=== PATIENT | female | born 1960 | race Caucasian/White ===

== ENCOUNTER 2016-09-09 07:20 | Inpatient (IN) | payer BC ==
[2016-09-09] VITALS (7 sets, daily range): BP systolic 102–146; BP diastolic 66–128
[~2016-09-09] VITALS: Ht 157.4 cm; Wt 45.8 kg
--- NOTE | ~2016-09-09 | PR ---
[place], [place] PROGRESS NOTE NAME: TERA HU UNIT #: [id number] ROOM: 531 DOCTOR: VERO PILLAI MD BIRTHDATE: [birth year] DOS: 09/11/2016 SUBJECTIVE: The patient, although slightly breathing better, but still has significant cough, chest congestion, shortness of breath, and some suffocating feeling. OBJECTIVE: VITAL SIGNS: Blood pressure 134/74, heart rate 73 beats per minute, breathing 20 times per minute, temperature 98 degrees Fahrenheit. GENERAL APPEARANCE: The patient is alert and oriented x 3, in no visible distress. HEENT AND NECK: Exam within normal limits. CARDIOVASCULAR SYSTEM: Heart rate is regular in rate and rhythm. S1 and S2 normally audible. LUNGS: Expiratory wheezing on lung auscultation and decreased breath sounds. ABDOMEN: Soft, nontender. No obvious organomegaly. Bowel sounds are present. EXTREMITIES: Without significant cyanosis or edema. IMPRESSION AND PLAN: 1. The patient with exacerbation of severe underlying chronic obstructive pulmonary disease with slightly improved breathing, but still short of breath. I will continue corticosteroids, bronchodilators, oxygen, and antibiotics. Dr. Lezama to see the patient tomorrow. 2. Right lower rib severe pains have completely resolved with Neurontin and Mirapex, which will be continued. 3. The patient has some abnormal findings on the CT scan of the abdomen and pelvis showing that urinary bladder was moderately distended and density in the region of left ureterovesical junction, for which she will be referred to urologist as an outpatient. This was discussed with the patient. She also has possible ureterocele. 4. Cardiac enzymes were negative. 5. Benign essential hypertension with controlled blood pressures. 6. Nicotine smoke dependence. The patient is promising not to smoke cigarettes anymore. 7. Generalized anxiety disorder, reasonably controlled. 8. Gastroesophageal reflux disease and esophagitis, asymptomatic. [place], [place] PROGRESS NOTE NAME: TERA HU UNIT #: [id number] ROOM: 531 DOCTOR: VERO PILLAI MD BIRTHDATE: [birth year] VERO PILLAI MD CM:PNTRANS [id number] VERO PILLAI MD 09/12/16 1320 interface
--- NOTE | ~2016-09-09 | PR ---
[place], [place] PROGRESS NOTE NAME: TERA HU [facility] #: [id number] UNIT #: [id number] ROOM: 531 DOCTOR: JONATHAN MARC MD,ZAC BIRTHDATE: [birth year] DOS: 09/12/2016 SUBJECTIVE: She has been noted with some chest congestion and coughing. Denies symptoms of chest pain or any abdominal pain. OBJECTIVE: VITAL SIGNS: For the patient which has been recorded shows the temperature of the patient recorded as normal. The respiratory rate 20, heart rate of 97, blood pressure 137/85. HEENT: Shows no acute change. NECK: Supple. CARDIOVASCULAR: S1, S2 audible. LUNGS: The patient noted ____ wheezing, no crackles. ABDOMEN: Soft, nontender. IMPRESSION: The patient with acute exacerbation of chronic obstructive pulmonary disease, acute tracheobronchitis with pain in the chest of the patient and upper quadrant for the patient currently unknown. PLAN OF TREATMENT: No changes in the plan of management from pulmonary standpoint. Continue the patient on current therapy, plan of care as previously. Supportive care. ZAC CASTILLO MD CM:PNTRANS [phone] ZAC MARC MD 09/13/16 0233 interface
--- NOTE | ~2016-09-09 | PR ---
[place], [place] PROGRESS NOTE NAME: TERA HU UNIT #: [id number] ROOM: 531 DOCTOR: ZAC BYRNES MD BIRTHDATE: [birth year] DOS: 09/10/2016 PULMONARY PROGRESS NOTE SUBJECTIVE: She has been noted awake and alert at this time without any distress. OBJECTIVE: VITAL SIGNS: For the patient, which has been recorded showed the temperature noted as normal, respiratory rate 20, heart rate of 110, blood pressure 128/67. HEENT: Examination shows no new change. NECK: Supple. CARDIOVASCULAR SYSTEM: S1, S2 is audible. LUNGS: The patient was noted without any wheezing or crackles at this time. ABDOMEN: Soft, nontender. LABORATORY DATA: CBC of the patient that was done this morning was noted WBC count 11.4, remaining CBC was essentially noted as normal. Troponin was noted as normal. CT of the chest for the patient shows postoperative changes in the right upper lobe for this patient with some scarring without any other acute abnormalities. CT scan of the abdomen and pelvis for the patient was describing some abnormality for this patient in the ureter and other area for this patient. IMPRESSION: 1. The patient with pain which was described to be spasmodic most likely related to the GI tract for this patient or urogenital tract to be considered not related to the lung problem. 2. History of chronic obstructive pulmonary disease. 3. Status post right upper lobectomy. 4. Stable pulmonary nodules noted in the right mid lung. PLAN OF TREATMENT: The patient subpleural subcentimeter in size is stable as compared to the previous CT scan of the chest for the patient that was done for this patient on 01/01/2016. The scarring in the right upper lobe for the patient does not result in any pain, which was described with the patient in the lower anterior chest wall, right upper quadrant and in the abdomen. [place], [place] PROGRESS NOTE NAME: TERA HU UNIT #: [id number] ROOM: 531 DOCTOR: ZAC BYRNES MD BIRTHDATE: [birth year] ZAC CASTILLO MD CM:PNTRANS [id number] ZAC MARC MD 09/11/16 0225 interface
--- NOTE | ~2016-09-09 | WRIGHTHP ---
[place], [place] PATIENT HISTORY AND PHYSICAL EXAM NAME: TERA HU [facility] #: [id number] UNIT #: [id number] ROOM: 531 DOCTOR: VERO PILLAI MD BIRTHDATE: [birth year] DOS: 09/09/2016 HISTORY OF PRESENT ILLNESS: The patient is a 56-year-old female with a past medical history of, 1. Advanced end-stage chronic obstructive pulmonary disease. 2. History of generalized anxiety disorder. 3. Benign essential hypertension. 4. Vitamin D deficiency. 5. Gastroesophageal reflux disease and esophagitis. 6. History of right lung lobectomy for a benign mass. 7. Continued nicotine smoke dependence. The patient presented to the Emergency Department with a few day complaints of increasing shortness of breath, cough and severe and recurrent pains in the right lower ribs where she had chest tube placement in the past, which are chronic for her. The patient has started smoking a few cigarettes a day again. No dizziness or fainting episodes. No other GI or urinary symptoms, but the patient has significant cough and shortness of breath. No complaints of any other chest pain or angina-like symptoms. No GI or urinary symptoms. SYSTEMS REVIEW: LUNGS: Increasing shortness of breath and cough. GASTROINTESTINAL: No nausea, vomiting, diarrhea, or constipation. CARDIOVASCULAR SYSTEM: Some complains of muscular type right lower chest pains, which are recurrent and chronic, otherwise no palpitations, no angina symptoms. SOCIAL HISTORY: , smokes a few cigarettes a day and now, longtime heavy smoker in the past. Denies any alcohol or drug abuse. FAMILY HISTORY: Noncontributory. HOME MEDICATIONS: The patient takes ropinirole, diltiazem, omeprazole, bronchodilators, Xanax at home. ALLERGIES: Known allergies to IRBESARTAN. PHYSICAL EXAMINATION: GENERAL: Alert and oriented x 3, in no visible distress. VITAL SIGNS: Blood pressure 102/82, heart rate of 106 beats per minute, breathing 20 times per minute, temperature 98.4 degrees Fahrenheit. HEENT AND NECK: Extraocular movements are intact. Sclerae are anicteric. Oral mucosa is moist and clean. No obvious facial weakness. Neck is supple without any lymphadenopathy. No thyromegaly. No JVD. No carotid arterial bruits. LUNGS: Decreased breath sounds all over on lung auscultation. CARDIOVASCULAR SYSTEM: Heart rate is regular in rate and rhythm. S1 and S2 normally audible. No significant murmur or any other abnormal cardiac sounds. ABDOMEN: Soft, nontender. No obvious organomegaly. Bowel sounds are present. No obvious herniation. [place], [place] PATIENT HISTORY AND PHYSICAL EXAM NAME: TERA HU [facility] #: [id number] UNIT #: [id number] ROOM: 531 DOCTOR: VERO PILLAI MD BIRTHDATE: [birth year] EXTREMITIES: Without significant cyanosis or edema. Warm to touch. CENTRAL NERVOUS SYSTEM: Alert and oriented x 3. Cranial nerves II-XII are intact. Speech is normal. The patient is able to move all extremities. Normal muscle strength. Deep tendon reflexes are equal on both sides. Plantars were downgoing. IMPRESSION: 1. Exacerbation of severe underlying chronic obstructive pulmonary disease with increased shortness of breath and hypoxemia along with tachycardia is being treated with IV Solu-Medrol, oxygen and nebulizer treatments with DuoNeb and antibiotic azithromycin and Dr. Grijalva, the park ranger is following her. A CT scan of the chest and CT angiogram were performed without any acute or any significant abnormality. The patient being monitored closely in the [facility]. 2. Nicotine smoke dependence. The patient again encouraged to stop smoking cigarettes. She keeps going back to smoking cigarettes, which she stopped when she had a lung mass surgery. The patient has advanced end-stage lung disease and was again encouraged not to smoke cigarettes anymore. 3. Benign essential hypertension with controlled blood pressures with treatment. 4. Painful muscle spasms in right lower rib area and some tenderness in the right lower rib and epigastric area. The patient says she has had cholecystectomy in the past. I will check her cardiac enzymes and also stop her ropinirole, instead give her a higher dose of Mirapex and also start her on Neurontin for help with her pain. I am also giving her cough suppression with Robitussin-DM. The patient's cough is probably also aggravating the muscle spasms and hurting her even more. 5. Gastroesophageal reflux disease and esophagitis. I will continue omeprazole which she is already taking at home. 6. For Vitamin D deficiency, the patient on vitamin D supplements, which are being continued. 7. Benign essential hypertension. The patient continued on Cardizem. Blood pressures are being monitored and she is also on a car icer. VERO PILLAI MD CM:HISPHYS:PATIENT HISTORY AND PHYSICAL EXAMINATION [phone] VERO PILLAI MD 09/09/16 9456 interface
--- NOTE | ~2016-09-09 | PR ---
[place], [place] PROGRESS NOTE NAME: TERA HU [facility] #: [id number] UNIT #: [id number] ROOM: 531 DOCTOR: MARYSE VASQUEZ MD BIRTHDATE: [birth year] DOS: 09/12/2016 SUBJECTIVE: The patient is resting comfortably, does not have any complaints other than she is slowly getting better. PHYSICAL EXAMINATION: GENERAL: She is awake and alert and oriented. VITAL SIGNS: Pressure is 130/70, pulse of 86, respirations 14, afebrile. LUNGS: Diminished breath sounds, a few scattered wheezes. HEART: Regular. ABDOMEN: Obese, soft. EXTREMITIES: Without any edema. ASSESSMENT AND PLAN: 1. Acute exacerbation of chronic obstructive pulmonary disease, on appropriate treatment regimen. 2. Tobacco dependence, most likely responsible for repeat exacerbations. No changes made in the treatment plan. Continue current care. Follow Dr. Grijalva and Dr. Liz's instructions. MARYSE VASQUEZ MD CM:PNTRANS [phone] MARYSE VASQUEZ MD 09/13/16 0059 interface
--- NOTE | ~2016-09-09 | CON ---
[place], [place] REPORT OF CONSULTATION NAME: TERA HU [facility] #: [id number] UNIT #: [id number] ROOM: 531 DOCTOR: ZAC BYRNES MD BIRTHDATE: [birth year] DOS: 09/09/2016 PULMONARY CONSULTATION REASON FOR CONSULTATION: Assess the patient's chest pain and other symptoms. HISTORY OF PRESENT ILLNESS: This is a 56-year-old white female came into the Emergency Room and hospitalized this morning as the patient was complaining of symptoms of shortness of breath that has been noted gradually worsening. These symptoms were also associated at time with the patient's pain, which were described in the right lower anterior chest wall, right upper quadrant and flank area. The pain was described to be spasmodic in nature and described it as severe and comes without any warning as per patient. The pain does resolve later on. She denies symptoms of hemoptysis or chest trauma. Denies symptoms of sputum expectoration and coughing. Wheezing for the patient was known. REVIEW OF SYSTEMS: CONSTITUTIONAL: Fatigue and tiredness noted no symptoms of fever or chills. EYES: Denies any burning, redness, or tenderness. EARS, NOSE, THROAT SYMPTOMS: No sore throat, hoarseness, otalgia, postnasal drainage. CARDIOVASCULAR: Denies anginal pain, edema of the lower extremities or palpitations. GASTROINTESTINAL: Dysphagia, nausea, vomiting, diarrhea, abdominal pain, hematemesis, melena, or hematochezia. SKIN: Denies lesions or rashes. GENITOURINARY: Denies dysuria, suprapubic pain, hematuria. CENTRAL NERVOUS SYSTEM: No dizziness, headache, diplopia, syncopal episodes or seizures. Remaining systems were reviewed. They were noted all negative. PAST MEDICAL HISTORY: 1. Past hospitalization in 07/2015 for the medical and acute exacerbation of COPD. 2. Centrilobular emphysema. 3. Essential hypertension. 4. Generalized anxiety disorder. 5. Right upper lobectomy for the patient, which was noted non-malignant nodule for the patient in [facility]. PAST SURGICAL HISTORY: 1. Complete hysterectomy in 1999. 2. Laparoscopic cholecystectomy in 1999. 3. Fiberoptic bronchoscopy in July 2015 and in 2012. 4. Resection of right upper lung pulmonary nodule on in [facility]. FAMILY HISTORY: The patient's mother at age of 7272 years old, complication of bronchial asthma. Father at age of 6161 years old from acute myocardial infarction. [place], [place] REPORT OF CONSULTATION NAME: TERA HU UNIT #: [id number] ROOM: 531 DOCTOR: JONATHAN MRAC MD,ZAC BIRTHDATE: [birth year] SOCIAL HISTORY: The patient is , has one child. Denies any alcohol use or illicit drug use. Tobacco use was noted a pack of cigarettes a day since teenager and later on the patient had been smoking cigarettes intermittently, currently stating that she has been smoking only 2 cigarettes a day. MEDICATIONS: Currently administered medications noted use of Mirapex, IV Solu-Medrol, Requip, Daliresp, Cardizem-CD, omeprazole, Dulera, DuoNeb, Zithromax, Xanax, gabapentin and other medications p.r.n. administration. DRUG ALLERGIES: The patient noted as allergies to the Avapro. PHYSICAL EXAMINATION: GENERAL: A 56-year-old female who has been noted currently awake and alert without any distress. VITAL SIGNS: Height of 5 feet 2 inches, weight of 101 pounds, BMI 18.5. Normal temperature, respiratory rate 20, heart rate 83 and noted 154 beats per minute on admission. Blood pressure noted 104/82-132/84. Pulse oxygen saturation of the patient on 3 liters nasal cannula 96% saturation. HEENT: Examination shows head is atraumatic. Eyes nonicterus. NECK: Supple. CARDIOVASCULAR: S1, S2 audible. LUNGS: General reduction in breath sounds noted with expiratory wheezing. There are no crackles. ABDOMEN: Soft, nontender and flat. EXTREMITIES: Show no edema, clubbing, cyanosis. CENTRAL NERVOUS SYSTEM: Cranial nerves 2 through 12 intact. No focal deficits. MUSCULOSKELETAL: No acute deformities. LABORATORY DATA: Lactic acid for the patient this morning was normal. CBC this morning essentially noted as normal. PT/PTT this morning was normal. CMP this morning, normal C-reactive protein minimally elevated at 2.12. Normal CK, MB and troponin. The chest x-ray shows postsurgical changes of the right upper lobe, for the patient, otherwise, hyperinflation of the lungs without any acute abnormalities. One-view x-ray was done. IMPRESSION: 1. Current pain, which has been described by the patient in the right lower anterior chest wall as the right upper quadrant and possibly the right flank, spasmodic in nature, etiology unclear. 2. Rule out etiology related to the biliary colic, related to any kidney problems including stones and others. 3. Ongoing acute exacerbation of chronic obstructive pulmonary disease noted with low-grade continued nicotine abuse. 4. History of essential hypertension. 5. Past surgical history of right upper lobectomy of the patient as well. PLAN OF TREATMENT: The patient has been getting IV Solu-Medrol, which was started by Dr. Liz. The dose will be changed to higher dose. Currently, the patient has been getting Solu-Medrol 20 mg every 8 hours, which will be changed [place], [place] REPORT OF CONSULTATION NAME: TERA HU UNIT #: [id number] ROOM: 531 DOCTOR: JONATHAN MARC MD,ZAC BIRTHDATE: [birth year] to 40 mg every 8 hours. CTA of the chest for the patient will be done to rule out any pulmonary problems including pulmonary embolism. A CT scan of the abdomen and pelvis, which was done with IV contrast to rule out any other abnormal pathology related to GI tract for this current pain assessment. Tobacco cessation has been discussed with the patient. Continue bronchodilators and other treatment plan of management. Usual care. Supportive treatment. All other therapies. Consultation assessment and management requested by Dr. Liz. Thank you for allowing me to participate in the care of this patient. ZAC CASTILLO MD CM:CONSTR:REPORT OF CONSULTATION 1249 09/10/16 1559 interface
--- NOTE | ~2016-09-09 | DS ---
[place], [place] DISCHARGE SUMMARY NAME: TERA HU UNIT #: [id number] ROOM: 531 DOCTOR: VERO PILLAI MD BIRTHDATE: [birth year] DOS: 09/13/2016 DISCHARGE DIAGNOSES: 1. Exacerbation of severe underlying chronic obstructive pulmonary disease with acute or chronic respiratory failure, improved with treatment. 2. Severe musculoskeletal right lower chest pains, recurrent completely resolved with treatment. 3. Nicotine smoke dependence. The patient is encouraged to stay away from smoking cigarettes and she has agreed. 4. Advanced end-stage chronic obstructive pulmonary disease with continued nicotine smoke dependence. 5. Benign essential hypertension. 6. Generalized anxiety disorder. 7. Vitamin D deficiency. 8. Gastroesophageal reflux disease and esophagitis. 9. History of right lung lobectomy for benign mass in the past. The patient had advanced emphysema and continued on nicotine smoke dependence, presented with increased shortness of breath and wheezing, which was treated with corticosteroids, oxygen, bronchodilators and antibiotic and her breathing is improved enough that she could be discharged to home today on tapering down dose of prednisone and Augmentin. The patient does have oxygen at home and also wants to continue on DuoNeb. 10. Severe muscle spasms and pain in the right lower ribs and muscles, especially with coughing, now resolved with use of Neurontin. The patient has been with pain free during her stay at the hospital. 11. Benign essential hypertension with controlled blood pressure with treatment. 13. Gastroesophageal reflux disease and reflux esophagitis, asymptomatic with omeprazole. 14. Vitamin D deficiency. The patient continued on supplements. Follow up at the office in less than a week. DISCHARGE MANAGEMENT: Medrol Dosepak, Daliresp 500 mcg daily, diltiazem 60 mg b.i.d., omeprazole 40 mg a day, Dulera twice a day, DuoNeb every 4 hours as needed, Augmentin for 1 week and Xanax p.r.n. [place], [place] DISCHARGE SUMMARY NAME: TERA HU UNIT #: [id number] ROOM: 531 DOCTOR: VERO PILLAI MD BIRTHDATE: [birth year] VERO PILLAI MD CM:ANIKET [phone] VERO PILLAI MD 09/14/16 0039 interface
--- NOTE | ~2016-09-09 | PR ---
[place], [place] PROGRESS NOTE NAME: TERA HU UNIT #: [id number] ROOM: 531 DOCTOR: VERO PILLAI MD BIRTHDATE: [birth year] DOS: 09/10/2016 SUBJECTIVE: The patient says her pain in the right lower ribs and chest and upper abdominal area completely resolved. She has had no pain since Emergency Room. OBJECTIVE: GENERAL APPEARANCE: The patient is alert and oriented x 3, in no visible distress. VITAL SIGNS: Blood pressure 128/67, heart rate of 110 beats per minute, breathing 20 times per minute, temperature 98 degrees Fahrenheit. HEENT AND NECK: Exam within normal limits. CARDIOVASCULAR SYSTEM: Heart rate is regular in rate and rhythm. S1 and S2 normally audible. LUNGS: Decreased breath sounds all over. ABDOMEN: Soft, nontender. No obvious organomegaly. Bowel sounds are present. EXTREMITIES: Without significant cyanosis or edema. IMPRESSION: 1. The patient with exacerbation of severe underlying chronic obstructive pulmonary disease. The patient says she still has significant cough and shortness of breath and her breathing has not improved, actually possibly deteriorated. I will get blood gases on her and she stays on a monitored bed and does have some sinus tachycardia. 2. Nicotine smoke dependence. The patient promising not to smoke cigarettes anymore. 3. Benign essential hypertension with controlled blood pressures. 4. Sinus tachycardia secondary to respiratory difficulty and respiratory failure. 5. Severe right lower chest muscular spasms and severe pain that has completely resolved with Neurontin and Mirapex. 6. Gastroesophageal reflux disease and esophagitis, asymptomatic with omeprazole. 7. Vitamin D deficiency. The patient on supplements. 8. Benign essential hypertension with controlled blood pressures, the patient on Cardizem. 9. Vitamin D deficiency, replaced with supplements. [place], [place] PROGRESS NOTE NAME: TERA HU UNIT #: [id number] ROOM: 531 DOCTOR: VERO PILLAI MD BIRTHDATE: [birth year] VERO PILLAI MD CM:PNTRANS [phone] VERO PILLAI MD 09/11/16 0028 interface
--- NOTE | ~2016-09-09 | PR ---
[place], [place] PROGRESS NOTE [facility]: [facility] HU [facility] #: [id number] UNIT #: [id number] ROOM: 531 DOCTOR: JONATHAN MARC MD,ZAC BIRTHDATE: [birth year] DOS: 09/11/2016 PULMONARY PROGRESS NOTE SUBJECTIVE: The patient remains free of any pain since hospitalization in the chest and the right upper quadrant of the abdomen. She has not been reported with any symptoms of coughing or sputum expectoration. OBJECTIVE: VITAL SIGNS: For the patient which has been recorded showed normal temperature, respiratory rate 20, heart rate 88, blood pressure 137/72. Pulse oxygen saturation of the patient on room air was 93% saturation. HEENT: Examination shows no acute change. NECK: Supple. CARDIOVASCULAR SYSTEM: S1, S2 audible. LUNGS: Noted without any crackles, rhonchi, or wheezing. ABDOMEN: Soft, nontender. LABORATORY DATA: They were no labs done today. The blood culture from the 09/09/2016 for this patient showed no bacterial growth. IMPRESSION: 1. The patient's pain in the right lower anterior chest wall as well as right upper quadrant of the patient and the right flank for this patient, exact etiology cannot be determined. 2. Past history of nicotine abuse for this patient as well as emphysema and past removal of the nodule in the right upper lung, which are noted normal . PLAN OF TREATMENT: No changes in pulmonary standpoint, the patient might be considered for home discharge on oral medications. Abstinence from tobacco use was advised. ZAC CASTILLO MD CM:PNTRANS [phone] ZAC MARC MD 09/12/16 0100 interface
[~2016-09-09 07:20] MED LIST: ADVAIR 500/501 E1; ADVAIR 500/501 EA INH; ALBUTEROL SULF0.5 M1 NEB; ALBUTEROL0.09 MG/A2; ALPRAZOLAM0.25 M2 PO; AMLODIPINE5 MG; AUGMENTIN 875 M1 TA1 PO; BACTROBAN2% TP; CIPRO500 MG PO; DALI500T PO; DELTASONE20 MG PO; DILTIAZEM HCL30 MG PO; DUONEB 3 MG/3 ML3 M1 NEB; MUCINEX600 MG PO; NEOSPORIN OINT15 GM T; NICODERM14 MG/24 H TD; OXYCODONE5 MG PO; OXYGEN NAS; PERCOCET 325 MG1 TA2 PO; PERCOCET 325 MG1 TA7 PO; PERCOCET 325 MG1 TAB PO; PREDNICOT10 MG PO; PREDNISONE10 MG PO; PREDNISONE5 MG PO; PRILOSEC40 M1 PO; PROAIR HFA0.09 MG/AC INH; PROAIR HFA8.5 GM INH; SPIRIVA18 MCG; SPIRIVA18 MCG PO; TOBRADEX 0.1%-0.5 ML OPH; ULTRAM50 MG PO; VIBRAMYCIN100 MG PO; VITAMIN D1000 IU PO; XANAX0.25 MG PO; ZESTRIL,PRINIVI10 MG; ZITHROMAX Z PA250 MG PO; ZOFRAN ODT4 MG SL
[2016-09-09] MEDS ORDERED: REQUIP0.5 MG PO (07:26)
[2016-09-09] MEDS ORDERED: CARDIZEM60 MG PO (07:27)
[2016-09-09 07:56] LABS: BASO % 0.3 % (0.0-1.0); EOS % 0.5 % (1.0-4.0); HEMATOCRIT 45.1 % (37.0-47.0); HEMOGLOBIN 15.5 g/dl (12.0-16.0); LYMPH % 13.3 % (27.0-41.0); MEAN CELL VOLUME 90.6 fl (81.0-99.0); MEAN CORPUSCULAR HGB 31.1 pg (27.0-31.0); MEAN CORPUSCULAR HGB CONC 34.4 g/dl (33.0-37.0); MEAN PLATELET VOLUME 9.7 fl (9.6-12.3); MONO # 0.6 10*3/uL (0.1-1.0); MONO % 8.5 % (3.0-9.0); NEUT # 5.7 10*3/uL (2.3-7.9); PLATELET COUNT AUTOMATED 207 10*3/uL (130-400); RED BLOOD COUNT 4.98 10*6/uL (4.10-5.10); RED CELL DISTRI WIDTH 12.2 % (0-14.5); WHITE BLOOD COUNT 7.4 10*3/uL (4.8-10.8)
[2016-09-09 08:05] LABS: INTERNATIONAL NORM RATIO 0.9 (2.0-3.5); PROTHROMBIN TIME 9.7 SECONDS (9.0-12.4)
[2016-09-09 08:14] LABS: ALBUMIN 4.2 gm/dl (3.1-4.5); ALKALINE PHOSPHATASE 85 U/L (45-117); BILIRUBIN, TOTAL 0.5 mg/dl (0.2-1.0); BUN 10 mg/dl (7-24); C-REACTIVE PROTEIN 2.12 MG/DL (0-0.3); CARBON DIOXIDE 25 mmol/L (21-32); CHLORIDE 108 mmol/L (98-107); CKMB 2.6 ng/ml (0.5-3.6); CPK 189 U/L (26-192); EST GLOM FILT AFRICAN AMERICAN > 60 ml/min; GLUCOSE 113 mg/dL (65-99); MAGNESIUM 2.3 mg/dL (1.5-2.1); POTASSIUM 4.1 mmol/L (3.5-5.1); SGOT/AST 19 IU/L (3-35); SGPT/ALT 22 U/L (12-78); SODIUM 140 mmol/L (136-145); TOTAL PROTEIN 7.5 gm/dL (6.4-8.2)
[2016-09-09 08:15] LABS: TROPONIN I < 0.015 ng/ml (<0.045)
[2016-09-10] VITALS: BP 124/65
[2016-09-10 06:07] LABS: HEMATOCRIT 39.8 % (37.0-47.0); HEMOGLOBIN 13.8 g/dl (12.0-16.0); MEAN CORPUSCULAR HGB 31.2 pg (27.0-31.0); MEAN CORPUSCULAR HGB CONC 34.7 g/dl (33.0-37.0); MEAN PLATELET VOLUME 10.1 fl (9.6-12.3); PLATELET COUNT AUTOMATED 205 10*3/uL (130-400); RED BLOOD COUNT 4.42 10*6/uL (4.10-5.10); WHITE BLOOD COUNT 11.4 10*3/uL (4.8-10.8)
[2016-09-10 06:40] LABS: LYMPHOCYTE # 0.5 10*3/uL (1.3-4.4); MONOCYTE # 0.1 10*3/uL (0.1-1.0); NEUTROPHIL # 10.8 10*3/uL (2.3-7.9); NEUTROPHILS 95 % (47-73); PLATELET SUFFICIENCY NORMAL (NORMAL); TOTAL CELLS COUNTED 100 #CELLS
[2016-09-10 08:00] VITALS: BP 128/67
[2016-09-10 12:00] VITALS: BP 127/82
[2016-09-10 16:00] VITALS: BP 128/68
[2016-09-10 20:00] VITALS: BP 131/68
[2016-09-11] VITALS: BP 125/64
[2016-09-11 08:00] VITALS: BP 137/72
[2016-09-11 12:00] VITALS: BP 121/66
[2016-09-11 16:00] VITALS: BP 134/74
[2016-09-11 20:00] VITALS: BP 131/75
[2016-09-12] VITALS: BP 135/82
[2016-09-12 08:00] VITALS: BP 137/85
[2016-09-12 12:00] VITALS: BP 125/97; BP 132/86
[2016-09-12 16:00] VITALS: BP 147/80
[2016-09-12 20:00] VITALS: BP 134/80
[2016-09-13] VITALS: BP 123/66
[2016-09-13 08:00] VITALS: BP 145/81
[2016-09-13 12:00] VITALS: BP 140/87
[2016-09-13 16:00] VITALS: BP 153/81
[2016-09-13] MEDS ORDERED: AUGMENTIN 875-875 MG PO (16:43)
[2016-09-13] MEDS ORDERED: MEDROL DOSEPAK4 MG PO (16:43)
[2016-09-13] MEDS ORDERED: GABAPENTIN100 M2 PO (16:43)
[2016-09-13] MEDS ORDERED: DUONEB 3 MG/3 ML3 M1 INH (18:03)
== END 2016-09-13 17:40 | disposition home or self-care (01) | DRG 189 ==
LOC: ED 07:20 → EDHOLD 08:29 → 5E 08:39
PROVIDERS: Emergency Medicine; Internal Medicine
DX: J96.21 Acute and chronic respiratory failure with hypoxia (principal); J44.0 Chronic obstructive pulmonary disease with (acute) lower respiratory infection; J44.1 Chronic obstructive pulmonary disease with (acute) exacerbation; R07.89 Other chest pain; F17.210 Nicotine dependence, cigarettes, uncomplicated; I10 Essential (primary) hypertension; F41.1 Generalized anxiety disorder; J20.9 Acute bronchitis, unspecified; E55.9 Vitamin D deficiency, unspecified; K21.0 Gastro-esophageal reflux disease with esophagitis; Z79.899 Other long term (current) drug therapy; Z88.8 Allergy status to other drugs, medicaments and biological substances; Z90.49 Acquired absence of other specified parts of digestive tract; Z90.710 Acquired absence of both cervix and uterus; Z82.49 Family history of ischemic heart disease and other diseases of the circulatory system; Z82.5 Family history of asthma and other chronic lower respiratory diseases

== ENCOUNTER → 2016-09-19 | Outpatient (CLI) | payer BC ==
[~2016-09-19] MED LIST changes: +AUGMENTIN 875-875 MG PO; +CARDIZEM60 MG PO; +DUONEB 3 MG/3 ML3 M1 INH; +GABAPENTIN100 M2 PO; +MEDROL DOSEPAK4 MG PO; +REQUIP0.5 MG PO
== END | disposition home or self-care (01) ==
LOC: LAB 17:06
DX: J18.9 Pneumonia, unspecified organism (principal)

== ENCOUNTER 2017-04-11 13:51 | Inpatient (IN) | payer BC ==
[2017-04-11] VITALS (10 sets, daily range): BP systolic 112–160; BP diastolic 58–94
[~2017-04-11] VITALS: Ht 152.4 cm; Wt 44.1 kg
--- NOTE | ~2017-04-11 | DS ---
[place], [place] DISCHARGE SUMMARY NAME: TERA HU ACC #: [id number] UNIT #: [id number] ROOM: 521 DOCTOR: VERO PILLAI MD BIRTHDATE: [birth year] DOS: DISCHARGE DIAGNOSES: 1. The patient with acute exacerbation of severe end stage underlying emphysema and COPD, improved with treatment. The patient was followed by Dr. Grijalva. 2. History of chronic nicotine smoke dependence. The patient has not smoked for 1 year, now has been referred for lung transplant. 3. History of benign essential hypertension. 4. Generalized anxiety disorder. 5. Gastroesophageal reflux disease and esophagitis. 6. History of lobectomy for benign mass. 7. Chronic back pains. HOSPITAL COURSE: The patient was admitted by Dr. Lucie Lezama for acute exacerbation of chronic obstructive pulmonary disease with acute over chronic respiratory failure. The patient needed 1 week of treatment and finally her breathing has improved and she has been cleared for discharge by the lung doctor, Dr. Grijalva. Acute leukocytosis apparently from corticosteroids. For chest pains, she was ruled out for myocardial infarction and a cardiac stress test was performed by Cardiology, did not show any reversible myocardial ischemia. LABORATORY DATA: White cell count 13,600, apparently related to corticosteroids. Otherwise, normal CBC, white cell count is actually improved now. Sputum cultures grew normal linette. DISCHARGE MANAGEMENT: Medrol Dosepak, diltiazem 60 mg b.i.d., omeprazole 40 mg a day, Daliresp 500 mcg daily, DuoNeb every 4 hours, Dulera twice a day, ropinirole 0.5 mg b.i.d. Follow up at the office on Thursday, Xajames p.r.n. [place], [place] DISCHARGE SUMMARY NAME: TERA HU UNIT #: [id number] ROOM: 521 DOCTOR: VERO PILLAI MD BIRTHDATE: [birth year] VERO PILLAI MD CM:DISCHARG 1433 VERO PILLAI MD 04/19/1733 interface
--- NOTE | ~2017-04-11 | ST ---
[place], [place] EXERCISE STRESS TEST REPORT NAME: TERA HU [facility] #: [id number] UNIT #: [id number] ROOM: 521 DOCTOR: LENKA HODGE,RAUDEL BIRTHDATE: [birth year] DOS: 04/12/2017 LEXISCAN STRESS TEST REASON FOR TEST: Chest pain. PHYSICAL EXAMINATION NECK: Supple. LUNGS: Clear anteriorly. HEART: Regular rhythm. PROTOCOL: Lexiscan protocol. Maximum heart rate of 110 and peak blood pressure 122/70. Symptoms: The patient is chest pain free. EKG: Resting EKG, sinus rhythm with sinus tachycardia. Stress EKG showed no ischemia, no arrhythmias. CONCLUSION: The patient is chest pain free, developed some headache and some nausea, requiring p.o. filling 50 mg intravenously. POST-STRESS COMPLICATIONS: None. The patient received a total of 0.4 mg of Lexiscan. RAUDEL OG MD CM:STRESS:EXERCISE STRESS TEST REPORT 222 RAUDEL OG MD
--- NOTE | ~2017-04-11 | PR ---
[place], [place] PROGRESS NOTE NAME: TERA HU [facility] #: [id number] UNIT #: [id number] ROOM: 521 DOCTOR: JONATHAN MARC MD,ZAC BIRTHDATE: [birth year] DOS: 04/16/2017 SUBJECTIVE: She has been noted comfortable at this time without any distress, but cough has been noted persistent not resolving. She is n.p.o. past midnight for planned bronchoscopy to be done today. OBJECTIVE: VITAL SIGNS: Temperature of the patient noted at 99.3 degree Fahrenheit, normal temperature, respiratory rate ____, heart rate of 69-112, mild sinus tachycardia. CARDIOVASCULAR: S1, S2 is audible without any added sounds. LUNGS: Noted generally decreased breath sounds with mild expiratory wheezing bilaterally, diffuse. ABDOMEN: Soft, nontender. EXTREMITIES: Without any edema. LABORATORY DATA: Culture of the sputum for this patient showed normal linette. IMPRESSION: The patient with acute exacerbation of chronic obstructive pulmonary disease with acute bronchitis for the patient with persistent cough, although symptoms has been slowly resolving. The cough remains persistent secondary to the infection in mucus plugs of the major airways. Currently, plan for therapeutic bronchoscopy today. PLAN OF MANAGEMENT: Continuation of the bronchodilators, oxygen supplementation. Proceed with a therapeutic bronchoscopy. Addition change in treatment will be made based on progression of the illness as needed. ZAC CASTILLO MD CM:PNTRANS [id number] ZAC MARC MD 04/16/171902 interface
--- NOTE | ~2017-04-11 | CON ---
[place], [place] [facility]ATION [id number] UN[facility] #: [id number] ROOM: 521 DOCTOR: RAUDEL OG MD BIRTHDATE: [birth year] DOS: 04/12/2017 REASON FOR CONSULTATION: Chest pain. HISTORY OF PRESENT ILLNESS: The patient is a 56-year-old patient with history of severe COPD, tobacco use, who came to the Emergency Room for chest pain. She described this pain as resting chest pain in the left of the chest; the left shoulder area like a burning pain, pain lasted almost all day. No associated nausea, diaphoresis or dizziness. She did have some chronic shortness of breath. Her pain gradually eased off while she was in the Emergency Room. Again, this pain was mostly resting pain, unchanged with exertion. She has some chronic shortness of breath with COPD, still smokes about half a pack a day. She denied any nausea, vomiting, diarrhea. No PND. No orthopnea. No edema. No palpitation or dizziness. No hematuria or dysuria. She did have some cough with minimal sputum production. REVIEW OF SYSTEMS: Review of the 8 systems negative except as mentioned above. PAST MEDICAL HISTORY: 1. History of advanced COPD. 2. ____. 3. Hypertension. 4. GERD. 5. Right lung lobectomy. SOCIAL HISTORY: The patient continues tobacco use about half pack a day. Denies any alcohol or illicit drug abuse. FAMILY HISTORY: Noncontributory. PAST SURGICAL HISTORY: Noncontributory. MEDICATIONS AND ALLERGIES: Reviewed. PHYSICAL EXAMINATION: VITAL SIGNS: Blood pressure 132/70, pulse 108, respirations 22. GENERAL: Alert, comfortable, in no acute distress. NECK: Supple. No distended neck veins. No carotid bruit. CHEST: Symmetrical, nontender. LUNGS: A few scattered rhonchi, but good air entry bilaterally. HEART: Regular rhythm. No S3. Grade 1/6 systolic murmur. ABDOMEN: Benign, nontender. Bowel sounds normal. EXTREMITIES: Showed no edema. Distal pulses are palpable. SKIN: Warm and dry. No cyanosis. No clubbing. RECTAL: Deferred. GENITOURINARY: Deferred. NEUROLOGIC: The patient is alert, oriented. No focal neurologic deficit. REVIEW OF THE DIAGNOSTIC TESTS: EKG showed sinus tachycardia, nondiagnostic inferior Q-waves. CBC, chemistry and labs reviewed. Potassium 3.6, creatinine [place], [place] REPORT OF CONSULTATION NAME: TERA HU UNIT #: [id number] ROOM: 521 DOCTOR: LENKA HODGE,RAUDEL BIRTHDATE: [birth year] 0.72. Hemoglobin 11. IMPRESSION: 1. Atypical chest pain, myocardial infarction ruled out with negative troponins x 3. 2. Chronic dyspnea on exertion due to chronic obstructive pulmonary disease. No acute heart failure. 3. Tobacco use. The patient counseled to quit smoking. 4. Advanced chronic obstructive pulmonary disease, on home oxygen as needed. 5. Cough with minimal sputum due to possibly tobacco induced bronchitis. RECOMMENDATIONS: 1. The patient is to continue current medication. 2. Her blood pressure is stable. She is slightly sinus tachy due to her COPD. 3. Lexiscan stress tomorrow. 4. Her 2D echo from 2016 reviewed. 4. If the stress test is unremarkable, she can be discharged home tomorrow. Thank you, Dr. Lezama for asking us to evaluate this patient. We will follow the case along with you. RAUDEL OG MD CM:CONSTR:REPORT OF CONSULTATION 1110 04/13/17 0402 interface
--- NOTE | ~2017-04-11 | PR ---
[place], [place] PROGRESS NOTE NAME: TERA HU [facility] #: [id number] UNIT #: [id number] ROOM: 521 DOCTOR: JONATHAN MARC MD,ZAC BIRTHDATE: [birth year] DOS: 04/13/2017 SUBJECTIVE: She has been noted comfortable at this time without any distress. She has not been noting symptoms of chest pain. Chest pain previously noted on the left side seemed to be resolved. The shortness breath and chest congestion were noted decreased from yesterday. OBJECTIVE: VITAL SIGNS: For the patient, which have been recorded showed normal temperature, respiratory rate 18, heart rate 96, blood pressure 126/68. Pulse oxygen saturation on 3 liters cannula 92% saturation. HEENT: Examination shows no acute change. NECK: Supple. CARDIOVASCULAR: S1, S2 audible. LUNGS: Generalized reduction in the breath sounds were noted. ABDOMEN: Soft, nontender. IMPRESSION: The patient with resolving acute exacerbation of chronic obstructive pulmonary disease, acute tracheobronchitis, and atypical chest pain. Currently, planned for the Cardiolite stress test. PLAN OF MANAGEMENT: Continue steroids, bronchodilators, oxygen supplementation therapy. Plan of management in progress. Usual care. Other supportive plan of management as well. ZAC CASTILLO MD CM:PNTRANS [id number] ZAC MARC MD 04/14/17 0038 interface
--- NOTE | ~2017-04-11 | PR ---
[place], [place] PROGRESS NOTE NAME: TERA HU [facility] #: [id number] UNIT #: [id number] ROOM: 521 DOCTOR: MARYSE VASQUEZ MD BIRTHDATE: [birth year] DOS: 04/13/2017 SUBJECTIVE: The patient is doing fine without any complaints this morning. Appreciate Dr. Grijalva's and Dr. Reeves's input. OBJECTIVE: VITAL SIGNS: Graphic trend shows a pressure of 126/ , pulse of 96, respirations 18, temperature 98.6. LUNGS: Clear. HEART: Regular. ABDOMEN: Soft. EXTREMITIES: Without any edema. ASSESSMENT AND PLAN: 1. Acute exacerbation of chronic obstructive pulmonary disease, on IV steroids now. 2. Chest pain, ruled out for myocardial infarction, awaiting a stress test today. 3. Headaches, from the nitro paste, improved after Toradol was given. 4. Elevated white cell count, possibly from the steroids that the patient was on before she came into the hospital. MARYSE VASQUEZ MD CM:PNTRANS [phone] MARYSE VASQUEZ MD 04/13/17 1105 interface
--- NOTE | ~2017-04-11 | CON ---
[place], [place] REPORT OF CONSULTATION NAME: TERA HU [facility] #: [id number] UNIT #: [id number] ROOM: 521 DOCTOR: ZAC BYRNES MD BIRTHDATE: [birth year] DOS: 04/12/2017 CONSULTATION REQUESTED BY: Dr. Lucie Lezama REASON FOR CONSULTATION: The patient with left-sided chest pain for the patient as well as increased respiratory symptoms, exacerbation of COPD. HISTORY OF PRESENT ILLNESS: A 56-year-old white female who has been known to me in the past with history of severe centrilobular emphysema and COPD. She has not been monitored in the office. The patient does not have any regular followups. She has been managed usually by the primary care physician, Dr. Liz. The patient presented to the Emergency Room this morning as she complains of having severe chest pain, which is described in the left side of the chest. The patient thought that she was having heart attack. The pain was described to be severe for the patient, retrosternal, left side without any radiation. The pain was described to be sharp. Currently, the patient has been noted better. She presented to the hospital Emergency on 04/11/2017, underwent CTA of the chest and a diagnosis of pulmonary embolism was also excluded. She stated that since she has been hospitalized, she developed severe coughing with intermittent sputum expectoration, yellowish to green in color. Shortness of breath was still described for the patient at this time with wheezing and tightness in the chest. REVIEW OF SYSTEMS: CONSTITUTIONAL SYMPTOMS: Fatigue and tiredness noted without any symptoms of fever and chills reported. EYES: Denies burning, redness, or tenderness. EARS, NOSE, THROAT SYMPTOMS: No sore throat, hoarseness, otalgia, postnasal drainage or epistaxis. CARDIOVASCULAR: Denies anginal pain, edema, pain of the lower extremity. GASTROINTESTINAL: No dysphagia, nausea, vomiting, diarrhea, abdominal pain, hematemesis, melena, or hematochezia. SKIN: Denies lesions or rashes. MUSCULOSKELETAL: No acute joint pain, redness, tenderness. CENTRAL NERVOUS SYSTEM: No dizziness, headache, diplopia, syncopal episode, tingling sensation of the extremities. The remaining systems were reviewed. They were noted all negative. PAST MEDICAL HISTORY: 1. Centrilobular emphysema. 2. Essential hypertension. 3. anxiety disorder. 4. Chronic nicotine dependence. 5. History of a benign pulmonary nodule in the right lung, status post right upper lobectomy. 6. History of restless leg syndrome. PAST SURGICAL HISTORY: 1. Complete hysterectomy in 1999. [place], [place] REPORT OF CONSULTATION NAME: TERA HU UNIT #: [id number] ROOM: 521 DOCTOR: JONATHAN MARC MD,ZAC BIRTHDATE: [birth year] 2. Laparoscopic cholecystectomy in 1999. 3. Therapeutic bronchoscopies in the past. 4. Right upper lobectomy for the patient for the pulmonary nodule, in [facility]. SOCIAL HISTORY: The patient is , has one child. Denies history of alcohol use, illicit drug use. Tobacco use, noted a pack of cigarettes per day. Continues to smoke cigarettes, intermittently of different amount. FAMILY HISTORY: The patient's mother at the age of 70 due to complication of bronchial asthma. Father at age of 61 due to complication related to acute myocardial infarction. CURRENT MEDICATIONS: Administered noted as use of Cardizem, omeprazole, Daliresp, DuoNeb, Dulera, Requip, and Xanax. ALLERGIES: NOTED ALLERGY TO THE AVAPRO. PHYSICAL EXAMINATION: GENERAL: This is a 56-year-old female who femur has been noted currently awake and alert, ill looking, without any acute distress. Height of 5 feet, weight of 97 pounds, BMI 18.9. VITAL SIGNS: Normal temperature since admission, respiratory rate of 18-22, heart rate 116-96 and noted as 130 on admission with sinus tachycardia, blood pressure 112/70-132/70. Pulse oxygen saturation with the patient on 3 liters cannula was 98% saturation on room air, at admission was 96% saturation. HEENT: Head was atraumatic. Eyes nonicterus. NECK: Supple. CARDIOVASCULAR: S1, S2 audible. LUNGS: Noted generalized reduced breath sounds, diffuse expiratory wheezing. No crackles. ABDOMEN: Soft, flat, nontender, bowel sounds present. CENTRAL NERVOUS SYSTEM: Nonfocal. EXTREMITIES: Without edema, clubbing or cyanosis. MUSCULOSKELETAL: No deformities visible. SKIN: No lesions or rashes. LABORATORY DATA: CBC of the patient on 04/11/2017, WBC count 17.6, hemoglobin and hematocrit normal, platelet count was normal. PT/PTT of the patient on 04/11/2017 was normal. CMP of the patient on 04/11/2017 was noted as normal BUN, creatinine and LFTs as well as the troponins. Additional 3 sets were done yesterday on the patient, they were noted all negative. Chest x-ray of the patient shows change of COPD without any acute infiltration. CTA of the chest that was done for this patient personally reviewed from the PACS images of this patient and it shows evidence of postoperative changes noted in the right upper lung. Changes of COPD and centrilobular emphysema was noted with some bullous formation in the upper lung of the patient, greater on the right than the left lung. No acute pulmonary infiltration or any abnormal pulmonary nodules were visible. There was no evidence of pulmonary embolism or any mediastinal lymphadenopathy. [place], [place] REPORT OF CONSULTATION NAME: TERA HU UNIT #: [id number] ROOM: 521 DOCTOR: ZAC BYRNES MD BIRTHDATE: [birth year] IMPRESSION: 1. The patient will be currently admitted to the hospital with atypical chest pain. There was no evidence of pneumothorax, pneumonia explaining the current chest pain. Musculoskeletal chest pain versus other etiology chest pain, atypical for the patient such as coronary artery disease or gastroesophageal reflux would be considered. 2. Evidence of acute exacerbation of COPD for the patient was also noted with acute bronchitis, whether bacteria or viral to be determined. 3. The patient with a history of chronic nicotine abuse. 4. Restless leg syndrome. 5. Sinus tachycardia related to current acute exacerbation of chronic obstructive pulmonary disease. PLAN OF MANAGEMENT: Ordered the respiratory viral panel. Continue use of bronchodilators every 4 hours. Collect the sputum for Gram stain and culture. Solu-Medrol will be ordered for the patient for acute exacerbation of chronic obstructive pulmonary disease. All other supportive therapy, plan of management in progress. Usual care. Additional treatment to be done based on progression of illness. ZAC CASTILLO MD CM:CONSTR:REPORT OF CONSULTATION 1429 04/13/17 0355 interface
--- NOTE | ~2017-04-11 | PR ---
[place], [place] PROGRESS NOTE NAME: TERA HU [facility] #: [id number] UNIT #: [id number] ROOM: 521 DOCTOR: MARYSE VASQUEZ MD BIRTHDATE: [birth year] DOS: SUBJECTIVE: The patient is doing about the same. OBJECTIVE: VITAL SIGNS: Graphic trend shows blood pressure of 155/72, pulse of 89, respirations 18, temperature 98.2. LUNGS: Diminished breath sounds, few scattered rales heard bilaterally. HEART: Regular. ABDOMEN: Soft, scaphoid. EXTREMITIES: Without any edema. ASSESSMENT AND PLAN: 1. Acute exacerbation of chronic obstructive pulmonary disease. The patient is on maximal treatment plan. Dr. Grijalva is planning to take her for bronchoscopy today. 2. Chest pain, ruled out for myocardial infarction. The patient had a negative stress test. 3. Acute tracheobronchitis, on IV antibiotics, negative sputum cultures. MARYSE VASQUEZ MD CM:PNTRANS MARYSE VASQUEZ MD 04/16/17 0929 interface
--- NOTE | ~2017-04-11 | PR ---
[place], [place] PROGRESS NOTE NAME: TERA HU [facility] #: [id number] UNIT #: [id number] ROOM: 521 DOCTOR: LENKA HODGE,RAUDEL BIRTHDATE: [birth year] DOS: 04/12/2017 REASON FOR VISIT: Chest pain and shortness of breath. PHYSICAL EXAMINATION: NECK: Supple. LUNGS: Clear anteriorly. HEART: Regular rhythm, grade 1/6 systolic murmur. ABDOMEN: Benign, nontender. Bowel sounds normal. EXTREMITIES: Showed no edema. Distal pulses palpable. SKIN: Warm and dry. No cyanosis, no clubbing. RECTAL: Deferred. GENITOURINARY: Deferred. Medications and labs reviewed. IMPRESSION: 1. Chest pain, atypical, myocardial infarction ruled out. 2. Dyspnea due to chronic obstructive pulmonary disease exacerbation. 3. Tobacco use. 4. Hypertension. RECOMMENDATIONS: 1. Continue current medications. 2. Patient is strongly counseled to quit smoking. 3. Lexiscan stress today to rule out ischemia. 4. If stress test is unremarkable and she is feeling better, she can be discharged home from the cardiac standpoint. RAUDEL OG MD CM:CHRISTOPHE 2233 RAUDEL OG MD 04/14/17 0207 interface
--- NOTE | ~2017-04-11 | PR ---
[place], [place] PROGRESS NOTE NAME: TERA HU [facility] #: [id number] UNIT #: [id number] ROOM: 521 DOCTOR: MARYSE VASQUEZ MD BIRTHDATE: [birth year] DOS: SUBJECTIVE: The patient complains of a cough and headaches. She says she woke up around 2:00 with a cough. The cough had actually resolved and then it has come. OBJECTIVE: VITAL SIGNS: Graphic trend shows blood pressure of 106/65, pulse of 87, respirations 16, temperature 98.6. LUNGS: Diminished breath sounds. No wheeze is heard this morning. HEART: Regular. ABDOMEN: Soft, scaphoid. EXTREMITIES: Without any edema. LABORATORY DATA: Sputum cultures, preliminary shows normal linette. Stress test shows normal Lexiscan and normal myocardial perfusion images. ASSESSMENT AND PLAN: 11. Chest pain, ruled out for myocardial infarction with a negative stress test. 2. Chronic obstructive pulmonary disease exacerbation, on IV steroids and antibiotics. We will add Mucinex for her cough and Toradol for her headaches. We will discuss with Dr. Grijalva for further treatment plan. MARYSE VASQUEZ MD CM:PNTRANS 2 MARYSE VASQUEZ MD 04/14/1743 interface
--- NOTE | ~2017-04-11 | PR ---
[place], [place] PROGRESS NOTE [id number] #: [id number] ROOM: 521 DOCTOR: JONATHAN MARC MD,ZAC BIRTHDATE: [birth year] DOS: 04/18/2017 SUBJECTIVE: She had been resting comfortably in the bed without any acute distress, respiratory symptoms have been improving progressively. Shortness of breath has been improving. The cough has been noted mild. It was nonproductive. The wheezing resolved. OBJECTIVE: VITAL SIGNS: This morning, normal temperature, respiratory rate 20, heart rate 69, blood pressure 128/80. Pulse oxygen saturation on room air 95% saturation. HEENT: Examination shows no acute change. NECK: Supple. CARDIOVASCULAR: S1, S2 audible. LUNGS: No wheeze or crackle at the present time. ABDOMEN: Soft, flat, nontender. EXTREMITIES: Shows without any edema. IMPRESSION: The patient has stable respiratory status, with resolving acute tracheobronchitis and exacerbation of COPD. Culture of the bronchial washing noted negative. PLAN OF MANAGEMENT: Continuation of current therapy, plan and management previously without any care, other changes rather in the management. Usual care. Supportive therapy. ZAC CASTILLO MD CM:PNTRANS 1331 [id number] ZAC MARC MD 04/18/17 1345 interface
--- NOTE | ~2017-04-11 | PR ---
[place], [place] PROGRESS NOTE NAME: TERA HU [facility] #: [id number] UNIT #: [id number] ROOM: 521 DOCTOR: JONATHAN MARC MD,ZAC BIRTHDATE: [birth year] DOS: 04/17/2017 SUBJECTIVE: She has been noted with reduction in the respiratory symptom after bronchoscopy which was completed yesterday. Coughing, wheezing all her symptoms have been slowly resolving. OBJECTIVE: VITAL SIGNS: Normal temperature, respiratory rate 20, heart rate 87, blood pressure 134/73. HEENT: Examination shows no acute change. NECK: Supple. CARDIOVASCULAR: S1, S2 is audible. LUNGS: The patient was noted without any wheeze or crackles at the present time. ABDOMEN: Soft, nontender. EXTREMITIES: Without any acute edema. LABORATORY DATA: The cultures of the bronchial washing so far have not shown any bacterial growth with final results are pending. Respiratory viral culture noted negative. IMPRESSION: 1. Resolving acute exacerbation of chronic obstructive pulmonary disease with acute tracheobronchitis, status post bronchoscopy. 2. Chronic nicotine dependence. PLAN OF TREATMENT: Continuation of the current plan of management. Discharge planning could be started for home discharge today or tomorrow per primary care physician. ZAC CASTILLO MD CM:PNTRANS [id number] ZAC MARC MD 04/17/17 1629 interface
--- NOTE | ~2017-04-11 | WRIGHTHP ---
[place], [place] PATIENT HISTORY AND PHYSICAL EXAM NAME: TERA HU [facility] #: [id number] UNIT #: [id number] ROOM: 521 DOCTOR: MARYSE VASQUEZ MD BIRTHDATE: [birth year] DOS: 04/11/2017 HISTORY OF PRESENT ILLNESS: This patient is 56-year-old, known to me from previous admissions. The patient of Dr. Liz, comes in with complaints of pain when she takes a deep breath and cough. She denies having any fever or chills, any abdominal pain, nausea and emesis, any retrosternal chest pain with radiation. She came into the Emergency Room, was evaluated in the ER and was admitted. She also feels that her heart was racing and this morning she had woken up with a moist sounding cough. Denies having any discolored sputum. PAST MEDICAL HISTORY: Significant for: 1. Last hospitalization in September 2016 with exacerbation of COPD. 2. Continued nicotine abuse. 3. Benign hypertension. 4. Generalized anxiety disorder. 5. History of gastroesophageal reflux disease with esophagitis. 6. History of lobectomy for benign mass. 7. Chronic back pain. MEDICATIONS: That she is on currently are: Advair 500, DuoNeb, oxygen, Xanax 0.25 twice a day, Augmentin, prednisone tapering dose, diltiazem, gabapentin, omeprazole, Daliresp, Requip, Spiriva. SOCIAL HISTORY: Smoker of about half to 1 pack of cigarettes a day. Denies using any alcohol. PHYSICAL EXAMINATION: GENERAL: She is awake and alert and oriented, has a headache from most likely the nitro-patch. VITAL SIGNS: Graphic trend shows that she is afebrile; blood pressure is 132/70, pulse of 100, respirations 16. LUNGS: Diminished breath sounds, scattered wheezes. HEART: Regular. ABDOMEN: Soft, scaphoid. EXTREMITIES: Without any edema. ASSESSMENT AND PLAN: 1. A patient who presents with chest pain, most likely pleuritic from underlying pneumonia. The patient did have a chest x-ray in the Emergency Room, which did not show any pathology, so we will go ahead and arrange for a CT of the chest. 2. 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 We will restart the breathing treatments. 3. Chest pain, does not appear to be cardiac in nature. Troponins were negative. Cardiology consultation was obtained. We will discontinue nitro-patch. [place], [place] PATIENT HISTORY AND PHYSICAL EXAM [id number] UN[facility] #: [id number] ROOM: [facility] DOCTOR: MARYSE VASQUEZ MD BIRTHDATE: [birth year] MARYSE VASQUEZ MD CM:HISPHYS:PATIENT HISTORY AND PHYSICAL EXAMINATION 0 4 MARYSE VASQUEZ MD 04/12/17954 interface
--- NOTE | ~2017-04-11 | PR ---
[place], [place] PROGRESS NOTE NAME: TERA HU [facility] #: [id number] UNIT #: [id number] ROOM: 521 DOCTOR: JONATHAN MARC MD,ZAC BIRTHDATE: [birth year] DOS: 04/14/2017 SUBJECTIVE: She has been comfortably resting on the bed, stating her headache which has been noted yesterday, was improving respiratory symptoms, shortness breath was still described. The chest pain has been improved. There was no wheezing. The patient underwent Lexiscan and the stress test yesterday for the patient for the assessment of the current atypical chest pain. The Lexiscan for the patient was described to be normal study. The patient's normal left ventricular ejection fraction as more than 75%. OBJECTIVE: VITAL SIGNS: For the patient which were recorded show normal temperature, respiratory rate 18, heart rate ____, blood pressure 108/62. Pulse oxygen saturation recorded as 95% on 2 liters cannula. HEENT: No acute change. NECK: Supple. CARDIOVASCULAR: S1, S2 audible. LUNGS: Moderate decreased breath sounds without wheezing, no crackles. ABDOMEN: Soft, nontender. EXTREMITIES: Without any edema. IMPRESSION: 1. The patient with resolving acute exacerbation of chronic obstructive pulmonary disease, acute tracheobronchitis. 2. Atypical chest pain. 3. Normal stress testing. 4. History of chronic nicotine dependence. PLAN OF TREATMENT: Ambulation was encouraged. No change in the use of corticosteroids, bronchodilators. Other supportive therapy, plan of management to be continued as previously. Usual care with addition treatment with plan of management as well. Supportive care and other therapies. ZAC CATSILLO MD CM:PNTRANS [phone] ZAC MARC MD 04/14/17 141 interface
--- NOTE | ~2017-04-11 | PR ---
[place], [place] PROGRESS NOTE NAME: TERA HU [facility] #: [id number] UNIT #: [id number] ROOM: 521 DOCTOR: MARYSE VASQUEZ MD BIRTHDATE: [birth year] DOS: SUBJECTIVE: The patient is complaining of indigestion this morning, but otherwise feels fairly good. OBJECTIVE: VITAL SIGNS: Blood pressure is 134/73, pulse of 87, respirations 20, temperature 98.3. LUNGS: Diminished breath sounds. No wheezes heard. HEART: Regular. ABDOMEN: Soft, scaphoid. EXTREMITIES: Without any edema. ASSESSMENT AND PLAN: 1. Acute exacerbation of chronic obstructive pulmonary disease, improving. We will taper the steroids down. 2. Acute tracheobronchitis on IV antibiotics, awaiting bronchoscopy cultures. If they come back completely negative, the plan is to discharge her to home in the morning. 3. Indigestion, Mylanta is ordered. MARYSE VASQUEZ MD CM:PNTRANS [id number] MARYSE VASQUEZ MD 04/17/17 1003 interface
--- NOTE | ~2017-04-11 | EKG ---
[place], [place] ELECTROCARDIOGRAM REPORT NAME: TERA HU UNIT #: [id number] ROOM: 521 DOCTOR: LENKA HODGE,RAUDEL BIRTHDATE: [birth year] DOS: 04/11/2017 TIME: 1702 hours. IMPRESSION: 1. Sinus tachycardia. 2. Biatrial enlargement. 3. Cannot rule out old inferior infarction. RAUDEL OG MD CM:EKGRPT:ELECTROCARDIOGRAM REPORT 1533 1858 RAUDEL OG MD
--- NOTE | ~2017-04-11 | PROC NOTE ---
[place], [place] PROCEDURE NOTE NAME: TERA HU [facility] #: [id number] UNIT #: [id number] ROOM: 521 DOCTOR: JONATHAN MARC MD,ZAC BIRTHDATE: [birth year] DOS: 04/16/2017 PROCEDURE: Bronchoscopy. PREOPERATIVE DIAGNOSIS: Persistent severe nonresolving cough. POSTOPERATIVE DIAGNOSES: Moderate to large amount of thick plugs of the mucus in the endobronchial tree bilaterally. There were no endobronchial obstructive lesions. PROCEDURE DESCRIPTION: Informed consent obtained for the patient. The patient was brought to the OR and placed in supine physician. Conscious sedation was administered by the Anesthesia Department. After achieving appropriate sedation, airway introduced into the mouth. Bronchoscope advanced into the airway into laryngeal area. Epiglottis and vocal cord were seen, which were noted yellowish in color moving symmetrically with movement. Bronchoscope advanced to the vocal cord. Tracheal lumen shows moderate amount of thick mucus secretion with small purulent secretion mixture, which has been suctioned out to danielle level. Danielle was seen, which was noted as normal. Right upper, right middle, right lower, left upper, lingula and lower bronchi were all examined. Moderate to large plugs of the mucus was causing impaction, multiple subsegments of the endobronchial tree bilaterally. Bronchial washing was taken bilaterally. Procedure well tolerated by the patient. Postoperative findings will be discussed with the patient later once the patient recovers the effects of acute sedation. ZAC CASTILLO MD CM:PROCNOTE:PROCEDURE NOTE 1118 1314 ZAC MARC MD
--- NOTE | ~2017-04-11 | PR ---
[place], [place] PROGRESS NOTE NAME: TERA HU [facility] #: [id number] UNIT #: [id number] ROOM: 521 DOCTOR: MARYSE VASQUEZ MD BIRTHDATE: [birth year] DOS: 04/15/2017 SUBJECTIVE: The patient is doing fine without any complaints this morning other than her continued cough and headaches. Cough is productive of copious amounts of greenish sputum. OBJECTIVE: VITAL SIGNS: Blood pressure is 132/73, pulse of 87, respirations 18, temperature 98.8. LUNGS: Diminished breath sounds, few scattered rales and rhonchi heard. HEART: Regular. ABDOMEN: Soft, scaphoid. EXTREMITIES: Without any edema. LABORATORY DATA: Sputum culture is normal linette. ASSESSMENT AND PLAN: 1. Acute exacerbation of chronic obstructive pulmonary disease, already on high dose of steroids. 2. Acute tracheobronchitis. Negative sputum culture. The patient continues to complain of cough. Discussed with Dr. Grijalva this morning. May consider a bronchoscopy. 3. Chest pain, which is ruled out with a negative stress test. MARYSE VASQUEZ MD CM:PNTRANS [id number] MARYSE VASQUEZ MD 04/15/17 1400 interface
--- NOTE | ~2017-04-11 | EKG ---
[place], [place] ELECTROCARDIOGRAM REPORT NAME: TERA HU UNIT #: [id number] ROOM: 521 DOCTOR: LENKA HODGE,RAUDEL BIRTHDATE: [birth year] DOS: 04/11/2017 TIME: 1357 hours. IMPRESSION: 1. Sinus tachycardia. 2. Left atrial enlargement. 3. Right atrial enlargement. 4. Cannot rule out old inferior infarction. 5. Baseline artifacts. RAUDEL OG MD CM:EKGRPT:ELECTROCARDIOGRAM REPORT 1533 1857 RAUDEL OG MD
--- NOTE | ~2017-04-11 | PR ---
[place], [place] PROGRESS NOTE [id number] UN[facility] #: [id number] ROOM: 521 DOCTOR: JONATHAN MARC MD,ZAC BIRTHDATE: [birth year] DOS: 04/15/2017 SUBJECTIVE: She has been noted comfortable at this time, resting on the bed. She has not been noted any symptoms of chest pain or any abdominal pain. Coughing has been present for the patient and currently, no sputum expectoration. Excessive congestion of the chest were reported. OBJECTIVE: VITAL SIGNS: For the patient which are recorded showed normal temperature, respiratory 20, heart rate 88, blood pressure 138/77, pulse ox saturation on room air 92% saturation. HEENT: No acute change. NECK: Supple. Head was atraumatic. CARDIOVASCULAR: S1, S2 audible. LUNGS: General reduction in breath sounds with scattered expiratory wheezing, no crackles. ABDOMEN: Soft, nontender. IMPRESSION: The patient who has been noted currently suspected mucus impaction of major airway, history of chronic nicotine dependence, acute exacerbation of COPD and atypical left chest pain. PLAN OF MANAGEMENT: Bronchoscopy ____ patient to be done tomorrow morning to have remove of the endobronchial secretion for this patient and mucous impaction of the airways because of persistent maximal medical therapy. Risk and benefits of procedure has been discussed with the patient. She was agreeable for the procedure and was planned to be done tomorrow morning. Additional treatment changes to be made based on progression of the illness. Continuation of the corticosteroids, bronchodilators, and other treatment with the same doses including mucolytic agents. ZAC CASTILLO MD CM:PNTRANS [id number] ZAC MARC MD 04/15/17 1238 interface
--- NOTE | ~2017-04-11 | EKG ---
[place], [place] ELECTROCARDIOGRAM REPORT NAME: TERA HU UNIT #: [id number] ROOM: 521 DOCTOR: LENKA HODGE,RAUDEL BIRTHDATE: [birth year] DOS: 04/11/2017 TIME: 2001 hours. IMPRESSION: 1. Sinus tachycardia. 2. Right atrial enlargement. 3. Low voltage complexes. RAUDEL OG MD CM:EKGRPT:ELECTROCARDIOGRAM REPORT 1535 1859 RAUDEL OG MD
[2017-04-11 14:14] LABS: BASO % 0.2 % (0.0-1.0); EOS % 0.1 % (1.0-4.0); HEMATOCRIT 44.9 % (37.0-47.0); HEMOGLOBIN 15.5 g/dl (12.0-16.0); LYMPH # 1.4 10*3/uL (1.3-4.4); LYMPH % 7.7 % (27.0-41.0); MEAN CELL VOLUME 90.2 fl (81.0-99.0); MEAN CORPUSCULAR HGB 31.1 pg (27.0-31.0); MEAN CORPUSCULAR HGB CONC 34.5 g/dl (33.0-37.0); MEAN PLATELET VOLUME 9.4 fl (9.6-12.3); MONO # 1.2 10*3/uL (0.1-1.0); MONO % 6.6 % (3.0-9.0); NEUT # 14.9 10*3/uL (2.3-7.9); NEUT % 84.5 % (47.0-73.0); PLATELET COUNT AUTOMATED 233 10*3/uL (130-400); RED BLOOD COUNT 4.98 10*6/uL (4.10-5.10); RED CELL DISTRI WIDTH 12.1 % (0-14.5); WHITE BLOOD COUNT 17.6 10*3/uL (4.8-10.8)
--- NOTE | 2017-04-11 14:26 | NUR ---
PATIENT STATES RELIEF WITH NITRO. STATES PAIN IS A 3/.
[2017-04-11 14:30] LABS: ALBUMIN 4.3 gm/dl (3.1-4.5); ALKALINE PHOSPHATASE 81 U/L (45-117); BUN 13 mg/dl (7-24); CHLORIDE 105 mmol/L (98-107); CREATININE 0.72 mg/dL (0.55-1.02); POTASSIUM 3.6 mmol/L (3.5-5.1); SGOT/AST 18 IU/L (3-35); SGPT/ALT 24 U/L (12-78); SODIUM 140 mmol/L (136-145); TOTAL PROTEIN 7.5 gm/dL (6.4-8.2)
[2017-04-11 14:31] LABS: ACT PARTIAL THROMBO TIME 25.8 SECONDS (20.8-31.5); INTERNATIONAL NORM RATIO 0.9 (2.0-3.5); TROPONIN I < 0.015 ng/ml (<0.045)
--- NOTE | 2017-04-11 15:15 | NUR ---
REPORT GIVEN TO RYAN TANNER.
--- NOTE | 2017-04-11 15:33 | NUR ---
PATIENT IS ALERT AND ORIENTED X3, STATES THAT SHE IS STILL CONTINUING TO HAVE THE PAIN STATES THAT IT REMAINS ABOUT THE SAME, WITH PERIODS OF RELIEF, SKIN IS PINK, WARM, AND DRY, RESPIRATIONS ARE EASY AND NONLABORED, PATIENT IS RESTING IN BED FAMILY IS PRESENT IN THE ROOM AT THIS TIME, CALL LIGHT IN REACH OF THE PATIENT, CONTINUING TO MONITOR THE PATIENT. FLORES CARNEY
--- NOTE | 2017-04-11 18:29 | NUR ---
PATIENT IS ALERT AND ORIENTED X3, STATES THAT HER PAIN IS CURRENTLY A 7/10 AT THIS TIME AND HER PAIN IS BETTER, RESPIRATIONS ARE EASY AND NONLABORED, FAMILY PRESENT IN THE ROOM WITH THE PATIENT, CONTINUING TO MONITOR THE PATIENT. FLORES CARNEY
--- NOTE | 2017-04-11 18:35 | NUR ---
ILIANA HERE TO GET THE PATIENT AT THIS TIME. FLORES CARNEY
--- NOTE | 2017-04-11 19:00 | NUR ---
Time: 1849 A 56 year old FEMALE admitted to 5E under services of DR. CHRISTINA HODGE,MARYSE. Pt. arrived via ambulatory from ER. Chief complaint: STERNAL CHEST PAIN. ILIANA STEPHEN
--- NOTE | 2017-04-11 19:55 | NUR ---
DR. VASQUEZ NOTIFIED OF ADMISSION TO THE FLOOR FOR NEW ORDERS. NEW ORDERS RECEIVED AND SHE WILL RESUME MEDS IN AM.
--- NOTE | 2017-04-11 20:00 | NUR ---
ANSWERING SERVICE FOR DR. HURTADO NOTIFIED OF CONSULT FOR CHEST PAIN.
[2017-04-12] VITALS: BP 102/51
[2017-04-12 02:23] LABS: CHOLESTEROL 159 mg/dL (<200); HDL CHOLESTEROL 110 mg/dl (40-60); LDL CHOLESTEROL 31 mg/dL (9-159); TRIGLYCERIDES 90 mg/dl (<150); VLDL CHOLESTEROL 18 mg/dL (6-40)
--- NOTE | 2017-04-12 06:22 | NUR ---
PATIENT RESTING IN BED WITH EYES OPEN. STATED SHE FEELS A LITTLE BETTER THAN SHE DID. WILL CONTINUE TO MONITOR. CALL LIGHT IN REACH.
[2017-04-12 08:00] VITALS: BP 132/70
--- NOTE | 2017-04-12 08:18 | NUR ---
HOB ELEVATED, RESPIRATIONS NON-LABORED WITH SKIN W/D. PT HAS PRODUCTIVE COUGH FOR GREEN SPUTUM. ADMITS TO S.O.B WITH EXERTION. DENIES C/O CHEST PAIN CURRENTLY. C/O TEMPORAL BAINS. SEE SHIFT ASSESSMENT.
--- NOTE | 2017-04-12 08:22 | NUR ---
MEDICATED PO ORDERED PER PT REQUEST WITH XANAX FOR C/O INCREASED ANXIETY. SEE EMAR.
--- NOTE | 2017-04-12 09:56 | NUR ---
DR VASQUEZ IN TO SEE PT.
--- NOTE | 2017-04-12 10:20 | NUR ---
DR HERMOSILLO IN TO SEE PT, NEW ORDERS RECEIVED.
--- NOTE | 2017-04-12 10:20 | NUR ---
DR OG IN TO SEE PT. NEW ORDERS RECEIVED.
--- NOTE | 2017-04-12 10:23 | NUR ---
DR CASTILLO NOTIFIED OF CONSULT, NO NEW ORDERS.
[2017-04-12 12:00] VITALS: BP 114/66
--- NOTE | 2017-04-12 12:39 | NUR ---
DR CASTILLO IN TO SEE PT.
--- NOTE | 2017-04-12 12:59 | NUR ---
MEDICATED IV SLOWLY ORDERED PER PT REQUESTW TIH TORADOL FOR CONTINUED C/O BAINS. SEE EMAR.
--- NOTE | 2017-04-12 14:30 | NUR ---
MEDICATION EFFECTIVE PER PT IN RELIEVING DISCOMFORT.
[2017-04-12 16:00] VITALS: BP 97/59
--- NOTE | 2017-04-12 19:50 | NUR ---
PT. AWAKE, ALERT AND ORIENTED X 3 AT THIS TIME. PT. IN BED AT THIS TIME. PT. CURRENTLY DENIES SOB AND CP. PT. STATED SHE GETS SOB AT TIMES WHEN AMBULATING. CALL LIGHT WITHIN REACH, BED IN LOWEST POSITION, WHEELS LOCKED. SEE SHIFT ASSESSMENT.
[2017-04-12 20:00] VITALS: BP 101/66
[2017-04-13] VITALS: BP 106/62
[2017-04-13 08:00] VITALS: BP 126/68
--- NOTE | 2017-04-13 08:30 | NUR ---
Manager Community Relations in to talk to patient. Patient states lives at HOME with HER . There are 15 steps in the home. Physician: DR PILLAI Pharmacy: [facility] [employer] [place] [address] Home health services: NONE Patient's level of ADLs: INDEPENDENT Patient has working utilities: YES DME: NE[facility]/O2 FROM [facility] Follow-up physician's appointment after d/c: PREFERS TO MAKE HER OWN APPT Does patient want to access PORTAL?: Discharge plan HOME. LEVON LEONARDO
--- NOTE | 2017-04-13 10:30 | NUR ---
INFORMED CONSENT SIGNED FOR LEXISCAN STRESS TEST WITH DR. OG. RESTING EKG NSR, HR 99, BP 122/70. PULSE OX 92% ON ROOM AIR AND BREATH SOUNDS DEMINISHED BILATERALLY. COMPLETED ONE MINUTE OF LEXISCAN PROTOCOL RECEIVING LEXISCAN 0.4MG IV OVER 10 SECONDS. NO ARRHYTHMIAS OR ST CHANGES NOTED. PT C/O SOB,CHEST HEAVINESS, AND HEADACHE. COKE GIVEN TO SIP ON. SYMPTOMS REMAIN. 50 MG AMINOPYLLINE IV GIVEN. BREATHLESSNESS IMPROVED ALONG WITH CHEST HEAVINESS. HEADACHE REMAINS. LAST RECOVERY HR 112, BP 108/62. WAITING NUCLEAR SCANNING IN STABLE CONDITION.
--- NOTE | 2017-04-13 11:58 | NUR ---
TYLENOL GIVEN FOR COMPLAINTS OF A HEADACHE. WILL CONTINUE TO MONITOR FOR EFFETIVENESS
[2017-04-13 12:00] VITALS: BP 118/72
[2017-04-13 16:00] VITALS: BP 119/65
--- NOTE | 2017-04-13 19:50 | NUR ---
PT. AWAKE, ALERT AND ORIENTED X 3 AT THIS TIME. PT. DENIES SOB AND CP AT THIS TIME. ON 2 L NC, DID STATE TAM AT TIMES. CALL LIGHT WITHIN REACH, BED IN LOWEST POSITION, WHEELS LOCKED. SEE SHIFT ASSESSMENT.
[2017-04-13 20:02] VITALS: BP 117/61
[2017-04-14] VITALS: BP 106/65
[2017-04-14 07:02] LABS: HEMATOCRIT 40.5 % (37.0-47.0); HEMOGLOBIN 14.1 g/dl (12.0-16.0); MEAN CELL VOLUME 91.4 fl (81.0-99.0); MEAN CORPUSCULAR HGB 31.8 pg (27.0-31.0); MEAN CORPUSCULAR HGB CONC 34.8 g/dl (33.0-37.0); MEAN PLATELET VOLUME 9.5 fl (9.6-12.3); PLATELET COUNT AUTOMATED 238 10*3/uL (130-400); RED BLOOD COUNT 4.43 10*6/uL (4.10-5.10); RED CELL DISTRI WIDTH 11.9 % (0-14.5); WHITE BLOOD COUNT 13.6 10*3/uL (4.8-10.8)
[2017-04-14 07:10] LABS: CREATININE 0.58 mg/dL (0.55-1.02)
--- NOTE | 2017-04-14 07:30 | NUR ---
PT AWAKE A&O X3. DAVID. VS STABLE. LUNG SOUNDS VERY DIMISHED. VERU PRODUCTIVE COUGH.ABD SOFT NON-DISTENDED NON-TENDER BSX4. PO2 95% o2 2l N/C HEART SOUNDS REGULAR STRONG. CAP REFILL <3SECS SKIN TURGOR GOOD SKIN PINK WARM AND DRY TO TOUCH. SKIN INTACT. PT DENIES CHEST PAIN. "JUST PAIN FROM COUGHING' PT C/O HEAD ACHE "SHE STATES SHE HAS HAD SINCE SHE CAME IN" "STARTS ON THE SIDES AND GOES UP TO THE TOP OF HER HEAD" "STATES IT IS A 6" OUT OF 10 PAIN SCALE. TYLENOL WAS GIVEN AT 0620. PAIN MED NOT AFFECTED. WILL SEE IF ANYTHING ELSE CAN BE GIVEN FOR PAIN. PT IS VERY PLEASANT AND COOPERATIVE. WILL CONTUINE TO ASSESS MELLY FONTANEZN
[2017-04-14 07:48] LABS: PLATELET SUFFICIENCY NORMAL (NORMAL); TOTAL CELLS COUNTED 100 #CELLS
[2017-04-14 08:00] VITALS: BP 110/60
--- NOTE | 2017-04-14 08:00 | NUR ---
PATIENT AWAKE, ALERT, & ORIENTED. PT DENIES ANY PAIN. STILL COMPLAINING OF SHORTNESS OF BREATH & NONPRODUCTIVE COUGH. BS X4 QUADS, NONTENDER, NONDISTENDED. PATIENT STATES SHE DID NOT SLEEP WELL AND FEELS WORSE THAN YESTERDAY. SKIN INTACT. ON O2 @ 3L NC. CALL LIGHT WITHIN REACH.
--- NOTE | 2017-04-14 09:16 | NUR ---
PATIENT MEDICATED WITH TORADOL PER ORDER FOR COMPLAINTS OF HEADACHE. WILL MONITOR FOR EFFECTIVENESS.
--- NOTE | 2017-04-14 10:00 | NUR ---
PT AWAKE A&O X3. VERY PLESANT SHE STATES" HER HEAD ACHE IS NOW A 1-2 ON A PAIN SCALE OF 10" PAIN MED EFFECTIVE. NO COMPLAINTS OF PAIN AT THIS TIME CONTIUNE TO ASSESS. MELLY GARCIA
[2017-04-14 12:00] VITALS: BP 108/62
[2017-04-14 16:00] VITALS: BP 111/59
[2017-04-14 20:00] VITALS: BP 122/75
--- NOTE | 2017-04-14 20:00 | NUR ---
ALERT & ORIENTED SITTING UP IN BED. HEP LOCK INTACT TO RIGHT ANTECUBITAL; SITE ASYMPTOMATIC. LUNGS DIMINISHED BILATERALLY WITH A COUGH PRODUCTIVE FOR GREEN THICK SPUTUM. PT. VOICES NO C/O AT THIS TIME. PULSE OX 94% ON ROOM AIR. CALL LIGHT WITHIN REACH.
[2017-04-15] VITALS: BP 132/73
[2017-04-15 08:00] VITALS: BP 138/77
--- NOTE | 2017-04-15 08:00 | NUR ---
SITTING UP IN BED, NO C/O NO DISTRESS NOTED. HOB ELEVATED WITH O2 ON. SEE SHIFT ASSESSMENT.
--- NOTE | 2017-04-15 08:50 | NUR ---
DR CASTILLO VISITED. PT IS GOING TO HAVE BRONCH TOMORROW.
[2017-04-15 12:00] VITALS: BP 136/73
[2017-04-15 16:00] VITALS: BP 136/74
[2017-04-15 20:00] VITALS: BP 119/68
--- NOTE | 2017-04-15 21:11 | NUR ---
24 HOUR CHART CHECK COMPLETED AT THIS TIME.
--- NOTE | 2017-04-15 23:07 | NUR ---
PT GIVEN TYLENOL PER REQUEST FOR C/O HEADACHE PAIN. PT IS RESTING IN BED, CALL LIGHT IN REACH.
--- NOTE | 2017-04-15 23:50 | NUR ---
TYLENOL EFFECTIVE FOR HEADACHE RELIEF PER PT. RESTING IN BED, NO FURTHER C/O. CALL LIGHT IN REACH.
[2017-04-16] VITALS (9 sets, daily range): BP systolic 111–155; BP diastolic 61–83
[2017-04-16 00:09] LABS: PARAINFLUENZA 3 Negative (Negative)
[2017-04-17] VITALS: BP 131/71
[2017-04-17 01:07] LABS: ADENOVIRUS Negative (Negative); INFLUENZA A Negative (Negative); INFLUENZA B Negative (Negative); METAPNEUMOVIRUS Negative (Negative); PARAINFLUENZA 1 Negative (Negative); PARAINFLUENZA 2 Negative (Negative); RHINOVIRUS Negative (Negative); RSV A Negative (Negative); RSV B Negative (Negative)
--- NOTE | 2017-04-17 01:25 | NUR ---
PT GIVEN XANAX PER FEELINGS OF ANXIOUSNESS. PT WAS UP TO RR. SHE REPORTS FEELING WARM, NAUSEOUS AND ANXIOUS. NURSING COMFORT MEASURES WERE TAKEN. PT NOW SITTING UP IN BED, DENIES PAIN, HR 72, CALL LIGHT IN REACH. WILL CONTINUE TO MONITOR.
--- NOTE | 2017-04-17 01:53 | NUR ---
24 HOUR CHART CHECK COMPLETED AT THIS TIME.
[2017-04-17 06:56] LABS: BASO % 0.1 % (0.0-1.0); HEMATOCRIT 41.3 % (37.0-47.0); HEMOGLOBIN 14.4 g/dl (12.0-16.0); LYMPH # 0.6 10*3/uL (1.3-4.4); LYMPH % 7.1 % (27.0-41.0); MEAN CELL VOLUME 90.2 fl (81.0-99.0); MEAN CORPUSCULAR HGB 31.4 pg (27.0-31.0); MEAN CORPUSCULAR HGB CONC 34.9 g/dl (33.0-37.0); MEAN PLATELET VOLUME 9.4 fl (9.6-12.3); MONO # 0.4 10*3/uL (0.1-1.0); MONO % 4.9 % (3.0-9.0); NEUT # 7.9 10*3/uL (2.3-7.9); NEUT % 86.8 % (47.0-73.0); PLATELET COUNT AUTOMATED 278 10*3/uL (130-400); RED BLOOD COUNT 4.58 10*6/uL (4.10-5.10); RED CELL DISTRI WIDTH 11.9 % (0-14.5); WHITE BLOOD COUNT 9.1 10*3/uL (4.8-10.8)
[2017-04-17 07:28] LABS: CREATININE 0.51 mg/dL (0.55-1.02)
[2017-04-17 08:00] VITALS: BP 134/73
[2017-04-17 12:00] VITALS: BP 125/75
[2017-04-17 13:09] LABS: ACID FAST SMEAR Negative (.); ACID FAST SPEC PROCESSING Concentration (.)
[2017-04-17] MEDS ORDERED: PROVENTIL HFA6.7 GM INH (13:58)
--- NOTE | 2017-04-17 14:23 | NUR ---
UP WALKING HALLS. HARSH COUGH NOTED. DENIES ANY COMPLAINTS. HOME MED'S REVIEWED AND UPDATED ON EMAR.
[2017-04-17 16:00] VITALS: BP 116/68
[2017-04-17 20:00] VITALS: BP 122/71
--- NOTE | 2017-04-17 20:00 | NUR ---
PT'S ONLY C/O IS INDIGESTION. WILL MEDICATED WITH PRN MAALOX.
--- NOTE | 2017-04-17 21:35 | NUR ---
PT MEDICATED WITH PRN MAALOX FOR C/O INDIGESTION. CALL LIGHT IN REACH.
--- NOTE | 2017-04-17 22:00 | NUR ---
PT AWAKE IN BED WATCHING TV. NO FURTHER C/O INDIGESTION VOICED.
[2017-04-18] VITALS: BP 114/65
--- NOTE | 2017-04-18 04:52 | NUR ---
24 HR chart check completed.
--- NOTE | 2017-04-18 04:54 | NUR ---
24 HR chart check completed.
--- NOTE | 2017-04-18 06:53 | NUR ---
PT DENIES ANY FURTHER C/O INDIGESTION.
[2017-04-18 08:00] VITALS: BP 128/80
--- NOTE | 2017-04-18 08:00 | NUR ---
IN BED AWAKE ALERT AND ORIENTED X3, NO C/O. NO S/S OF DISTRESS. WILL CONT TO MONITOR. CALL LIGHT IN REACH. SEE ASSESS.
[2017-04-18 12:00] VITALS: BP 130/71
[2017-04-18] MEDS ORDERED: MEDROL DOSEPAK4 MG PO (14:29)
--- NOTE | 2017-04-18 14:57 | NUR ---
PT DISCHARGED AT THIS. IV REMOVED AND PRESSURE DRESSING APPLIED. MONITOR RETURNED TO FLOOR. VERBALIZED UNDERSTANDING OF DISCHARGE INSTRUCTIONS.
== END 2017-04-18 14:57 | disposition home or self-care (01) | DRG 189 ==
LOC: ED 13:51 → EDHOLD 18:04 → 5E 18:04
PROVIDERS: Emergency Medicine; Internal Medicine Critical Care Medicine; ADMIT Internal Medicine
PROC: 0BC18ZZ Extirpation of Matter from Trachea, Via Natural or Artificial Opening Endoscopic (ICD-10-PCS; principal; 2017-04-16)
PROC: 0B938ZZ Drainage of Right Main Bronchus, Via Natural or Artificial Opening Endoscopic (ICD-10-PCS; principal; 2017-04-16)
PROC: 0B978ZZ Drainage of Left Main Bronchus, Via Natural or Artificial Opening Endoscopic (ICD-10-PCS; principal; 2017-04-16)
DX: J96.20 Acute and chronic respiratory failure, unspecified whether with hypoxia or hypercapnia (principal); T17.490A Other foreign object in trachea causing asphyxiation, initial encounter; T17.590A Other foreign object in bronchus causing asphyxiation, initial encounter; J44.1 Chronic obstructive pulmonary disease with (acute) exacerbation; J44.0 Chronic obstructive pulmonary disease with (acute) lower respiratory infection; F17.210 Nicotine dependence, cigarettes, uncomplicated; F41.1 Generalized anxiety disorder; M54.9 Dorsalgia, unspecified; G89.29 Other chronic pain; I10 Essential (primary) hypertension; R07.89 Other chest pain; J20.9 Acute bronchitis, unspecified; K21.9 Gastro-esophageal reflux disease without esophagitis; X58.XXXA Exposure to other specified factors, initial encounter; Y93.89 Activity, other specified; Y92.89 Other specified places as the place of occurrence of the external cause; Y99.8 Other external cause status; Z88.8 Allergy status to other drugs, medicaments and biological substances; Z79.899 Other long term (current) drug therapy; Z82.49 Family history of ischemic heart disease and other diseases of the circulatory system; Z90.49 Acquired absence of other specified parts of digestive tract; Z90.710 Acquired absence of both cervix and uterus; Z82.5 Family history of asthma and other chronic lower respiratory diseases

== ENCOUNTER 2017-05-11 10:07 | Inpatient (IN) | payer BC ==
[2017-05-11] VITALS (8 sets, daily range): BP systolic 93–125; BP diastolic 61–79
[~2017-05-11] VITALS: Ht 152.4 cm; Wt 44.6 kg
--- NOTE | ~2017-05-11 | DS ---
[place], [place] DISCHARGE SUMMARY NAME: TERA HU [facility] #: [id number] UNIT #: [id number] ROOM: 517 DOCTOR: MARYSE VASQUEZ MD BIRTHDATE: [birth year] DOS: 05/14/2017 DIAGNOSES: 1. Acute exacerbation of chronic obstructive pulmonary disease. 2. History of pneumonectomy. 3. History of moderate cigarette smoker. 4. Acute respiratory distress syndrome. 5. Benign hypertension. 6. Thoracic aortic aneurysm, 3.2 cm. HOSPITAL COURSE: This patient is 56-year-old. This patient is very well known to us, comes in with complaints of difficulty breathing. Please refer to H and P for details of admission. Chest x-ray showed lingular pneumonia. The patient was placed on IV antibiotics, IV steroids. Dr. Grijalva was consulted. A CT of the chest was done. The CT does not show any pneumonia at all. With the IV steroids, the bronchospasm has resolved. She is breathing better. With the Claritin and Flonase, the headaches and nasal congestion have resolved. The patient is stable and can be discharged home today. Follow up with Dr. Godwin as an outpatient. The patient had stopped smoking about a month ago, which is encouraging. DISCHARGE MEDICATIONS: Prednisone tapering dose, Cipro 500 mg twice daily, Spiriva at bedtime, Daliresp 500 mcg daily, Xanax 0.25 twice a day p.r.n., Advair 500 one puff twice a day, vitamin D 2000 units daily, omeprazole 40 daily, oxygen 2 liters, diltiazem 60 b.i.d., breathing treatments q. 4 hours, Albuterol q.i.d. p.r.n. MARYSE VASQUEZ MD CM:DISCHARG 0848 1010 MARYSE VASQUEZ MD 05/14/17 1010 interface
--- NOTE | ~2017-05-11 | WRIGHTHP ---
[place], [place] PATIENT HISTORY AND PHYSICAL EXAM NAME: TERA HU UNIT #: [id number] ROOM: 517 DOCTOR: MARYSE VASQUEZ MD BIRTHDATE: [birth year] DOS: 05/11/2017 HISTORY OF PRESENT ILLNESS: The patient is very well known to us, comes in with complaints of difficulty breathing. She was last admitted to the hospital last month. The patient states that she felt better after discharge, but continues to get worse. She denies having any chest pains, palpitations or shortness of breath. Does not have any abdominal pain, nausea or any emesis. The patient states that she has moist sounding cough, was unable to cough up any sputum. PAST MEDICAL HISTORY: Significant for; 1. Last hospitalization with complaints of acute exacerbation of COPD. She underwent a bronchoscopy and at that time bronch cultures were negative. 2. Chronic respiratory failure. 3. Acute tracheobronchitis. 4. Chest pain with negative stress test. 5. Continued nicotine abuse. The patient stopped smoking about a month ago. 6. Benign hypertension. 7. Generalized anxiety disorder. 8. History of lobectomy for a benign mass and chronic back pain. SOCIAL HISTORY: Nonsmoker. Does not use any alcohol. PHYSICAL EXAMINATION: GENERAL: The patient is awake and alert and oriented. VITAL SIGNS: Blood pressure is 127/74, pulse of 113, respirations 20 and temperature 98.4. LUNGS: Clear. HEART: Regular. ABDOMEN: Soft. EXTREMITIES: Without any edema. ASSESSMENT AND PLAN: 1. The patient who presents with cough and difficulty breathing. Chest x-ray shows acute bronchopneumonia in the lingular. The patient is placed on IV antibiotics. 2. Chronic obstructive lung disease with mild exacerbation. IV steroids have been added. Neutropenia noted possibly from infectious process. We will repeat a CBC in the morning. 3. Hypokalemia. Supplementation was given. [place], [place] PATIENT HISTORY AND PHYSICAL EXAM NAME: TERA HU UNIT #: [id number] ROOM: 517 DOCTOR: MARYSE VASQUEZ MD BIRTHDATE: [birth year] MARYSE VASQUEZ MD CM:HISPHYS:PATIENT HISTORY AND PHYSICAL EXAMINATION 3 8 MARYSE VASQUEZ MD 05/12/17858 interface
--- NOTE | ~2017-05-11 | CON ---
[place], [place] REPORT OF CONSULTATION NAME: TERA HU UNIT #: [id number] ROOM: 517 DOCTOR: JONATHAN MARC MD,ZAC BIRTHDATE: [birth year] DOS: 05/13/2017 REASON FOR CONSULTATION: Assess the patient for recurrence of the respiratory symptom with exacerbation of COPD. HISTORY OF PRESENT ILLNESS: This is a 56-year-old white female known to me, with past history of COPD as well as DICTATION ENDS HERE ZAC CASTILLO MD CM:CONSTR:REPORT OF CONSULTATION 1330 05/14/17 0245 interface
--- NOTE | ~2017-05-11 | PR ---
[place], [place] PROGRESS NOTE NAME: TERA HU [facility] #: [id number] UNIT #: [id number] ROOM: 517 DOCTOR: MARYSE VASQUEZ MD BIRTHDATE: [birth year] DOS: SUBJECTIVE: The patient is about the same, does not have any new complaints. Appreciate Dr. Grijalva's input. OBJECTIVE: VITAL SIGNS: Blood pressure is 107/60, pulse of 85, respirations 20, temperature 98.4. LUNGS: Diminished breath sounds, clear. HEART: Regular. ABDOMEN: Obese, soft, nontender. EXTREMITIES: Without any edema. ASSESSMENT AND PLAN: Acute exacerbation of chronic obstructive pulmonary disease, stable and improved. Plan is to discharge her to home today. CT of the chest did not show any pneumonia. The patient to follow with Dr. Liz as an outpatient. MARYSE VASQUEZ MD CM:PNTRANS [phone] MARYSE VASQUEZ MD 05/14/171950 interface
--- NOTE | ~2017-05-11 | PR ---
[place], [place] PROGRESS NOTE NAME: TERA HU [facility] #: [id number] UNIT #: [id number] ROOM: 517 DOCTOR: MARYSE VASQUEZ MD BIRTHDATE: [birth year] DOS: 05/13/2017 SUBJECTIVE: Patient is doing fine without any complaints. OBJECTIVE: VITAL SIGNS: Graphic trend shows a pressure of 106/68, pulse of 95, respirations 18, temperature 97.9. LUNGS: Clear. HEART: Regular. ABDOMEN: Soft, scaphoid. EXTREMITIES: Without any edema. ASSESSMENT AND PLAN: 1. Patient who comes in with shortness of breath and cough with underlying lingular pneumonia, on IV antibiotics, do a CT of the chest today. 2. Chronic obstructive pulmonary disease, mild exacerbation, improvement overall. 3. neutropenia, white cell count has normalized. Hopefully, home in a day or two depending on the CT findings. MARYSE VASQUEZ MD CM:PNTRANS [phone] MARYSE VASQUEZ MD 05/14/17 0017 interface
--- NOTE | ~2017-05-11 | PR ---
[place], [place] PROGRESS NOTE NAME: TERA HU [facility] #: [id number] UNIT #: [id number] ROOM: 517 DOCTOR: JONATHAN MARC MD,ZAC BIRTHDATE: [birth year] DOS: 05/14/2017 SUBJECTIVE: The patient has been noted comfortable at this time with continued reduction and improvement in the symptoms of cough, shortness of breath and wheezing noted. The patient was planned for possible home discharge as ordered by the primary care physician today. OBJECTIVE: VITAL SIGNS: Recorded this morning, normal temperature, respiratory rate 20, heart rate 79, and blood pressure ____/87. The pulse oxygen saturation on 2 liters nasal cannula 96% saturation. HEENT: Shows no acute change. NECK: Supple. CARDIOVASCULAR: S1, S2 audible. LUNGS: Noted without any crackles. Mild bilateral diffuse expiratory wheezing was present. ABDOMEN: Soft, nontender. IMPRESSION: Stable respiratory status noted at the present time, improving gradually with current medical management. PLAN OF TREATMENT: The patient could be discharged home today on tapering dose of prednisone and antibiotics. Continued abstinence from tobacco use was advised. Continue all other previous medications of COPD as well. ZAC CASTILLO MD CM:CHRISTOPHE [id number] ZAC MARC MD 05/14/17 1611 interface
--- NOTE | ~2017-05-11 | CON ---
[place], [place] REPORT OF CONSULTATION NAME: TERA HU [facility] #: [id number] UNIT #: [id number] ROOM: 517 DOCTOR: JONATHAN MARC MDZAC BIRTHDATE: [birth year] DOS: 05/13/2017 PULMONARY CONSULTATION, EVALUATION AND MANAGEMENT CONSULTATION REQUESTED BY: Dr. Lucie Lezama. REASON FOR CONSULTATION: Assess the patient for possible acute pneumonia, increased respiratory symptoms, COPD exacerbation. HISTORY OF PRESENT ILLNESS: This is a 56-year-old white female patient who has been known with history of COPD and has been hospitalized previously, discharged home in 04/2017 after medical management of acute exacerbation of COPD. The patient was also noted with symptoms of chest pain described with the tightness in the chest. The pain has been described to the left side of the chest without radiation, mild to moderate in severity, described to be sharp to dull at times. She has symptoms of increased shortness of breath that has been noted gradually. The pain has been completely resolved at this time. Denies symptoms of chest pain. Mild to moderate cough noted without sputum expectoration. The patient denies symptoms of hemoptysis. The patient denies any symptoms of postnasal drainage. REVIEW OF SYSTEMS: CONSTITUTIONAL SYMPTOMS: Fatigue and tiredness noted without symptoms of fever or chills. EYES: Denies any burning, redness, tenderness, or earache. CARDIOVASCULAR: Current pain described to be atypical chest pain not consistent with angina. Denies any symptoms of palpitations, edema or pain of the lower extremities. GASTROINTESTINAL: Dysphagia, nausea, vomiting, diarrhea, abdominal pain, hematemesis, melena, or hematochezia. SKIN: Denies lesions or rashes. MUSCULOSKELETAL: Denies acute joint pain, redness, or tenderness. Remaining systems were reviewed. They were noted all negative. PAST MEDICAL HISTORY: Noted recent hospitalization and discharged on 04/18/2017 after medical management of acute exacerbation of COPD, acute tracheobronchitis. The patient did require therapeutic bronchoscopy during that admission as well. The bronchial washing culture noted negative for any abnormal bacterial growth. PAST MEDICAL HISTORY: 1. Centrilobular emphysema. 2. Essential hypertension. 3. Generalized anxiety disorder. 4. Past history of tobacco use. 5. Benign pulmonary nodule, right upper lung, status post right upper lobectomy. 6. History of restless legs syndrome. PAST SURGICAL HISTORY: 1. Complete hysterectomy in 1999. [place], [place] REPORT OF CON[facility]ULTATION [id number] UN[facility] #: [id number] ROOM: [facility] DOCTOR: ZAC BYRNES MD BIRTHDATE: [birth year] 2. Laparoscopic cholecystectomy in 1999. 3. Therapeutic bronchoscopy, last one done in 04/2017. 4. Right upper lobectomy with pulmonary nodule on in [facility]. SOCIAL HISTORY: The patient is , has one child, lives at home. Denies history of alcohol use or illicit drug use. Tobacco use was noted since teenager, a pack of cigarettes per day with intermittent tobacco use, stating that she has not smoked any cigarette for the past 3 weeks after discharge from the hospital. FAMILY HISTORY: The patient's mother at age of 70 due to complication of bronchial asthma. Father at 61 years old from complications related to the myocardial infarction. CURRENT MEDICATIONS: Administered for the patient, which were noted is use of loratadine, Flonase, Mucinex, Daliresp, vitamin D, IV Solu-Medrol 30 mg q.8 hours, DuoNeb q.4 hours, Levaquin, Rocephin, Xanax and other p.r.n. medications. At home, the patient also takes the Advair 250/50 one inhalation b.i.d. as well as Spiriva inhaler. DRUG ALLERGIES: NOTED ALLERGY TO THE AVAPRO. PHYSICAL EXAMINATION: GENERAL: This is a 56-year-old female who has been noted currently awake and alert without any distress. Height of 5 feet, weight of 98 pounds, BMI 19.2. VITAL SIGNS: Normal temperature since admission, respiratory rate of 18-20, heart rate 100-195, blood pressure 114/65-127/74. The pulse oxygen saturation recorded on 2 liters 95% on room air, 93% saturation this morning recorded. HEENT: Examination shows head was atraumatic. Eyes nonicterus. NECK: Supple. CARDIOVASCULAR: S1, S2 audible. LUNGS: Generalized reduction of the breath sounds were noted in the lungs bilaterally. Mild to moderate expiratory wheezing. No crackles. ABDOMEN: Soft, flat, nontender, bowel sounds present. EXTREMITIES: Without any edema, clubbing or cyanosis. CENTRAL NERVOUS SYSTEM: Cranial nerves 2-12 intact. Focal deficit was visible. SKIN: No lesions or rashes. LABORATORY DATA: The patient's lactic acid on 05/11 of this year was normal. On admission CBC - WBC count 3.5, otherwise normal CBC recorded on admission. CMP on 05/11 - normal BUN and creatinine, glucose 100, potassium 3.4, minimally decreased. CBC this morning completely normal. BMP - glucose 150, BUN and creatinine were normal, potassium normal. Blood cultures on 05/11 were noted as normal. The chest x-ray that was done on 05/11/2017 was noted with changes of COPD and possibility of infiltration in the left lingula can be excluded. She had a CT scan of the chest that was ordered and completed. The patient today was personally reviewed. The radiology finding was not available. Severe changes of COPD was noted with centrilobular emphysema with postoperative changes, scarring in the right upper lobe with lobectomy. A granuloma noted in [place], [place] REPORT OF CONSULTATION NAME: TERA HU [facility] UNIT #: [id number] ROOM: [facility] DO[facility] BIR[facility]: [birth year] the left mid lung. There was no evidence of infiltration noted in the lingula as suggested in the previous chest x-ray. IMPRESSION: 1. The patient who had been currently admitted to the hospital noted with recurrence of acute exacerbation of chronic obstructive pulmonary disease with acute bronchitis. There were no findings of acute congestive heart failure as or pneumonia, which has been noted on the CT scan of the chest. 2. History of chronic intermittent tobacco use, recent tobacco cessation about a month ago. PLAN OF MANAGEMENT: The patient has been getting dual antibiotic coverage. The patient needs to be on decreased Bactrim antibiotic with the use of the Levaquin and discontinuation of the Rocephin. Based on the current assessment, continue Solu-Medrol at current dose, continue bronchodilators every 4 hours. Monitor respiratory status closely. Supportive therapy, plan of management and other care plan. Usual treatment. Additional treatment changes to be done for the patient based on the progression of the illness. 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 All other supportive therapy, plan of management to be continued as well. Usual care. The patient was recommended to continue abstinence from tobacco use as well. Thanks for allowing me to participate in the care of this patient. ZAC CASTILLO MD CM:CONSTR:REPORT OF CONSULTATION 1346 05/14/17 0117 interface
[~2017-05-11 10:07] MED LIST changes: +PROVENTIL HFA6.7 GM INH
[2017-05-11 11:18] LABS: EOS # 0.1 10*3/uL (0.0-0.4); EOS % 3.4 % (1.0-4.0); HEMATOCRIT 38.4 % (37.0-47.0); HEMOGLOBIN 13.2 g/dl (12.0-16.0); LYMPH # 0.8 10*3/uL (1.3-4.4); LYMPH % 22.3 % (27.0-41.0); MEAN CELL VOLUME 88.7 fl (81.0-99.0); MEAN CORPUSCULAR HGB 30.5 pg (27.0-31.0); MEAN CORPUSCULAR HGB CONC 34.4 g/dl (33.0-37.0); MEAN PLATELET VOLUME 9.3 fl (9.6-12.3); MONO # 0.3 10*3/uL (0.1-1.0); MONO % 8.3 % (3.0-9.0); NEUT # 2.3 10*3/uL (2.3-7.9); NEUT % 65.7 % (47.0-73.0); PLATELET COUNT AUTOMATED 241 10*3/uL (130-400); RED BLOOD COUNT 4.33 10*6/uL (4.10-5.10); WHITE BLOOD COUNT 3.5 10*3/uL (4.8-10.8)
[2017-05-11 11:35] LABS: ALBUMIN 3.2 gm/dl (3.1-4.5); ALKALINE PHOSPHATASE 79 U/L (45-117); BUN 5 mg/dl (7-24); CHLORIDE 103 mmol/L (98-107); CREATININE 0.51 mg/dL (0.55-1.02); POTASSIUM 3.4 mmol/L (3.5-5.1); SGOT/AST 21 IU/L (3-35); SGPT/ALT 24 U/L (12-78); SODIUM 139 mmol/L (136-145); TOTAL PROTEIN 6.8 gm/dL (6.4-8.2)
[2017-05-12] VITALS: BP 104/73
[2017-05-12 08:00] VITALS: BP 127/74
[2017-05-12 16:00] VITALS: BP 110/63
[2017-05-12 20:00] VITALS: BP 112/94
[2017-05-13] VITALS: BP 106/68
[2017-05-13 07:50] LABS: BASO % 0.1 % (0.0-1.0); HEMATOCRIT 37.5 % (37.0-47.0); HEMOGLOBIN 12.7 g/dl (12.0-16.0); LYMPH # 0.5 10*3/uL (1.3-4.4); LYMPH % 6.2 % (27.0-41.0); MEAN CELL VOLUME 89.3 fl (81.0-99.0); MEAN CORPUSCULAR HGB 30.2 pg (27.0-31.0); MEAN CORPUSCULAR HGB CONC 33.9 g/dl (33.0-37.0); MEAN PLATELET VOLUME 9.6 fl (9.6-12.3); MONO # 0.4 10*3/uL (0.1-1.0); MONO % 4.7 % (3.0-9.0); NEUT # 7.4 10*3/uL (2.3-7.9); NEUT % 88.6 % (47.0-73.0); PLATELET COUNT AUTOMATED 307 10*3/uL (130-400); RED CELL DISTRI WIDTH 12.1 % (0-14.5); WHITE BLOOD COUNT 8.3 10*3/uL (4.8-10.8)
[2017-05-13 08:00] VITALS: BP 110/68
[2017-05-13 08:13] LABS: BUN 12 mg/dl (7-24); CHLORIDE 104 mmol/L (98-107); CREATININE 0.49 mg/dL (0.55-1.02); POTASSIUM 4.2 mmol/L (3.5-5.1); SODIUM 140 mmol/L (136-145)
[2017-05-13 12:00] VITALS: BP 114/65
[2017-05-13 16:00] VITALS: BP 110/74
[2017-05-13 20:00] VITALS: BP 114/61
[2017-05-14] VITALS: BP 107/60
[2017-05-14 08:00] VITALS: BP 104/87
[2017-05-14] MEDS ORDERED: CIPRO500 MG PO (08:45)
[2017-05-14] MEDS ORDERED: PREDNISONE5 MG PO (08:45)
== END 2017-05-14 10:50 | disposition home or self-care (01) | DRG 190 ==
LOC: ED 10:07 → 5E 11:58 → EDHOLD 11:58 → 5E 12:05
PROVIDERS: Internal Medicine; Nurse Practitioner Family
DX: J44.0 Chronic obstructive pulmonary disease with (acute) lower respiratory infection (principal); J18.0 Bronchopneumonia, unspecified organism; D70.9 Neutropenia, unspecified; I71.2 Thoracic aortic aneurysm, without rupture; J44.1 Chronic obstructive pulmonary disease with (acute) exacerbation; F41.1 Generalized anxiety disorder; G25.81 Restless legs syndrome; J20.9 Acute bronchitis, unspecified; E87.6 Hypokalemia; F17.210 Nicotine dependence, cigarettes, uncomplicated; Z90.710 Acquired absence of both cervix and uterus; Z79.899 Other long term (current) drug therapy; Z79.51 Long term (current) use of inhaled steroids; Z90.49 Acquired absence of other specified parts of digestive tract; Z88.8 Allergy status to other drugs, medicaments and biological substances; Z82.49 Family history of ischemic heart disease and other diseases of the circulatory system

== ENCOUNTER 2017-09-21 07:57 | Emergency (ER) | payer BC ==
[~2017-09-21] VITALS: Ht 152.4 cm; Wt 43.5 kg
--- NOTE | ~2017-09-21 | EKG ---
[place], [place] ELECTROCARDIOGRAM REPORT NAME: TERA HU UNIT #: [id number] ROOM: DOCTOR: JONATHAN MARC MD,ZAC BIRTHDATE: [birth year] DOS: 09/21/2017 ELECTROCARDIOGRAM TIME: 08:27 a.m. Sinus tachycardia noted with heart rate of 102 beats per minute. Right atrial enlargement was also noted. There was no evidence of ischemia. ZAC CASTILLO MD CM:EKGRPT:ELECTROCARDIOGRAM REPORT [id number] ZAC MARC MD
[2017-09-21] MEDS ORDERED: TRELEGY ELLIPT1 EACH INH (08:07)
[2017-09-21 08:08] VITALS: BP 158/94
[2017-09-21 08:42] LABS: BASO % 0.2 % (0.0-1.0); EOS % 0.1 % (1.0-4.0); HEMATOCRIT 48.3 % (37.0-47.0); HEMOGLOBIN 16.8 g/dl (12.0-16.0); LYMPH # 1.7 10*3/uL (1.3-4.4); LYMPH % 15.6 % (27.0-41.0); MEAN CELL VOLUME 88.8 fl (81.0-99.0); MEAN CORPUSCULAR HGB 30.9 pg (27.0-31.0); MEAN CORPUSCULAR HGB CONC 34.8 g/dl (33.0-37.0); MEAN PLATELET VOLUME 9.2 fl (9.6-12.3); MONO # 1.2 10*3/uL (0.1-1.0); MONO % 11.2 % (3.0-9.0); NEUT # 7.8 10*3/uL (2.3-7.9); NEUT % 72.6 % (47.0-73.0); PLATELET COUNT AUTOMATED 308 10*3/uL (130-400); RED BLOOD COUNT 5.44 10*6/uL (4.10-5.10); WHITE BLOOD COUNT 10.8 10*3/uL (4.8-10.8)
[2017-09-21 08:52] LABS: ACT PARTIAL THROMBO TIME 21.9 SECONDS (20.8-31.5); INTERNATIONAL NORM RATIO 0.9 (2.0-3.5)
[2017-09-21 09:01] LABS: ALBUMIN 4.6 gm/dl (3.1-4.5); ALKALINE PHOSPHATASE 106 U/L (45-117); BUN 12 mg/dl (7-24); CHLORIDE 101 mmol/L (98-107); CREATININE 0.71 mg/dL (0.55-1.02); POTASSIUM 3.9 mmol/L (3.5-5.1); SGOT/AST 12 IU/L (3-35); SGPT/ALT 22 U/L (12-78); SODIUM 140 mmol/L (136-145); TOTAL PROTEIN 8.7 gm/dL (6.4-8.2)
[2017-09-21 09:04] LABS: TROPONIN I < 0.015 ng/ml (<0.045)
[2017-09-21] MEDS ORDERED: VIBRAMYCIN100 MG PO (09:10)
[2017-09-21] MEDS ORDERED: PROVENTIL HFA6.7 GM INH (09:10)
[2017-09-21] MEDS ORDERED: PREDNISONE50 MG PO (09:10)
[2017-09-22] MEDS ORDERED: VITAMIN D400 I1 PO (09:06)
== END 2017-09-21 09:29 | disposition home or self-care (01) ==
LOC: ED 07:57
PROVIDERS: Emergency Medicine
DX: J44.1 Chronic obstructive pulmonary disease with (acute) exacerbation (principal); Z98.890 Other specified postprocedural states; Z90.710 Acquired absence of both cervix and uterus; Z90.49 Acquired absence of other specified parts of digestive tract; Z87.01 Personal history of pneumonia (recurrent); Z79.899 Other long term (current) drug therapy; Z88.8 Allergy status to other drugs, medicaments and biological substances; Z99.81 Dependence on supplemental oxygen

== ENCOUNTER 2017-09-22 08:54 | Inpatient (IN) | payer BC ==
[~2017-09-22] VITALS: Ht 152.4 cm; Wt 41.1 kg
--- NOTE | ~2017-09-22 | PR ---
[place], [place] PROGRESS NOTE NAME: TERA HU [facility] #: [id number] UNIT #: [id number] ROOM: [facility] DOCTOR: JONATHAN MARC MD,ZAC BIRTHDATE: [birth year] DOS: 09/26/2017 PULMONARY CRITICAL CARE EVALUATION MANAGEMENT HISTORY OF PRESENT ILLNESS: The patient remains on mechanical ventilation, given around the clock Haldol. The patient's sedation was continued as well as it was ____ noted again, sitting on the bed, difficulty to handle. She has been started on CPAP mode of mechanical ventilation this morning as well, which seemed to be tolerated by the patient. The patient remained somewhat agitated and difficulty to be managed otherwise. She has been ordered to be liberated from mechanical ventilator this morning. The patient liberated from mechanical ventilator after given 2 doses of Haldol at 1 hour interval. She was started on the BiPAP post-liberation from mechanical ventilation, which has been used at this time, but appeared to be comfortable. Several family members have been present along with the patient as well. She has been receiving nutrition support from the NG tube until she liberated from mechanical ventilator. She has been noted with generalized weakness and fatigue. She was noted mild tachycardia intermittently previously with tachycardia, seemed to be resolved at this time. The ventilator bundle management otherwise was continued. OBJECTIVE: VITAL SIGNS: Normal temperature, respiratory rate of 13, heart rate 92. Blood pressure 126/65-106/73. Pulse oxygen saturation of the patient recorded as 40% oxygen 100% saturation with the BiPAP and on the mechanical ventilator. HEENT: Atraumatic. Eyes nonicterus. The patient currently orally extubated. Orogastric tube was removed. NECK: Supple. CARDIOVASCULAR: S1, S2 audible. LUNGS: Moderate decreased breath sounds in the lungs with expiratory wheezing bilaterally. There were no crackles. ABDOMEN: Flat, soft, nontender. EXTREMITIES: Without any acute edema. MUSCULOSKELETAL: Without any acute deformities. SKIN: Visible skin, no lesions or rashes. LABORATORY DATA: CMP today of the patient noted normal BUN and creatinine, glucose mildly elevated at 126, sodium today was noted 148. Culture of the bronchial washing were noted normal linette. CBC of the patient that was done on 09/26/2017, hemoglobin 11.9, WBC count and platelet count were normal. Arterial blood gas this morning, pH of 7.30, pCO2 of 37, pO2 of 40.0 and repeat arterial blood gases and CPAP trial for the patient 2 hours pH of 7.37, pCO2 of 54, pO2 of 135 with 40% oxygen. IMPRESSION: 1. The patient noted with acute exacerbation of chronic obstructive pulmonary disease on going. 2. Severe agitation for this patient was under general anxiety disorder, which has been managed with use of the Haldol and other medical management. 3. Status post liberation from acute respiratory failure with chronic respiratory failure management. [place], [place] PROGRESS NOTE NAME: TERA HU UNIT #: [id number] ROOM: [facility] DOCTOR: JONATHAN MARC MD,ZAC BIRTHDATE: [birth year] 4. Previous history of nicotine abuse as well. 5. Anemia of chronic disease. PLAN OF TREATMENT: Continue the BiPAP use for this patient at the setting of 16/8 as tolerated. Closely monitor mental status and the respiratory status as well. Continue Solu-Medrol bronchodilator treatment. Plan of management, other care and therapies. Nutritional support will be started for the patient after checking a swallow evaluation at the bedside in the next 24 hours. The patient will be kept n.p.o. Other supportive plan of management therapy and care plan, assess the management of this patient was discussed with the patient's family members at the bedside. Ventilator bundle management changes will be discontinued at this time since the patient was liberated for mechanical ventilator such as discontinuation of Peridex and IV Protonix. Other supportive plan of management to be continued as well. Usual care with other therapy, plan of management and care. Continue use of the Haldol for this patient as well for around the clock use for the next 24 hours, then it would be made p.r.n. use with the smaller dose. Other plan of therapy, management and care. Total time for pulmonary critical care evaluation and management note is 38 minutes. ZAC CASTILLO MD CM:PNTRANS 1550 0058 ZAC MARC MD 09/27/17 0057 interface
--- NOTE | ~2017-09-22 | PR ---
[place], [place] PROGRESS NOTE NAME: TERA HU UNIT #: [id number] ROOM: [facility] DOCTOR: VERO PILLAI MD BIRTHDATE: [birth year] DOS: 09/27/2017 SUBJECTIVE: The patient is awake, very anxious, feeling somewhat uncomfortable and short of breath. PHYSICAL EXAMINATION: VITAL SIGNS: Blood pressure 155/83, heart rate of 124 beats per minute, breathing 17 times a minute, temperature 98 degrees Fahrenheit. GENERAL APPEARANCE: The patient is alert and oriented x 3, in no visible distress, except for generalized weakness. HEENT AND NECK: Exam within normal limits. CARDIOVASCULAR SYSTEM: Heart rate is regular in rate and rhythm. S1 and S2 normally audible. LUNGS: Decreased breath sounds and expiratory wheezing all over her lungs on lung auscultation. ABDOMEN: Soft, nontender. No obvious organomegaly. Bowel sounds are present. EXTREMITIES: Without significant cyanosis or edema. IMPRESSION: 1. The patient with acute over chronic respiratory failure with acute exacerbation of severe underlying chronic obstructive pulmonary disease, being treated with corticosteroids, bronchodilators, oxygen and improving very slowly. The patient is to remain in the ICU because of her critical breathing status. 2. Severe anxiety. I will increase her Xanax. We have also used Haldol to keep her calm. 3. Acute respiratory failure, status post intubation and mechanical ventilation. 4. Nicotine smoke dependence. 5. Anemia of chronic disease. 6. Generalized weakness and adult failure to thrive. 7. Benign essential hypertension, treated and controlled. 8. Sinus tachycardia related to acute respiratory failure. 9. Hypokalemia, resolved with extra potassium supplements. 10. Restless leg syndrome, asymptomatic. [place], [place] PROGRESS NOTE NAME: TERA HU UNIT #: [id number] ROOM: [facility] DOCTOR: VERO PILLAI MD BIRTHDATE: [birth year] VERO PILLAI MD CM:PNTRANS 12 53 VERO PILLAI MD 09/27/172052 interface
--- NOTE | ~2017-09-22 | EKG ---
[place], [place] ELECTROCARDIOGRAM REPORT NAME: TERA HU UNIT #: [id number] ROOM: [facility] DOCTOR: JONATHAN MARC MD,ZAC BIRTHDATE: [birth year] DOS: 09/24/2017 Electrocardiogram done on 09/24/2017 at 9:55 p.m., shows sinus tachycardia, heart rate of 106 beats per minute. Left atrial enlargement. ZAC CASTILLO MD CM:EKGRPT:ELECTROCARDIOGRAM REPORT 1208 1421 ZAC MARC MD
--- NOTE | ~2017-09-22 | PR ---
[place], [place] PROGRESS NOTE NAME: TERA HU [facility] #: [id number] UNIT #: [id number] ROOM: [facility] DOCTOR: JONATHAN MARC MD,ZAC BIRTHDATE: [birth year] DOS: 09/28/2017 PULMONARY FOLLOWUP SUBJECTIVE: The patient has been noted comfortable at this time, resting on the chair. She was noted hearing loss, which has been noted gradually progressive, but worsening was noted on this admission as per sister. She has not been noted symptoms of chest pain or hemoptysis. She used the BiPAP. The patient has ordered at nighttime and intermittently during the day as well. This morning, the patient is using the oxygen supplementation nasal cannula. The patient has not been noted any symptoms of hemoptysis or any chest pain. Overall generalized weakness was noted with severe generalized anxiety disorder, was noted much better this morning. She was noted quite comfortable. Oxygen supplementation was used by the patient. The patient this morning, on 4 liter nasal cannula. Remaining systems were reviewed. They were noted all normal. OBJECTIVE: VITAL SIGNS: Normal temperature, respiratory rate 22, heart rate of 112-82, blood pressure 115/70-134/80. Pulse oxygen saturation reported as a 96% saturation on 4 liters nasal cannula. HEENT: Shows the head was atraumatic, she was noted with hearing loss was observed from the right ear. NECK: Supple. CARDIOVASCULAR: S1, S2 is audible. LUNGS: Noted general reduction in the breath sounds bilaterally. ABDOMEN: Soft, nontender. Bowel sounds present. EXTREMITIES: The patient noted without any acute edema. SKIN: No lesions or rashes. CENTRAL NERVOUS SYSTEM: The patient was noted without any focal deficit. MUSCULOSKELETAL: Without any acute deformities. LABORATORY DATA: Chest x-ray that was done this morning shows changes of hyperinflation and COPD. There was no pleural fluid noted, which was visible on the chest x-ray yesterday. IMPRESSION: 1. The patient with some fluid overload was suspected pleural fluid previously. 2. [id number] hypoxic respiratory failure and hypercapnia, which is improving. 3. Overall severe debility and muscle deconditioning as well. PLAN OF THERAPY: Continuation of the bronchodilators, oxygen supplementation, antibiotic low dose of diuretic. The patient will be given at least one dose today at 20 mg of Lasix. Discontinue IV fluid to prevent the fluid overload. Other supportive therapy, plan of management. No changes in the antibiotic and the steroids will be necessary. Physical therapy will be needed. Medical management of generalized anxiety disorder as well. [place], [place] PROGRESS NOTE NAME: TERA HU UNIT #: [id number] ROOM: [facility] DOCTOR: JONATHAN MARC MD,ZAC BIRTHDATE: [birth year] ZAC CASTILLO MD CM:PNSLOANE 1507 0613 ZAC MARC MD 09/29/17 0611 interface
--- NOTE | ~2017-09-22 | PR ---
[place], [place] PROGRESS NOTE NAME: TERA HU [facility] #: [id number] UNIT #: [id number] ROOM: [facility] DOCTOR: JONATHAN MARC MD,ZAC BIRTHDATE: [birth year] DOS: 09/24/2017 PULMONARY CRITICAL CARE EVALUATION AND MANAGEMENT NOTE SUBJECTIVE: The patient was planned for bronchoscopy done today. As the patient was brought to the preoperative holding area, she was noted with significant hypoxia with tachycardia and general anxiety. She was switched from the oxygen supplementation nasal cannula to Venturi mask. This morning, the patient has been noted at this time was noted to be quite weak. She has a bronchoscopy completed for this patient and later on noted with decreased arousal for the patient and was intubated and started on mechanical ventilation. She was started on assist control, volume control mechanical ventilation successfully oxygen. The patient was noted stabilized with that and she was transferred to the Intensive Care Unit. The patient has been currently admitted to the intensive care unit for further medical management. The tachycardia seemed to be resolved. Further review of systems cannot be completed. However, she was not reported previously any chest pain, hemoptysis, nausea, vomiting, diarrhea, headache, or diplopia. OBJECTIVE: VITAL SIGNS: For the patient which has been recorded showed the temperature noted normal, respiratory rate 18-25, heart rate of 112-177 with mild sinus tachycardia, blood pressure 152/60-129/75. The pulse ox saturation on 40% Venturi mask 96% saturation later on intubation and mechanical ventilation was 95% saturation. HEENT: The patient currently intubated. Orogastric tube has been inserted. NECK: Supple. CARDIOVASCULAR: S1, S2 audible. LUNGS: Noted decreased air exchange for the patient, which were noted diffuse with expiratory wheezing. ABDOMEN: Flat, soft, nontender. Bowel sounds present. EXTREMITIES: Without any acute edema. MUSCULOSKELETAL: Without any acute deformities. SKIN: Without any lesions or rashes. LABORATORY DATA: Labs on this patient today. The BMP of the patient this morning, glucose 134, BUN normal, creatinine was normal. CO2 35. Sputum for culture, Gram stain and culture for the patient, preliminary culture, normal linette. The Gram stain, many white blood cells, moderate epithelial cells, gram-positive cocci in pairs and few gram-negative bacilli. Blood culture from 09/22/2017 showed no bacterial growth. Chest x-ray post-intubation, endotracheal tube was noted in appropriate position for this patient about 2 cm above the erwin level. NG tube in the stomach, hyperinflation changes and COPD. IMPRESSION: 1. The patient currently admitted to the hospital noted with acute respiratory failure, requiring intubation and mechanical ventilation. 2. Acute tracheobronchitis. 3. Physical appearance of protein-calorie malnutrition status as well. [place], [place] PROGRESS NOTE NAME: TERA HU UNIT #: [id number] ROOM: [facility] DOCTOR: JONATHAN MARC MD,ZAC BIRTHDATE: [birth year] 4. History of nicotine abuse in the past, which has been discontinued by the patient. 5. History of essential hypertension as well. 6. Restless leg syndrome. PLAN OF MANAGEMENT: The patient was started on nutrition support, propofol for the patient and Versed combination for sedation. The corticosteroid dose has been changed to a higher dose for this patient as well at this time to 40 mg q.12h. Bronchodilator will be continued. The patient was started empirically on doxycycline for the patient and the adjustment in antibiotic and the aspiration done based on the culture results of the bronchial washings. DVT prophylaxis added. Ventilator bundle management started as well. Assessment and management of the patient has been discussed with the patient's sister in detail for this patient as well. Total time in pulmonary critical care evaluation and management excluding any billable procedure is 40 minutes. ZAC CASTILLO MD CM:PNTRANS 1628 0150 ZAC MARC MD 09/25/17 0148 interface
--- NOTE | ~2017-09-22 | PR ---
[place], [place] PROGRESS NOTE NAME: TERA HU [facility] #: [id number] UNIT #: [id number] ROOM: [facility] DOCTOR: VERO PILLAI MD BIRTHDATE: [birth year] DOS: 09/24/2017 SUBJECTIVE: The patient went into acute respiratory failure this morning and required intubation and mechanical ventilation and presently, she is sedated and on propafenone infusion. OBJECTIVE: GENERAL APPEARANCE: The patient is alert and oriented x 3, in no visible distress. VITAL SIGNS: Blood pressure 107/76, heart rate of 99 beats per minute, afebrile. HEENT AND NECK: Exam within normal limits. CARDIOVASCULAR SYSTEM: Heart rate is regular in rate and rhythm. S1 and S2 normally audible. LUNGS: Decreased breath sounds. ABDOMEN: Soft, nontender. No obvious organomegaly. Bowel sounds are present. EXTREMITIES: Without significant cyanosis or edema. IMPRESSION: 1. Acute over chronic respiratory failure with acute exacerbation of chronic obstructive pulmonary disease, now intubated and on mechanical ventilation. The patient is being treated with corticosteroids, antibiotics, oxygen and is status post bronchoscopy. Dr. Grijalva, the dial mounter is also following her and she remains in the ICU. 2. Continued nicotine smoke dependence. The patient is not a candidate for lung transplant because of smoking cigarettes. 3. Tension type headaches, treated. 4. Gastroesophageal reflux disease and esophagitis, treated with omeprazole. 5. Benign essential hypertension, treated and controlled. 6. Hypokalemia, was treated with extra potassium supplements and potassium level is normal now. VERO PILLAI MD CM:PNTRANS [phone] VERO PILLAI MD 09/25/17 0115 interface
--- NOTE | ~2017-09-22 | PR ---
[place], [place] PROGRESS NOTE NAME: TERA HU [facility] #: [id number] UNIT #: [id number] ROOM: [facility] DOCTOR: VERO PILLAI MD BIRTHDATE: [birth year] DOS: 09/25/2017 SUBJECTIVE: The patient is deeply sedated, intubated and on mechanical ventilation for acute over chronic respiratory failure. OBJECTIVE: VITAL SIGNS: Blood pressure 106/65, heart rate 107 beats per minute, breathing 14 times per minute, temperature of 99.4 rectal. GENERAL APPEARANCE: The patient is alert and oriented x 3, in no visible distress. HEENT AND NECK: Exam within normal limits. CARDIOVASCULAR SYSTEM: Heart rate is regular in rate and rhythm. S1 and S2 normally audible. LUNGS: Clear to auscultation. ABDOMEN: Soft, nontender. No obvious organomegaly. Bowel sounds are present. EXTREMITIES: Without significant cyanosis or edema. IMPRESSION: 1. The patient with acute over chronic respiratory failure with acute exacerbation of severe underlying chronic obstructive pulmonary disease, remains in acute respiratory failure, intubated and on mechanical ventilation in the ICU. Dr. Grijalva, the fur scraper is following. 2. Mild protein calorie malnutrition. 3. Generalized weakness and adult failure to thrive. 4. Continued nicotine smoke dependence. The patient has been encouraged to stop and help offered. The patient smokes off and on. 5. Benign essential hypertension, treated and controlled. 6. Restless leg syndrome, is followed and treated as necessary. 7. Tension type headaches, being treated as necessary. 8. Hypokalemia. The patient received extra potassium supplements and potassium levels have normalized. VERO PILLAI MD CM:PNTRANS [id number] VERO PILLAI MD 09/25/178 interface
--- NOTE | ~2017-09-22 | EKG ---
[place], [place] ELECTROCARDIOGRAM REPORT NAME: TERA HU UNIT #: [id number] ROOM: [facility] DOCTOR: JONATHAN MARC MD,ZAC BIRTHDATE: [birth year] DOS: 09/22/2017 Time seen 9:50 a.m. Sinus tachycardia noted with heart rate of 104 beats per minute. Left atrial enlargement was noted. Question of old inferior myocardial wall infarction. ZAC CASTILLO MD CM:EKGRPT:ELECTROCARDIOGRAM REPORT [id number] ZAC MARC MD
--- NOTE | ~2017-09-22 | PR ---
[place], [place] PROGRESS NOTE NAME: TERA HU [facility] #: [id number] UNIT #: [id number] ROOM: [facility] DOCTOR: VERO PILLAI MD BIRTHDATE: [birth year] DOS: 09/23/2017 SUBJECTIVE: The patient is still very short of breath and scheduled for bronchoscopy tomorrow. OBJECTIVE: VITAL SIGNS: Blood pressure 127/75, heart rate of 96 beats per minute, breathing 26 times per minute, afebrile. GENERAL APPEARANCE: The patient is alert and oriented x 3, in no visible distress. HEENT AND NECK: Exam within normal limits. CARDIOVASCULAR SYSTEM: Heart rate is regular in rate and rhythm. S1 and S2 normally audible. LUNGS: Decreased breath sounds all over and expiratory wheezing all over. ABDOMEN: Soft, nontender. No obvious organomegaly. Bowel sounds are present. EXTREMITIES: Without significant cyanosis or edema. IMPRESSION: 1. The patient has acute exacerbation of severe underlying chronic obstructive pulmonary disease with acute over chronic respiratory failure, continues to be very short of breath and feeling air hunger. The patient is on corticosteroids, bronchodilators inhaled and also intravenous, also on antibiotics and Dr. Grijalva, the ultrasound coordinator plans to take her for bronchoscopy tomorrow. 2. Probable pneumonia, not seen on the chest x-ray, but resulted in low grade fever and hypoxemia. The patient is requiring 2 liters of oxygen by nasal cannula and gets very hypoxemic when she takes even a few steps to the bathroom, severe dyspnea on exertion. 3. The patient is a candidate for lung transplant, especially because of her younger age and end-stage lung disease. The patient does not smoke cigarettes or take in any treatment related to stopping to smoke since April 2017. I will even consider transferring her to [facility] where she is being accepted for lung transplant. She is in the process if her breathing does not improve quickly. 4. Tension type headaches, improved with treatment with Tylenol and Advil. 5. Gastroesophageal reflux disease and esophagitis, asymptomatic with omeprazole. 6. Benign essential hypertension, treated and controlled. The patient's tachycardia has improved. 7. Hypokalemia, treated with extra potassium supplements. 8. Blood cultures are negative so far. 9. Elevated lactic acid levels, treated with hydration with normal saline. [place], [place] PROGRESS NOTE NAME: TERA HU UNIT #: [id number] ROOM: [facility] DOCTOR: VERO PILLAI MD BIRTHDATE: [birth year] VERO PILLAI MD CM:PNTRANS [phone] VERO PILLAI MD 09/23/17 181 interface
--- NOTE | ~2017-09-22 | PROC NOTE ---
[place], [place] PROCEDURE NOTE [id number] #: [id number] ROOM: [facility] DOCTOR: JONATHAN MARC MD,ZAC BIRTHDATE: [birth year] DOS: 09/24/2017 PROCEDURE: Fiberoptic bronchoscopy. PREOPERATIVE DIAGNOSIS: The patient with persistent severe nonresolving cough with wheezing. POSTOPERATIVE DIAGNOSIS: Removal of multiple large plugs of mucus from the airways bilaterally. PROCEDURE DESCRIPTION: Informed consent obtained from the patient. The patient was placed in the supine position. Airway was introduced into the mouth. Bronchoscope was advanced through the airway into laryngeal area. Epiglottis and vocal cords were seen moving in symmetrical movements. Bronchoscope advanced to vocal cords and tracheal lumen. The tracheal lumen was identified and noted with moderate thick mucoid secretion with some purulent secretions suctioned out to the danielle level. Danielle noted sharp. Right upper, right middle, right lower, left upper, lingular lobe bronchi were all examined and noted with thick mucus plugs at the endobronchial tree bilaterally in the subsegments that was suctioned out with half normal saline wash without any difficulty. The patient later on in about 10 minutes was noted with oxygen desaturation and decreased arousal. The patient was decided to be intubated and was intubated successfully by the Anesthesia staff without difficulty. Mechanical ventilation was resumed. Postop findings were discussed with the patient's sister in detail in the recovery room. ZAC CASTILLO MD CM:PROCNOTE:PROCEDURE NOTE [id number] ZAC MARC MD
--- NOTE | ~2017-09-22 | PR ---
[place], [place] PROGRESS NOTE [id number] #: [id number] ROOM: 525 DOCTOR: VERO PILLAI MD BIRTHDATE: [birth year] DOS: 09/30/2017 SUBJECTIVE: Patient is breathing much better and is alert and oriented now. OBJECTIVE: VITAL SIGNS: Blood pressure 117/82, heart rate 92 beats per minute, breathing 19 times per minute, afebrile. GENERAL APPEARANCE: The patient is alert and oriented x 3, in no visible distress. HEENT AND NECK: Exam within normal limits. CARDIOVASCULAR SYSTEM: Heart rate is regular in rate and rhythm. S1 and S2 normally audible. LUNGS: Some slight expiratory wheezing and decreased breath sounds. ABDOMEN: Soft, nontender. No obvious organomegaly. Bowel sounds are present. EXTREMITIES: Without significant cyanosis or edema. IMPRESSION: 1. Acute over chronic respiratory failure, advanced chronic obstructive pulmonary disease, and continued nicotine smoke dependence, improving. I will just move her to step down unit from the ICU. 2. Generalized anxiety disorder, treated and controlled with Xanax. 3. Continued nicotine smoke dependence. Patient has been encouraged to stop. 4. Generalized weakness, adult failure to thrive. Patient to work with physical therapy. VERO PILLAI MD CM:PNTRANS [phone] VERO PILLAI MD 09/30/17 2349 interface
--- NOTE | ~2017-09-22 | PR ---
[place], [place] PROGRESS NOTE NAME: TERA HU [facility] #: [id number] UNIT #: [id number] ROOM: [facility] DOCTOR: VERO PILLAI MD BIRTHDATE: [birth year] DOS: 09/29/2017 IMPRESSION: 1. Patient with acute over chronic respiratory failure with acute exacerbation of chronic obstructive pulmonary disease, improving with treatment. Patient looks slightly better today and remains in the ICU. 2. Patient with some fluid volume overload, diuresed with an IV dose of Lasix by Dr. Grijalva. 3. Generalized weakness and adult failure to thrive. Patient to work with physical therapy. 4. Nicotine smoke dependence. Patient encouraged to stop smoking cigarettes. 5. Generalized anxiety disorder, treated with higher dose of Xanax as needed. 6. Mental confusion, which was delirium secondary to respiratory failure, improved with treatment. VERO PILLAI MD CM:PNTRANS [phone] VERO PILLAI MD 09/30/17 0004 interface
--- NOTE | ~2017-09-22 | PR ---
[place], [place] PROGRESS NOTE NAME: TERA HU [facility] #: [id number] UNIT #: [id number] ROOM: 525 DOCTOR: JONATHAN MARC MD,ZAC BIRTHDATE: [birth year] DOS: 10/01/2017 SUBJECTIVE: The patient has been noted comfortable at this time, sitting on the chair. She has been ambulated by herself. She has not noted symptoms of coughing, shortness breath or any chest pain. OBJECTIVE: VITAL SIGNS: Shows normal temperature, respiratory rate 20, heart rate 70, blood pressure 133/85. The pulse oxygen saturation on 2 liters nasal cannula, 94% saturation. HEENT: Head was atraumatic. Eyes nonicterus. NECK: Supple. CARDIOVASCULAR: S1, S2 is audible. LUNGS: Examination of the lungs was noted clear of any wheezing or crackles. ABDOMEN: Soft, nontender, bowel sounds present. EXTREMITIES: Without any acute edema. IMPRESSION: Progressive and significant resolution noted with acute hypoxic respiratory failure with exacerbation of chronic obstructive pulmonary disease in the last couple of days. PLAN FOR TREATMENT: The patient could be considered for home discharge on oral medications. In the meantime, continue current therapy, plan of management and care. Usual care, other supportive plan of management and treatments. ZAC CASTILLO MD CM:CHRISTOPHE [phone] ZAC MARC MD 10/01/17 1455 interface
--- NOTE | ~2017-09-22 | EKG ---
[place], [place] ELECTROCARDIOGRAM REPORT NAME: TERA HU UNIT #: [id number] ROOM: [facility] DOCTOR: JONATHAN MARC MD,ZAC BIRTHDATE: [birth year] DOS: 09/24/2017 ELECTROCARDIOGRAM TIME: 02:43 p.m. FINDINGS: The electrocardiogram shows sinus tachycardia, heart rate of 102 beats per minute. Right atrial enlargement was noted. ZAC CASTILLO MD CM:EKGRPT:ELECTROCARDIOGRAM REPORT 1208 1420 ZAC MARC MD
--- NOTE | ~2017-09-22 | PR ---
[place], [place] [facility]GRESS [id number] #: [id number] ROOM: [facility] DOCTOR: VERO PILLAI MD BIRTHDATE: [birth year] DOS: 09/28/2017 VITAL SIGNS: Blood pressure 142/74, pulse ox 94% with BiPAP, breathing 24 times per minute, heart rate of 87 beats per minute, afebrile. GENERAL APPEARANCE: The patient is alert and oriented x 3, in no visible distress. HEENT AND NECK: Exam within normal limits. CARDIOVASCULAR SYSTEM: Heart rate is regular in rate and rhythm. S1 and S2 normally audible. LUNGS: Expiratory wheezing on lung auscultation. ABDOMEN: Soft, nontender. No obvious organomegaly. Bowel sounds are present. EXTREMITIES: Without significant cyanosis or edema. PSYCHIATRIC: Mental confusion IMPRESSION: 1. The patient with acute over chronic respiratory failure with acute exacerbation of severe underlying chronic obstructive pulmonary disease with persisting hypoxemia and wheezing. The patient is off mechanical ventilation and now on BiPAP and is slowly improving. 2. Mental confusion, apparently delirium from being in the ICU and being acutely sick. 3. Generalized anxiety disorder, somewhat better after treatment with increased dose of Xanax. 4. Nicotine smoke dependence. The patient has been encouraged to stop smoking cigarettes. 5. Generalized weakness and adult failure to thrive. 6. Benign essential hypertension, treated and controlled. 7. Hypokalemia, resolved with extra potassium supplements. VERO PILLAI MD CM:PNTRANS [phone] 20 VERO PILLAI MD 09/28/17 1820 interface
--- NOTE | ~2017-09-22 | PR ---
[place], [place] PROGRESS NOTE NAME: TERA HU [facility] #: [id number] UNIT #: [id number] ROOM: 525 DOCTOR: VERO PILLAI MD BIRTHDATE: [birth year] DOS: 09/30/2017 SUBJECTIVE: The patient's breathing continues to improve. She is feeling much better. OBJECTIVE: VITAL SIGNS: Blood pressure 118/54, heart rate 77 beats per minute, breathing 20 times per minute, temperature 98.6 degrees Fahrenheit. GENERAL APPEARANCE: The patient is alert and oriented x 3, in no visible distress. HEENT AND NECK: Exam within normal limits. CARDIOVASCULAR SYSTEM: Heart rate is regular in rate and rhythm. S1 and S2 normally audible. LUNGS: Somewhat decreased breath sounds on lung auscultation all over. ABDOMEN: Soft, nontender. No obvious organomegaly. Bowel sounds are present. EXTREMITIES: Without significant cyanosis or edema. IMPRESSION: 1. The patient with acute exacerbation of chronic obstructive pulmonary disease with acute over chronic respiratory failure, continues to improve with treatment and I will move her out of the ICU. The patient continues to do much better and works with physical therapy. She can be discharged to home soon. 2. Acute hypoxemic respiratory failure, continues to improve. 3. Nicotine smoke dependence. The patient encouraged to stop. 4. Generalized anxiety disorder treated with Xanax as needed. 5. Mental confusion and delirium has resolved. VERO PILLAI MD CM:PNTRANS 1936 VERO PILLAI MD 10/01/17 0237 interface
--- NOTE | ~2017-09-22 | PR ---
[place], [place] PROGRESS NOTE NAME: TERA HU [facility] #: [id number] UNIT #: [id number] ROOM: [facility] DOCTOR: JONATHAN MARC MD,ZAC BIRTHDATE: 60 DOS: 09/27/2017 PULMONARY PROGRESS NOTE SUBJECTIVE: She has been noted comfortable at this time, resting on the bed. Still noted with intermittent anxiety attack, then given Haldol 5 mg p.o. q.4h. and Xanax combination. She has been comfortably resting this morning as the patient was seen using oxygen supplementation via nasal cannula. Denies symptoms of chest pain or any acute hemoptysis. The patient denies symptoms of nausea or vomiting. ____ headache. Generalized weakness, fatigue was reported. Remaining systems were reviewed, they were noted all negative. OBJECTIVE: VITAL SIGNS: For the patient normal temperature, respiratory rate 17, heart rate of 110. The blood pressure 137/73. The pulse oxygen saturation recorded as 4 liters nasal cannula 95% saturation with the BiPAP at the same saturation of oxygen recorded. HEENT: Head was atraumatic. Eyes nonicterus. NECK: Supple. CARDIOVASCULAR: S1, S2 audible. LUNGS: The patient was noted without any crackles. Breath sounds are noted mildly decreased bilaterally. Expiratory wheezing noted. ABDOMEN: Soft, nontender. Bowel sounds present. EXTREMITIES: Without any acute edema. MUSCULOSKELETAL: The patient was noted without any acute deformities. SKIN: Visible skin no lesions or rashes. CENTRAL NERVOUS SYSTEM: Generalized weakness and fatigue. LABORATORY DATA: The patient's CBC that was done today shows WBC count normal, hemoglobin 11.8, hematocrit 37.3, platelet count normal. CMP this morning, BUN 23, creatinine was normal. CO2 of 34. AST, ALT mildly elevated. Significant that was unknown. The chest x-ray shows small bilateral pleural effusions. There were no acute pulmonary infiltration. IMPRESSION: 1. The patient was incurred noted with resolving acute on chronic hypoxic respiratory failure. 2. Acute exacerbation of chronic obstructive pulmonary disease. 3. Acute bronchitis. 4. Small pleural fluid of unknown significance. 5. Abnormal liver function test, rule out [id number] deficiency as well. PLAN OF TREATMENT: Continuation of current plan of therapy for the patient, bronchodilators, oxygen supplementation, BiPAP as ordered, Haldol that is scheduled for the patient will be made on a p.r.n. use. Continue the Xanax same dose. Consider getting a consultation from the Psychiatry. Further adjustment of medical management of severe generalized anxiety disorder. [place], [place] PROGRESS NOTE NAME: TERA HU UNIT #: [id number] ROOM: [facility] DOCTOR: JONATHAN MARC MD,ZAC BIRTHDATE: [birth year] ZAC CASTILLO MD CM:CHRISTOPHE [phone] ZAC MARC MD 09/27/17 2328 interface
--- NOTE | ~2017-09-22 | PR ---
[place], [place] PROGRESS NOTE NAME: TERA HU UNIT #: [id number] ROOM: [facility] DOCTOR: VERO PILLAI MD BIRTHDATE: [birth year] DOS: 09/26/2017 SUBJECTIVE: The patient off mechanical ventilation today, extubated and on BiPAP. The patient was very anxious, so she required sedation and anxiolytics. OBJECTIVE: VITAL SIGNS: Blood pressure 124/72, heart rate of 85 beats per minute, breathing 15 times per minute, temperature of 98 degrees Fahrenheit. GENERAL APPEARANCE: The patient is alert and oriented x 3, in no visible distress, except for generalized weakness and the patient is sedated, but moving all extremities. HEENT AND NECK: Exam within normal limits. CARDIOVASCULAR SYSTEM: Heart rate is regular in rate and rhythm. S1 and S2 normally audible. LUNGS: Clear to auscultation. ABDOMEN: Soft, nontender. No obvious organomegaly. Bowel sounds are present. EXTREMITIES: Without significant cyanosis or edema. IMPRESSION: 1. Acute over chronic respiratory failure with acute exacerbation of chronic obstructive pulmonary disease. Finally, the patient is extubated and off mechanical ventilation, but remains on BiPAP. The patient is on corticosteroids, oxygen and bronchodilators along with antibiotics and improving slowly. Chest x-ray remains clear, but shows advanced chronic obstructive pulmonary disease. 2. Mild protein calorie malnutrition. 3. Generalized weakness and adult failure to thrive. 4. Continued nicotine smoke dependence. The patient has been encouraged to stop. 5. Benign essential hypertension, treated and controlled. 6. Tension type headaches, improved with treatment. 7. Hypokalemia, resolved with extra potassium supplements. 8. Restless leg syndrome, asymptomatic. [place], [place] PROGRESS NOTE NAME: TERA HU UNIT #: [id number] ROOM: [facility] DOCTOR: VERO PILLAI MD BIRTHDATE: [birth year] VERO PILLAI MD CM:PNTRANS [phone] VERO PILLAI MD 09/26/17 1822 interface
--- NOTE | ~2017-09-22 | PR ---
[place], [place] PROGRESS NOTE NAME: TERA HU [facility] #: [id number] UNIT #: [id number] ROOM: [facility] DOCTOR: JONATHAN MARC MD,ZAC BIRTHDATE: [birth year] DOS: 09/25/2017 PULMONARY CRITICAL CARE EVALUATION AND MANAGEMENT SUBJECTIVE: The patient seen and examined on 09/25/2017. She remains on mechanical ventilator and is intubated. She has been getting high dose of sedation because of agitation noted severely for the patient. At this time, the patient was trying to sit up on the bed. She was also given Versed intermittently for the sedation. She had not been noted with any acute hemodynamic instability except tachycardia noted when the patient was agitated. Low-grade fever was noted. The patient has no signs of hypotension. Bronchodilator and other treatment was continued. She developed significant distress with peak airway pressures elevated. She has been tried on various different modalities of mechanical ventilation including APRV, pressure controlled assist control volume mechanical ventilation, and CPAP. None of them were noted effective until the patient was re-sedated effectively with the use of Versed, Diprivan, and the intravenous Haldol. After that, the patient's peak airway pressure decreased also with some adjustment in mechanical ventilation. Daughter at the bedside. We are changing the tidal volume of the patient to the lower tidal volume to 500 mL increasing peak flow to 75 as well. The patient was started on feeding with nutrition support, which has been continued. The ventilator bundle management was continued. OBJECTIVE: VITAL SIGNS: Showed the temperature 99.7 degree Fahrenheit to normal temperature, respiratory rate 17-16, heart rate 115-114 up to 140 noted one time with sinus tachycardia, blood pressure 140/60-105/78. Pulse oxygen saturation on 40% is 98% saturation. Intake is 2082 mL and output 650 mL. HEENT: Head was atraumatic. The patient remains intubated orally. Orogastric tube is in place. NECK: Supple. CARDIOVASCULAR: S1, S2 is audible. LUNGS: The patient was noted with generally decreased breath sounds with expiratory wheezing and decreased air exchange bilaterally. ABDOMEN: Flat, soft, nontender. Bowel sounds present. EXTREMITIES: Noted without any acute edema, clubbing, or cyanosis. CENTRAL NERVOUS SYSTEM: Cranial nerves of the patient could not be examined. The patient was noted to have some agitation. SKIN: Visible skin, no lesions or rashes. MUSCULOSKELETAL: Without any acute deformities seen. LABORATORY DATA: Arterial blood gas today, pH of 7.37, pCO2 of 48, pO2 97 on 35% oxygen. The CBC of the patient that was done on 09/25/2017, WBC count 11.9, hemoglobin and hematocrit normal, platelet count was normal. CMP of the patient this morning, glucose 150, BUN 15, creatinine was normal. Total protein of 5.6, albumin 2.9. AST 55, ALT 177. Gram-stain of the bronchial washing from yesterday, many white blood cells, few epithelial cells, few gram-positive cocci in pairs. Preliminary culture of the patient reported normal lientte, final culture results are pending. The culture of the spontaneous sputum from 09/23/2017 was noted with no bacterial growth. [place], [place] PROGRESS NOTE NAME: TERA HU UNIT #: [id number] ROOM: [facility] DOCTOR: JONATHAN MARC MD,[facility] BIRTHDATE: [birth year] IMAGING STUDIES: Chest x-ray of the patient, which was done shows endotracheal tube noted in appropriate position, changes of COPD, hyperinflation, postoperative changes in the right upper lobe. IMPRESSION: 1. The patient ongoing severe acute exacerbation of chronic obstructive pulmonary disease, acute tracheobronchitis. 2. History of generalized anxiety disorder as well. 3. Agitation noted at times for this patient with the current mechanical ventilation. 4. Abnormal liver function tests were also noted. 5. Physical assessment of possibility of protein calorie malnutrition as well. 6. History of essential hypertension. PLAN OF MANAGEMENT: The patient has been ordered Haldol round the clock 5 mg q. 4 hours to help improve the agitation behavior and then reduction of the Diprivan will be done after that and the use of the Versed. Monitor labs of the patient closely. The mechanical ventilator setting has been changed and noted with reduction in peak air pressure from 50 to 60 to 34. The rate was decreased to 10, the tidal volume was decreased to 500 mL, peak flow was increased to 75 liters per minute. The arterial blood gas will be done in two hours after the current change in mechanical ventilation, which will be reviewed. Additional changes in the treatment of the patient will be done based on the progression of the illness. Usual care, other supportive therapy, plan of management as well. All other supportive plan of management to be continued. Assessment and management has been discussed with the patient's several family members including sister of this patient at the bedside. The patient will be assessed for possible liberation of mechanical ventilation tomorrow. Total time in pulmonary critical care evaluation and management of the patient today was 38 minutes. ZAC CASTILLO MD CM:PNTRANS [phone] ZAC MARC MD 09/26/17 0130 interface
--- NOTE | ~2017-09-22 | DS ---
[place], [place] DISCHARGE SUMMARY NAME: TERA HU [facility] #: [id number] UNIT #: [id number] ROOM: 525 DOCTOR: VERO PILLAI MD BIRTHDATE: [birth year] DOS: 10/01/2017 DISCHARGE DIAGNOSES: 1. Acute over chronic respiratory failure with acute exacerbation of chronic obstructive pulmonary disease requiring mechanical ventilation. 2. Acute hypoxemic respiratory failure. 3. Severe chronic obstructive pulmonary disease and home oxygen dependence. 4. Nicotine smoke dependence. 5. Generalized anxiety disorder. 6. Mental confusion and delirium secondary to respiratory failure, resolved. 7. Benign essential hypertension. 8. Gastroesophageal reflux disease and esophagitis. 9. History of lobectomy for a benign mass in the past. 10. Chronic back pains. HOSPITAL COURSE: The patient presented to the Emergency Department in acute respiratory failure, shortness of breath, cough, wheezing, tiredness and fatigue. The patient admitted to the ICU and her breathing continued to get worse along with tachycardia, low grade fever and ultimately she went into respiratory failure, which required intubation and mechanical ventilation. The patient remained on ventilator for several days with failed attempts to extubate her, but finally she did come off of the ventilator and she has improved now enough to be discharged to home after clearance with Dr. Grijalva. The patient being sent home on tapering down dose of corticosteroids, oxygen, breathing treatments and bronchodilators to follow up at the office. Nicotine smoke dependence. The patient is being encouraged to stop. The patient was referred to lung transplant, but she does not qualify because of recurrent smoking cigarettes. Gastroesophageal reflux disease and esophagitis, treated and asymptomatic with omeprazole. Benign essential hypertension, treated with diltiazem. Hypokalemia, resolved with extra potassium supplements. The patient's chest x-ray showing no acute abnormality, just COPD. The patient underwent bronchoscopy and sputum results are negative so far. AFB was also negative. Blood cultures were negative. DISCHARGE MANAGEMENT: DuoNeb every 4 hours, Medrol Dosepak, Daliresp 500 mcg daily, omeprazole 40 mg a day, diltiazem 60 mg b.i.d., Pulmicort 0.5 mg b.i.d., Xanax 0.25 mg t.i.d. p.r.n. for anxiety. The patient is to take Augmentin 875 mg twice a day for 1 week. [place], [place] DISCHARGE SUMMARY NAME: TERA HU UNIT #: [id number] ROOM: 525 DOCTOR: VERO PILLAI MD BIRTHDATE: [birth year] VERO PILLAI MD CM:DISCHARG [id number] [phone] VERO PILLAI MD 10/01/172140 interface
--- NOTE | ~2017-09-22 | WRIGHTHP ---
[place], [place] PATIENT HISTORY AND PHYSICAL EXAM NAME: TERA HU [facility] #: [id number] UNIT #: [id number] ROOM: [facility] DOCTOR: VERO PILLAI MD BIRTHDATE: [birth year] DOS: 09/22/2017 HISTORY OF PRESENT ILLNESS: A 57-year-old female with a past medical history of: 1. Advanced COPD. 2. Nicotine smoke dependence. The patient stopped in April 2017. 3. Benign essential hypertension. 4. Generalized anxiety disorder. 5. GERD and esophagitis. 6. History of lobectomy for benign mass. 7. Chronic back pains. The patient presented to the Emergency Department at [facility] with increasing shortness of breath since Thursday, that is for 4 days now with shortness of breath, cough, wheezing and tiredness. The patient has a severe underlying disease and she was tachypneic, breathing 26 times per minute with low grade fever of 99.6 degrees Fahrenheit and a heart rate of 115 beats per minute with lactic acid level increased to 4.2. The patient was acutely sick and admitted to the ICU for close monitoring. After admission, she is still complaining of headache, shortness of breath, feeling very tired and weak. The patient has been started on corticosteroids, oxygen, nebulizer treatments, antibiotic and being monitored very closely. The patient's heart rate has improved and blood gases were performed. REVIEW OF SYSTEMS: LUNGS: Increasing shortness of breath, cough and wheezing. GASTROINTESTINAL: No nausea, vomiting, diarrhea or constipation. CARDIOVASCULAR: No chest pains or palpitations. HOME MEDICATIONS: The patient is taking albuterol inhaler, Trelegy inhaler, oxygen with ambulation, Xanax, diltiazem, omeprazole, Daliresp, vitamin D. ALLERGIES: Known allergies to AVAPRO. FAMILY HISTORY: Noncontributory. SOCIAL HISTORY: Stopped smoking cigarettes in April 2017. Denies any alcohol or drug abuse. PHYSICAL EXAMINATION: GENERAL: Alert, oriented x 3, looking somewhat weak and tired, but in no visible distress, generalized weakness. VITAL SIGNS: Blood pressure 124/59, respiratory rate ranging between 24-26 times per minute, heart rate ranging between 99-115 beats per minute and temperature of 99.6 degrees Fahrenheit. HEENT AND NECK: Extraocular movements are intact. Sclerae are anicteric. Oral mucosa is moist and clean. No obvious facial weakness. Neck is supple without any lymphadenopathy. No thyromegaly. No JVD. No carotid arterial bruits. LUNGS: Decreased breath sounds and expiratory wheezing all over. CARDIOVASCULAR SYSTEM: Heart rate is regular in rate and rhythm. S1 and S2 [place], [place] PATIENT HISTORY AND PHYSICAL EXAM NAME: TERA HU [facility] #: [id number] UNIT #: [id number] ROOM: [facility] DOCTOR: VERO PILLAI MD BIRTHDATE: [birth year] normally audible. No significant murmur or any other abnormal cardiac sounds. ABDOMEN: Soft, nontender. No obvious organomegaly. Bowel sounds are present. No obvious herniation. EXTREMITIES: Without significant cyanosis or edema. Warm to touch. CENTRAL NERVOUS SYSTEM: Alert and oriented x 3. Cranial nerves II-XII are intact. Speech is normal. The patient is able to move all extremities. Normal muscle strength. Deep tendon reflexes are equal on both sides. Plantars were downgoing. IMPRESSION: 1. The patient with lactic acid level of 4.2, low grade fever, wheezing, shortness of breath and acute over chronic respiratory failure with tachycardia and tachypnea, is being closely monitored in the ICU. 2. Acute exacerbation of severe underlying chronic obstructive pulmonary disease and possibility of pneumonia. Dr. Grijalva, the nipple threader has been consulted and will also follow the patient. We will keep her on bronchodilators, antibiotic corticosteroids, oxygen. 3. Headache, apparently a tension headache, to be treated with Tylenol and Advil. 4. Gastroesophageal reflux disease and esophagitis, treated with omeprazole, which is being continued. 5. Benign essential hypertension. I will continue diltiazem and monitor her blood pressures and heart rate. 6. Hypokalemia with potassium level of 3.3. I will give her extra potassium supplements. VERO PILLAI MD CM:HISPHYS:PATIENT HISTORY AND PHYSICAL EXAMINATION [id number] [phone] VERO PILLAI MD 09/22/171914 interface
--- NOTE | ~2017-09-22 | PR ---
[place], [place] PROGRESS NOTE NAME: TERA HU [facility] #: [id number] UNIT #: [id number] ROOM: 525 DOCTOR: JONATHAN MARC MD,ZAC BIRTHDATE: [birth year] DOS: 09/30/2017 SUBJECTIVE: She has been doing remarkably better in the last 2 days. The shortness of breath has been improving. Coughing has been improving. Wheezing was also resolving. Her hearing is also improving in the right ear. OBJECTIVE: VITAL SIGNS: For the patient, which has been recorded showed normal temperature, respiratory rate 20, heart rate 77, blood pressure 118/54-125/72. The pulse oxygen saturation on 3 liters nasal cannula is 99% saturation. HEENT: Examination shows head was atraumatic. Eyes nonicterus. NECK: Supple. CARDIOVASCULAR: S1, S2 is audible. LUNGS: The patient was noted without any wheezing or crackles. ABDOMEN: Soft, nontender. Bowel sounds present. EXTREMITIES: Noted without any acute edema. IMPRESSION: 1. Continued progressive resolution of the acute exacerbation of chronic obstructive pulmonary disease with acute bronchitis of the patient as well. 2. Overall debility, which is resolving. PLAN OF TREATMENT: Decrease Solu-Medrol dose of the patient to 40 mg daily starting tomorrow. Discharge planning could be started. ZAC CASTILLO MD CM:PNTRANS [phone] ZAC MARC MD 10/01/17 0258 interface
--- NOTE | ~2017-09-22 | PR ---
[place], [place] PROGRESS NOTE NAME: TERA HU [facility] #: [id number] UNIT #: [id number] ROOM: [facility] DOCTOR: JONATHAN MARC MD,ZAC BIRTHDATE: [birth year] DOS: 09/29/2017 SUBJECTIVE: The patient was seen and examined on 09/29/2017. She was noted comfortable at this time, currently participating in physical therapy with walking. Shortness of breath, wheezing, and other symptoms have been gradually resolving. Hearing loss of the patient noted to be partially reversible this morning. OBJECTIVE: VITAL SIGNS: Normal temperature, respiratory rate 20, heart rate 81, blood pressure 125/56. HEENT: Head was atraumatic. Eyes nonicterus. NECK: Supple. CARDIOVASCULAR: S1, S2 audible. LUNGS: Mild to moderate expiratory wheezing noted, decreased from previous examination. ABDOMEN: Soft, nontender. Bowel sounds present. EXTREMITIES: Without any acute edema. LABORATORY DATA: Chest x-ray of the patient done this morning does not show any acute pulmonary infiltration or changes of COPD. There were no pleural effusions. IMPRESSION: 1. The patient with gradual resolution of acute exacerbation of chronic obstructive pulmonary disease. 2. Resolving acute hypoxic respiratory failure as well. PLAN OF MANAGEMENT: No changes in the plan of therapy of the patient at this time. Continuation of the current therapy, plan of management and other treatment. Usual care, other supportive plan of management, and treatments and therapies. ZAC CASTILLO MD CM:PNTRANS [phone] ZAC MARC MD 09/30/17 1036 interface
--- NOTE | ~2017-09-22 | CON ---
[place], [place] REPORT OF CONSULTATION NAME: TERA HU [facility] #: [id number] UNIT #: [id number] ROOM: [facility] DOCTOR: ZAC BYRNES MD BIRTHDATE: [birth year] DOS: 09/23/2017 PULMONARY CONSULTATION, EVALUATION, AND MANAGEMENT CONSULTATION REQUESTED BY: Dr. Liz. REASON FOR CONSULTATION: Assessment of symptoms of shortness of breath and cough. HISTORY OF PRESENT ILLNESS: This is a 57-year-old white female who has been known to me with past history of COPD, has been hospitalized intermittently. The patient came into the hospital Emergency Room just day before yesterday. The patient was noted with symptoms that were described as acute bronchitis on 09/21/2017. The patient was seen in the Emergency Room and assessed. The patient was sent home on oral doxycycline and prednisone 50 mg daily for 5 tablets. She had taken the medication and reported no improvement in the respiratory symptom. She has been noted progressive increase in shortness of breath, which worsened, associated with coughing, which remains nonproductive and severe most of the time. Minimal sputum expectoration has been noted. She denies any symptoms of hemoptysis. Denies symptoms of chest pain. The patient has been currently admitted to the hospital in the Intensive Care Unit for further medical management. She denies any major improvement of symptoms and has continued symptoms of shortness of breath from yesterday hospitalization. REVIEW OF SYSTEMS: CONSTITUTIONAL: Fatigue and tiredness noted. Denies symptoms of fever or chills. EYES: Denies any burning, redness, or tenderness. EARS, NOSE, AND THROAT SYMPTOMS: Denies sore throat, hoarseness, otalgia, postnasal drainage, or epistaxis. CARDIOVASCULAR SYSTEM: Denies anginal pain, edema, or pain of lower extremity. Tightness of chest was reported. GASTROINTESTINAL SYMPTOMS: No dysphagia, nausea, vomiting, diarrhea, abdominal pain, hematemesis, melena, or hematochezia. SKIN: Denies abnormal lesions or rashes. MUSCULOSKELETAL SYMPTOMS: Noted without any acute joint pain, redness, or tenderness. CENTRAL NERVOUS SYSTEM: Denies dizziness, headache, diplopia, or syncopal episode. Remaining systems were reviewed. They were noted all negative. PAST MEDICAL HISTORY: 1. Centrilobular emphysema. 2. Intermittent tobacco use. 3. Essential hypertension. 4. Anxiety disorder. 5. Pulmonary nodule, right upper lung; nodule resection ____ noted benign. 6. Restless leg syndrome. [place], [place] REPORT OF CONSULTATION NAME: TERA HU UNIT #: [id number] ROOM: [facility] DOCTOR: ZAC BYRNES MD BIRTHDATE: [birth year] PAST SURGICAL HISTORY: 1. Complete hysterectomy in year 1999. 2. Laparoscopic cholecystectomy in 1999. 3. Therapeutic bronchoscopy that was done the last one on 04/16/2017. 4. Right upper lobectomy that was done on at [facility]. SOCIAL HISTORY: The patient is , has 1 child, lives at home. There was no history of alcohol use or illicit drug use. Tobacco use started since early teens, a pack of cigarettes per day, intermittent tobacco use, currently denying any tobacco use. FAMILY HISTORY: The patient's mother at age 70 with complications of bronchial asthma. Father at 61 years with complications related to myocardial infarction. CURRENT MEDICATIONS: Administered noted use of a Daliresp, omeprazole, Solu-Medrol 40 mg b.i.d., Cardizem 60 mg p.o. b.i.d., Pulmicort Respules, DuoNeb q. 4 hours, and IV Rocephin use. The patient has also been prescribed Xanax p.r.n. use. DRUG ALLERGIES: NOTED WITH ALLERGY TO THE AVAPRO, CAUSING HIVES. PHYSICAL EXAMINATION: GENERAL: A 57-year-old female who has been currently sitting on the side of bed. Height of 5 feet, weight of 90 pounds, BMI 17.6. Appeared to have mild tachypnea and quite anxious. VITAL SIGNS: Temperature 99.6 degrees Fahrenheit, respiratory rate 16-21, heart rate 56-113 with sinus tachycardia, blood pressure 143/60-122/75. Pulse oxygen saturation noted on 3 liters nasal cannula at 94% saturation. HEENT: Head was atraumatic. Eyes nonicterus. NECK: Supple. CARDIOVASCULAR: S1, S2 were audible. LUNGS: Noted diffuse reduction in breath sounds with expiratory wheezing bilaterally. ABDOMEN: Soft, nontender. Bowel sounds present. EXTREMITIES: Noted without any edema, clubbing, or cyanosis. MUSCULOSKELETAL: Noted without any acute deformities. VISIBLE SKIN: No lesions or rashes. CENTRAL NERVOUS SYSTEM: Cranial nerves 2-12 intact without any focal deficit. LABORATORY DATA: Blood culture on 14 of this month taken in the Emergency Room previously noted no bacterial growth. Final culture results are pending. Lactic acid noted variably elevated 2.1 to 4.2. Arterial blood gas yesterday pH of 7.40, pCO2 of 41, pO2 80. The CMP that was done yesterday noted a glucose of 150. BUN and creatinine were normal. Potassium 3.3. The chest x-ray, PA and lateral view, that was done on 09/22/2017 noted changes of COPD, hyperinflation without any acute infiltration. IMPRESSION: The patient who has been currently noted with ongoing acute [place], [place] REPORT OF CONSULTATION NAME: TERA HU UNIT #: [id number] ROOM: [facility] DOCTOR: JONATHAN MARC MD,ZAC BIRTHDATE: [birth year] exacerbation of chronic obstructive pulmonary disease with acute bronchitis. Suspected mucus was noted because of current symptoms, which have not been resolving with severe nonproductive cough and chest congestion. Elevation of lactic acid, most likely related to the current excessive work of breathing and muscular in origin. PLAN OF TREATMENT: Sputum for Gram stain and culture was ordered. Continue current bronchodilators, oxygen supplementation, other noninvasive treatment. The patient has sputum expectoration including flutter valve. The bronchoscopy was assessed to be done tomorrow morning to help clear secretion from the endobronchial tree. No change in antibiotic will be necessary until and unless any culture shows any different results. Continue IV Rocephin. Other supportive therapy, plan of management. Usual care. Thanks for allowing me to participate in care of this patient. ZAC CASTILLO MD CM:CONSTR:REPORT OF CONSULTATION 1624 09/23/17 2156 interface
--- NOTE | ~2017-09-22 | EKG ---
[place], [place] ELECTROCARDIOGRAM REPORT NAME: TERA HU UNIT #: [id number] ROOM: [facility] DOCTOR: JONATHAN MARC MD,ZAC BIRTHDATE: [birth year] DOS: 09/25/2017 ELECTROCARDIOGRAM TIME: 06:40 a.m. FINDINGS: Sinus tachycardia was noted with heart rate of 119 beats per minute with left atrial enlargement. ZAC CASTILLO MD CM:EKGRPT:ELECTROCARDIOGRAM REPORT [id number] ZAC MARC MD
[~2017-09-22 08:54] MED LIST changes: +PREDNISONE50 MG PO; +TRELEGY ELLIPT1 EACH INH
[2017-09-22 08:58] VITALS: BP 120/64
[2017-09-22] MEDS ORDERED: VITAMIN D400 I1 PO (09:06)
[2017-09-22 09:47] LABS: HEMATOCRIT 42.8 % (37.0-47.0); HEMOGLOBIN 14.8 g/dl (12.0-16.0); MEAN CELL VOLUME 89.2 fl (81.0-99.0); MEAN CORPUSCULAR HGB 30.8 pg (27.0-31.0); MEAN CORPUSCULAR HGB CONC 34.6 g/dl (33.0-37.0); MEAN PLATELET VOLUME 9.3 fl (9.6-12.3); PLATELET COUNT AUTOMATED 272 10*3/uL (130-400); WHITE BLOOD COUNT 12.6 10*3/uL (4.8-10.8)
[2017-09-22 10:01] LABS: ALBUMIN 3.6 gm/dl (3.1-4.5); ALKALINE PHOSPHATASE 95 U/L (45-117); BUN 11 mg/dl (7-24); CHLORIDE 104 mmol/L (98-107); CREATININE 0.64 mg/dL (0.55-1.02); POTASSIUM 3.3 mmol/L (3.5-5.1); SGOT/AST 13 IU/L (3-35); SGPT/ALT 22 U/L (12-78); SODIUM 142 mmol/L (136-145); TOTAL PROTEIN 7.3 gm/dL (6.4-8.2)
[2017-09-22 10:04] LABS: ATYPICAL LYMPHS 1 % (0-0); PLATELET SUFFICIENCY NORMAL (NORMAL); TOTAL CELLS COUNTED 100 #CELLS
[2017-09-22 10:28] VITALS: BP 128/64
[2017-09-22 10:35] LABS: ABG BASE EXCESS 0.9 mmol/L (-2.0-2.0); ABG HCO3 25.2 mmol/l (22-26); ABG O2 SATURATION 96.1 % (95-97); ARTERIAL BLOOD GAS PCO2 41.2 mmHg (35-45); ARTERIAL BLOOD GAS PH 7.404 (7.35-7.45)
[2017-09-22 10:41] LABS: BILIRUBIN NEGATIVE (NEGATIVE); BLOOD NEGATIVE (NEGATIVE); CLARITY CLEAR (CLEAR); COLOR YELLOW (YELLOW); GLUCOSE NEGATIVE (NEGATIVE); KETONE NEGATIVE (NEGATIVE); NITRITE NEGATIVE (NEGATIVE); SPECIFIC GRAVITY <= 1.005 (1.005-1.030); UROBILINOGEN 0.2 E.U./dl (0.2-1.0)
[2017-09-22 11:03] LABS: LEUKO ESTERASE NEGATIVE (NEGATIVE)
[2017-09-22 11:04] LABS: BACTERIA TRACE; WBC 0-2 wbc/hpf (0-5)
[2017-09-22 11:06] VITALS: BP 121/56
[2017-09-22 11:15] VITALS: BP 135/79
[2017-09-22 16:00] VITALS: BP 124/59
[2017-09-22 20:00] VITALS: BP 119/55
[2017-09-23] VITALS: BP 122/75
[2017-09-23 04:00] VITALS: BP 128/76
[2017-09-23 08:00] VITALS: BP 127/75
[2017-09-23 12:00] VITALS: BP 143/66
[2017-09-23 16:00] VITALS: BP 120/67
[2017-09-23 20:00] VITALS: BP 153/63
[2017-09-24] VITALS (10 sets, daily range): BP systolic 94–138; BP diastolic 63–91
[2017-09-24 06:08] LABS: BUN 10 mg/dl (7-24); CHLORIDE 105 mmol/L (98-107); CREATININE 0.52 mg/dL (0.55-1.02); SODIUM 142 mmol/L (136-145)
[2017-09-24 06:16] LABS: POTASSIUM 4.6 mmol/L (3.5-5.1)
[2017-09-24 17:29] LABS: ABG BASE EXCESS 2.9 mmol/L (-2.0-2.0); ABG HCO3 27.6 mmol/l (22-26); ABG O2 SATURATION 98.4 % (95-97); ARTERIAL BLOOD GAS PCO2 45.5 mmHg (35-45); ARTERIAL BLOOD GAS PH 7.402 (7.35-7.45)
[2017-09-25] VITALS (12 sets, daily range): BP systolic 88–108; BP diastolic 47–83
[2017-09-25 06:42] LABS: BASO % 0.2 % (0.0-1.0); HEMATOCRIT 42.8 % (37.0-47.0); HEMOGLOBIN 13.9 g/dl (12.0-16.0); LYMPH # 0.8 10*3/uL (1.3-4.4); LYMPH % 6.4 % (27.0-41.0); MEAN CELL VOLUME 94.1 fl (81.0-99.0); MEAN CORPUSCULAR HGB 30.5 pg (27.0-31.0); MEAN CORPUSCULAR HGB CONC 32.5 g/dl (33.0-37.0); MEAN PLATELET VOLUME 9.6 fl (9.6-12.3); MONO # 0.8 10*3/uL (0.1-1.0); MONO % 6.6 % (3.0-9.0); NEUT # 10.2 10*3/uL (2.3-7.9); NEUT % 86.1 % (47.0-73.0); PLATELET COUNT AUTOMATED 235 10*3/uL (130-400); RED BLOOD COUNT 4.55 10*6/uL (4.10-5.10); RED CELL DISTRI WIDTH 12.5 % (0-14.5); WHITE BLOOD COUNT 11.9 10*3/uL (4.8-10.8)
[2017-09-25 06:59] LABS: ALBUMIN 2.9 gm/dl (3.1-4.5); ALKALINE PHOSPHATASE 78 U/L (45-117); BUN 15 mg/dl (7-24); CHLORIDE 109 mmol/L (98-107); CREATININE 0.53 mg/dL (0.55-1.02); POTASSIUM 3.8 mmol/L (3.5-5.1); SGOT/AST 55 IU/L (3-35); SGPT/ALT 177 U/L (12-78); SODIUM 144 mmol/L (136-145); TOTAL PROTEIN 5.6 gm/dL (6.4-8.2)
[2017-09-25 07:27] LABS: ABG BASE EXCESS 2.4 mmol/L (-2.0-2.0); ABG O2 SATURATION 97.4 % (95-97); ARTERIAL BLOOD GAS PCO2 48.2 mmHg (35-45); ARTERIAL BLOOD GAS PH 7.379 (7.35-7.45); ARTERIAL BLOOD GAS PO2 97.9 mmHg (80-90)
[2017-09-25 12:37] LABS: ABG BASE EXCESS 2.3 mmol/L (-2.0-2.0); ABG HCO3 28.1 mmol/l (22-26); ABG O2 SATURATION 97.8 % (95-97); ARTERIAL BLOOD GAS PCO2 50.7 mmHg (35-45); ARTERIAL BLOOD GAS PH 7.362 (7.35-7.45)
[2017-09-25 16:08] LABS: ACID FAST SPEC PROCESSING Concentration (.)
[2017-09-26] VITALS (9 sets, daily range): BP systolic 86–128; BP diastolic 51–74
[2017-09-26 05:46] LABS: ALBUMIN 2.7 gm/dl (3.1-4.5); ALKALINE PHOSPHATASE 64 U/L (45-117); BUN 14 mg/dl (7-24); CHLORIDE 112 mmol/L (98-107); CREATININE 0.34 mg/dL (0.55-1.02); POTASSIUM 3.9 mmol/L (3.5-5.1); SGOT/AST 17 IU/L (3-35); SGPT/ALT 106 U/L (12-78); SODIUM 148 mmol/L (136-145); TOTAL PROTEIN 5.2 gm/dL (6.4-8.2)
[2017-09-26 05:47] LABS: HEMOGLOBIN 11.9 g/dl (12.0-16.0); MEAN CELL VOLUME 95.6 fl (81.0-99.0); MEAN CORPUSCULAR HGB 30.7 pg (27.0-31.0); MEAN CORPUSCULAR HGB CONC 32.2 g/dl (33.0-37.0); MEAN PLATELET VOLUME 9.8 fl (9.6-12.3); PLATELET COUNT AUTOMATED 167 10*3/uL (130-400); RED BLOOD COUNT 3.87 10*6/uL (4.10-5.10); RED CELL DISTRI WIDTH 12.4 % (0-14.5); WHITE BLOOD COUNT 9.4 10*3/uL (4.8-10.8)
[2017-09-26 05:48] LABS: PREALBUMIN 21 mg/dl (20-40)
[2017-09-26 06:58] LABS: PLATELET SUFFICIENCY NORMAL (NORMAL); TOTAL CELLS COUNTED 100 #CELLS; TOXIC GRANULATION SLIGHT
[2017-09-26 07:45] LABS: ABG HCO3 18.1 mmol/l (22-26); ABG O2 SATURATION 74.8 % (95-97); ARTERIAL BLOOD GAS PCO2 37.6 mmHg (35-45); ARTERIAL BLOOD GAS PH 7.303 (7.35-7.45)
[2017-09-26 07:46] LABS: ABG BASE EXCESS -7.2 mmol/L (-2.0-2.0)
[2017-09-26 08:40] LABS: ABG BASE EXCESS 4.9 mmol/L (-2.0-2.0); ABG HCO3 31.1 mmol/l (22-26); ABG O2 SATURATION 98.9 % (95-97); ARTERIAL BLOOD GAS PCO2 54.5 mmHg (35-45); ARTERIAL BLOOD GAS PH 7.372 (7.35-7.45)
[2017-09-27] VITALS: BP 114/35
[2017-09-27 04:00] VITALS: BP 131/69
[2017-09-27 05:46] LABS: ALBUMIN 2.8 gm/dl (3.1-4.5); ALKALINE PHOSPHATASE 73 U/L (45-117); BUN 23 mg/dl (7-24); CHLORIDE 106 mmol/L (98-107); CREATININE 0.27 mg/dL (0.55-1.02); POTASSIUM 4.1 mmol/L (3.5-5.1); SGOT/AST 40 IU/L (3-35); SGPT/ALT 147 U/L (12-78); SODIUM 145 mmol/L (136-145); TOTAL PROTEIN 5.2 gm/dL (6.4-8.2)
[2017-09-27 05:49] LABS: HEMATOCRIT 36.3 % (37.0-47.0); HEMOGLOBIN 11.8 g/dl (12.0-16.0); MEAN CELL VOLUME 95.3 fl (81.0-99.0); MEAN CORPUSCULAR HGB CONC 32.5 g/dl (33.0-37.0); MEAN PLATELET VOLUME 9.8 fl (9.6-12.3); PLATELET COUNT AUTOMATED 174 10*3/uL (130-400); RED BLOOD COUNT 3.81 10*6/uL (4.10-5.10); RED CELL DISTRI WIDTH 12.2 % (0-14.5); WHITE BLOOD COUNT 9.8 10*3/uL (4.8-10.8)
[2017-09-27 06:30] LABS: PLATELET SUFFICIENCY NORMAL (NORMAL); TOTAL CELLS COUNTED 100 #CELLS
[2017-09-27 08:00] VITALS: BP 137/73
[2017-09-27 11:54] VITALS: BP 155/83
[2017-09-27 16:00] VITALS: BP 150/87
[2017-09-27 20:00] VITALS: BP 134/80
[2017-09-28] VITALS (7 sets, daily range): BP systolic 115–143; BP diastolic 56–80
[2017-09-29] VITALS: BP 121/59
[2017-09-29 04:00] VITALS: BP 138/66
[2017-09-29 08:00] VITALS: BP 125/56
[2017-09-29 12:00] VITALS: BP 120/54
[2017-09-29 16:00] VITALS: BP 101/60
[2017-09-29 20:02] VITALS: BP 115/59
[2017-09-30] VITALS: BP 110/62
[2017-09-30 04:00] VITALS: BP 111/67
[2017-09-30 08:00] VITALS: BP 117/82
[2017-09-30 12:00] VITALS: BP 125/72
[2017-09-30 16:00] VITALS: BP 118/54
[2017-09-30 20:00] VITALS: BP 134/62
[2017-10-01] VITALS: BP 129/71
[2017-10-01 08:00] VITALS: BP 133/85
[2017-10-01 12:00] VITALS: BP 128/63
[2017-10-01 16:00] VITALS: BP 116/67
[2017-10-01 16:40] VITALS: BP 129/67
[2017-10-01] MEDS ORDERED: AUGMENTIN 875-875 MG PO (19:22)
[2017-10-01] MEDS ORDERED: MEDROL DOSEPAK4 MG PO (19:22)
== END 2017-10-01 19:42 | disposition home or self-care (01) | DRG 208 ==
LOC: ED 08:54 → EDHOLD 10:02 → ICCU 10:02 → 5E 09-30 14:21
PROVIDERS: Internal Medicine; Internal Medicine Critical Care Medicine; Nurse Practitioner
PROC: 0BC98ZZ Extirpation of Matter from Lingula Bronchus, Via Natural or Artificial Opening Endoscopic (ICD-10-PCS; principal; 2017-09-22)
PROC: 0BC78ZZ Extirpation of Matter from Left Main Bronchus, Via Natural or Artificial Opening Endoscopic (ICD-10-PCS; 2017-09-24)
PROC: 0BC58ZZ Extirpation of Matter from Right Middle Lobe Bronchus, Via Natural or Artificial Opening Endoscopic (ICD-10-PCS; 2017-09-24)
PROC: 5A1945Z Respiratory Ventilation, 24-96 Consecutive Hours (ICD-10-PCS; 2017-09-24)
PROC: 0BH17EZ Insertion of Endotracheal Airway into Trachea, Via Natural or Artificial Opening (ICD-10-PCS; 2017-09-24)
PROC: 0BC48ZZ Extirpation of Matter from Right Upper Lobe Bronchus, Via Natural or Artificial Opening Endoscopic (ICD-10-PCS; 2017-09-24)
PROC: 0BC38ZZ Extirpation of Matter from Right Main Bronchus, Via Natural or Artificial Opening Endoscopic (ICD-10-PCS; 2017-09-24)
PROC: 0BC68ZZ Extirpation of Matter from Right Lower Lobe Bronchus, Via Natural or Artificial Opening Endoscopic (ICD-10-PCS; 2017-09-24)
PROC: 0BCB8ZZ Extirpation of Matter from Left Lower Lobe Bronchus, Via Natural or Artificial Opening Endoscopic (ICD-10-PCS; 2017-09-24)
PROC: 0BC88ZZ Extirpation of Matter from Left Upper Lobe Bronchus, Via Natural or Artificial Opening Endoscopic (ICD-10-PCS; 2017-09-24)
PROC: 5A09357 Assistance with Respiratory Ventilation, Less than 24 Consecutive Hours, Continuous Positive Airway Pressure (ICD-10-PCS; 2017-09-26)
PROC: 5A09357 Assistance with Respiratory Ventilation, Less than 24 Consecutive Hours, Continuous Positive Airway Pressure (ICD-10-PCS; 2017-09-27)
PROC: 5A09357 Assistance with Respiratory Ventilation, Less than 24 Consecutive Hours, Continuous Positive Airway Pressure (ICD-10-PCS; 2017-09-28)
DX: J18.9 Pneumonia, unspecified organism (principal); J96.21 Acute and chronic respiratory failure with hypoxia; T17.490A Other foreign object in trachea causing asphyxiation, initial encounter; T17.590A Other foreign object in bronchus causing asphyxiation, initial encounter; J96.22 Acute and chronic respiratory failure with hypercapnia; E87.2 Acidosis; J44.1 Chronic obstructive pulmonary disease with (acute) exacerbation; J44.0 Chronic obstructive pulmonary disease with (acute) lower respiratory infection; E44.1 Mild protein-calorie malnutrition; Z68.1 Body mass index [BMI] 19.9 or less, adult; E87.6 Hypokalemia; I10 Essential (primary) hypertension; D64.9 Anemia, unspecified; F17.210 Nicotine dependence, cigarettes, uncomplicated; F41.1 Generalized anxiety disorder; K21.0 Gastro-esophageal reflux disease with esophagitis; G89.29 Other chronic pain; M54.9 Dorsalgia, unspecified; R62.7 Adult failure to thrive; J20.9 Acute bronchitis, unspecified; R94.5 Abnormal results of liver function studies; D63.8 Anemia in other chronic diseases classified elsewhere; G25.81 Restless legs syndrome; G44.209 Tension-type headache, unspecified, not intractable; X58.XXXA Exposure to other specified factors, initial encounter; Z76.82 Awaiting organ transplant status; Z99.81 Dependence on supplemental oxygen; Z90.2 Acquired absence of lung [part of]; Z88.8 Allergy status to other drugs, medicaments and biological substances; Z79.899 Other long term (current) drug therapy; Z90.710 Acquired absence of both cervix and uterus; Z90.49 Acquired absence of other specified parts of digestive tract; Z82.49 Family history of ischemic heart disease and other diseases of the circulatory system; Z71.6 Tobacco abuse counseling; Z82.5 Family history of asthma and other chronic lower respiratory diseases; Y93.89 Activity, other specified; Y92.89 Other specified places as the place of occurrence of the external cause; Y99.8 Other external cause status

== ENCOUNTER → 2017-11-25 | Outpatient (CLI) | payer BC ==
[~2017-11-25] MED LIST changes: +VITAMIN D400 I1 PO
== END | disposition home or self-care (01) ==
LOC: RAD 14:56
DX: S39.92XA Unspecified injury of lower back, initial encounter (principal); M41.86 Other forms of scoliosis, lumbar region; M12.88 Other specific arthropathies, not elsewhere classified, other specified site; W19.XXXA Unspecified fall, initial encounter; X58.XXXA Exposure to other specified factors, initial encounter; Y93.89 Activity, other specified; Y92.89 Other specified places as the place of occurrence of the external cause; Y99.8 Other external cause status

== ENCOUNTER 2018-02-12 14:03 | Emergency (ER) | payer BC ==
[~2018-02-12] VITALS: Ht 152.4 cm; Wt 43.1 kg
[2018-02-12 14:04] VITALS: BP 159/92
[2018-02-12] MEDS ORDERED: PREDNISONE10 MG PO (15:10)
== END 2018-02-12 15:11 | disposition home or self-care (01) ==
LOC: ED 14:03
DX: R51 Headache (principal); R03.0 Elevated blood-pressure reading, without diagnosis of hypertension; Z98.890 Other specified postprocedural states; Z90.49 Acquired absence of other specified parts of digestive tract; Z90.710 Acquired absence of both cervix and uterus; Z79.899 Other long term (current) drug therapy; Z88.8 Allergy status to other drugs, medicaments and biological substances

== ENCOUNTER 2018-05-18 08:15 | Emergency (ER) | payer BC ==
[~2018-05-18] VITALS: Ht 152.4 cm; Wt 44.0 kg
[2018-05-18 08:18] VITALS: BP 147/93
[2018-05-18 08:31] LABS: BILIRUBIN NEGATIVE (NEGATIVE); BLOOD NEGATIVE (NEGATIVE); CLARITY CLOUDY (CLEAR); COLOR YELLOW (YELLOW); GLUCOSE NEGATIVE (NEGATIVE); KETONE TRACE (NEGATIVE); LEUKO ESTERASE 2+ (NEGATIVE); NITRITE POSITIVE (NEGATIVE); PH 5.5 (5.0-9.0); UROBILINOGEN 0.2 E.U./dl (0.2-1.0)
[2018-05-18 08:39] LABS: BACTERIA 4+; WBC 41-50 wbc/hpf (0-5)
[2018-05-18 09:22] LABS: BASO % 0.3 % (0.0-1.0); EOS % 0.1 % (1.0-4.0); HEMATOCRIT 49.3 % (37.0-47.0); HEMOGLOBIN 17.1 g/dl (12.0-16.0); LYMPH # 1.2 10*3/uL (1.3-4.4); LYMPH % 15.5 % (27.0-41.0); MEAN CELL VOLUME 89.5 fl (81.0-99.0); MEAN CORPUSCULAR HGB CONC 34.7 g/dl (33.0-37.0); MEAN PLATELET VOLUME 9.3 fl (9.6-12.3); MONO # 0.6 10*3/uL (0.1-1.0); NEUT # 6.1 10*3/uL (2.3-7.9); NEUT % 76.7 % (47.0-73.0); PLATELET COUNT AUTOMATED 263 10*3/uL (130-400); RED BLOOD COUNT 5.51 10*6/uL (4.10-5.10); RED CELL DISTRI WIDTH 11.8 % (0-14.5)
[2018-05-18 09:38] LABS: ALKALINE PHOSPHATASE 98 U/L (45-117); BUN 14 mg/dl (7-24); CHLORIDE 108 mmol/L (98-107); CREATININE 0.71 mg/dL (0.55-1.02); LIPASE 163 U/L (73-393); POTASSIUM 4.1 mmol/L (3.5-5.1); SGOT/AST 14 IU/L (3-35); SGPT/ALT 21 U/L (12-78); SODIUM 140 mmol/L (136-145); TOTAL PROTEIN 8.1 gm/dL (6.4-8.2)
[2018-05-18] MEDS ORDERED: ZOFRAN4 MG PO (10:43)
[2018-05-18] MEDS ORDERED: SEPTDS PO (10:43)
== END 2018-05-18 11:16 | disposition home or self-care (01) ==
LOC: ED 08:15
PROVIDERS: Emergency Medicine
DX: N39.0 Urinary tract infection, site not specified (principal); R06.02 Shortness of breath; J44.9 Chronic obstructive pulmonary disease, unspecified; Z88.8 Allergy status to other drugs, medicaments and biological substances; Z79.899 Other long term (current) drug therapy; Z79.2 Long term (current) use of antibiotics; Z90.710 Acquired absence of both cervix and uterus; Z90.49 Acquired absence of other specified parts of digestive tract

== ENCOUNTER 2018-06-11 11:23 | Inpatient (IN) | payer BC ==
[~2018-06-11] VITALS: Ht 152.4 cm; Wt 43.3 kg
--- NOTE | ~2018-06-11 | EKG ---
[place], [place] ELECTROCARDIOGRAM REPORT NAME: TERA HU UNIT #: [id number] ROOM: 415 DOCTOR: BRADLEY DRAFT REPORT BIRTHDATE: [birth year] [facility] Test Date: 2018-06-11 Test Time: 14:49:51 Pat Name: TERA HU Department: Room: 415 Gender: F Director [employer] Compliance: Debbie Bishop : 1960 Requested By: JAMI SCHAEFER PA-C Order Number: [id number] Reading MD: Isrrael Vazquez MD Measurements Intervals [place] Rate: 84 P: 61 MI: 148 QRS: -4 QRSD: 80 T: 60 QT: 356 QTc: 421 Interpretive Statements Sinus rhythm Probable left atrial enlargement Low voltage, extremity leads Compared to earlier ECG this date Right atrial enlargement is no longer seen Electronically Signed On 06-11-2018 19:44:54 PST by Isrrael Vazquez MD CM:EKGRPT:ELECTROCARDIOGRAM REPORT [id number] 43 JAMI SCHAEFER PA-C EPIPHANY DRAFT REPORT JAMI SCHAEFER PA-C
--- NOTE | ~2018-06-11 | EKG ---
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
--- NOTE | ~2018-06-11 | CON ---
[place], [place] REPORT OF CONSULTATION NAME: TERA HU [facility] #: [id number] UNIT #: [id number] ROOM: 421 DOCTOR: JONATHAN MARC MDZAC BIRTHDATE: [birth year] DOS: 06/13/2018 PULMONARY CONSULTATION AND EVALUATION CONSULTATION REQUESTED BY: Dr. Lucie Lezama. REASON FOR CONSULTATION: To assess the patient for current respiratory distress with respiratory failure with exacerbation of chronic obstructive pulmonary disease. HISTORY OF PRESENT ILLNESS: This is a 57-year-old white female patient known with history of COPD with intermittent hospitalization previously. The patient has been admitted to the hospital under the care of Dr. Lucie Lezama on the date of 06/11/2018. The patient stated she has been noted with acute abnormal respiratory symptom, coughing, chest congestion, shortness of breath starting last Thursday. The symptoms noted with gradual progression. She was seen in the Emergency Room. She has been assessed and hospitalized. She has been noted with significant respiratory distress and shortness of breath. The patient was treated on the medical floor. She has been transferred currently to intensive care unit where she has been started on BiPAP settings of 04/15. With the use of the BiPAP, the patient's respiratory status has been noted better with the decreased symptoms of distress and shortness of breath. She was reporting symptoms of coughing, which have moderately severe intermittently without any sputum expectoration. The wheezing has been reported intermittent by the patient as well. There were no symptoms of chest pain reported by the patient. REVIEW OF SYSTEMS: CONSTITUTIONAL: Symptoms of fatigue and tiredness reported. No symptoms of fever or chills. EYES: Denies burning, redness, or tenderness. EARS, NOSE, THROAT SYMPTOMS: Denies sore throat, hoarseness, otalgia, postnasal drainage or epistaxis. CARDIOVASCULAR: No angina pain, edema, pain of the lower extremities. GASTROINTESTINAL: No dysphagia, nausea, vomiting, diarrhea, abdominal pain, hematemesis, melena, or hematochezia. SKIN: Denies abnormal lesions or rashes. CENTRAL NERVOUS SYSTEM: No dizziness, headache, diplopia, syncopal episodes. Remaining systems were reviewed, they were noted all negative. PAST MEDICAL HISTORY: 1. Reported as history of severe chronic obstructive pulmonary disease. 2. The patient with essential hypertension. 3. General anxiety disorder. 4. Pulmonary nodule history, which was noted benign. 5. Restless leg syndrome. PAST SURGICAL HISTORY: 1. Complete hysterectomy in 1999. 2. Laparoscopic cholecystectomy. [place], [place] REPORT OF CONSULTATION NAME: TERA HU UNIT #: [id number] ROOM: 421 DOCTOR: ZAC BYRNES MD BIRTHDATE: [birth year] 3. Therapeutic bronchoscopies. 4. Right upper lobectomy, which turned out to be a benign lesion in the [facility], in [place], [place]. SOCIAL HISTORY: The patient is , has one child, lives at home. Denies alcohol or illicit drug use. Tobacco use noted as a teenager, pack of cigarettes per day, but the patient stated that she has not been smoking cigarettes since last hospitalization in 09/2017. FAMILY HISTORY: The patient's father at 61 years of complication related to myocardial infarction. Mother at the age of 7070 years old from complications of bronchial asthma. CURRENT MEDICATIONS: Administered on this hospitalization: 1. Use of DuoNeb for this patient with albuterol sulfate was ordered. 2. Pulmicort Respules 0.5 mg b.i.d. 3. Vitamin D 1000 mg p.o. daily. 4. Daliresp 500 mcg daily. 5. Omeprazole 40 mg daily. 6. Cardizem 120 mg daily. 7. Tylenol p.r.n. use. 8. Zithromax 500 mg IV daily. 9. Use of Xanax p.r.n. DURG ALLERGIES: REPORTED ALLERGY TO THE [facility]. PHYSICAL EXAMINATION: GENERAL: This is a 57-year-old male who has been currently noted awake and alert without any acute distress. The patient's height was recorded as 5 feet, weight of 95 pounds, BMI 18.6. VITAL SIGNS: The patient has a normal temperature, respiratory rate 18-24, heart rate of 112-122, sinus tachycardia, blood pressure 137/69-148/86. Intake 2600 mL, output were not documented. Pulse oxygen saturation with BiPAP settings 12/6, 35% oxygen, 95% saturation. HEENT: Head was atraumatic. Eyes nonicterus. CARDIOVASCULAR: S1, S2 audible. LUNGS: The patient generally decreased breath sounds along with diffuse expiratory wheezing without any crackles. ABDOMEN: Soft, nontender. Bowel sounds present. EXTREMITIES: Without edema. MUSCULOSKELETAL: Without acute deformities. CENTRAL NERVOUS SYSTEM: The patient's cranial nerves 2-12 intact. LABORATORY DATA: The arterial blood gas this morning, pH of 7.35, pCO2 40, pO2 71 on 3 liters nasal canula done with respiratory distress. The blood culture of the patient from admission 06/11/2018 no bacterial growth. Arterial blood gas earlier 3 liters, pH 7.36, pCO2 of 47, pO2 77.5, that was done at midnight. CBC on admission was noted on 06/11/2018 with normal CBC for the patient on admission. CMP that was done on 06/11/2018 on admission, normal BUN and creatinine as well as troponins and others. Influenza A and B, nasal washing [place], [place] REPORT OF CONSULTATION NAME: TERA HU UNIT #: [id number] ROOM: 421 [facility] [birth year] antigens were negative. Lactic acid 1.1. Blood cultures, no bacterial growth on 06/11/2018. Chest x-ray 1 view that was done on this admission was reported with hyperinflation changes, exacerbation of chronic obstructive pulmonary disease without any visible pulmonary infiltration. IMPRESSION: 1. The patient was noted with acute exacerbation of chronic obstructive pulmonary disease with acute bronchitis, respiratory distress secondary to acute exacerbation of chronic obstructive pulmonary disease, sinus tachycardia as a result of respiratory distress and exacerbation of chronic obstructive pulmonary disease. 2. The patient has history of severe general anxiety disorder as well. PLAN OF TREATMENT: Use of BiPAP to stabilize the respiratory distress will be continued with intermittent use. Oxygen supplementation to be continued other time to maintain pulse oxygen 92% or greater. Continue current dose of corticosteroids, bronchodilators, and antibiotics. No change in treatment otherwise will be necessary. Other previous treatment of the patient will be continued without any changes. Other additional treatment changes will be made based on progression of the illness. Keep the patient in the intensive care unit for the next 24 hours. Current medications continued to be used to maximize the management of the current general anxiety disorder. Thank you for allowing me to participate in the care of this patient. ZAC CASTILLO MD CM:CONSTR:REPORT OF CONSULTATION 1433 06/28/18 1018 interface
--- NOTE | ~2018-06-11 | PR ---
[place], [place] [facility]GRESS NOTE [id number] UN[facility] #: [id number] ROOM: [facility] DOCTOR: JONATHAN MARC MD,ZAC BIRTHDATE: [birth year] DOS: 06/15/2018 PULMONARY PROGRESS NOTE SUBJECTIVE: She has been noted with partial reduction in respiratory symptom yesterday with respiratory distress, was decreased to some extent. Still noted significant shortness of breath with mild exertion. Wheezing was reported with symptoms of chest tightness and cough. The patient has used the BiPAP intermittently as well. This morning, the patient was seen sitting on side of the bed. The patient had symptoms of headache, diplopia, nausea, vomiting, diarrhea, abdominal pain, hematemesis, or melena. Denies symptoms of edema or pain of the lower extremity. Denies symptoms of headache. The remaining system was reviewed that was noted all negative. OBJECTIVE: VITAL SIGNS: Recorded as a normal temperature, respiratory rate of 20-24, heart rate of 110-94 with mild sinus tachycardia, blood pressure 122/67 to 115/71. The pulse oxygen saturation was 3 liters nasal cannula 96% saturation. HEENT: Examination shows head was atraumatic. Eyes nonicterus. NECK: Supple. CARDIOVASCULAR: S1, S2. LUNGS: Moderate general reduction in breath sounds with diffuse expiratory wheezing, partially decreased from previous examination. ABDOMEN: Flat, soft, nontender. EXTREMITIES: Without acute edema. MUSCULOSKELETAL: Without acute deformities. CENTRAL NERVOUS SYSTEM: Cranial nerves 2-12 intact. LABORATORY DATA: BMP today, BUN 16, creatinine was normal, glucose 139, CO2 37. CBC of patient essentially was noted as normal. IMPRESSION: 1. The patient who has been currently noted with acute exacerbation of chronic obstructive pulmonary disease with acute respiratory distress, secondary to that. 2. The patient with past history of nicotine abuse. 3. Benign pulmonary nodule with status post partial resection of the right upper lobe in the past. 4. Anxiety disorder. PLAN OF TREATMENT: No changes in the plan of care at this time. Continue current dose of bronchodilators, oxygen supplementation, corticosteroids. Oxygen supplementation to be continued as previously. No change in antibiotics will be necessary. All other previous treatment previously ordered will be continued without any changes. [place], [place] PROGRESS NOTE NAME: TERA HU UNIT #: [id number] ROOM: [facility] DOCTOR: ZAC BYRNES MD BIRTHDATE: [birth year] ZAC CASTILLO MD CM:PNTRANS [phone] ZAC MARC MD 06/15/18 2328 interface
--- NOTE | ~2018-06-11 | PR ---
[place], [place] PROGRESS NOTE NAME: TERA HU [facility] #: [id number] UNIT #: [id number] ROOM: 421 DOCTOR: JONATHAN MARC MD,ZAC BIRTHDATE: [birth year] DOS: 06/18/2018 PULMONARY PROGRESS NOTE SUBJECTIVE: The patient continued to do well per the patient's current medical management. Shortness of breath, respiratory symptom and other symptoms of the patient has been resolved gradually and progressively. OBJECTIVE: VITAL SIGNS: Vital signs for the patient which has been recorded shows a normal temperature, respiratory rate 22, heart rate of 81, blood pressure 120/67. The pulse oxygen saturation on 3 liters 95% saturation at rest. HEENT: Head was atraumatic. Eyes nonicterus. NECK: Supple. CARDIOVASCULAR: S1, S2 is audible. LUNGS: Without any wheeze or crackles. ABDOMEN: Soft, nontender, bowel sounds present. EXTREMITIES: No acute change. IMPRESSION: Progressive and gradual resolution of severe acute exacerbation of chronic obstructive pulmonary disease, acute tracheobronchitis, improving symptoms, physical improvement as well. PLAN OF TREATMENT: No changes in the plan of care. Continue current plan of management, bronchodilators, oxygen, corticosteroids. Discharge planning per primary care physician as well in the next 24-48 hours. ZAC CASTILLO MD CM:PNTRANS [phone] ZAC MARC MD 06/19/18 0410 interface
--- NOTE | ~2018-06-11 | EKG ---
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
--- NOTE | ~2018-06-11 | EKG ---
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
--- NOTE | ~2018-06-11 | PR ---
[place], [place] PROGRESS NOTE NAME: TERA HU UNIT #: [id number] ROOM: 421 DOCTOR: ZAC BYRNES MD BIRTHDATE: [birth year] DOS: 06/16/2018 SUBJECTIVE: The patient was noted comfortable at this time, resting on the bed. There were no symptoms of chest pain. The patient's shortness of breath has been slowly resolving. Tachycardia was also gradually improving. There were no symptoms of palpitation, headache or diplopia reported by the patient. There was no nausea or vomiting. The anxiety level was also noted significantly decreased. Remaining systems reviewed. They were noted all negative. OBJECTIVE: VITAL SIGNS: The patient has normal temperature, respiratory rate 18, heart rate 89, blood pressure is 100/65-100/65. Pulse oxygen saturation recorded on 3 liters nasal cannula 95% saturation. HEENT: Examination shows head was atraumatic. Eyes nonicterus. NECK: Supple. CARDIOVASCULAR: S1, S2 audible. LUNGS: Noted without any crackles. Expiratory wheezing was gradually decreasing, but not resolved. ABDOMEN: Flat, soft, nontender. EXTREMITIES: Without edema. MUSCULOSKELETAL: The patient was noted without any acute deformities. LABORATORY DATA: There were no labs done today. IMPRESSION: 1. The patient was slow, but gradual resolution of the acute exacerbation of chronic obstructive pulmonary disease. 2. Acute bronchitis. 3. Resolving tachycardia with resolving chronic obstructive pulmonary disease exacerbation. 4. Debility. 5. Generalized anxiety disorder. PLAN OF MANAGEMENT: Continuation of the current dose of corticosteroids, bronchodilators, use of the BiPAP and oxygen. The patient could be transferred to telemetry floor as well. Other additional treatment changes will be done based on the progression of the illness. [place], [place] PROGRESS NOTE NAME: TERA HU UNIT #: [id number] ROOM: 421 DOCTOR: ZAC BYRNES MD BIRTHDATE: [birth year] ZAC CASTILLO MD CM:PNTRANS [phone] ZAC MARC MD 06/28/18 1020 interface
--- NOTE | ~2018-06-11 | PR ---
[place], [place] PROGRESS NOTE [facility]: [id number] #: [id number] ROOM: [facility] DOCTOR: MARYSE VASQUEZ MD BIRTHDATE: [birth year] DOS: 06/14/2018 SUBJECTIVE: The patient still appears to be good short of breath even though slightly better than yesterday. She did tolerate the BiPAP, is off the BiPAP this morning for her breakfast. OBJECTIVE: VITAL SIGNS: Blood pressure is 132/83, pulse of 106, respirations 18, temperature 98.6. LUNGS: Diminished breath sounds, very poor air entry. HEART: Regular. ABDOMEN: Soft, scaphoid. EXTREMITIES: Without any edema. Blood cultures show no bacterial growth. ASSESSMENT AND PLAN: 1. Acute respiratory failure, on BiPAP. 2. Chronic obstructive pulmonary disease with acute exacerbation. We will increase the dose of the steroids. 3. Chest pain, ruled out, appears to be noncardiac. 4. Acute tracheobronchitis, on antibiotics. Appreciate Dr. Grijalva's consult. Prognosis is going to be fair, but slow in recovery. MARYSE VASQUEZ MD CM:PNTRANS [id number] MARYSE VASQUEZ MD 06/14/18 1052 interface
--- NOTE | ~2018-06-11 | PR ---
[place], [place] PROGRESS NOTE NAME: TERA HU UNIT #: [id number] ROOM: [facility] DOCTOR: MARYSE VASQUEZ MD BIRTHDATE: [birth year] DOS: 06/13/2018 SUBJECTIVE: The patient states that she has had increased respiratory distress during the night. This morning, she is sitting up with accessory muscle working. OBJECTIVE: VITAL SIGNS: Graphic trend shows a blood pressure of 138/74, pulse of 104, respirations 24, temperature 98.7. LUNGS: Diminished breath sounds, very poor air entry. HEART: Regular, tachycardic. ABDOMEN: Soft, scaphoid. EXTREMITIES: Without any edema. ASSESSMENT AND PLAN: 1. Chronic obstructive pulmonary disease with acute exacerbation. The patient is already on maximal treatment plan. 2. Acute respiratory distress syndrome. The patient will be transferred to the ICU and placed on BiPAP. ABGs ordered today. 3. Benign hypertension, controlled. We will consult Dr. Grijalva. Three sets of CPKs done for chest discomfort have come back negative. No cardiac workup planned right now. MARYSE VASQUEZ MD CM:PNTRANS [id number] MARYSE VASQUEZ MD 06/13/18 1312 interface
--- NOTE | ~2018-06-11 | PR ---
[place], [place] PROGRESS NOTE NAME: TERA HU UNIT #: [id number] ROOM: [facility] DOCTOR: ZAC BYRNES MD BIRTHDATE: [birth year] DOS: 06/14/2018 PULMONARY PROGRESS NOTE SUBJECTIVE: The patient was noted in respiratory distress this morning, has taken the BiPAP about an hour ago. Symptoms of shortness of breath noted with respiratory distress. The patient has been noted with nonproductive cough. There were no symptoms of chest pain. There were symptoms of wheezing. General weakness and fatigue reported. Denies symptoms of hemoptysis. Denies symptoms of epistaxis. Denies symptoms of nausea, vomiting, diarrhea, or abdominal pain. Remaining systems were reviewed. They were noted all negative. OBJECTIVE: VITAL SIGNS: For the patient, which are recorded shows normal temperature, respiratory rate of 31, heart rate of 113, sinus tachycardia, blood pressure 132/83-142/78. Pulse oxygen saturation on 3 liters nasal cannula 96% saturation recorded. HEENT: Examination shows head was atraumatic. Eyes nonicterus. NECK: Supple. CARDIOVASCULAR SYSTEM: S1, S2 is audible. LUNGS: Diffuse expiratory wheezing was noted. There were no crackles. ABDOMEN: Flat, soft, nontender. Bowel sounds present. EXTREMITIES: Noted without any acute edema. MUSCULOSKELETAL: Without acute deformities. CENTRAL NERVOUS SYSTEM: Intact. LABORATORY DATA: No labs done for the patient today. IMPRESSION: The patient with: 1. Ongoing severe acute exacerbation of chronic obstructive pulmonary disease with acute bronchitis. 2. Past history of nicotine use. 3. Benign nodule in the lung was also known previously. 4. General anxiety disorder. PLAN OF THERAPY: Change the Solu-Medrol dose frequency for the patient to the high level q.8 hours. Continuation of the bronchodilator at this time and use of the BiPAP, anxiolytics and other medical treatment including antibiotics. No change in antibiotic will be necessary. Monitor respiratory status closely. Other additional treatment changes will be ordered based on progression of the illness. [place], [place] PROGRESS NOTE NAME: TERA HU UNIT #: [id number] [facility]OM: [facility] DOCTOR: ZAC BYRNES MD BIRTHDATE: [birth year] ZAC CASTILLO MD CM:PNTRANS 1241 ZAC MARC MD 06/15/18 0239 interface
--- NOTE | ~2018-06-11 | PR ---
[place], [place] PROGRESS NOTE NAME: TERA HU UNIT #: [id number] ROOM: [facility] DOCTOR: JONATHAN MARC MD,ZAC BIRTHDATE: [birth year] DOS: 06/17/2018 PULMONARY PROGRESS NOTE SUBJECTIVE: The patient is noted comfortable at this time, without any acute distress. She has not been reported with any symptoms of fever or chills. Denies symptoms of nausea, vomiting, diarrhea, or any abdominal pain. Shortness of breath has been resolving progressively. Coughing resolving. Wheezing is also noted gradually decreased. She has been using BiPAP as ordered. OBJECTIVE: VITAL SIGNS: Normal temperature, respiratory rate 22, heart rate 82, blood pressure 121/75. The pulse oxygen saturation on 3 liters nasal cannula is 96% saturation. HEENT: Head is atraumatic. Eyes nonicterus. NECK: Supple. CARDIOVASCULAR: S1 and S2 audible. LUNGS: Without any wheezes or crackles at the present time. The breaths are noted mildly diminished bilaterally. ABDOMEN: Soft, nontender. Bowel sounds present. EXTREMITIES: Without acute edema. IMPRESSION: Progressive but gradual resolution of acute exacerbation of chronic obstructive pulmonary disease is noted at the present time with improvement in respiratory distress. PLAN OF MANAGEMENT: Decrease Solu-Medrol to 40 mg b.i.d. dosing at this time. Ambulation is encouraged. Continue BiPAP. Potential discharge home in the next 24-48 hours will be considered based on further improvement in respiratory status. ZAC CASTILLO MD CM:PNTRANS [id number] ZAC MARC MD 06/17/18 1449 interface
--- NOTE | ~2018-06-11 | DS ---
[place], [place] DISCHARGE SUMMARY NAME: TERA HU UNIT #: [id number] ROOM: 421 DOCTOR: VERO PILLAI MD BIRTHDATE: [birth year] DOS: 06/19/2018 DISCHARGE DIAGNOSES: 1. Acute over chronic respiratory failure. 2. Acute exacerbation of severe underlying chronic obstructive pulmonary disease. 3. Nicotine smoke dependence. The patient has not smoked cigarettes since 09/2017. No nicotine usage either. 4. Benign essential hypertension. 5. Asthma persistent severe. 6. End-stage chronic obstructive pulmonary disease. 7. History of hysterectomy and cholecystectomy and C-sections. HOSPITAL COURSE: The patient was admitted by Dr. Lucie Lezama when she presented with acute respiratory failure, increased shortness of breath and she was admitted to ICU and treated with BiPAP for a long time. The patient was diagnosed as having acute exacerbation of end-stage COPD and treated with bronchodilators, corticosteroids, oxygen, antibiotic and Dr. Grijalva, the urology surgeon followed her and he has cleared her for discharge to home today. 1. Chronic history of nicotine smoke dependence. The patient says she has not smoked cigarette since 09/2017. 2. History of lobectomy for benign mass in the past. 3. Generalized anxiety disorder. Disorder treated with Xanax as needed. 4. Gastroesophageal reflux disease and esophagitis, treated with omeprazole, asymptomatic. 5. Benign essential hypertension, treated and controlled. The patient remains on diltiazem. LABORATORY DATA: Blood gases showed pH of 7.36 on admission, pCO2 of 48, pO2 of 77 on 3 liters of oxygen by nasal cannula. Normal CBC, normal serum electrolytes. DISCHARGE MANAGEMENT: Medrol Dosepak, Augmentin for a week, diltiazem CD 120 mg b.i.d., DuoNeb every 4 hours, Pulmicort 0.5 mg b.i.d., vitamin D 1000 units daily, Daliresp 500 mcg daily, omeprazole 40 mg a day, Xanax 0.25 mg every 6 hours p.r.n. for anxiety. Follow up with me at the office on Thursday. [place], [place] DISCHARGE SUMMARY NAME: TERA HU UNIT #: [id number] ROOM: 421 DOCTOR: VERO PILLAI MD BIRTHDATE: [birth year] VERO PILLAI MD CM:ANIKET [phone] VERO PILLAI MD 06/20/188 interface
--- NOTE | ~2018-06-11 | PR ---
[place], [place] PROGRESS NOTE NAME: TERA HU [facility] #: [id number] UNIT #: [id number] ROOM: [facility] DOCTOR: MARYSE VASQUEZ MD BIRTHDATE: [birth year] DOS: 06/17/2018 SUBJECTIVE: The patient is doing much better this morning, still has coughing spasms, but overall it has definitely improved. The heart rate has slowed down. She is at rest, not breathing so hard, respiratory rate is down to 20. PHYSICAL EXAMINATION: VITAL SIGNS: Blood pressure of pressure is 129/63, pulse of 70, respirations 20, and temperature 98.6. LUNGS: Diminished breath sounds, a few scattered rhonchi, but overall much better air entry. HEART: Regular. ABDOMEN: Soft, scaphoid. EXTREMITIES: Without any edema. ASSESSMENT AND PLAN: 1. Acute exacerbation of chronic obstructive pulmonary disease. 2. Acute respiratory failure with respiratory distress syndrome. The patient is stable and improving. We [place] transfer the [place] [facility]. 3. Adult failure to thrive. Suggested short-term placement for rehabilitation. MARYSE VASQUEZ MD CM:PNTRANS 0803 MARYSE VASQUEZ MD 06/18/18 0209 interface
--- NOTE | ~2018-06-11 | PR ---
[place], [place] PROGRESS NOTE NAME: TERA HU [facility] #: [id number] UNIT #: [id number] ROOM: [facility] DOCTOR: MARYSE VASQUEZ MD BIRTHDATE: [birth year] DOS: 06/16/2018 SUBJECTIVE: The patient is doing much better this morning; finally she seems to have turned the corner. OBJECTIVE: VITAL SIGNS: Blood pressure is 100/65, pulse of 89, respirations 18, temperature 98.4. LUNGS: Diminished breath sounds, clear. HEART: Regular. ABDOMEN: Soft, scaphoid. EXTREMITIES: Without any edema. ASSESSMENT AND PLAN: 1. Acute exacerbation of chronic obstructive pulmonary disease, acute hypoxic respiratory failure with acute respiratory distress syndrome. The patient is definitely improving when compared to yesterday. 2. Tachycardia, which also has subsided after the Cardizem was increased. Continue the current treatment plan. MARYSE VASQUEZ MD CM:PNTRANS [id number] MARYSE VASQUEZ MD 06/16/18 1316 interface
--- NOTE | ~2018-06-11 | PR ---
[place], [place] PROGRESS NOTE NAME: TERA HU [facility] #: [id number] UNIT #: [id number] ROOM: [facility] DOCTOR: MARYSE VASQUEZ MD BIRTHDATE: [birth year] DOS: 06/15/2018 SUBJECTIVE: The patient is still pretty short of breath and this morning is also quite tachycardic, does not have any new complaints. She does have a moist sounding cough now. PHYSICAL EXAMINATION: VITAL SIGNS: Blood pressure is 115/71, pulse of 100-160, respirations 24, temperature 98.4. LUNGS: Diminished breath sounds, scattered wheezes heard this morning. HEART: Regular, tachycardic. ABDOMEN: Soft, scaphoid. EXTREMITIES: Without any edema. LABORATORY DATA: Shows glucose of 139, BUN 16, creatinine 0.41. Sodium 131, potassium 4.2, chloride 101, and bicarbonate 37. WBC count is 6.0, hemoglobin 14.3. MRSA of the nares was negative. ASSESSMENT AND PLAN: 1. Acute respiratory failure. Continue BiPAP. 2. Chronic obstructive pulmonary disease exacerbation. Prognosis remains poor and guarded. The patient is on maximal treatment plan right now, may benefit from a bronchoscopy for a better culture. 3. Generalized anxiety disorder, already on medications. 4. Chest pain, ruled out for myocardial infarction. No cardiac workup right now. MARYSE VASQUEZ MD LAVERNE CASTRO MD CM:PNTRANS MARYSE VASQUEZ MD 06/15/1824 interface
--- NOTE | ~2018-06-11 | PR ---
[place], [place] PROGRESS NOTE NAME: TERA HU UNIT #: [id number] ROOM: [facility] DOCTOR: MARYSE VASQUEZ MD BIRTHDATE: [birth year] DOS: 06/18/2018 SUBJECTIVE: The patient is looking much better, does not have any new complaints. OBJECTIVE: VITAL SIGNS: Graphic trend shows a pressure 112/60, pulse of 87, respirations 22, temperature 96.9. LUNGS: Diminished breath sounds, clear. HEART: Regular. ABDOMEN: Soft, scaphoid. EXTREMITIES: Without any edema. ASSESSMENT AND PLAN: 1. Acute exacerbation of chronic obstructive pulmonary disease, definitely huge improvement, now over the last several days. The prednisone dosage has been cut back. 2. Moderate cigarette smoker, counseled. 3. Adult failure to thrive. I did consider a social service for SNF placement, but I think the patient may be able to go home with PT, OT and visiting nurses. MARYSE VASQUEZ MD CM:PNTRANS 1 MARYSE VASQUEZ MD 06/18/18 0936 interface
--- NOTE | ~2018-06-11 | WRIGHTHP ---
[place], [place] PATIENT HISTORY AND PHYSICAL EXAM [facility] [id number] UNIT #: [id number] ROOM: 415 DOCTOR: MARYSE VASQUEZ MD BIRTHDATE: [birth year] DOS: 06/11/2018 HISTORY OF PRESENT ILLNESS: This patient is very well known to us with multiple admissions to the hospital, comes in with complaints of cough and shortness of breath. Cough is mostly productive of scant amounts of sputum, most of the time it is dry. She also has headaches with a low-grade fever. Denies having any chest pains, palpitations, dizziness. Before this started, she had some flu-like symptoms with aches and pains all over body. PAST MEDICAL HISTORY: Significant for: 1. End-stage COPD, oxygen dependent, last hospitalization in 09/2017. 2. Moderate cigarette smoker. 3. History of lobectomy for a benign mass. 4. Generalized anxiety disorder. 5. Benign hypertension. 6. Chronic low back pain. MEDICATIONS: She is currently on are breathing treatments, Proventil p.r.n., Xanax 0.25 twice a day, diltiazem 120 daily, omeprazole 40 daily, Zofran 4 mg q. 6, Daliresp 500 mcg daily, vitamin D 400 units daily. SOCIAL HISTORY: Smoker of about half a pack to 1 pack of cigarettes a day. Denies using any alcohol. Lives at home. PHYSICAL EXAMINATION: GENERAL: She is awake and alert and oriented, in mild respiratory distress. VITAL SIGNS: Blood pressure is 125/60, pulse of 100 per minute, respirations 20, temperature 97.8. LUNGS: Diminished breath sounds. Very poor air entry. I was unable to hear any wheezes this morning. HEART: Regular, tachycardic. ABDOMEN: Soft, scaphoid. EXTREMITIES: No edema. ASSESSMENT AND PLAN: 1. Acute exacerbation of chronic obstructive pulmonary disease. The patient is placed on IV steroids. Add Pulmicort and breathing treatments. Chest x-ray did not show any other acute infection. 2. Acute tracheobronchitis, on antibiotics. Flu titer was negative. Troponins done also came back negative. 3. Benign hypertension, controlled. Continue Cardizem. [place], [place] PATIENT HISTORY AND PHYSICAL EXAM NAME: TERA HU UNIT #: [id number] ROOM: [facility] DOCTOR: MAYRSE VASQUEZ MD BIRTHDATE: [birth year] MARYSE VASQUEZ MD CM:HISPHYS:PATIENT HISTORY AND PHYSICAL EXAMINATION 7 6 MARYSE VASQUEZ MD 06/12/18 0838 interface
--- NOTE | ~2018-06-11 | PR ---
[place], [place] PROGRESS NOTE NAME: TERA HU [facility] #: [id number] UNIT #: [id number] ROOM: 421 DOCTOR: JONATHAN MARC MD,ZAC BIRTHDATE: [birth year] DOS: 06/19/2018 SUBJECTIVE: The patient was noted comfortable. Continued to do well at this time. There were no symptoms of chest pain, coughing, or sputum expectoration. Remains in the hospital on the medical floor. OBJECTIVE: VITAL SIGNS: For the patient which were recorded showed normal temperature, respiratory rate of 18, heart rate 73, blood and pressure 116/62. Pulse oxygen saturation 3 liters nasal cannula 97% saturation. HEENT: No acute change. NECK: Supple. CARDIOVASCULAR: S1, S2 is audible. LUNGS: The patient was noted without any wheezing or crackles. ABDOMEN: Soft and nontender. Bowel sounds present. EXTREMITIES: No acute change. IMPRESSION: 1. Progressive and gradual resolution of acute exacerbation of chronic obstructive pulmonary disease and acute bronchitis were noted. 2. Past history of nicotine use. PLAN OF MANAGEMENT: No changes in the plan of care, except discharge planning to be done by the primary care physician. From this Pulmonary standpoint, the patient could be discharged home today and to be followed up as an outpatient. The assessment and management was discussed with the patient's sister as well. ZAC CASTILLO MD CM:PNTRANS [phone] ZAC MARC MD 06/19/182127 interface
[~2018-06-11 11:23] MED LIST changes: +SEPTDS PO; +ZOFRAN4 MG PO
[2018-06-11 11:28] VITALS: BP 141/77
[2018-06-11 11:44] LABS: BASO % 0.3 % (0.0-1.0); EOS % 0.3 % (1.0-4.0); HEMATOCRIT 43.8 % (37.0-47.0); HEMOGLOBIN 15.2 g/dl (12.0-16.0); LYMPH # 0.8 10*3/uL (1.3-4.4); LYMPH % 12.5 % (27.0-41.0); MEAN CELL VOLUME 89.4 fl (81.0-99.0); MEAN CORPUSCULAR HGB CONC 34.7 g/dl (33.0-37.0); MEAN PLATELET VOLUME 9.8 fl (9.6-12.3); MONO # 0.6 10*3/uL (0.1-1.0); MONO % 10.1 % (3.0-9.0); NEUT # 4.8 10*3/uL (2.3-7.9); NEUT % 76.5 % (47.0-73.0); PLATELET COUNT AUTOMATED 181 10*3/uL (130-400); RED CELL DISTRI WIDTH 12.2 % (0-14.5); WHITE BLOOD COUNT 6.2 10*3/uL (4.8-10.8)
[2018-06-11 11:56] LABS: ACT PARTIAL THROMBO TIME 24.5 SECONDS (20.8-31.5); INTERNATIONAL NORM RATIO 0.9 (2.0-3.5)
[2018-06-11 11:58] LABS: ALBUMIN 3.7 gm/dl (3.1-4.5); ALKALINE PHOSPHATASE 82 U/L (45-117); BUN 8 mg/dl (7-24); CHLORIDE 106 mmol/L (98-107); CREATININE 0.53 mg/dL (0.55-1.02); POTASSIUM 3.8 mmol/L (3.5-5.1); SGOT/AST 13 IU/L (3-35); SGPT/ALT 20 U/L (12-78); SODIUM 138 mmol/L (136-145); TOTAL PROTEIN 7.1 gm/dL (6.4-8.2); TROPONIN I < 0.015 ng/ml (<0.045)
[2018-06-11 12:30] VITALS: BP 128/60
[2018-06-11 13:33] VITALS: BP 100/54
[2018-06-11] MEDS ORDERED: CARTIA XT120 MG PO (14:07)
[2018-06-11 14:16] VITALS: BP 110/72
[2018-06-11 16:00] VITALS: BP 116/71
[2018-06-11 20:00] VITALS: BP 111/64
[2018-06-12] VITALS: BP 125/69
[2018-06-12 12:00] VITALS: BP 116/85
[2018-06-12 16:00] VITALS: BP 137/69
[2018-06-12 20:00] VITALS: BP 143/68
[2018-06-13] VITALS: BP 143/79
[2018-06-13 08:06] VITALS: BP 138/74
[2018-06-13 08:42] LABS: ABG BASE EXCESS 0.7 mmol/L (-2.0-2.0); ABG HCO3 26.3 mmol/l (22-26); ABG O2 SATURATION 95.3 % (95-97); ARTERIAL BLOOD GAS PCO2 47.7 mmHg (35-45); ARTERIAL BLOOD GAS PH 7.361 (7.35-7.45); ARTERIAL BLOOD GAS PO2 77.5 mmHg (80-90)
[2018-06-13 08:54] VITALS: BP 137/88
[2018-06-13 11:28] LABS: ABG BASE EXCESS 1.1 mmol/L (-2.0-2.0); ABG O2 SATURATION 94.7 % (95-97); ARTERIAL BLOOD GAS PCO2 49.4 mmHg (35-45); ARTERIAL BLOOD GAS PH 7.356 (7.35-7.45); ARTERIAL BLOOD GAS PO2 71.8 mmHg (80-90)
[2018-06-13 12:00] VITALS: BP 148/86
[2018-06-13 16:00] VITALS: BP 139/85
[2018-06-13 20:00] VITALS: BP 142/78
[2018-06-14] VITALS: BP 132/83
[2018-06-14 08:00] VITALS: BP 129/79
[2018-06-14 12:00] VITALS: BP 133/86
[2018-06-14 16:00] VITALS: BP 157/85
[2018-06-14 20:00] VITALS: BP 119/73
[2018-06-15] VITALS: BP 111/83
[2018-06-15 04:00] VITALS: BP 115/71
[2018-06-15 05:29] LABS: BUN 16 mg/dl (7-24); CHLORIDE 101 mmol/L (98-107); CREATININE 0.41 mg/dL (0.55-1.02); POTASSIUM 4.2 mmol/L (3.5-5.1); SODIUM 141 mmol/L (136-145)
[2018-06-15 06:22] LABS: HEMATOCRIT 43.5 % (37.0-47.0); HEMOGLOBIN 14.3 g/dl (12.0-16.0); LYMPH # 0.5 10*3/uL (1.3-4.4); LYMPH % 7.8 % (27.0-41.0); MEAN CELL VOLUME 91.8 fl (81.0-99.0); MEAN CORPUSCULAR HGB 30.2 pg (27.0-31.0); MEAN CORPUSCULAR HGB CONC 32.9 g/dl (33.0-37.0); MEAN PLATELET VOLUME 10.1 fl (9.6-12.3); MONO # 0.5 10*3/uL (0.1-1.0); MONO % 8.7 % (3.0-9.0); NEUT % 83.2 % (47.0-73.0); PLATELET COUNT AUTOMATED 175 10*3/uL (130-400); RED BLOOD COUNT 4.74 10*6/uL (4.10-5.10); RED CELL DISTRI WIDTH 12.4 % (0-14.5)
[2018-06-15 08:00] VITALS: BP 114/76
[2018-06-15 12:00] VITALS: BP 123/67
[2018-06-15 16:00] VITALS: BP 113/70
[2018-06-15 20:00] VITALS: BP 107/68
[2018-06-16] VITALS: BP 96/62
[2018-06-16 04:00] VITALS: BP 102/65
[2018-06-16 08:00] VITALS: BP 100/65
[2018-06-16 12:00] VITALS: BP 110/60
[2018-06-16 16:00] VITALS: BP 110/66
[2018-06-16 20:00] VITALS: BP 116/64
[2018-06-17] VITALS: BP 110/60
[2018-06-17 04:00] VITALS: BP 129/63
[2018-06-17 08:00] VITALS: BP 131/74
[2018-06-17 12:00] VITALS: BP 121/75
[2018-06-17 16:00] VITALS: BP 125/63
[2018-06-17 20:00] VITALS: BP 96/63
[2018-06-18] VITALS: BP 112/60
[2018-06-18 08:00] VITALS: BP 120/67
[2018-06-18 12:00] VITALS: BP 108/53
[2018-06-18 16:00] VITALS: BP 117/63
[2018-06-18 20:00] VITALS: BP 122/46
[2018-06-19] VITALS: BP 110/71
[2018-06-19 08:00] VITALS: BP 116/62
[2018-06-19 12:00] VITALS: BP 118/66
[2018-06-19 16:00] VITALS: BP 119/62
[2018-06-19] MEDS ORDERED: AUGMENTIN 875-875 MG PO (17:12)
[2018-06-19] MEDS ORDERED: MEDROL DOSEPAK4 MG PO (17:12)
== END 2018-06-19 19:18 | disposition home or self-care (01) | DRG 193 ==
LOC: ED 11:23 → ICCU 12:58 → EDHOLD 12:58 → 4E 13:37 → ICCU 06-13 08:33 → 4E 06-18 13:42
PROVIDERS: Physician Assistant; ADMIT Internal Medicine
PROC: 5A09357 Assistance with Respiratory Ventilation, Less than 24 Consecutive Hours, Continuous Positive Airway Pressure (ICD-10-PCS; principal; 2018-06-13)
PROC: 5A09357 Assistance with Respiratory Ventilation, Less than 24 Consecutive Hours, Continuous Positive Airway Pressure (ICD-10-PCS; 2018-06-14)
PROC: 5A09357 Assistance with Respiratory Ventilation, Less than 24 Consecutive Hours, Continuous Positive Airway Pressure (ICD-10-PCS; 2018-06-17)
DX: J18.9 Pneumonia, unspecified organism (principal); J96.21 Acute and chronic respiratory failure with hypoxia; J44.1 Chronic obstructive pulmonary disease with (acute) exacerbation; J44.0 Chronic obstructive pulmonary disease with (acute) lower respiratory infection; Z68.1 Body mass index [BMI] 19.9 or less, adult; J20.9 Acute bronchitis, unspecified; R62.7 Adult failure to thrive; F41.1 Generalized anxiety disorder; R00.0 Tachycardia, unspecified; J45.50 Severe persistent asthma, uncomplicated; G25.81 Restless legs syndrome; K21.0 Gastro-esophageal reflux disease with esophagitis; F17.210 Nicotine dependence, cigarettes, uncomplicated; I10 Essential (primary) hypertension; Z90.710 Acquired absence of both cervix and uterus; Z90.49 Acquired absence of other specified parts of digestive tract; Z98.891 History of uterine scar from previous surgery; Z88.8 Allergy status to other drugs, medicaments and biological substances; Z79.899 Other long term (current) drug therapy; Z79.2 Long term (current) use of antibiotics; Z71.6 Tobacco abuse counseling

== ENCOUNTER 2018-09-13 16:42 | Inpatient (IN) | payer BC ==
[~2018-09-13] VITALS: Ht 157.4 cm; Wt 44.5 kg
--- NOTE | ~2018-09-13 | PR ---
[place], [place] PROGRESS NOTE NAME: TREA HU [facility] #: [id number] UNIT #: [id number] ROOM: 316 DOCTOR: VERO PILLAI MD BIRTHDATE: [birth year] DOS: 09/16/2018 SUBJECTIVE: The patient is feeling much better and being discharged to home by Dr. Edwards after nonsuicidal drug overdose. OBJECTIVE: VITAL SIGNS: Blood pressure 109/86, heart rate of 80 beats per minute, breathing 16 times per minute, temperature 98 degrees Fahrenheit. GENERAL APPEARANCE: The patient is alert and oriented x 3, in no visible distress. HEENT AND NECK: Exam within normal limits. CARDIOVASCULAR SYSTEM: Heart rate is regular in rate and rhythm. S1 and S2 normally audible. LUNGS: Decreased breath sounds and patient wearing oxygen by nasal cannula. ABDOMEN: Soft, nontender. No obvious organomegaly. Bowel sounds are present. EXTREMITIES: Without significant cyanosis or edema. IMPRESSION: 1. Intentional drug overdose for trying to relax, but not intended for suicide according to the patient. The patient had taken buspirone, Risperdal and Rozerem. Her treatment has been adjusted by Dr. Edwards. 2. The patient is being treated for major depression, recurrent, severe and kept on mirtazapine, buspirone, Rozerem for sleep. 3. Generalized anxiety disorder, treated and controlled with buspirone, sometimes lorazepam as needed. 4. Gastroesophageal reflux disease and esophagitis, asymptomatic with omeprazole. 5. End-stage chronic lung disease, treated with oxygen and bronchodilators. The patient is being evaluated for lung transplant at the [facility]. VERO PILLAI MD CM:PNTRANS 1113 [id number] VERO PILLAI MD 09/16/18 1147 interface
--- NOTE | ~2018-09-13 | WRIGHTHP ---
[place], [place] PATIENT HISTORY AND PHYSICAL EXAM NAME: TERA HU [facility] #: [id number] UNIT #: [id number] ROOM: 316 DOCTOR: EDILSON LARA MD BIRTHDATE: [birth year] DOS: 09/13/2018 INITIAL PSYCHIATRIC EVALUATION CHIEF COMPLAINT: "I took extra pills and drank, I was just stressed out." HISTORY OF PRESENT ILLNESS: This is a 58-year-old white female who was transferred from the intensive care at [facility] following an intentional overdose. The patient drank approximately 2 beers, took a few extra Cardizem, a few extra Xanax and some Percocet and wine in an effort as she said to go to sleep. She later did state that this was not a suicide attempt. The patient has had significant stressors. She lives with her who had a stroke and is now wheelchair bound, much more is asked of her and she has been his primary caregiver. She reports chronic health problems herself due to significant COPD. 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 She was admitted ultimately to rule out further organic factors and to stabilize on medication. PAST MEDICAL HISTORY: Remarkable for COPD with respiratory failure, nicotine abuse, benign hypertension, cholecystectomy, hysterectomy, GERD and a lobectomy for a benign mass in her lung. SOCIAL HISTORY: She currently still is a cigarette smoker and drinks approximately two drinks every day. She does not use illicit drugs. STRENGTHS: Ambulatory, good verbal skills. WEAKNESSES: Poor coping skills. MENTAL STATUS: She is alert and oriented to person, place, and time. Mood is depressed. Affect is flat, blunted, and constricted. She has multiple neurovegetative symptoms. There is no hypomania or leandro. There is no gross psychosis. Memory is intact. DIAGNOSES: Major depression, recurrent, severe and dysthymic disorder. PLAN: I have already started her on Remeron at bedtime to aid sleep and appetite. I started her on low dose BuSpar to decrease the anxiety and increase respiratory drive. I will increase this further from 5 mg b.i.d. to 10 mg b.i.d. I will add Rozerem as a non-sedative hypnotics, so I do not exacerbate her COPD issues and use Rozerem 8 mg at bedtime for sleep. Her TSH is very low at 0.287. I will check a free T4 and also a sed rate. Beyond this, I will defer to her primary care doctor for any other workup. We will engage her in individual and paula milieu activity, returning to the least restrictive environment when psychiatrically stable. [place], [place] PATIENT HISTORY AND PHYSICAL EXAM NAME: TERA HU UNIT #: [id number] ROOM: [facility] DOCTOR: EDILSON LARA MD BIRTHDATE: [birth year] EDILSON LARA MD CM:HISPHYS:PATIENT HISTORY AND PHYSICAL EXAMINATION 1002 EDILSON LARA MD 09/14/18 1219 interface
--- NOTE | ~2018-09-13 | PR ---
[place], [place] PROGRESS NOTE NAME: TERA HU [facility] #: [id number] UNIT #: [id number] ROOM: 316 DOCTOR: VERO PILLAI MD BIRTHDATE: [birth year] DOS: 09/15/2018 SUBJECTIVE: The patient is starting to feel better and may be discharged home tomorrow. OBJECTIVE: VITAL SIGNS: Blood pressure 113/71, heart rate 82 beats per minute, breathing 17 times per minute, temperature 98.3 degrees Fahrenheit. GENERAL APPEARANCE: The patient is alert and oriented x 3, in no visible distress. HEENT AND NECK: Exam within normal limits. CARDIOVASCULAR SYSTEM: Heart rate is regular in rate and rhythm. S1 and S2 normally audible. LUNGS: Clear to auscultation. ABDOMEN: Soft, nontender. No obvious organomegaly. Bowel sounds are present. EXTREMITIES: Without significant cyanosis or edema. IMPRESSION AND PLAN: 1. The patient's drug overdose, intentional, but not suicidal. She is doing well now on buspirone, Risperdal and Rozerem for sleep. Possible discharge tomorrow. 2. End-stage chronic obstructive pulmonary disease with chronic respiratory failure. The patient is following up with [facility] for lung transplant. The patient remains on DuoNebs, oxygen and Pulmicort treatments, asymptomatic. 3. Gastroesophageal reflux disease and esophagitis, asymptomatic with omeprazole. 4. Generalized anxiety disorder, not treated and controlled with buspirone, sometimes lorazepam as needed. VERO PILLAI MD CM:PNTRANS [phone] VERO PILLAI MD 09/15/182147 interface
--- NOTE | ~2018-09-13 | CON ---
[place], [place] REPORT OF CONSULTATION [id number] UNIT #: [id number] ROOM: 316 DOCTOR: VERO PILLAI MD BIRTHDATE: [birth year] DOS: 09/14/2018 HISTORY OF PRESENT ILLNESS: The patient is a 58-year-old female with history: 1. End-stage COPD. 2. Benign essential hypertension. 3. Chronic respiratory failure from chronic obstructive pulmonary disease and home oxygen dependence. 4. Asthma, persistent severe. 5. History of hysterectomy, cholecystectomy and C-sections. The patient presented to [facility] after an intentional drug overdose because she said she was stressed out. The patient had drank about 2 beers, few extra Cardizem pills, few extra Xanax and Percocet in an attempt to go to sleep along with some alcohol. The patient says this was not a suicide attempt. The patient was monitored in the ICU and later on transferred to U for further management by Dr. Edwards with major depression, recurrent, severe and dysthymic disorder. The patient is asymptomatic. No GI or urinary symptoms. No chest pains. The patient is taking oxygen by nasal cannula. REVIEW OF SYSTEMS: RESPIRATORY: No increasing shortness of breath. GASTROINTESTINAL: The patient uses oxygen by nasal cannula. CARDIOVASCULAR: No chest pains or palpitations. RESPIRATORY: No increasing shortness of breath and wheezing. FAMILY HISTORY: Noncontributory. PRESENT MEDICATIONS: Vitamin D, omeprazole, mirtazapine, DuoNeb, Pulmicort, Rozerem, buspirone, lorazepam. ALLERGIES: Known allergies to AVAPRO. PHYSICAL EXAMINATION: GENERAL: Alert and oriented x 3, in no visible distress. The patient is wearing oxygen by nasal cannula. HEENT AND NECK: Extraocular movements are intact. Sclerae are anicteric. Oral mucosa is moist and clean. No obvious facial weakness. Neck is supple without any lymphadenopathy. No thyromegaly. No JVD. No carotid arterial bruits. LUNGS: Clear to auscultation. No wheezing. No rhonchi. CARDIOVASCULAR SYSTEM: Heart rate is regular in rate and rhythm. S1 and S2 normally audible. No significant murmur or any other abnormal cardiac sounds. ABDOMEN: Soft, nontender. No obvious organomegaly. Bowel sounds are present. No obvious herniation. EXTREMITIES: Without significant cyanosis or edema. Warm to touch. CENTRAL NERVOUS SYSTEM: Alert and oriented x 3. Cranial nerves II-XII are intact. Speech is normal. The patient is able to move all extremities. Normal muscle strength. Deep tendon reflexes are equal on both sides. Plantars were downgoing. [place], [place] REPORT OF CONSULTATION NAME: TERA HU UNIT #: [id number] ROOM: 316 DOCTOR: VERO PILLAI MD BIRTHDATE: [birth year] IMPRESSION AND PLAN: 1. The patient with drug overdose because she was very anxious and wanted to relax as mentioned above, now undergoing treatment at [facility]. 2. Major depression, recurrent, severe, being treated with buspirone, lorazepam, Zyprexa, mirtazapine by Dr. Edwards and being followed closely. The patient feels much better and not suicidal. 3. Gastroesophageal reflux disease and esophagitis, treated with omeprazole. 4. Advanced end-stage chronic obstructive pulmonary disease with chronic respiratory failure and oxygen dependence. The patient continued on oxygen and DuoNeb with Pulmicort. 5. Generalized anxiety disorder, now treated and controlled with lorazepam as needed. She is also on buspirone, Zyprexa and mirtazapine. Thank you, Dr. Edwards for asking me to see the patient. I will continue to follow. VERO PILLAI MD CM:CONSTR:REPORT OF CONSULTATION 22 09/15/18224 interface
--- NOTE | ~2018-09-13 | PR ---
[place], [place] PROGRESS NOTE [id number] #: [id number] ROOM: 316 DOCTOR: EDILSON LARA MD BIRTHDATE: [birth year] DOS: 09/15/2018 CHIEF COMPLAINT: "I hope to get out of here soon." SUMMARY OF THE VISIT: The patient was interviewed as she was sitting in her room with the oxygen on. She continues to downplay her actions, but continues to appear very depressed and forlorn. She reports multiple stressors that are wearing her down, both her own physical health issues and her 's declining health. She continues to be help rejecting however and states that she really does not want to follow up with a psychiatrist or a counselor, but will take the medication post-discharge. She also refused home health aides or Meals on Wheels stating that she can do this all herself. She does appear depressed and despondent. She at this point in time, however, is denying suicidal ideation. I am concerned, however, given the severity of her suicide attempt that this has totally dissipated and we will continue to tease out whether or not there is any lethality here or not. She convincingly denies medication side effects and did sleep much better last night, which is an improvement upon admission or her previous state of sleep at home. MENTAL STATUS: She remains alert and oriented. Mood does seem to be depressed. Affect is flat and blunted. She denies right now suicidal thoughts, homicidal thoughts, or self-injurious thoughts. There is no leandro or hypomania. There are no auditory or visual hallucinations. No delusions, no paranoia. PLAN: I will maintain her Remeron. I will augment this with BuSpar hoping also that this will increase respiratory drive and help her COPD. I will increase the BuSpar from 10 mg b.i.d. to t.i.d. Monitor and support, engage in individual and paula milieu activity, need to totally rule out the lethality before discharging the patient. EDILSON LARA MD CM:PNTRANS [phone] EDILSON LARA MD 09/15/182134 interface
--- NOTE | ~2018-09-13 | DS ---
[place], [place] DISCHARGE SUMMARY NAME: TERA HU [facility] #: [id number] UNIT #: [id number] ROOM: 316 DOCTOR: EDILSON LARA MD BIRTHDATE: [birth year] DOS: 09/16/2018 CHIEF COMPLAINT: "I took extra pills and drank, I was just stressed out." HISTORY OF PRESENT ILLNESS: This is a 58-year-old white female who was transferred from intensive care at [facility] following an intentional overdose. The patient apparently drank approximately 2 beers, took a couple of extra Cardizem, a few extra Xanax and some Percocet in an effort to go to sleep per her report. She later did state that this was not a suicide attempt. The patient does admit to significant stressors. She lives with her who had a stroke and is now wheelchair bound. She herself has significant end-stage COPD and is in need of a lung transplant. 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 She was admitted to rule out organic factors and to stabilize on medication. SUMMARY OF HOSPITAL COURSE: The patient was admitted to the unit where she was maintained on her Remeron that I had started while she was in the intensive care, this was already beginning to help her sleep and improve her appetite. I did start her on BuSpar in order to increase respiratory drive and decrease her anxiety. The BuSpar was increased to its maximum dose during her stay of 10 mg t.i.d. with excellent results. The patient improved dramatically with the use of these medications. She was given a non-sedative sleeping pill Rozerem to also help her sleep and this was going to be utilized also to not exacerbate her COPD. With this combination, the patient slept well, ate better and voiced a willingness and a readiness to return home with positive plans for the future. She convincingly denied suicidal thoughts, homicidal thoughts, or any self-injurious thoughts. MENTAL STATUS AT DISCHARGE: The patient is alert and oriented to person, place, and time. Mood was euthymic. Affect is appropriate. There was no anxiety, depression, hypomania, leandro, or psychosis. Memory was intact. DIAGNOSIS AT DISCHARGE: Major depression, recurrent, severe and dysthymic disorder. DISPOSITION: Her prescriptions have been e-scribed to [facility]. She will follow up with a practitioner in the community. At the time of discharge, she was psychiatrically and medically stable. [place], [place] DISCHARGE SUMMARY NAME: TERA HU UNIT #: [id number] ROOM: [facility] DOCTOR: EDILSON LARA MD BIRTHDATE: [birth year] EDILSON LARA MD CM:DISCHARG [id number] EDILSON LARA MD 09/16/18 1042 interface
[~2018-09-13 16:42] MED LIST changes: +CARTIA XT120 MG PO
--- NOTE | 2018-09-13 18:35 | NUR ---
TERA HU a 58 year old F admitted via wheel chair from the ADMITTING as a emergency 72 hr. hold admission. Arrived on unit at 1835. ALLERGIES: IRBESARTAN. Vital signs are: 98.2-74-16 112/63, 99% ON 3 LITERS The client signed the following forms with stated understanding: Authorization For The Release of Medical Information, Clothing List, Consent to Voluntary Admission and Hospitalization, Consent and Release Forms/Receipt of Rights, Acknowledgement of Advance Directive Information, Behavioral Health Consent Form, and Informed Consent of Medications. Admitted under the services of Dr. JANE HODGE[facility]. A search was conducted and hazardous articles were removed. Client was oriented to the unit. NAT LUNA
[2018-09-13 18:45] VITALS: BP 112/63
--- NOTE | 2018-09-13 19:11 | NUR ---
DR. NULL NOTIFIED OF NEW ADMISSION, MEDICATIONS AND DIAGNOSIS UPDATED FOR REVIEW. CONTINUE TO HOLD DILTIAZEM FOR TOMARROW. PATIENT WILL CONTINUE UNDER DR. NULL CARE.
[2018-09-13 20:00] VITALS: BP 113/69
--- NOTE | 2018-09-13 20:11 | NUR ---
DR. LARA NOTIFIED OF SI SCORE OF 27, CONTINUE Q 15 MNINUTE SAFETY CHECKS. IF ANYTHING CHANGES TO NOTIFY.
[2018-09-13] MEDS ORDERED: OXYGEN NAS (20:14)
--- NOTE | 2018-09-13 21:12 | NUR ---
EVENING/CRAFTS/MUSIC PT JUST ADMITTED STAFF YET TO MEET PT DUE TO PT BECOMING ORIENTED TO UNIT. PT WILL BE ENOCURAGED TO ATTEND AND PARTICIPATE IN FUTURE GROUP SESSIONS.
--- NOTE | 2018-09-13 23:37 | NUR ---
P-DEPRESSED MOOD WITH FLAT AFFECT. ISOLATIVE TO ROOM. WITHDRAWN WITH LIMITED INTERACTIONS WITH PEERS OR STAFF UNLESS INITIATED BY OTHERS. REFUSED TO COMPLETE MMSE OR PERSONAL CRISIS PREVENTION PLAN, STATES SHE JUST WANTS TO GO TO SLEEP. I-ENCOURAGED PEER INTERACTIONS. EMOTIONAL SUPPORT PROVIDED. MEDICATION EDUCATION. R-PT REMAINS ALERT AND ORIENTED. ABLE TO MAKE NEEDS AND WANTS KNOWN TO STAFF. TOOK HS MEDICATIONS WITHOUT DIFFICULTY AND WENT BACK TO SLEEP. P-ENCOURAGE PT TO INCREASE PEER INTERACTIONS AND EXPLORE DAY ROOM TOMORROW, SPENDING LESS TIME IN HER ROOM ALONE. REVIEW COPING SKILLS AND ASSIST PT IN IDENTIFYING EFFECTING INTERVENTIONS.
--- NOTE | 2018-09-14 | NUR ---
PT REFUSED HS SNACK THIS SHIFT.
--- NOTE | 2018-09-14 04:06 | NUR ---
PT RESTING QUIETLY IN BED.
--- NOTE | 2018-09-14 04:08 | NUR ---
24 HR chart check completed.
--- NOTE | 2018-09-14 05:44 | NUR ---
PT SLEPT >6HRS WITH 1 INTERRUPTION.
--- NOTE | 2018-09-14 07:38 | NUR ---
PHYSICAL THERAPY Nursing screen received. PT orders also received. Thank you. Bette Jordan,PT
[2018-09-14 07:40] LABS: THYROID STIM HORMONE (HS) 0.287 uIU/ml (0.358-4.75)
[2018-09-14 07:52] VITALS: BP 131/53
--- NOTE | 2018-09-14 08:00 | NUR ---
Treatment Plan meeting with Dr. Edwards RN, AT, SW and Combination Man. Plan for discharge Thursday with possible Thursday discharge depending on Stability.
--- NOTE | 2018-09-14 08:00 | NUR ---
PT AWAKE, ALERT AND VERBAL. ATE BREAKFAST IN QUIET ROOM PER PT'S REQUEST. RETURNED TO ROOM. ON UNIT TO SEE PT AT THIS TIME, UPDATE GIVEN. AWARE OF SUICIDE RISK SCORE, STATES TO MAINTAIN PT ON Q15 MIN MONITORING. PT CURRENTLY DENYING CURRENT SUICIDAL IDEATION.
--- NOTE | 2018-09-14 08:08 | NUR ---
OCCUPATIONAL THERAPY CO-SIGN I approve of the Occupational Therapy notes written above. TINO ACHARYA OTR/Inés
--- NOTE | 2018-09-14 10:20 | NUR ---
AND ON UNIT TO SEE PT AT THIS TIME.
--- NOTE | 2018-09-14 11:50 | NUR ---
AM GROUP/EXERCISE PT CHOSE NOT TO ATTEND MORNING GROUP THERAPY. PT WAS IN ROOM RESTING.
--- NOTE | 2018-09-14 12:56 | NUR ---
Spoke to Ole at [phone] regarding pre-authorization for inpatient mental health. Detailed clinical left for Wendi, managed care analyst, at [phone] x [phone]. Awaiting return call. Ref # [id number]
--- NOTE | 2018-09-14 14:30 | NUR ---
When meeting with pt this AM for assessment, this sba underwriter found pt to be frustrated and annoyed due to being admitted to [facility]. Pt was annoyed with the assessment process. Instead of focusing on the assessment, this sba underwriter assisted pt in problem solving. Pt stated that she needed her cell phone so that she could check on the status of her short-term disability. Pt shared that she is hoping that she can return to work and that she has been on the disability but it on 09/08/18. This sba underwriter attempted to locate pt's phone and learned that it had been taken home by pt's sister. Informed pt of this. Pt then used phone provided by this sba underwriter to call her sister. Pt calmed after her phone conversation. Pt voiced concern about her as he is alone at home and is in a wheelchair. Offered that pt could use the phone to call him. Pt stated that it was too early to call him. Pt appeared more at ease and provided additional information about herself. Pt did minimize her suicide attempt. This sba underwriter confronted pt about the minimization but also acknowledged that the pt had to be feeling great pain and hopelessness to attempt taking her life. Pt began to cry and shared that life has been so hard lately. Pt is upset about the deterioration of her physical health and is very concerned that her doctor will not allow her to return to work. Pt stated that she enjoys her job and doesn't want to lose it. Empathized with pt. Discussed counseling and psychiatric follow-up. Pt stated that she has no interest or intention of having mental health follow-up. Educated pt about the benefits of both. Pt continues to deny the need. Offered to schedule a family meeting. Pt also denied the need for this.
--- NOTE | 2018-09-14 14:33 | NUR ---
P- DEPRESSED MOOD, TEARFUL AT TIMES, FLAT AFFECT, GUARDED, ISOLATIVE. I- ORIENTATION, MOOD AND BEHAVIOR ASSESSED. ASSESSED PT FOR SI/HI, INTENT OR PLAN. ASSESSED PT FOR S/S HALLUCINATIONS, PARANOIA AND/OR DELUSIONS. MEDICATIONS ADMINISTERED PER PHYSICIAN'S ORDERS. ENCOURAGED PT TO ATTEND AND PARTICIPATE IN [facility] GROUPS AND ACTIVITIES. R- PT IS ALERT AND ORIENTED X4. MEMORY APPEARS TO BE INTACT. RESPS EASY AND EVEN ON 3L VIA NASAL CANNULA. PT STATES SHE WEARS 3L VIA NC AT HOME WELL. MOOD APPEARS OVERWHELMINGLY DEPRESSED, TEARFUL AT TIMES, WITH FLAT AFFECT. PT STATES "I'M ALWAYS SAD AND DEPRESSED. IT'S JUST MY LIFE NOW". PT DENIES SI/HI, INTENT OR PLAN. PT GUARDED WITH RESPONSES. PT ISOLATIVE TO ROOM, HESISTANT TO PARTICIPATE IN GROUPS AND ACTIVITIES OR INTERACT WITH STAFF OR PEERS DESPITE ENCOURAGEMENT. PT DENIES SI/HI, INTENT OR PLAN. PT DENIES HALLUCINATIONS, NO RESPONSE TO INTERNAL STIMULI NOTED. P- PLAN TO CONTINUE CURRENT TREATMENT, CONTINUE TO MONITOR MOOD AND BEHAVIORS, PROVIDE APPROPRIATE REORIENTATION, REDIRECTION AND 1:1 NEEDED. CONTINUE TO ENCOURAGE MEDICATION COMPLIANCE WELL GROUP ATTENDANCE AND PARTICIPATION.
--- NOTE | 2018-09-14 14:49 | NUR ---
PHYSICAL THERAPY PT orders received. PAtient and staff report patient is 100 % (I) all functional mobility and patient visualized pacing the halls. D/C PT at this time. Thank you for this referral. Bette Pritchett,PT
--- NOTE | 2018-09-14 14:57 | NUR ---
Spoke to Wendi from [place]. IP 3 days angela, 09/13-09/15 with a NRD 09/16. Ref # [id number]. Review will be with Marlon [phone]
--- NOTE | 2018-09-14 15:20 | NUR ---
Received a call during visiting hours from nursing stating that pt and her sister wanted to see this clinical writer. Family meeting held with pt and pt's sister Rosetta. Discussed events which brought pt to [facility]. Discussed pt's length of stay. Pt shared about her continued concern about her short-term disability. Left meeting briefly to confirm with nursing that Rosetta can bring pt's cell phone in later and that pt can use the phone briefly to check her emails for correspondence about her disability. Pt voiced appreciation for this. Discussed and educated pt and Rosetta about the importance of mental health follow-up. During meeting, pt used this clinical writer's phone to call pt's . Pt was also appreciative of this.
--- NOTE | 2018-09-14 15:44 | NUR ---
PM GROUP/ART AND MUSIC PT WAS INVITED TO ATTEND AFTERNOON GROUP BUT DECLINED AND STAYED IN HER ROOM
--- NOTE | 2018-09-14 15:57 | NUR ---
Occupational Therapy referral received and screen completed. [facility] with suicidal ideations and major depressive disorder and anxiety disorder. Patient and nursing report that patient is independent in ADLs and functional mobility. At this time no further OT indicated. Discharge OT at this time. Thank you for this referral. Karishma Noel OTR/l
--- NOTE | 2018-09-14 16:14 | NUR ---
PT SITTING IN QUIET ROOM AT THIS TIME WITH NEWSPAPER AND MAGAZINES. RESPS EASY AND EVEN ON 3L VIA NC. PT CALM, PLEASANT, CONTINUES TO APPEAR GUARDED IN CONVERSATION. NO DISTRESS NOTED. Q15 MIN MONITORING CONTINUES PER POLICY.
--- NOTE | 2018-09-14 17:30 | NUR ---
SHIFT CHART CHECK COMPLETED.
--- NOTE | 2018-09-14 18:00 | NUR ---
PT'S SISTER BROUGHT IN CELL PHONE TO ALLOW PT TO COMPLETE TASKS AND CORRESPONDENCE RELATED TO EMPLOYMENT AND SHORT-TERM DISABILITY. PT COMPLETED THIS ITEMS IN PRESENCE OF STAFF. PT THEN RETURNED CELLPHONE TO STAFF AND IS CURRENTLY VISITING WITH FAMILY.
--- NOTE | 2018-09-14 19:00 | NUR ---
ON UNIT AT THIS TIME, MADE AWARE OF LOW TSH AND FREE T4 ORDERED BY [facility]. NNO RECIEVED AT THIS TIME.
[2018-09-14 20:19] VITALS: BP 142/70
--- NOTE | 2018-09-14 23:39 | NUR ---
P-PT DENIES ANY DEPRESSION OR DEPRESSIVE SYMPTOMS, HOWEVER, PT REMAINS ISOLATIVE AND WITHDRAWN TO SELF AND ROOM WITH LIMITED PEER/STAFF INTERACTIONS NOTED. SHE DOES ADMIT THAT SHE FEELS MORE STRESS DUE TO NOT WORKING BECAUSE WORKING WAS THE TIME SHE HAD AWAY FROM CARING FOR HER . PT ALSO STATES SHE FEELS LIKE SHE IS MISSING SOMETHING BECAUSE OF NOT WORKING. UPON 1:1 THIS EVENING, PT ENAGAGED WITH THIS RN AFTER MUCH ENCOURAGEMENT TO VENT FEELINGS, PT ADMITTED THAT SHE BECOMES ANXIOUS WHEN THINKING ABOUT ALL THE PENDING BIG AND LIFE CHANGING EVENTS IN THE NEAR FUTURE; SPECIFICALLY, PT WENT INTO DETAIL ABOUT HAVING A POSSIBLE LUNG TRANSPLANT. THIS RN ATTEMPTED TO PROVIDE DISCHARGE COUNSELING AND ENCOURAGE PT TO UTILIZE COUNSELORS AND MENTAL HEALTH FOLLOW UP APPOINTMENTS TO EXPRESS HERSELF AND HER FEELINGS THROUGH THIS DIFFICULT AND STRESSFUL TIME. PT LAUGHED AND STATED "YEAH I'M PROBABLY NOT DOING THAT" WHEN SPEAKING ABOUT FOLLOWING UP WITH A COUNSELOR UPON DISCHARGE. I-PT DECLINED TO EXPLORE COPING SKILLS WITH THIS RN. VERBALLY CONTRACTED FOR SAFETY SHE DENIES ANY SI/HI. MEDICATION EDUCATION OFFERED AND ACCEPTED. ENCOURAGED PT TO INCREASE PEER INTERACTIONS AND BE LESS ISOLATIVE. EMOTIONAL SUPPORT PROVIDED. R-PT MEDICATION COMPLIANT WITHOUT DIFFICULTY. ABLE TO TEACH BACK ALL 3 HS MEDICATIONS. STATES "I'M NOT A PEOPLE PERSON, I DON'T LIKE SOCIALIZING." DOES REPORT THAT SHE WILL CONTINUE TO TAKE MEDICATIONS ONCE DISCHARGED BECAUSE THEY HELP HER SLEEP WHICH IS SOMETHING SHE TYPICALLY HAS TROUBLE WITH AT HOME DUE TO MIDCYCLE AWAKENING. P-ENCOURAGE PT TO ATTEND AND PARTICIPATE IN GROUP THERAPIES, ENCOURAGE PT TO FOLLOW UP WITH OUTPATIENT TREATMENT, MEDICATION EDUCATION
--- NOTE | 2018-09-15 04:52 | NUR ---
ON UNIT TO ASSESS PT, STATES TO LEAVE O2 AT 3L CONT., NO OTHER ORDERS RECEIVED.
--- NOTE | 2018-09-15 05:45 | NUR ---
ATE 100% OF HS SNACK. SLEPT PAST 2144 WITHOUT ANY AWAKENINGS.
[2018-09-15 08:00] VITALS: BP 113/71
--- NOTE | 2018-09-15 08:00 | NUR ---
Treatment Plan meeting with Dr. Edwards, RN, AT, SW and Cane Splicer. Plan for discharge . Pt. will return home at discharge.
--- NOTE | 2018-09-15 10:02 | NUR ---
PRN MOM 30ML PO GIVEN AT THIS TIME PER PT REQUEST FOR C/O CONSTIPATION. WILL MONITOR FOR EFFECT.
--- NOTE | 2018-09-15 10:04 | NUR ---
ON UNIT TO SEE PT AT THIS TIME, AWARE PT MAY BE DISCHARGED TOMORROW FROM [facility]. REVIEWED MEDS.
--- NOTE | 2018-09-15 11:50 | NUR ---
AM GROUP/EXERCISE AND COPING SKILLS PT WAS PRESENT FOR THE EXERCISE PORTION OF GROUP AND PARTICIPATED MINIMALLY. WHEN THE GROUP DISCUSSION BEGAN, PT GOT UP AND LEFT THE ROOM, PT DID NOT RETURN.
--- NOTE | 2018-09-15 15:40 | NUR ---
PM GROUP/MANICURES AND MUSIC PT WAS INVITED AND ENCOURAGED TO ATTEND AFTERNOON GROUP THERAPY BUT CHOSE NOT TO ATTEND.
--- NOTE | 2018-09-15 16:49 | NUR ---
P- DEPRESSED MOOD, AFFECT APPEARS BRIGHTER. PT PREFERS TO SIT IN QUIET ROOM READING A BOOK RATHER THAN ENGAGE IN GROUPS AND ACTIVITIES. I- ORIENTATION, MOOD AND BEHAVIOR ASSESSED. ASSESSED PT FOR SI/HI, INTENT OR PLAN. ASSESSED PT FOR S/S HALLUCINATIONS, PARANOIA AND/OR DELUSIONS. MEDICATIONS ADMINISTERED PER PHYSICIAN'S ORDERS. ENCOURAGED PT TO ATTEND AND PARTICIPATE IN [facility] GROUPS AND ACTIVITIES. R- PT IS A+OX4. MEMORY INTACT. RESPS EASY AND EVEN ON 3L VIA NC. MOOD REMAINS DEPRESSED ALTHOUGH AFFECT APPEARS BRIGHTER THAN PREVIOUS ASSESSMENT BY THIS RN ON 09/14/18. PT SMILING AND LAUGHING APPROPRIATELY, MORE WILLING TO ENGAGE IN CONVERSATION. PT DENIES SI/HI, INTENT OR PLAN. VERBALLY CONTRACTED FOR SAFETY. PT DENIES HALLUCINATIONS, NO RESPONSE TO INTERNAL STIMULI NOTED. NO PARANOIA OR DELUSIONS NOTED. PT IS CALM, PLEASANT AND COOPERATIVE. PT LOOKING FORWARD TO BEING DISCHARGED TOMORROW SHE DISCUSSED WITH THIS AM. PT IS AMBULATORY WITH STEADY GAIT, INDEPENDENT WITH ADLS. CONTINENT OF BOWEL AND BLADDER. NO DISTRESS NOTED. P- PLAN TO CONTINUE CURRENT TREATMENT, CONTINUE TO MONITOR MOOD AND BEHAVIORS, PROVIDE APPROPRIATE REORIENTATION, REDIRECTION AND 1:1 NEEDED. CONTINUE TO ENCOURAGE MEDICATION COMPLIANCE WELL GROUP ATTENDANCE AND PARTICIPATION.
--- NOTE | 2018-09-15 17:39 | NUR ---
SHIFT CHART CHECK COMPLETED.
--- NOTE | 2018-09-15 17:41 | NUR ---
PT REPORTS MOM MINIMALLY EFFECTIVE, WOULD LIKE A SECOND DOSE TONIGHT.
[2018-09-15 20:00] VITALS: BP 144/73
--- NOTE | 2018-09-15 22:08 | NUR ---
Patient alert and oriented x4. Patient continues to be isoative/withdrawn to self with limited interactions with staff and other patients. Patient denies any SI at this time. No hallucinations/delusions noted at this time. Provided 1:1 with patient for emotional support. Patient compliant with medications without any difficulty. Plan to continue to provide 1:1 for emotional support. Continue to notify staff when having any suicidal thoughts. Also continue to encourage medication compliance. Q 15 minute safety checks continued and maintained. See [facility] flowsheet for further documentation.
--- NOTE | 2018-09-16 00:30 | NUR ---
24 HR chart check completed.
--- NOTE | 2018-09-16 05:53 | NUR ---
Patient slept approx. 7 hours throughout shift. Q 15 minute safety checks continued and maintained.
[2018-09-16 07:29] VITALS: BP 109/86
--- NOTE | 2018-09-16 08:00 | NUR ---
Treatment Plan meeting with Dr. Edwards, RN, AT, SW and Money Examiner. Plan for discharge today. Pt. will return home. Follow up appointments have been scheduled and reviewed with patient. Pt. Sister will transport via personal car.
--- NOTE | 2018-09-16 08:40 | NUR ---
DR. NULL NOTIFIED OF PATIENT BEING DISCHARGED AROUND NOON TODAY.
--- NOTE | 2018-09-16 09:00 | NUR ---
PATIENTS BLOOD PRESSURE RECHECKED. MANUAL BLOOD PRESSURE 124/70.
--- NOTE | 2018-09-16 09:37 | NUR ---
No adverse moods noted this shift. Patient is alert and oriented x4. Denies any suicidal ideation or a plan. Denies a wish. Patient stating that she just had so much going on and she felt that she had no other choice, she became way to overwhelmed. Patient stating that she denies feeling like this anymore. Denies feeling depressed or hopeless. Denies hallucinations, delusions, SI/HI, or pain at this time. Patient remains isolative from peers. Prefers to sit in the quiet room away from others. Does interact and engage in conversation with staff. Patient stated "I just feel more comfortable here by myself". Eating, drinking, and sleeping adequately. Gait steady when ambulating. Uses 3L O2 via NC constantly, but takes off every once in awhile. Q15 minute checks maintained for safety.
[2018-09-16] MEDS ORDERED: MIRTAZAPINE15 M2 PO (09:44)
[2018-09-16] MEDS ORDERED: BUSPIRONE HCL10 MG PO (09:44)
[2018-09-16] MEDS ORDERED: ROZEREM8 MG PO (09:44)
--- NOTE | 2018-09-16 11:41 | NUR ---
Shift chart check completed.
--- NOTE | 2018-09-16 11:45 | NUR ---
AM GROUP/EXERICSE AND ART PT CHOSE NOT TO ATTEND MORNING GROUP THERAPY. PT STAYED IN A QUIET ROOM AND READ. PT WILL BE DISCHARGED FROM THE UNIT THIS AFTERNOON.
--- NOTE | 2018-09-16 12:03 | NUR ---
Met with pt individually this AM. Pt's affect is more animated and pt is voicing positive statements about her future. 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 Pt stated that she recognizes that she is a social person and that she needs to be around people. Discussed this further in regards to her home life. Pt confirmed that her will not leave the house to do anything as he is very self-conscious about being in a wheelchair. Pt stated that she now realizes that she needs to do things without her , such a as spend time with her sisters or go out to eat with friends. Discussed self-care and the importance of that. Discussed counseling and pt voiced that she continues to be willing to try this. Educated pt further about counseling and the benefits. Pt denies suicidal ideations. She is future-oriented. Pt did voice appreciation for the assistance that she received in [facility].
--- NOTE | 2018-09-16 12:09 | NUR ---
Pt is discharging today to home with . Follow-up was scheduled with [facility] for counseling and with Dr Liz. Pt denies suicidal ideations. While at [facility], pt's mood improved and her anxiety lessened. She is making tentative plans for her future. She also was able to verbalize coping skills for her current life stressors.
--- NOTE | 2018-09-16 12:25 | NUR ---
PATIENT WAS DISCHARGED OFF THE FLOOR AT THIS TIME. PATIENT WAS TRANSPORTED VIA WHEELCHAIR WITH FAMILY MEMBER AND NURSE. PAPER WORK AND BELONGINGS THAT WAS GONE THROUGH WITH PATIENT GIVEN TO PATIENT. PATIENT WAS ALERT AND ORIENTED, EXCITED TO GO HOME.
--- NOTE | 2018-09-16 14:08 | NUR ---
Voicemail left for Marlon at [phone] with detailed discharge clinical information. LCD 09/15. Auth # [id number]
[2018-10-06] MEDS ORDERED: XANAX0.25 MG PO (18:17)
[2018-10-06] MEDS ORDERED: CARDIZEM CD120 M2 PO (18:17)
[2018-10-06] MEDS ORDERED: DALI500T PO (18:18)
[2018-10-10] MEDS ORDERED: PREDNISONE5 MG PO (02:59)
[2018-10-10] MEDS ORDERED: BUSPIRONE HCL10 MG PO (02:59)
[2018-10-10] MEDS ORDERED: CEFUROXIME AXE250 MG PO (02:59)
[2018-10-10] MEDS ORDERED: MIRTAZAPINE15 M2 PO (02:59)
== END 2018-09-16 12:25 | disposition home or self-care (01) | DRG 885 ==
LOC: 3N 16:42
PROVIDERS: ADMIT Psychiatry & Neurology Psychiatry
DX: F33.2 Major depressive disorder, recurrent severe without psychotic features (principal); J96.10 Chronic respiratory failure, unspecified whether with hypoxia or hypercapnia; F34.1 Dysthymic disorder; J44.9 Chronic obstructive pulmonary disease, unspecified; I10 Essential (primary) hypertension; J45.50 Severe persistent asthma, uncomplicated; K21.9 Gastro-esophageal reflux disease without esophagitis; F41.1 Generalized anxiety disorder; T43.591A Poisoning by other antipsychotics and neuroleptics, accidental (unintentional), initial encounter; Z90.49 Acquired absence of other specified parts of digestive tract; Z90.710 Acquired absence of both cervix and uterus; Z79.899 Other long term (current) drug therapy; Y92.89 Other specified places as the place of occurrence of the external cause

== ENCOUNTER 2018-10-13 05:15 | Inpatient (IN) | payer BC ==
[~2018-10-13] VITALS: Ht 152.4 cm; Wt 43.6 kg
[2018-10-13] VITALS (11 sets, daily range): BP systolic 105–159; BP diastolic 58–89
--- NOTE | ~2018-10-13 | PR ---
[place], [place] PROGRESS NOTE NAME: TERA HU [facility] #: [id number] UNIT #: [id number] ROOM: 405 DOCTOR: JONATHAN MARC MD,ZAC BIRTHDATE: [birth year] DOS: 10/21/2018 SUBJECTIVE: The patient noted comfortable at this time, resting comfortably in the bed, still noted coughing, but the sputum expectoration has been noted with reduction in symptoms of shortness of breath was reported. Wheezing was also resolving. OBJECTIVE: GENERAL: The patient is currently comfortably resting on the bed this morning of assessment. Has not been noted in acute distress this morning of assessment. VITAL SIGNS: Normal temperature, respiratory rate 20, heart rate of 101, blood pressure 139/75. HEENT: Examination shows head was atraumatic. Eyes nonicterus. NECK: Supple. CARDIOVASCULAR: S1, S2 is audible. LUNGS: Noted without any crackles. Occasional wheezing was present. ABDOMEN: Soft, nontender. Bowel sounds present. EXTREMITIES: Without any acute edema. MUSCULOSKELETAL: Without any acute deformities. IMPRESSION: Progressive and gradual resolution of acute exacerbation of chronic obstructive pulmonary disease. PLAN OF MANAGEMENT: The patient could be discharged on oral tapering prednisone, antibiotics, and bronchodilators. As per primary care physician, the patient did qualify for noninvasive ventilator that ____ ordered by her. Outpatient followup to be done as previously scheduled. ZAC CASTILLO MD CM:PNTRANS [phone] ZAC MARC MD 10/21/18 1626 interface
--- NOTE | ~2018-10-13 | PR ---
[place], [place] PROGRESS NOTE NAME: TERA HU UNIT #: [id number] ROOM: 405 DOCTOR: LILIAN BAIRESJANETMONI BIRTHDATE: [birth year] DOS: 10/15/2018 PULMONARY PROGRESS NOTE INTERVAL HISTORY: The patient states that she is still short of breath. The patient states that she still has a cough. The patient states that she is still not producing very much mucus. OBJECTIVE: VITAL SIGNS: The patient's temperature is 99.2, pulse is 83, respiratory rate 18, blood pressure is 147/98. The patient's pulse ox 97% on 3 liters by nasal cannula. HEENT: Normocephalic, atraumatic. NECK: Supple, nontender, trachea midline. CARDIOVASCULAR: S1, S2 audible. CHEST: Clear to auscultation bilaterally, the patient moves very little air. Very diminished breath sounds. ABDOMEN: Soft, flat, nontender. Bowel sounds present. EXTREMITIES: Without any acute edema. MUSCULOSKELETAL: No acute deformity. CENTRAL NERVOUS SYSTEM: Cranial nerves 2-12 grossly intact. No focal neurologic deficits. ASSESSMENT: 1. Recurrent acute exacerbation of chronic obstructive pulmonary disease. 2. Tachycardia. 3. General anxiety disorder. 4. History of pneumonectomy. PLAN: At this time, we will continue the patient on optimal medical therapy. The patient is to use BiPAP at night and p.r.n. We will closely observe the patient over the weekend and see if the patient improves. The patient has improved since yesterday. Due to the patient's pulmonary status, we would like to medically treat the patient for now and avoid any procedures that could result in the patient being intubated as she may be difficult to extubate. So as long as the patient is improving, we will continue what we are doing. Continue Solu-Medrol at current dose, bronchodilators and antibiotics. Thank you for allowing us to participate in the patient's care. Sacha Cedeno DO [place], [place] PROGRESS NOTE NAME: TERA HU UNIT #: [id number] ROOM: 405 DOCTOR: FLAQUITO CEDENO DO BIRTHDATE: [birth year] ZAC CASTILLO MD CM:PNSLOANE [id number] FLAQUITO CEDENO DO 11/09/18 0824 interface
--- NOTE | ~2018-10-13 | CON ---
[place], [place] [facility]ATION [id number] UN[facility] #: [id number] ROOM: 405 DOCTOR: ZAC BYRNES MD BIRTHDATE: [birth year] DOS: 10/14/2018 PULMONARY CONSULTATION, EVALUATION, AND MANAGEMENT CONSULTATION REQUESTED BY: Dr. Lucie Lezama REASON FOR CONSULTATION: To assess the patient for acute exacerbation of chronic obstructive pulmonary disease, which is noted recurrent. HISTORY OF PRESENT ILLNESS: The patient was independently seen and examined with [id number] encounter. History was confirmed. Physical examination was performed. Labs were reviewed. The note done by the medical/surgery registered nurse was approved as well. Assessment and management of today's visit was personally completed. This is a 58-year-old white female patient with history of chronic obstructive pulmonary disease. She has been recently treated in the hospital about 3 days. She had been noted acute exacerbation of chronic obstructive pulmonary disease at that time and discharged home on 10/11/2018. The patient presented back to the hospital, as she has been noted with symptoms of not feeling well with progressive increased chest congestion, cough, which has been reported nonproductive, and fever. She is also complaining of symptoms of shortness of breath, which is noted significantly worsening with wheezing and tightness in the chest. There were no symptoms of chest pain or hemoptysis reported by the patient. The patient has been assessed in the hospital and admitted to the hospital for further care. REVIEW OF SYSTEMS: CONSTITUTIONAL SYMPTOMS: Fatigue and tiredness reported. Denies symptoms of fever or chills. EYES: Denies any burning, redness, or tenderness. EARS, NOSE, THROAT SYMPTOMS: Denies sore throat, hoarseness, otalgia, postnasal drainage or epistaxis. CARDIOVASCULAR: Denies anginal pain, edema, or pain of the lower extremities. GASTROINTESTINAL: Denies dysphagia, nausea, vomiting, diarrhea, abdominal pain, hematemesis, melena, or hematochezia. SKIN: No lesions or rashes. CENTRAL NERVOUS SYSTEM: Denies headache, diplopia or syncopal episodes. Remaining systems were reviewed, they were noted all negative. PAST MEDICAL HISTORY, SURGICAL HISTORY, AND SOCIAL AND FAMILY HISTORY: All reviewed from my consultation date of 10/07/2018 and noted unchanged with the review. Refer to the document for any additional information as necessary, the document is available in Done.. MEDICATIONS: Current medications administered were noted as use of Remeron, Daliresp, omeprazole, Cardizem-CD, Solu-Medrol 30 mg q. 8 hours, levalbuterol, Rocephin, IV Levaquin, and Xanax. DRUG ALLERGIES: NOTED ALLERGIC TO [facility]RO. [place], [place] REPORT OF CON[facility]ATION [facility]: [facility] [id number] UNIT #: [id number] ROOM: 405 DOCTOR: JONATHAN MARC MD,ZAC BIRTHDATE: [birth year] PHYSICAL EXAMINATION: GENERAL: A 58-year-old white female patient, who has been currently sitting on the bed this morning of assessment. VITAL SIGNS: Height was recorded on this admission with height of 5 feet, weight of 96 pounds. Vital signs which were recorded showed temperature noted as normal. Respiratory rate was recorded as 20. Heart rate 105, blood pressure 118/70. The pulse oxygen saturation was recorded on 4 liters nasal cannula since admission to 5 liters as 96-100% saturation of oxygen. HEENT: Shows head was atraumatic, eyes nonicterus. NECK: Supple. CARDIOVASCULAR: S1 and S2 were audible. LUNGS: The patient was noted with diffuse expiratory wheezing. There were no crackles. ABDOMEN: Flat, soft, nontender. Bowel sounds present. EXTREMITIES: Without any acute edema. MUSCULOSKELETAL: The patient was noted without any acute deformities. CENTRAL NERVOUS SYSTEM: The patient's cranial nerves 2-12 intact. LABORATORY AND DIAGNOSTIC DATA: CBC that was done on 10/13/2018, WBC count 15.5, hemoglobin and hematocrit normal, platelet count was noted as normal. Lactic acid was noted as 0.8 yesterday. CMP that was done yesterday, normal BUN and creatinine and other electrolytes. Chest x-ray is noted with change of COPD and hyperinflation, reviewed from PACS images. CT scan of the chest without contrast is reviewed, shows changes of emphysema without any acute pulmonary infiltration or other abnormalities. Arterial blood gas on 4 liters was obtained this morning, pH of 7.39, pCO2 38, pO2 142 after my initial consultation as I ordered. IMPRESSION: 1. The patient has been currently admitted to the hospital, noted with recurrent acute exacerbation of chronic obstructive pulmonary disease and acute tracheobronchitis after recent discharge from the hospital requiring readmission to the hospital because of marked increase in the respiratory symptoms of wheezing, coughing, and chest congestion. 2. The patient with history of general anxiety disorder as well. 3. Past history of lung surgery with resection of a benign nodule from the right upper lobe as well. PLAN OF THERAPY: Due to respiratory distress and for COPD management, she will be started and ordered BiPAP in the setting of 04/17. I will be increasing the Solu-Medrol dose to 40 mg every 8 hours as well. Other additional treatment changes will be made for the patient based on the progression of the illness. Other supportive plan of management as previously was in progress would be continued. The patient will be getting to a different antibiotic at this time from Rocephin and Levaquin. Because of lack of any pneumonia, Rocephin will be discontinued, only the Levaquin will be continued. Bronchodilator, other therapy, and plan of management. Additional treatment changes will be made for the patient based on the progression of the illness. The patient has been requested for a bronchoscopy to be assessed by Dr. Lucie Lezama. At this time, the bronchoscopy will be deferred for the next day until overall improvement in [place], [place] REPORT OF CONSULTATION NAME: TERA HU UNIT #: [id number] ROOM: 405 DOCTOR: ZAC BYRNES MD BIRTHDATE: [birth year] respiratory symptoms occur since the last bronchoscopy resulted in intubation and mechanical ventilation. Other therapy, plan of management, care plan, and treatments. Thank you for allowing me to participate in the care of this patient. ZAC CASTILLO MD CM:CONSTR:REPORT OF CONSULTATION 1234 10/14/18 [id number] interface
--- NOTE | ~2018-10-13 | PR ---
[place], [place] PROGRESS NOTE NAME: TERA HU UNIT #: [id number] ROOM: 405 DOCTOR: JONATHAN MARC MD,ZAC BIRTHDATE: [birth year] DOS: 10/16/2018 PULMONARY PROGRESS NOTE SUBJECTIVE: The patient was noted with further gradual reduction in respiratory symptoms yesterday with reduction of the wheezing and coughing. Denies symptoms of fever or chills. Continued on the Solu-Medrol 40 mg every 8 hours. Denies symptoms of fever or chills. Denies symptoms of hemoptysis. PHYSICAL EXAMINATION: VITAL SIGNS: For the patient, which are recorded shows a normal temperature, respiratory rate 18, heart rate 87, blood pressure 122/70. Pulse ox saturation on 2 liters nasal cannula was recorded as ____ 98% saturation 40% oxygen supplementation. HEENT: Examination shows head was atraumatic. EYES: No icterus. NECK: Supple. CARDIOVASCULAR: S1, S2 is audible. LUNGS: The patient noted with expiratory wheezing was noted, [id number] decreased from previous examination. ABDOMEN: Soft, nontender. Bowel sounds present. EXTREMITIES: No acute change. IMPRESSION: Stable respiratory status with favorable improvement ____ acute exacerbation of chronic obstructive pulmonary disease, acute bronchitis at the present time. PLAN OF MANAGEMENT: No changes in the plan of care at this time. Continuation of current plan of management. No changes need to be made in the steroids. CBC will be obtained in the morning to assess the leukocytosis, which are noted ____ yesterday. ZAC CASTILLO MD CM:PNTRANS 1428 [id number] ZAC MARC MD 10/16/18 1824 interface
--- NOTE | ~2018-10-13 | PR ---
[place], [place] PROGRESS NOTE NAME: TERA HU [facility] #: [id number] UNIT #: [id number] ROOM: 405 DOCTOR: JONATHAN MARC MD,ZAC BIRTHDATE: [birth year] DOS: 10/20/2018 SUBJECTIVE: The patient was seen and examined. She was noted comfortable with continued gradual reduction and improvement in respiratory symptoms of coughing, shortness breath and wheezing. The patient's steroid dose was decreased yesterday to 40 mg b.i.d. dosing. Denies symptoms of chest pain. Used the BiPAP last night. OBJECTIVE: VITAL SIGNS: For the patient, which are recorded shows a normal temperature, respiratory rate 20, heart rate 84, blood pressure 142/72. HEENT: Examination shows head was atraumatic. Eyes nonicterus. NECK: Supple. CARDIOVASCULAR: S1, S2 audible. LUNGS: Without any crackle, rhonchi, or wheezing. ABDOMEN: Soft, nontender. Bowel sounds present. EXTREMITIES: No change. LABORATORY DATA: Culture of the sputum noted normal linette. IMPRESSION: Gradual progressive resolution of acute exacerbation of chronic obstructive pulmonary disease, acute tracheobronchitis at the present time. PLAN AND MANAGEMENT: No changes in plan of care. Possible discharge on patient consideration for the morning. Other therapy, plan of management, additional treatment changes will be ordered based on the progression of the illness. ZAC CASTILLO MD CM:PNTRANS 1140 1323 ZAC MARC MD 10/20/18 1324 interface
--- NOTE | ~2018-10-13 | PR ---
[place], [place] PROGRESS NOTE NAME: TERA HU [facility] #: [id number] UNIT #: [id number] ROOM: 405 DOCTOR: MARYSE VASQUEZ MD BIRTHDATE: [birth year] DOS: 10/14/2018 SUBJECTIVE: The patient continues to have a very barky cough, unable to cough up any mucus at all. OBJECTIVE: VITAL SIGNS: Blood pressure is 141/71, pulse of 80, respirations 20, temperature 98.2. LUNGS: Diminished breath sounds, very poor air entry. HEART: Regular, still tachycardic. ABDOMEN: Soft, scaphoid. EXTREMITIES: Without any edema. ASSESSMENT AND PLAN: 1. Acute exacerbation of chronic obstructive pulmonary disease with continued severe bronchospasm. Continue medications. 2. Acute tracheobronchitis, inability to cough. A CT of the chest did not show pneumonia. We will ask Dr. Grijalva whether a bronchoscopy could be done. 3. Tachycardia, which seems to have slowed down. The Cardizem drip has been discontinued. MARYSE VASQUEZ MD CM:PNTRANS [id number] MARYSE VASQUEZ MD 10/14/18 1752 interface
--- NOTE | ~2018-10-13 | PR ---
[place], [place] [id number] #: [id number] ROOM: 405 DOCTOR: JONATHAN MARC MD,ZAC BIRTHDATE: [birth year] DOS: 10/17/2018 PULMONARY PROGRESS NOTE SUBJECTIVE: The patient noted comfortable at this time, resting in the bed this morning of assessment. Shortness of breath and wheezing were improving. Coughing has been noted partially decreased, but not completely resolved. There were no symptoms of fever or chills. She has expectoration noted a scant amount. OBJECTIVE: VITAL SIGNS: Normal temperature, respiratory rate recorded as 20, heart rate 72, blood pressure 147/77. Pulse oxygen saturation recorded on 3 liters nasal cannula 98% saturation. HEENT: Head was atraumatic. Eyes nonicterus. NECK: Supple. CARDIOVASCULAR: S1, S2 audible. LUNGS: Without any crackle or rhonchi. Mild expiratory wheezing. ABDOMEN: Soft, nontender. Bowel sounds present. EXTREMITIES: No acute change. IMPRESSION: Resolving acute exacerbation of chronic obstructive pulmonary disease, acute tracheobronchitis gradually progressing. CBC today: WBC count was 12.8. CMP this morning noted normal BUN and creatinine. PLAN OF MANAGEMENT: No change in plan of management at this time. The patient has been slowly improving with current respiratory symptom, will be monitored. Continue current treatment until tomorrow. ZAC CASTILLO MD CM:PNTRANS 1323 0029 ZAC MARC MD 10/18/18 0030 interface
--- NOTE | ~2018-10-13 | PR ---
[place], [place] PROGRESS NOTE NAME: TERA HU [facility] #: [id number] UNIT #: [id number] ROOM: 405 DOCTOR: MARYSE VASQUEZ MD BIRTHDATE: [birth year] DOS: 10/15/2018 SUBJECTIVE: The patient states that she has terrible headaches. She used the BiPAP during the night and woke up with a severe headache. She does not have any other complaints. Appreciated Dr. Grijalva's input. PHYSICAL EXAMINATION: VITAL SIGNS: Blood pressure is 137/66, pulse of 100, respirations 22, temperature 98.0. LUNGS: Diminished breath sounds. Poor air entry, but did not have a whole lot of bronchospasms today. HEART: Regular. ABDOMEN: Soft. EXTREMITIES: Without any edema. ASSESSMENT AND PLAN: 1. Acute exacerbation of chronic obstructive pulmonary disease. The patient is on maximal treatment plan. 2. Acute tracheobronchitis with a negative CT of the chest showing no evidence of pneumonia, on antibiotics. 3. Tachycardia, which seems to have slowed down after the IV fluids. 4. Major depression. Advised the patient to take her medications, which she has been declining. 5. Headaches. One dose of Dilaudid will be given today. MARYSE VASQUEZ MD CM:PNTRANS [id number] MARYSE VASQUEZ MD 11/01/18 0745 interface
--- NOTE | ~2018-10-13 | PR ---
[place], [place] PROGRESS NOTE NAME: TERA HU UNIT #: [id number] ROOM: 405 DOCTOR: ZAC BYRNES MD BIRTHDATE: [birth year] DOS: 10/15/2018 SUBJECTIVE: The patient has been seen and examined, [id number] encounter. The patient was noted comfortable at this time. History was taken. Physical examination performed. Labs reviewed. Assessment and management today was personally completed, note done by the medical billing and coding instructor, was approved. The patient reported partial reduction in respiratory symptom lasted . Denies symptoms of chest pain. Denies symptoms of hemoptysis. Coughing has been noted chest congestion. PHYSICAL EXAMINATION: VITAL SIGNS: Temperature 99.6 with a normal temperature, respiratory rate 18, heart rate 92, and blood pressure 137/66 this morning recorded. Pulse oxygen saturation recorded on 3 liters nasal cannula 97% saturation. The patient used the BiPAP 40% oxygen saturation noted 98% saturation. HEAD, EYES, EARS, NOSE, AND THROAT: Examination shows head was atraumatic. Eye nonicterus. NECK: Supple. CARDIOVASCULAR SYSTEM: S1, S2 is audible. LUNGS: Noted with expiratory wheezing, decreased from previous examination yesterday. ABDOMEN: Soft, nontender, bowel sounds present. EXTREMITIES: No acute change. IMPRESSION: Acute exacerbation of chronic obstructive pulmonary disease, acute tracheobronchitis. The patient currently responding to treatment with reduction of the respiratory symptoms. Arterial blood gas yesterday, 4 liters shows pH of 7.39, pCO2 of 38, pO2 of 142. Anxiety disorder. PLAN OF MANAGEMENT: Continuation of the steroids, which were increased to 40 mg every 8 hours. Other therapy plan of management continued without any changes. No change in antibiotic will be necessary. Monitor respiratory status closely. Use the BiPAP as ordered, will be continued p.r.n. during the day, continue at nighttime. [place], [place] PROGRESS NOTE NAME: TERA HU UNIT #: [id number] ROOM: 405 DOCTOR: ZAC BYRNES MD BIRTHDATE: [birth year] ZAC CASTILLO MD CM:PNTRANS [id number] ZAC MARC MD 10/15/18 1446 interface
--- NOTE | ~2018-10-13 | PR ---
[place], [place] PROGRESS NOTE NAME: TERA HU [facility] #: [id number] UNIT #: [id number] ROOM: 405 DOCTOR: MARYSE VASQUEZ MD BIRTHDATE: [birth year] DOS: 10/17/2018 SUBJECTIVE: The patient is about the same, does not have any new complaints, but she does state that tongue feels funny and she has been trying to brush and does not think it is getting any better. OBJECTIVE: VITAL SIGNS: Graphic trend shows a pressure of 129/73, pulse of 99, respirations 18, temperature 98.4. LUNGS: Clear. HEART: Regular. ABDOMEN: Soft, scaphoid. EXTREMITIES: Without any edema. Examination of the tongue, there are some white patches. ASSESSMENT AND PLAN: 1. Acute exacerbation of chronic obstructive pulmonary disease, on maximal treatment plan. 2. Acute tracheobronchitis. Sputum culture was ordered and was not sent yet. Mucinex has been started along with antibiotics. 3. The patient is a poor candidate for bronchoscopy because of high risk for respiratory failure. 4. Oropharyngeal candidiasis. Nystatin swish and swallow ordered, reviewed the blood work, white cell count slightly elevated at 12.8, which is actually better from the 7th. Comprehensive glucose 166, BUN 17, creatinine 0.50. Electrolytes normal. 5. Hyperglycemia. Blood sugars to be checked twice daily. MARYSE VASQUEZ MD CM:PNTRANS 0717 [id number] MARYSE VASQUEZ MD 10/17/18 1103 interface
--- NOTE | ~2018-10-13 | PR ---
[place], [place] PROGRESS NOTE NAME: TERA HU [facility] #: [id number] UNIT #: [id number] ROOM: 405 DOCTOR: MARYSE VASQUEZ MD BIRTHDATE: [birth year] DOS: 10/21/2018 SUBJECTIVE: The patient is doing well without any complaints. OBJECTIVE EXAMINATION: GENERAL: She is awake and alert and oriented. VITAL SIGNS: Graphic trend shows a pressure 139/75, pulse 100, respirations 20, temperature 98.3. LUNGS: Diminished breath sounds. Very few fine wheezes heard. HEART: Regular. Not tachycardic any longer. ABDOMEN: Soft, scaphoid. EXTREMITIES: Without any edema. LABORATORY DATA: Sputum culture final shows normal linette. Blood culture shows no bacterial growth. ASSESSMENT AND PLAN: 1. Acute exacerbation of chronic obstructive pulmonary disease, stable and improving. 2. Acute tracheobronchitis with negative sputum cultures. 3. Chronic respiratory failure. The patient was approved for Trilogy ventilator. It will be delivered this morning. 4. Steroid-induced hyperglycemia. The patient is on a low dose of Amaryl, which will also be continued upon discharge. MARYSE VASQUEZ MD CM:PNTRANS 12 MARYSE VASQUEZ MD 10/21/182112 interface
--- NOTE | ~2018-10-13 | WRIGHTHP ---
[place], [place] PATIENT HISTORY AND PHYSICAL EXAM NAME: TERA HU [facility] #: [id number] UNIT #: [id number] ROOM: 405 DOCTOR: MARYSE VASQUEZ MD BIRTHDATE: [birth year] DOS: 10/13/2018 HISTORY OF PRESENT ILLNESS: The patient was just discharged from the hospital on Thursday. The patient states that she continued to get worse after she got home with the high-grade fever, continued shortness of breath, so came back to the Emergency Room. Denies having any chest pains, palpitations, does not have any fever or chills, does not have any abdominal pain, nausea, emesis, cough is productive of scant amounts of yellow sputum. The patient states that she has been drinking enough water, but her appetite has been poor. PAST MEDICAL HISTORY: Significant for: 1. End-stage COPD. 2. Chronic respiratory failure. 3. Recent hospitalization for acute exacerbation. 4. Chest pain with negative workup. 5. Major depression, severe, recurrent. 6. Benign hypertension. MEDICATIONS: She is on mirtazapine 15 at bedtime, BuSpar 10 t.i.d., omeprazole 40 daily, Trelegy Ellipta 1 inhalation daily, vitamin D 1000 units daily, oxygen 2 liters, Xanax 0.25 b.i.d. p.r.n., Daliresp 500 mcg daily. SOCIAL HISTORY: History of smoking until about a month ago. Denies using any alcohol. PHYSICAL EXAMINATION: VITAL SIGNS: Graphic trend shows a pressure of 130/80, pulse of 130, respirations 24, temperature 99.7, T-max of 100. LUNGS: Diminished breath sounds. Scattered rhonchi. HEART: Regular. ABDOMEN: Soft, scaphoid. EXTREMITIES: Without any edema. LABORATORY DATA: ABG: pH 7.3, pCO2 of 38, pO2 93.6, bicarbonate 22.4. Oxygen saturation normal. ASSESSMENT AND PLAN: 1. Acute exacerbation of chronic obstructive pulmonary disease. The patient has been admitted. IV steroids and antibiotics have been ordered. 2. Tachycardia noted. This could be from her breathing treatments, which will be changed to Xopenex. Cardizem will be given until her heart rate slows down along with IV fluids. 3. High grade fever, possibly sepsis pattern, cultures have been ordered. CT of the chest will be ordered. IV antibiotics started. Consultation with Dr. Grijalva obtained. [place], [place] PATIENT HISTORY AND PHYSICAL EXAM [facility] [id number] UNIT #: [id number] ROOM: [facility] DOCTOR: MARYSE VASQUEZ MD BIRTHDATE: [birth year] MARYSE VASQUEZ MD CM:HISPHYS:PATIENT HISTORY AND PHYSICAL EXAMINATION 1 0919 MARYSE VASQUEZ MD 11/01/18 0744 interface
--- NOTE | ~2018-10-13 | PR ---
[place], [place] PROGRESS NOTE NAME: TERA HU [facility] #: [id number] UNIT #: [id number] ROOM: 405 DOCTOR: MARYSE VASQUEZ MD BIRTHDATE: [birth year] DOS: 10/19/2018 SUBJECTIVE: The patient is about the same, but continues to have some raw feeling in her back of her throat. She does not have any difficulty swallowing. She is eating well. OBJECTIVE: VITAL SIGNS: Blood pressure is 142/70, pulse of 70, respirations 20, temperature 97.3. LUNGS: Diminished breath sounds, scattered rhonchi. HEART: Regular. ABDOMEN: Soft, scaphoid. EXTREMITIES: Without any edema. LABORATORY DATA: Sputum culture preliminary is normal linette. Blood culture shows no bacterial growth. ASSESSMENT AND PLAN: 1. Acute exacerbation of chronic obstructive pulmonary disease, improving slowly. 2. Steroid-induced hyperglycemia. Blood sugars improved after adding glimepiride. 3. Oropharyngeal candidiasis, already on nystatin swish and swallow. Add Diflucan. MARYSE VASQUEZ MD CM:PNTRANS 0831 0936 MARYSE VASQUEZ MD 11/01/18 0745 interface
--- NOTE | ~2018-10-13 | PR ---
[place], [place] PROGRESS NOTE NAME: TERA HU UNIT #: [id number] ROOM: 405 DOCTOR: ZAC BYRNES MD BIRTHDATE: [birth year] DOS: 10/19/2018 PULMONARY PROGRESS NOTE SUBJECTIVE: She has been noted with improvement in the respiratory symptom with cough, which has been noted currently productive. Denies symptoms of chest pain. Shortness breath and wheezing were improving with use of BiPAP last night. This morning, the patient is seen sitting comfortably in the bed without any distress. OBJECTIVE: VITAL SIGNS: Normal temperature, respiratory rate 20, heart rate 77, blood pressure 122/88. Pulse ox saturation on 3 liters nasal canula 99-100% saturation. HEENT: Examination shows head was atraumatic. Eyes nonicterus. NECK: Supple. CARDIOVASCULAR SYSTEM: S1, S2 audible. LUNGS: Noted mild expiratory wheezing, no crackles. Air entry was noted much better than previous exams. ABDOMEN: Soft, nontender. Bowel sounds present. EXTREMITIES: No new change. LABORATORY DATA: The sputum Gram stain yesterday with moderate white blood cells with moderate gram-positive cocci in pairs, chains and clusters, few gram-negative bacilli. Preliminary culture was noted normal linette. Final cultures were pending. IMPRESSION: Progressive and gradual resolution of acute exacerbation of chronic obstructive pulmonary disease, acute tracheobronchitis noted. Respiratory cultures were pending. PLAN OF MANAGEMENT: Continuation of the bronchodilators, oxygen supplementation. Decrease Solu-Medrol 40 mg b.i.d. today. Expected discharge possibly in the morning depending on further improvement in symptoms and final culture results will be determined. [place], [place] PROGRESS NOTE NAME: TERA HU UNIT #: [id number] ROOM: 405 DOCTOR: ZAC BYRNES MD BIRTHDATE: [birth year] ZAC CASTILLO MD CM:PNTRANS 1207 07 ZAC MARC MD 10/19/182308 interface
--- NOTE | ~2018-10-13 | DS ---
[place], [place] DISCHARGE SUMMARY NAME: TERA HU UNIT #: [id number] ROOM: 405 DOCTOR: MARYSE VASQUEZ MD BIRTHDATE: [birth year] DOS: 10/21/2018 DIAGNOSES: 1. Acute exacerbation of chronic obstructive pulmonary disease. 2. Acute tracheobronchitis. 3. Chronic respiratory failure. 4. Hyperglycemia, steroid-induced. 5. Major depression, severe, recurrent. DISCHARGE MEDICATIONS: Proventil p.r.n., Trilogy ventilator, Trelegy Ellipta for use daily at home at night, Trelegy Ellipta 1 inhalation daily, oxygen 2 liters, Xanax 0.25 twice a day p.r.n., BuSpar 10 t.i.d., doxycycline 100 b.i.d., diltiazem 120 daily, Remeron 15 at bedtime, omeprazole 40 daily, Daliresp 500 mcg daily. The patient is tapering dose of prednisone down to 5 mg daily. HOSPITAL COURSE: The patient is very well known to us, comes in with complaints of difficulty breathing. Please refer to H and P for details. She was admitted, started on steroids, antibiotics, breathing treatments, oxygen supplementation. The patient continued to remain with severe shortness of breath for several days requiring continued oxygen supplementation. She was a poor candidate for bronchoscopy because of increased likelihood of developing acute respiratory failure. Because of multiple admissions to the hospital with exacerbation, deemed that the patient would benefit from a Trilogy ventilator as an outpatient. Social service was consulted. The patient qualified for this at home. The patient also was found to have elevated blood sugars. This is most likely related to high steroid. Glimepiride was added for better control of the sugars, Cardizem was started for multifocal tachycardia from underlying COPD. The patient had improved and achieved a maximum benefit from a stay here and so she was discharged home to be followed up as an outpatient with Dr. Liz. [place], [place] DISCHARGE SUMMARY NAME: TERA HU UNIT #: [id number] ROOM: 405 DOCTOR: MARYSE VASQUEZ MD BIRTHDATE: [birth year] MARYSE VASQUEZ MD CM:ANIKET [id number] MARYSE VASQUEZ MD 11/14/18 0636 interface
--- NOTE | ~2018-10-13 | PR ---
[place], [place] PROGRESS NOTE NAME: TERA HU [facility] #: [id number] UNIT #: [id number] ROOM: 405 DOCTOR: MARYSE VASQUEZ MD BIRTHDATE: [birth year] DOS: 10/16/2018 SUBJECTIVE: The patient is about the same, does not have any new complaints. OBJECTIVE: VITAL SIGNS: Blood pressure is 120/70, pulse of 82, respirations 20, temperature 97.4. LUNGS: Diminished breath sounds. HEART: Regular. ABDOMEN: Soft. EXTREMITIES: Without any edema. ASSESSMENT AND PLAN: 1. Acute exacerbation of chronic obstructive pulmonary disease, on maximal treatment plan, improving slowly. 2. Chronic respiratory failure, oxygen dependent, using the BiPAP. 3. Elevated white cell count with possible tracheobronchitis. Sputum cultures were ordered, but not sent, bronch probably not a good idea because of high risk of respiratory failure. MARYSE VASQUEZ MD CM:PNTRANS [phone] MARYSE VASQUEZ MD 10/16/18 2330 interface
--- NOTE | ~2018-10-13 | CON ---
[place], [place] REPORT OF CONSULTATION [id number] UNIT #: [id number] ROOM: 405 DOCTOR: FLAQUITO CEDENO DO BIRTHDATE: [birth year] DOS: 10/14/2018 PULMONARY CONSULTATION NOTE REQUESTING PHYSICIAN: Dr. Lezama. REASON FOR CONSULTATION: Recurrent COPD. INTERVAL HISTORY: The patient was discharged on 10/10/2018 for similar symptoms. The patient came back to the ED again yesterday. The patient states that she got worse when she got home. She felt febrile and short of breath. The patient denied any chest pain, palpitations. The patient states that she has a productive cough with yellow sputum. REVIEW OF SYSTEMS: CONSTITUTIONAL: The patient reports fatigue and tiredness. The patient denies chills. The patient reports fevers at home. EYES: The patient denies any burning, redness or discharge. ENT: The patient denies sore throat, hoarseness, ear pain, postnasal drip, nosebleeds. CARDIOVASCULAR: The patient denies chest pain, edema in her lower extremities. GASTROINTESTINAL: The patient denies dysphagia, nausea, vomiting, abdominal pain, hematemesis, melena or hematochezia. CENTRAL NERVOUS SYSTEM: The patient denies any double vision, dizziness or seizures. Remaining review of systems noted to be negative. PAST MEDICAL HISTORY: 1. The patient has a history of severe COPD. 2. Essential hypertension. 3. Generalized anxiety disorder. 4. Restless leg syndrome. 5. Pulmonary nodule that was benign with history of pneumonectomy. PAST SURGICAL HISTORY: 1. The patient has a history of cholecystectomy. 2. Hysterectomy in 1999. 3. Therapeutic bronchoscopy in the past. 4. Right upper lobe lobectomy at [facility] several years ago, pathology was benign. SOCIAL HISTORY: The patient is , with one child, lives at home. Denies history of alcohol or illicit drug abuse. The patient smoked a pack per day for most of her adult life. The patient states she stopped smoking in September of last year, 2017. FAMILY HISTORY: The patient's father at age 61 from myocardial infarction. The patient's mother at age 70 due to bronchial asthma. CURRENT MEDICATIONS: The patient is on Solu-Medrol 30 mg q. 8 hours, Ceftriaxone, Levaquin, and Xopenex. The patient is also on Remeron, omeprazole, [place], [place] REPORT OF CONSULTATION NAME: TERA HU UNIT #: [id number] ROOM: 405 DOCTOR: FLAQUITO CEDENO DO BIRTHDATE: [birth year] Tylenol, Cardizem-CD at home. DRUG ALLERGIES. The patient denies any allergies to antibiotics; however, the patient has an allergy to AVAPRO which causes hives. PHYSICAL EXAMINATION: GENERAL: A 58-year-old female, awake, alert, responsive, in no acute distress. The patient's BMI is 18.8 VITAL SIGNS: Temperature is 98.4. The patient's heart rate is 105, respiratory rate 18, blood pressure is 118/70. The patient is 96% on 4 liters by nasal cannula. HEENT: Normocephalic, atraumatic. Eyes nonicteric. NECK: Supple, nontender. HEART: S1, S2 audible. LUNGS: Diffuse expiratory wheezes and crackles. ABDOMEN: Flat, nontender, soft, nontender. Bowel sounds are present. EXTREMITIES: No acute changes. MUSCULOSKELETAL: Without acute deformities. CENTRAL NERVOUS SYSTEM: Cranial nerves 2-12 are grossly intact. No focal deficits. LABORATORY DATA: From admission shows white count of 15.5, most likely secondary to steroids. All other CBC, CMP within normal limits. The patient's ABG from today shows pH of 7.39, pCO2 of 38, pO2 of 142, bicarbonate of 23.8. ASSESSMENT AND PLAN: 1. Acute exacerbation of chronic obstructive pulmonary disease. 2. History of nicotine abuse. 3. Paroxysmal tachycardia. 4. Generalized anxiety. PLAN OF MANAGEMENT: The patient is getting steroids as well as Xopenex breathing treatments. Continue current management. Any other changes will be based on progression of illness. The patient is agreeable to BiPAP. We will try this first. We will avoid anything that can result in the patient being intubated at all costs as she may be very difficult to wean from the mechanical ventilator. Sacha Cedeno DO [place], [place] REPORT OF CONSULTATION NAME: TERA HU UNIT #: [id number] ROOM: 405 DOCTOR: FLAQUITO CEDENO DO BIRTHDATE: [birth year] ZAC CASTILLO MD CM:CONSTR:REPORT OF CONSULTATION 1049 10/14/189 interface
--- NOTE | ~2018-10-13 | PR ---
[place], [place] PROGRESS NOTE NAME: TERA HU [facility] #: [id number] UNIT #: [id number] ROOM: 405 DOCTOR: JONATHAN MARC MD,ZAC BIRTHDATE: [birth year] DOS: 10/18/2018 PULMONARY PROGRESS NOTE SUBJECTIVE: The patient has been reported cough, noted productive at this time. She has been expectorating small amount of sputum though. Denies symptoms of chest pain. Denies symptoms of fever or chills or any acute hemoptysis. OBJECTIVE: VITAL SIGNS: For the patient which were recorded shows a normal temperature, respiratory rate 18, heart rate of 96, blood pressure 146/72. Pulse oxygen saturation recorded on 3 liters nasal cannula 99% saturation. HEENT: Examination shows head was atraumatic. Eyes nonicterus. NECK: Supple. CARDIOVASCULAR: S1, S2 audible. LUNGS: The patient was noted without any crackles, mild expiratory wheezing, moderate decreased breath sounds bilaterally. ABDOMEN: Soft and nontender. Bowel sounds present. EXTREMITIES: No acute change. IMPRESSION: The patient with gradual and progressive improvement noted in acute exacerbation of chronic obstructive pulmonary disease and acute tracheobronchitis. PLAN OF TREATMENT: No changes in plan of care at this time. Continue the patient's current therapy as in progress. Usual care, other supportive plan of treatment and management plan of care. ZAC CASTILLO MD CM:CHRISTOPHE [id number] ZAC MARC MD 10/18/18 1355 interface
--- NOTE | ~2018-10-13 | PR ---
[place], [place] PROGRESS NOTE NAME: TERA HU [facility] #: [id number] UNIT #: [id number] ROOM: 405 DOCTOR: MARYSE VASQUEZ MD BIRTHDATE: [birth year] DOS: 10/20/2018 SUBJECTIVE: The patient is doing better, still has hacking cough but overall seems to be slowly improving. OBJECTIVE: VITAL SIGNS: Blood pressure is 137/82, pulse of 97, respirations 17, temperature 97.5. LUNGS: Diminished breath sounds. No wheezes, rales or rhonchi heard. HEART: Regular. ABDOMEN: Soft, scaphoid. EXTREMITIES: Without any edema. LABORATORY DATA: Sputum cultures, blood cultures have all come back negative. ASSESSMENT AND PLAN: 1. Acute exacerbation of chronic obstructive pulmonary disease, improving slowly. 2. Chronic respiratory failure on oxygen dependent. The patient has multiple hospitalizations for exacerbations. She is no longer a smoker, may qualify for home ventilator. We will try to arrange that before discharge. Discussed with Vivian from respiratory therapy. 3. Hypoglycemia most likely steroid-induced. Blood sugars controlled on a low dose, Amaryl. 4. Major depression, recurrent, controlled on medications. MARYSE VASQUEZ MD CM:CHRISTOPHE [phone] MARYSE VASQUEZ MD 10/21/18 0421 interface
--- NOTE | ~2018-10-13 | EKG ---
[place], [place] ELECTROCARDIOGRAM REPORT NAME: TERA HU UNIT #: [id number] ROOM: 405 DOCTOR: BRADLEY DRAFT REPORT BIRTHDATE: [birth year] [facility] Test Date: 2018-10-13 Test Time: 05:55:45 Pat Name: TERA HU Department: Room: 405 Gender: F Accounts Receivable Associate: : 1960 Requested By: DEIDRE PELLETIER Order Number: [id number] Reading MD: Joe Coelho MD Measurements Intervals [place] Rate: 124 P: 79 WV: 134 QRS: -69 QRSD: 88 T: 55 QT: 309 QTc: 444 Interpretive Statements Sinus tachycardia Multiple ventricular premature complexes aberrant complex LAE, consider biatrial enlargement Abnormal R-wave progression, late transition Inferior infarct, old Lateral leads are also involved Baseline wander in lead(s) II,III,aVR,aVL,aVF Compared to ECG 10/06/2018 16:59:44 Ventricular premature complex(es) now present Aberrant conduction of supraventricular beat(s) now present Myocardial infarct finding now present Sinus rhythm no longer present Electronically Signed On 10-15-2018 9:08:26 PDT by Joe Coelho MD CM:EKGRPT:ELECTROCARDIOGRAM REPORT [phone] DEIDRE HUERTA DRAFT REPORT DEIDRE PELLETEIR MD
--- NOTE | ~2018-10-13 | PR ---
[place], [place] PROGRESS NOTE [id number] UN[facility] #: [id number] ROOM: 405 DOCTOR: MARYSE VASQUEZ MD BIRTHDATE: [birth year] DOS: 10/18/2018 SUBJECTIVE: The patient looks better this morning, finally seems to have turned the corner. She is no longer as tachypneic as she used to be. OBJECTIVE: VITAL SIGNS: Graph trend shows blood pressure 138/76, pulse of 78, respirations 18, temperature 97.5. LUNGS: Diminished breath sounds. Few scattered rhonchi. HEART: Regular. ABDOMEN: Obese, soft. EXTREMITIES: Without any edema. ASSESSMENT AND PLAN: 1. Acute exacerbation of chronic obstructive pulmonary disease, improving. 2. Acute tracheobronchitis, on IV antibiotics. White cell count has come down. 3. Chronic respiratory failure, stable oxygenation. 4. Tachycardia, which seems to have improved. The patient may be able to go home in a day or two. MARYSE VASQUEZ MD CM:PNTRANS [phone] MARYSE VASQUEZ MD 10/18/18 1302 interface
[~2018-10-13 05:15] MED LIST changes: +BUSPIRONE HCL10 MG PO; +CARDIZEM CD120 M2 PO; +CEFUROXIME AXE250 MG PO; +MIRTAZAPINE15 M2 PO; +ROZEREM8 MG PO
[2018-10-13 06:34] LABS: BASO % 0.1 % (0.0-1.0); EOS # 0.1 10*3/uL (0.0-0.4); EOS % 0.6 % (1.0-4.0); HEMATOCRIT 46.3 % (37.0-47.0); HEMOGLOBIN 15.9 g/dl (12.0-16.0); LYMPH # 1.4 10*3/uL (1.3-4.4); MEAN CELL VOLUME 89.9 fl (81.0-99.0); MEAN CORPUSCULAR HGB 30.9 pg (27.0-31.0); MEAN CORPUSCULAR HGB CONC 34.3 g/dl (33.0-37.0); MEAN PLATELET VOLUME 9.4 fl (9.6-12.3); MONO # 1.2 10*3/uL (0.1-1.0); MONO % 7.4 % (3.0-9.0); NEUT # 12.7 10*3/uL (2.3-7.9); NEUT % 81.9 % (47.0-73.0); PLATELET COUNT AUTOMATED 256 10*3/uL (130-400); RED BLOOD COUNT 5.15 10*6/uL (4.10-5.10); RED CELL DISTRI WIDTH 11.9 % (0-14.5); WHITE BLOOD COUNT 15.5 10*3/uL (4.8-10.8)
[2018-10-13 06:46] LABS: ALBUMIN 3.8 gm/dl (3.1-4.5); ALKALINE PHOSPHATASE 90 U/L (45-117); BUN 12 mg/dl (7-24); CHLORIDE 105 mmol/L (98-107); CREATININE 0.59 mg/dL (0.55-1.02); POTASSIUM 3.6 mmol/L (3.5-5.1); SGOT/AST 12 IU/L (3-35); SGPT/ALT 30 U/L (12-78); SODIUM 140 mmol/L (136-145); TOTAL PROTEIN 7.1 gm/dL (6.4-8.2)
[2018-10-13 06:59] LABS: TROPONIN I < 0.015 ng/ml (<0.045)
--- NOTE | 2018-10-13 07:06 | NUR ---
REPORT RECEIVED AT 0705 FROM MATILDA TANNER. THIS PT IS AWAKE AND ALERT. HER RESPIRATIONS ARE LABORED. PULSE OX ON 4L NASAL O2 IS 95% HEART IS TACHYCARDIC. PT HAS HAD 5 BREATHING TX'S THIS AM. SHE WILL BE ADMITTED. WAITING FOR BED ASSIGNMENT. AMA TANNER
[2018-10-13 07:22] LABS: ABG BASE EXCESS -1.5 mmol/L (-2.0-2.0); ABG HCO3 22.3 mmol/l (22-26); ABG O2 SATURATION 98.2 % (95-97); ARTERIAL BLOOD GAS PH 7.39 (7.35-7.45); ARTERIAL BLOOD GAS PO2 93.6 mmHg (80-90)
--- NOTE | 2018-10-13 08:38 | NUR ---
[facility] 58, admitted to , under the services of MARYSE Moran MD with a diagnosis of COPD. Chief complaint is SOB. Patient arrived via bed from ER. Monitor applied. Initial assessment completed. Vital signs taken and recorded. MARYSE MORAN MD notified of admission to the unit. Orders received. See assessment for past medical history, medications and allergies. Patient and/or family oriented to unit. [facility] EDU visitation policy reviewed. Clothing/patient valuable form completed. YONATHAN NOEL
--- NOTE | 2018-10-13 08:49 | NUR ---
DR. QUINTANA NOTIFIED OF CONSULT.
--- NOTE | 2018-10-13 10:03 | NUR ---
DR. PICHARDO NOTIFIED OF CONSULT.
--- NOTE | 2018-10-13 22:00 | NUR ---
PATIENT REFUSED REMERON. STATED SHE DOESN'T TAKE IT.
--- NOTE | 2018-10-13 22:47 | NUR ---
PATIENT MEDICATED WITH TYLENOL FOR COMPLAINTS OF A HEADACHE. WILL CONTINUE TO MONITOR. CALL LIGHT IN REACH.
[2018-10-14] VITALS: BP 141/71
--- NOTE | 2018-10-14 07:09 | NUR ---
TYLENOL GIVEN FOR C/O GENERALIZED DISCOMFORT, XANAX GIVWEN FOR C/O ANXIETY. WILL MONITOR.
[2018-10-14 08:00] VITALS: BP 118/70
--- NOTE | 2018-10-14 08:10 | NUR ---
TYLENOL AND XANAX EFFECTIVE PER PT.
--- NOTE | 2018-10-14 09:00 | NUR ---
Box Nailer in to talk to patient. Patient states lives at home with her who is in a wheelchair. There are "lots" steps in the home. Physician: Dr. Kamran Liz Pharmacy: [facility] Home health services: none Patient's level of ADLs: INDEPENDENT Patient has working utilities: yes DME: O2 @ 2-3L nc at HS, portable O2 tanks, nebulizer, O2 supplier [facility] Follow-up physician's appointment after d/c: she prefers to make her own follow up appt after discharge Does patient want to access PORTAL?: no Discharge plan discussed with patient. She lives at home with her who is in a wheelchair. She is independent in her ADLs and ambulation. Discussed home health care services and she denies any home needs at this time. When medically stable she will be discharged to home. CHRIS COLLINS
[2018-10-14 10:22] LABS: ABG BASE EXCESS -1.3 mmol/L (-2.0-2.0); ABG HCO3 22.8 mmol/l (22-26); ABG O2 SATURATION 99.1 % (95-97); ARTERIAL BLOOD GAS PH 7.394 (7.35-7.45)
--- NOTE | 2018-10-14 11:18 | NUR ---
PATIENT DECREASED FROM 4 L/M TO 3 L/M (PATIENT'S HOME SETTING). PAO2 ON 4 L/M WAS 142.
[2018-10-14 12:00] VITALS: BP 128/75
--- NOTE | 2018-10-14 14:17 | NUR ---
TYLENOL GIVEN FOR C/O HEADACHE. WILL MONITOR.
--- NOTE | 2018-10-14 15:20 | NUR ---
TYLENOL EFFECTIVE PER PT.
[2018-10-14 16:00] VITALS: BP 152/78
[2018-10-14 20:00] VITALS: BP 165/82
--- NOTE | 2018-10-14 20:00 | NUR ---
AAOX3 SITTING UP IN BED. 02 INTACT AT 3LPM VIA NASAL CANNNULA; PULSE OX 97%. PT. VOICES NO C/O AT THIS TIME. CALL LIGHT WITHIN REACH.
[2018-10-15] VITALS: BP 137/66
--- NOTE | 2018-10-15 03:46 | NUR ---
PT OFF BIPAP AND ONTO 2LNC. PT TA WELL. NO RES DISTRESS OR SOB NOTED AT THIS TIME.
--- NOTE | 2018-10-15 04:00 | NUR ---
RESTING IN BED WITH EYES CLOSED. 02 INTACT. NO DISTRESS NOTED; WILL CONTINUE TO MONITOR. CALL LIGHT WITHIN REACH.
[2018-10-15 07:00] LABS: BASO % 0.1 % (0.0-1.0); HEMATOCRIT 43.7 % (37.0-47.0); HEMOGLOBIN 14.2 g/dl (12.0-16.0); LYMPH # 0.5 10*3/uL (1.3-4.4); LYMPH % 2.7 % (27.0-41.0); MEAN CELL VOLUME 92.8 fl (81.0-99.0); MEAN CORPUSCULAR HGB 30.1 pg (27.0-31.0); MEAN CORPUSCULAR HGB CONC 32.5 g/dl (33.0-37.0); MEAN PLATELET VOLUME 9.4 fl (9.6-12.3); MONO # 1.1 10*3/uL (0.1-1.0); MONO % 6.2 % (3.0-9.0); NEUT # 15.6 10*3/uL (2.3-7.9); NEUT % 89.8 % (47.0-73.0); PLATELET COUNT AUTOMATED 238 10*3/uL (130-400); RED BLOOD COUNT 4.71 10*6/uL (4.10-5.10); RED CELL DISTRI WIDTH 12.1 % (0-14.5); WHITE BLOOD COUNT 17.3 10*3/uL (4.8-10.8)
--- NOTE | 2018-10-15 08:00 | NUR ---
TOOK OVER CARE OF PT AT THIS TIME. PT SITTING UP IN BED, FAMILY AT BEDSIDE. AM MEDICATION TAKEN AT THIS TIME. ASSESSMENT COMPLETE. POX WNL ON 3L SUPPLEMENTAL OXYGEN. ALL NEEDS CURRENTLY MET. CALL LIGHT IN REACH.
--- NOTE | 2018-10-15 09:00 | NUR ---
Salon Supervisor in to see patient. She is sitting up in her bed visiting with a family member at the bedside. No new needs or request at this time. She denies any home needs. When medically stable she will be discharged to home.
[2018-10-15 09:29] VITALS: BP 142/70
[2018-10-15 11:30] VITALS: BP 147/98
[2018-10-15 14:09] VITALS: BP 130/58
[2018-10-15 15:46] VITALS: BP 127/70
--- NOTE | 2018-10-15 16:19 | NUR ---
PT RESTING IN BED AT THIS TIME, NO S/S OF DISTRESS NOTED. RESPIRATIONS UNLABORED ON 3L. PT GIVEN POPSICLE FOR SORE THROAT/COUGH. PT DENIES NEEDING ANYTHING ELSE AT THIS TIME. WILL CONTINUE TO MONITOR. CALL LIGHT IN REACH.
--- NOTE | 2018-10-15 19:00 | NUR ---
PT IS AWAKE AND SITTING UP IN BED RECIEVING A BREATHING TREATMENT. WHEN ASKED IF SHE IS HAVING ANY PAIN OR DISTRESS SHE DENIES BUT STATES THAT SHE JUST WANTS TO GO TO BED. RESPS ARE EASY AND NONLABORED WITH AN EXPIRATORY WHEEZE NOTED. CALL LIGHT WITHIN REACH, WILL CONTINUE TO MONITOR.
--- NOTE | 2018-10-15 19:57 | NUR ---
24 HR CHART CHECK COMPLETE.
[2018-10-15 20:00] VITALS: BP 130/68
--- NOTE | 2018-10-15 22:30 | NUR ---
PT MEDICATED WITH PRN XANAX FOR C/O ANXIETY. WILL MONITOR FOR EFFECTIVENESS.
[2018-10-16] VITALS: BP 120/70
[2018-10-16 08:00] VITALS: BP 122/70
[2018-10-16 08:50] VITALS: BP 122/70
[2018-10-16 11:34] VITALS: BP 128/72
[2018-10-16 16:16] VITALS: BP 126/68
--- NOTE | 2018-10-16 19:00 | NUR ---
REPORT RECIEVED FROM FLORES MCMANUS. PATIENT IS SITTING UP IN BED TALKING ON THE PHONE AT THIS TIME. PATIENT STATES THAT SHE IS FEELING BETTER AND HAS NO COMPLAINTS AT THIS TIME. NO S/S OF DISTRESS NOTED. RESPS ARE EASY AND NONLABORED. EXPIRATORY WHEEZING NOTED. CALL LIGHT WITHIN REACH, WILL CONTINUE TO MONITOR.
--- NOTE | 2018-10-16 19:25 | NUR ---
24 HR CHART CHECK COMPLETE.
[2018-10-16 20:00] VITALS: BP 132/82; BP 135/78
[2018-10-17] VITALS: BP 129/73
[2018-10-17 06:08] LABS: ALBUMIN 2.9 gm/dl (3.1-4.5); ALKALINE PHOSPHATASE 103 U/L (45-117); BUN 17 mg/dl (7-24); CHLORIDE 107 mmol/L (98-107); POTASSIUM 3.8 mmol/L (3.5-5.1); SGOT/AST 9 IU/L (3-35); SGPT/ALT 35 U/L (12-78); SODIUM 142 mmol/L (136-145); TOTAL PROTEIN 6.2 gm/dL (6.4-8.2)
[2018-10-17 06:14] LABS: BASO % 0.2 % (0.0-1.0); HEMATOCRIT 41.7 % (37.0-47.0); HEMOGLOBIN 13.9 g/dl (12.0-16.0); LYMPH # 0.7 10*3/uL (1.3-4.4); LYMPH % 5.7 % (27.0-41.0); MEAN CELL VOLUME 92.5 fl (81.0-99.0); MEAN CORPUSCULAR HGB 30.8 pg (27.0-31.0); MEAN CORPUSCULAR HGB CONC 33.3 g/dl (33.0-37.0); MEAN PLATELET VOLUME 9.3 fl (9.6-12.3); MONO # 0.5 10*3/uL (0.1-1.0); MONO % 3.8 % (3.0-9.0); NEUT # 11.4 10*3/uL (2.3-7.9); PLATELET COUNT AUTOMATED 219 10*3/uL (130-400); RED BLOOD COUNT 4.51 10*6/uL (4.10-5.10); WHITE BLOOD COUNT 12.8 10*3/uL (4.8-10.8)
[2018-10-17 08:00] VITALS: BP 122/70
--- NOTE | 2018-10-17 10:22 | NUR ---
MEDICATED WITH PO TYLENOL FOR HEADACHE.
--- NOTE | 2018-10-17 11:11 | NUR ---
PRN PO TYLENOL EFFECTIVE, PER PATIENT.
[2018-10-17 12:00] VITALS: BP 147/77
[2018-10-17 16:00] VITALS: BP 149/78
--- NOTE | 2018-10-17 19:13 | NUR ---
24 HR CHART CHECK COMPLETE.
[2018-10-17 20:00] VITALS: BP 152/77
[2018-10-18] VITALS: BP 138/76
--- NOTE | 2018-10-18 07:31 | NUR ---
PT NOT ON BIPAP AT THIS TIME
[2018-10-18 08:00] VITALS: BP 146/72
--- NOTE | 2018-10-18 08:44 | NUR ---
MEDICATED WITH PRN PO TYLENOL FOR CHEST AND MOUTH/TONGUE DISCOMFORT.
--- NOTE | 2018-10-18 09:00 | NUR ---
Tick Inspector in to see patient. No new needs or request at this time. She denies any home needs. When medically stable she will be discharged to home.
[2018-10-18 12:00] VITALS: BP 133/100
[2018-10-18 16:00] VITALS: BP 145/68
--- NOTE | 2018-10-18 19:00 | NUR ---
PT AMBULATING HALLWAY DURING SHIFT REPORT. TAM NOTED. WILL MONITOR.
[2018-10-18 20:00] VITALS: BP 151/74
[2018-10-19] VITALS: BP 124/67
--- NOTE | 2018-10-19 03:10 | NUR ---
24 HR chart check completed.
[2018-10-19 08:00] VITALS: BP 122/88
[2018-10-19 08:16] VITALS: BP 142/70
--- NOTE | 2018-10-19 09:00 | NUR ---
Tie Buyer in to see patient. She is sitting up in her bed without distress noted. Discussed discharge needs and she denies any home needs. She said Dr. Lezama said not today or tomorrow would she get discharged and Dr. Grijalva hasn't been around yet. When medically stable she will be discharged to home.
--- NOTE | 2018-10-19 11:24 | NUR ---
ASSUMED CARE OF PATIENT. PATIENT SITTING UP IN BED, NO OBVIOUS SIGNS OF DISTRESS. EXP WHEEZE HEARD THROUGHOUT ALL LUNG CHRISTIANSON. DENIES ANY NEEDS OR DISCOMFORTS. CALL LIGHT WITHIN REACH.
[2018-10-19 12:00] VITALS: BP 140/76
[2018-10-19 16:00] VITALS: BP 141/74
--- NOTE | 2018-10-19 19:23 | NUR ---
PATIENT AWAKE IN BED AT THIS TIME. O2 IN USE VIA 2L NC. POX 98%. DENIES ANY NEEDS AT THIS TIME. WILL MONITOR. CALL LIGHT IN REACH.
[2018-10-19 20:00] VITALS: BP 152/82
--- NOTE | 2018-10-19 22:52 | NUR ---
PT REQUESTED AND RECEIVED PO XANAX PER PRN ORDER FOR C/O INSOMNIA/ANXIETY. WILL MONITOR EFFECTIVENESS. CALL LIGHT LEFT IN REACH.
[2018-10-20] VITALS: BP 137/82
--- NOTE | 2018-10-20 02:46 | NUR ---
PT ASLEEP IN BED. BIPAP IN USE. NO S/S OF DISTRESS NOTED. WILL MONITOR. CALL LIGHT LEFT IN REACH.
--- NOTE | 2018-10-20 05:46 | NUR ---
BSG 188. PT REQUESTING TO TAKE AMARYL EARLY. REFUSING HUMULIN COVERAGE AT THIS TIME. DENIES ANY OTHER NEEDS. WILL CONTINUE TO MONITOR. CALL LIGHT IN REACH.
[2018-10-20 08:00] VITALS: BP 130/78; BP 142/72
--- NOTE | 2018-10-20 08:43 | NUR ---
Bimal from [facility] called to set up home bipap for Jerri Aleman, per Dr. Lezama request. Bimal will contact Dr. Lezama for information.
--- NOTE | 2018-10-20 09:00 | NUR ---
Special Education Secretary in to see patient. She is sitting up in her bed without distress noted. Discussed discharge needs and she denies any home needs. She was hoping to be discharged today but Dr. Lezama said not today or tomorrow would she get discharged and Dr. Grijalva hasn't been around yet. When medically stable she will be discharged to home.
[2018-10-20 12:00] VITALS: BP 134/78
[2018-10-20 16:00] VITALS: BP 137/72
--- NOTE | 2018-10-20 19:48 | NUR ---
24 HR CHART CHECK COMPLETE.
[2018-10-20 20:00] VITALS: BP 145/75
--- NOTE | 2018-10-20 23:53 | NUR ---
PT PLACED ON BIPAP AT THIS TIME. FULL FACE SHIELD
[2018-10-21] VITALS: BP 139/75
--- NOTE | 2018-10-21 08:02 | NUR ---
24 HR CHART CHECK COMPLETE
[2018-10-21] MEDS ORDERED: DOXYCYCLINE100 M3 PO (08:30)
[2018-10-21] MEDS ORDERED: MIRTAZAPINE15 M2 PO (08:30)
[2018-10-21] MEDS ORDERED: FLUCONAZOLE100 MG PO (08:30)
[2018-10-21] MEDS ORDERED: Nystatin 100,000 UNI PO (08:30)
[2018-10-21] MEDS ORDERED: PREDNISONE5 MG PO (08:33)
[2018-10-21] MEDS ORDERED: AMARYL2 MG PO (08:33)
--- NOTE | 2018-10-21 09:00 | NUR ---
Lab Intern in to see patient. She is sitting up in her bed without distress noted. Discussed discharge needs and she denies any home needs. She thinks she is going to be discharged today. She is waiting to hear if her trilogy is being delivered today. When medically stable she will be discharged to home.
--- NOTE | 2018-10-21 11:45 | NUR ---
Discharge instructions reviewed with patient/family. Patient receptive and verbalizes understanding. Follow-up care arranged. Written instructions given to patient/family. PRETTY LEW
== END 2018-10-21 11:45 | disposition home or self-care (01) | DRG 202 ==
LOC: ED 05:15 → EDHOLD 06:58 → 4E 06:58
PROVIDERS: Emergency Medicine Emergency Medical Services; Internal Medicine; Internal Medicine Critical Care Medicine; ADMIT Internal Medicine
DX: J20.9 Acute bronchitis, unspecified (principal); J44.1 Chronic obstructive pulmonary disease with (acute) exacerbation; J96.10 Chronic respiratory failure, unspecified whether with hypoxia or hypercapnia; F33.2 Major depressive disorder, recurrent severe without psychotic features; B37.0 Candidal stomatitis; Z68.1 Body mass index [BMI] 19.9 or less, adult; J44.0 Chronic obstructive pulmonary disease with (acute) lower respiratory infection; I47.9 Paroxysmal tachycardia, unspecified; R91.1 Solitary pulmonary nodule; R73.9 Hyperglycemia, unspecified; I10 Essential (primary) hypertension; F41.1 Generalized anxiety disorder; G25.81 Restless legs syndrome; R51 Headache; E66.9 Obesity, unspecified; T38.0X5A Adverse effect of glucocorticoids and synthetic analogues, initial encounter; Y92.89 Other specified places as the place of occurrence of the external cause; Z99.81 Dependence on supplemental oxygen; Z87.891 Personal history of nicotine dependence; Z98.891 History of uterine scar from previous surgery; Z90.49 Acquired absence of other specified parts of digestive tract; Z90.2 Acquired absence of lung [part of]; Z90.710 Acquired absence of both cervix and uterus; Z87.81 Personal history of (healed) traumatic fracture; Z79.51 Long term (current) use of inhaled steroids; Z79.899 Other long term (current) drug therapy; Z88.8 Allergy status to other drugs, medicaments and biological substances; Z82.49 Family history of ischemic heart disease and other diseases of the circulatory system; Z82.5 Family history of asthma and other chronic lower respiratory diseases

== ENCOUNTER 2018-12-21 12:26 | Inpatient (IN) | payer BC ==
[~2018-12-21] VITALS: Ht 152.4 cm; Wt 48.1 kg
--- NOTE | ~2018-12-21 | WRIGHTHP ---
[place], [place] PATIENT HISTORY AND PHYSICAL EXAM NAME: TERA HU [facility] #: [id number] UNIT #: [id number] ROOM: 512 DOCTOR: VERO PILLAI MD BIRTHDATE: [birth year] DOS: 12/21/2018 HISTORY OF PRESENT ILLNESS: The patient is a 58-year-old female with a past medical history of: 1. End-stage COPD. The patient waiting for lung transplant at [facility]. 2. Major depression, recurrent, moderate. 3. Corticosteroid-induced hyperglycemia. 4. Generalized anxiety disorder. 5. Benign essential hypertension. 6. Severe persistent asthma. 7. Chronic respiratory failure and oxygen dependence. 8. History of hysterectomy, cholecystectomy, and C-sections. 9. Nicotine smoke dependence, stopped in 09/2017. The patient presented with hypoxemia and shortness of breath with pulse ox ranging in 70s and 80s at home with oxygen at 4-1/2 liters, was seen in the office yesterday and sent to [facility] for admission to the monitored bed. The patient is feeling somewhat better with treatment with bronchodilators, oxygen and Dr. Grijalva, her supervisor travel trailer, has been consulted. No chest pain, no GI or urinary symptoms. REVIEW OF SYSTEMS: RESPIRATORY: Increasing shortness of breath and hypoxemia. GASTROINTESTINAL: No nausea, vomiting, diarrhea, constipation. CARDIOVASCULAR: No chest pain or palpitations. FAMILY HISTORY: Noncontributory. HOME MEDICATIONS: Diltiazem, omeprazole, Daliresp, ibuprofen, mirtazapine, Xanax. ALLERGIES: Known allergies to AVAPRO, causes hives. FAMILY HISTORY: Noncontributory. PHYSICAL EXAMINATION: GENERAL: Alert, oriented x 3, in no visible distress. Wearing oxygen. HEENT AND NECK: Extraocular movements are intact. Sclerae are anicteric. Oral mucosa is moist and clean. No obvious facial weakness. Neck is supple without any lymphadenopathy. No thyromegaly. No JVD. No carotid arterial bruits. LUNGS: Decreased breath sounds all over. Clear to auscultation. No wheezing. No rhonchi. CARDIOVASCULAR SYSTEM: Heart rate is regular in rate and rhythm. S1 and S2 normally audible. No significant murmur or any other abnormal cardiac sounds. ABDOMEN: Soft, nontender. No obvious organomegaly. Bowel sounds are present. No obvious herniation. EXTREMITIES: Without significant cyanosis or edema. Warm to touch. CENTRAL NERVOUS SYSTEM: Alert and oriented x 3. Cranial nerves II-XII are intact. Speech is normal. The patient is able to move all extremities. Normal [place], [place] PATIENT HISTORY AND PHYSICAL EXAM NAME: TERA HU [facility] #: [id number] UNIT #: [id number] ROOM: 512 DOCTOR: VERO PILLAI MD BIRTHDATE: [birth year] muscle strength. Deep tendon reflexes are equal on both sides. Plantars were downgoing. LABORATORY DATA: Chest x-ray with no acute abnormality, just shows COPD. Normal serum electrolytes. Blood sugar 127. Normal CBC. IMPRESSION: 1. Acute exacerbation of chronic obstructive pulmonary disease with acute over chronic respiratory failure and severe hypoxemia despite of taking oxygen at home. The patient admitted and started on treatment with bronchodilators and antibiotic and Dr. Grijalva, her supervisor travel trailer, has been consulted. The patient also on IV Solu-Medrol. 2. Benign essential hypertension, being controlled with Cardizem-CD, which also controlled her sinus tachycardia. 3. Chronic arthritic pain and lower back pains controlled with ibuprofen. 4. Major depression, recurrent, moderate, treated and controlled. The patient remains on mirtazapine. VERO PILLAI MD CM:HISPHYS:PATIENT HISTORY AND PHYSICAL EXAMINATION [id number] VERO PILLAI MD 12/22/18 1244 interface
--- NOTE | ~2018-12-21 | PR ---
[place], [place] PROGRESS NOTE [id number] UNIT #: [id number] ROOM: 512 DOCTOR: VERO PILLAI MD BIRTHDATE: [birth year] DOS: 12/23/2018 SUBJECTIVE: The patient is still short of breath. PHYSICAL EXAMINATION: VITAL SIGNS: Blood pressure 114/62, heart rate 92 beats per minute, breathing 20 times per minute, temperature 98 degrees Fahrenheit. GENERAL APPEARANCE: The patient is alert and oriented x 3, in no visible distress. HEENT AND NECK: Exam within normal limits. CARDIOVASCULAR SYSTEM: Heart rate is regular in rate and rhythm. S1 and S2 normally audible. LUNGS: Somewhat decreased breath sounds and expiratory wheezing on lung auscultation. ABDOMEN: Soft, nontender. No obvious organomegaly. Bowel sounds are present. EXTREMITIES: Without significant cyanosis or edema. IMPRESSION: 1. Acute exacerbation of severe underlying chronic obstructive pulmonary disease with acute over chronic respiratory failure, being treated with DuoNebs and corticosteroids, IV Solu-Medrol and IV ceftriaxone. Dr. Grijalva, the track repair person, is following. The patient is on lung transplant consult with [facility] and I will try to send it there tomorrow. Suspected viral syndrome. 2. Benign essential hypertension and sinus tachycardia, treated and controlled with Cardizem. 3. Generalized anxiety disorder, treated with Xanax as needed. 4. Chronic arthritis pains and lumbar spondylosis lower back pains treated with ibuprofen as needed. 5. Major depression, recurrent, moderate, treated and controlled. The patient remains on mirtazapine. VERO PILLAI MD CM:PNTRANS [phone] VERO PILLAI MD 12/24/18 0325 interface
--- NOTE | ~2018-12-21 | PR ---
[place], [place] PROGRESS NOTE [id number] UNIT #: [id number] ROOM: 512 DOCTOR: JONATHAN MARC MD,ZAC BIRTHDATE: [birth year] DOS: 12/23/2018 SUBJECTIVE: She has been noted with partial reduction in respiratory symptoms of shortness of breath, coughing, wheezing, using her noninvasive ventilator from the home for the patient this morning. Denies symptoms of fever or chills. Denies symptoms of hemoptysis. Cough has been noted intermittent moderate with minimal sputum expectoration. OBJECTIVE: VITAL SIGNS: Normal temperature, respiratory rate 20, heart rate 92, blood pressure 127/74, pulse oxygen saturation recorded at rest on 3 liters nasal cannula 97% saturation. HEENT: Examination shows head was atraumatic. Eyes nonicterus. NECK: Supple. CARDIOVASCULAR: S1 and S2 audible. LUNGS: Decreased breath sounds with ocam-ki-[id number] expiratory wheezing, partially decreased from previous examination yesterday. ABDOMEN: Flat, soft, nontender. Bowel sounds present. EXTREMITIES: Without any acute edema. IMPRESSION: Acute tracheobronchitis with acute exacerbation of chronic obstructive pulmonary disease was noted at this time. Partial improvement from yesterday ____ examination. PLAN OF MANAGEMENT: Continuation of the current medical management at this time as ongoing. Usual care, other supportive plan of management, other therapy, plan of care and treatments. Supportive care. ZAC CASTILLO MD CM:PNTRANS [phone] ZAC MARC MD 12/24/18 0506 interface
--- NOTE | ~2018-12-21 | CON ---
[place], [place] REPORT OF CONSULTATION NAME: TERA HU [facility] #: [id number] UNIT #: [id number] ROOM: 512 DOCTOR: ZAC BYRNES MD BIRTHDATE: [birth year] DOS: 12/22/2018 PULMONARY CONSULTATION, EVALUATION AND MANAGEMENT CONSULTATION REQUESTED: Dr. Liz. REASON FOR CONSULTATION: For assessment of COPD exacerbation. The patient independently seen and examined in [id number] encounter, history was confirmed, physical examination performed. The labs were reviewed. The radiology data were reviewed. Assessment and management of today's visit was personally completed. Note done by the medical art therapist was approved as well. HISTORY OF PRESENT ILLNESS: This is a 58-year-old white female patient stated that she is getting sick from the last Thursday. The patient's symptoms have been noted gradually worsened. The symptoms have been noted with increased chest congestion with coughing, minimal sputum expectoration, shortness of breath and excessive wheezing. She was also noted with temperature elevation at home, seen in the office of primary care physician yesterday. She was assessed and sent to the hospital for further assessment for the patient and ongoing respiratory problem. She has been admitted to the hospital for further care at this time. She was still complaining of significant tightness in the chest with symptoms of shortness of breath, coughing, chest congestion as well as wheezing. Denies symptoms of hemoptysis. There were no symptoms of chest pain. REVIEW OF SYSTEMS: CONSTITUTIONAL: Fatigue and tiredness noted without any symptoms of fever or chills. EYES: Denies any burning, redness, or tenderness. EARS, NOSE, THROAT SYMPTOMS: Denies sore throat, hoarseness, otalgia, postnasal drainage or epistaxis. CARDIOVASCULAR: Denies anginal pain, edema, pain of the lower extremities. GASTROINTESTINAL SYMPTOM: Denies dysphagia, nausea, vomiting, diarrhea, abdominal pain, hematemesis, melena, or hematochezia. SKIN: Denies abnormal lesions or rashes. CENTRAL NERVOUS SYSTEM: Denies dizziness, headache, diplopia or syncopal episodes. Remaining systems were reviewed with the patient, they were noted all negative. PAST MEDICAL HISTORY: 1. Severe chronic obstructive pulmonary disease. 2. Essential hypertension. 3. General anxiety disorder. 4. Restless leg syndrome. 5. Pulmonary nodule, which was noted benign, removed surgically in the right upper lobe. PAST SURGICAL HISTORY: 1. Therapeutic bronchoscopy. [place], [place] REPORT OF CONSULTATION [id number] UNIT #: [id number] ROOM: 512 DOCTOR: ZAC BYRNES MD BIRTHDATE: [birth year] 2. Intubation and mechanical ventilation. 3. Cholecystectomy. 4. Complete hysterectomy in 1999. 5. Right upper lobectomy, wedge resection in [facility] as a benign nodule. SOCIAL HISTORY: The patient is . She has one child. Denies any alcohol use or illicit drug use. The patient was noted tobacco use since teenager, a pack of cigarettes per day and discontinued on 09/2017. FAMILY HISTORY: The patient's father at the age of 61-year-old with complication of myocardial infarction. Mother at 70 years with complication of bronchial asthma. CURRENT MEDICATIONS: Administered was noted as use of: 1. Trelegy Ellipta 1 inhalation daily. 2. Cardizem 120 mg daily. 3. Omeprazole 40 mg daily. 4. Daliresp 500 mcg daily. 5. Ibuprofen p.r.n. use every 8 hours for pain. 6. Solu-Medrol 40 mg q.8. 7. DuoNeb q. 4 hours. 8. IV Rocephin and Xanax. DRUG ALLERGIES: NOTED ALLERGY TO THE AVAPRO CAUSING HIVES. PHYSICAL EXAMINATION: GENERAL: This is a 58-year-old female currently noted to be awake and alert without any distress. Height of 5 feet, weight 106 pounds, BMI 20.7. VITAL SIGNS: For the patient normal temperature, respiratory rate 19-20, heart rate of 111-107, mild sinus tachycardia, blood pressure 120/65 to 126/80. Pulse oxygen saturation on 3 liters nasal cannula 99% saturation. HEENT: Shows head was atraumatic. Eyes nonicterus. NECK: Supple. CARDIOVASCULAR: S1, S2 is audible. LUNGS: Diffuse reduced breath sounds in the lungs bilaterally with expiratory wheezing, no crackles. ABDOMEN: Flat, soft, nontender. EXTREMITIES: No edema, clubbing, cyanosis. MUSCULOSKELETAL: Without acute deformity. VISIBLE SKIN: No lesions or rashes. LABORATORY DATA: CBC of 12/21/2018 admission was noted as WBC count 7.5, hemoglobin and hematocrit normal, platelet count normal, 1.6% eosinophils. CMP this morning for the patient has a normal BUN and creatinine, glucose 127. Chest x-ray that was done for the patient was not noted with any acute pulmonary infiltration. IMPRESSION: 1. Most likely acute viral syndrome with temperature elevation, resulting in acute exacerbation of chronic obstructive pulmonary disease, very likely. [place], [place] REPORT OF CONSULTATION NAME: TERA HU UNIT #: [id number] ROOM: [facility] DOCTOR: JONATHAN MARC MD,ZAC BIRTHDATE: [birth year] 2. Past history of nicotine dependence. 3. Sinus tachycardia resulting from acute exacerbation of chronic obstructive pulmonary disease. PLAN OF MANAGEMENT: Discontinue DuoNeb, ____ sulfate. Continue Trelegy Ellipta. Continuation of the bronchodilator for the patient as well. Continue IV Solu-Medrol same dose, no changes need to be made. Sputum for Gram stain culture was ordered for the patient as well. Usual care, other therapy, plan of management. Additional treatment changes will be ordered based on the progression of her illness. Thanks for allowing me to participate in the care of this patient. ZAC CASTILLO MD CM:CONSTR:REPORT OF CONSULTATION 1052 12/22/18 2389 interface
--- NOTE | ~2018-12-21 | PR ---
[place], [place] PROGRESS NOTE [id number] UNIT #: [id number] ROOM: 512 DOCTOR: MARYSE VASQUEZ MD BIRTHDATE: [birth year] DOS: SUBJECTIVE: The patient states that she has been coughing and when she takes a deep breath, she has had some pain. She denies having any retrosternal chest pains, palpitations. PHYSICAL EXAMINATION: GENERAL: She is awake and alert and oriented. VITAL SIGNS: Graphic trend shows a pressure 122/70, pulse of 76, respirations 14, afebrile. LUNGS: Clear. HEART: Regular. ABDOMEN: Soft. EXTREMITIES: Without any edema. ASSESSMENT AND PLAN: 1. Pleuritic chest pain. Check a chest x-ray. Initial one done on the 12/21/2018 was negative. 2. End-stage chronic obstructive pulmonary disease with chronic respiratory failure. The patient is awaiting transfer to [facility]. Apparently, Dr. Liz has made arrangements for her to go and waiting for [facility] to accept transfer. MARYSE VASQUEZ MD CM:PNTRANS [phone] MARYSE VASQUEZ MD 12/25/18 0821 interface
--- NOTE | ~2018-12-21 | DS ---
[place], [place] DISCHARGE SUMMARY NAME: TERA HU [facility] #: [id number] UNIT #: [id number] ROOM: 512 DOCTOR: VERO PILLAI MD BIRTHDATE: [birth year] DOS: 12/24/2018 DISCHARGE DIAGNOSES: 1. The patient with acute over chronic respiratory failure and hypoxemia for end-stage lung disease, the patient on lung transplant list at [facility]. 2. Acute exacerbation of chronic obstructive pulmonary disease. 3. Benign essential hypertension and tachycardic. 4. Generalized anxiety disorder. 5. Chronic arthritic pains and lumbar spondylosis with osteoarthritis involving lower back. 6. Major depression, recurrent, moderate. 7. Corticosteroid-induced hyperglycemia. 8. Severe persistent asthma. 9. Chronic respiratory failure and oxygen dependence. 10. History of hysterectomy, cholecystectomy and sections. 11. Nicotine smoke dependence, stopped in 09/2017. HOSPITAL COURSE: The patient was admitted with 1. Pulse ox remaining in 70s and 80s at home on slightest exertion. The patient takes oxygen up to 4.5 liters at home and she presented to my office quite short of breath. The patient also becomes tachycardic with slightest exertion. Latest pulse ox done at the hospital now showed pulse ox of 86% with a heart rate of 150 after walking a few steps on 3 liters of oxygen by nasal cannula. The patient is on lung transplant list at [facility] and I am transferring the patient to [facility] for further management. The patient was followed by mild disabilities teacher, Dr. Grijalva at [facility], but Dr. Grijalva has left town today. 2. Benign essential hypertension, being treated and controlled with Cardizem and heart rate is controlled for sinus tachycardia with Cardizem. 3. Sinus tachycardia, controlled with Cardizem, but she still develops sinus tachycardia with walking a few steps. 4. Chronic arthritic pain in lower back and lumbar spondylosis, treated with ibuprofen. 5. Major depression, recurrent, moderate, treated and controlled. This patient on mirtazapine. 6. Generalized anxiety disorder, which is severe, treated with Xanax as needed. 7. Nicotine smoke dependence. The patient stopped in 09/2017. 8. End-stage lung disease, the patient on lung transplant list at [facility]. 9. Corticosteroid-induced hyperglycemia, the patient not on corticosteroids and blood sugar of 127. 10. Chronic lower back pains, osteoarthritis and lumbar spondylosis, treated and controlled with ibuprofen. 11. Advance adult failure to thrive with AHI of only 58%. LABORATORY DATA: Latest EKG shows sinus rhythm at the heart rate of 88 beats per minute, normal cardiac axis, nonspecific ST-T abnormality. Low voltage criteria. Serum electrolytes were normal. Blood sugar of 127. Normal CBC. [place], [place] DISCHARGE SUMMARY NAME: TERA HU UNIT #: [id number] ROOM: [facility] DOCTOR: VERO PILLAI MD BIRTHDATE: [birth year] VERO PILLAI MD CM:ANIKET [phone] VERO PILLAI MD 12/24/18 1344 interface
--- NOTE | ~2018-12-21 | CON ---
[place], [place] REPORT OF CONSULTATION NAME: TERA HU UNIT #: [id number] ROOM: 512 DOCTOR: AYLEEN GILMORE BIRTHDATE: [birth year] DOS: 12/22/2018 REQUESTED BY: Hospitalist service. REASON FOR CONSULTATION: COPD exacerbation. HISTORY OF PRESENT ILLNESS: The patient is a 58-year-old female with a history of depression, hypertension, COPD, who presented with 2 days of "I just don't feel well." She denies any sick contacts or travel or changes in medication, but she states she started to feel unwell on Thursday with some mild shortness of breath and a temperature of 99. She states this worsened the following day to a temperature of 102 at home. She also states that her shortness of breath worsened and she could not travel around the house without feeling short of breath. She denies any chest pain, lightheadedness or dizziness at that time. Reports a dry cough without hemoptysis or mucus production. No abdominal pain, nausea or vomiting. She states she also feels weak because of it. She has had COPD exacerbations before. She states she has quit smoking over a year ago and has been compliant with quitting smoking. She normally uses 3 liters of oxygen at home. She has had to bump it up to 4.5 lately secondary to her shortness of breath. At the bedside this morning, she states she feels okay as long as she does not have to move. If she becomes exertional, then she reports her shortness of breath will worsen. PAST MEDICAL HISTORY: The patient has a history of COPD, depression, hypertension, pulmonary nodules and restless legs. PAST SURGICAL HISTORY: Cholecystectomy, hysterectomy and a wedge pneumonectomy, status post benign lung nodule. SOCIAL HISTORY: Does not drink alcohol, does not use illicit drugs. Former smoker, quit in September 2017. FAMILY HISTORY: Unknown at this time. CURRENT MEDICATIONS: Proventil, Trelegy, supplemental oxygen continuous, Xanax, diltiazem, mirtazapine, Prilosec, Daliresp, and vitamin D. PHYSICAL EXAMINATION: GENERAL: The patient is in no acute distress, appears comfortable. HEENT: Normocephalic, atraumatic. No scleral icterus. Nasal cannula present at 3 liters of O2. NECK: No JVD, no edema. CARDIAC: Tachycardic, but regular rhythm. No murmurs, rubs or gallops. PULMONARY: Expiratory wheeze bilaterally. No rales or rhonchi. ABDOMEN: Nondistended, nontender. No rebound, rigidity or guarding. EXTREMITIES: No cyanosis, clubbing or edema. NEUROLOGIC: Cranial nerves 2-12 grossly intact. ASSESSMENT: 1. Acute exacerbation of chronic obstructive pulmonary disease. [place], [place] REPORT OF CONSULTATION NAME: TERA HU UNIT #: [id number] ROOM: [facility] DOCTOR: AYLEEN GILMORE BIRTHDATE: [birth year] 2. Qsabs-xx-kauwrij respiratory failure. 3. History of hypertension. 4. History of gastroesophageal reflux disease. 5. History of restless legs. PLAN: Continue the Solu-Medrol at 40 q. 8, along with the Rocephin 1 gram. Monitor for fevers. Obtain a sputum culture if possible. The patient also medicated with DuoNeb q. 4, monitor use and possibly decrease if heart rate continues to be elevated. Chest x-ray just shows COPD with no acute infiltrate, so no need for antibiotics for pneumonia treatment at this time. Maintain current plan and we will monitor for subsequent improvement. AYLEEN GILMORE, DO ZAC CASTILLO MD CM:CONSTR:REPORT OF CONSULTATION 1006 12/23/18 0254 interface
--- NOTE | ~2018-12-21 | PR ---
[place], [place] PROGRESS NOTE NAME: TERA HU [facility] #: [id number] UNIT #: [id number] ROOM: 512 DOCTOR: MARYSE VASQUEZ MD BIRTHDATE: [birth year] DOS: 12/26/2018 SUBJECTIVE: The patient is about the same, does not have any new changes. She is at her baseline as far as her breathing is concerned. Saturating well on 2 liters. OBJECTIVE: VITAL SIGNS: Blood pressure is 131/71, pulse of 70, respirations 18, temperature 97.3. LUNGS: Clear. HEART: Regular. ABDOMEN: Obese, soft, nontender. EXTREMITIES: Without any edema. ASSESSMENT AND PLAN: 1. Chronic obstructive pulmonary disease with mild exacerbation, on IV steroids, improved and stable. 2. Acute tracheobronchitis with negative sputum culture, normal linette was grown. 3. End stage chronic obstructive pulmonary disease with chronic respiratory failure. The patient was supposedly going to be transferred to [facility] for transplant, but they refused to accept her because she has not kept with her appointments there. I will discharge the patient and she can follow with the PCP and decide on further arrangements for transplant, which is indeed a long process and not usually arranged by transfer. MARYSE VASQUEZ MD CM:PNTRANS [phone] MARYSE VASQUEZ MD 12/26/18 0931 interface
[~2018-12-21 12:26] MED LIST changes: +AMARYL2 MG PO; +DOXYCYCLINE100 M3 PO; +FLUCONAZOLE100 MG PO; +Nystatin 100,000 UNI PO
--- NOTE | 2018-12-21 12:45 | NUR ---
A 58, admitted to , under the services of Dr. FREYA HODGE,VERO Zuniga with a diagnosis of COPD, RESP FAILURE. Chief complaint is SOB. Patient arrived via WC Monitor applied. Initial assessment completed. Vital signs taken and recorded. DR. FREYA HODGE,VERO Zuniga notified of admission to the unit. Orders received. See assessment for past medical history, medications and allergies. Patient and/or family oriented to unit. [facility] visitation policy reviewed. Clothing/patient valuable form completed. OTILIA HAMMOND
[2018-12-21 12:50] VITALS: BP 152/81
--- NOTE | 2018-12-21 13:27 | NUR ---
DR CASTILLO NOTIFIED OF CONSULT
[2018-12-21 14:24] LABS: BASO % 0.5 % (0.0-1.0); EOS # 0.1 10*3/uL (0.0-0.4); EOS % 1.6 % (1.0-4.0); HEMATOCRIT 42.7 % (37.0-47.0); HEMOGLOBIN 13.8 g/dl (12.0-16.0); LYMPH # 1.2 10*3/uL (1.3-4.4); LYMPH % 15.8 % (27.0-41.0); MEAN CELL VOLUME 86.6 fl (81.0-99.0); MEAN CORPUSCULAR HGB CONC 32.3 g/dl (33.0-37.0); MEAN PLATELET VOLUME 8.9 fl (9.6-12.3); MONO # 0.7 10*3/uL (0.1-1.0); MONO % 9.9 % (3.0-9.0); NEUT # 5.4 10*3/uL (2.3-7.9); NEUT % 71.5 % (47.0-73.0); PLATELET COUNT AUTOMATED 310 10*3/uL (130-400); RED BLOOD COUNT 4.93 10*6/uL (4.10-5.10); RED CELL DISTRI WIDTH 12.2 % (0-14.5); WHITE BLOOD COUNT 7.5 10*3/uL (4.8-10.8)
[2018-12-21 14:43] LABS: ALBUMIN 3.7 gm/dl (3.1-4.5); ALKALINE PHOSPHATASE 104 U/L (45-117); BUN 10 mg/dl (7-24); CHLORIDE 104 mmol/L (98-107); CREATININE 0.66 mg/dL (0.55-1.02); SGOT/AST 10 IU/L (3-35); SGPT/ALT 16 U/L (12-78); SODIUM 139 mmol/L (136-145); TOTAL PROTEIN 7.9 gm/dL (6.4-8.2)
[2018-12-21 16:00] VITALS: BP 114/68
[2018-12-21 20:00] VITALS: BP 119/66
[2018-12-22] VITALS: BP 120/65
--- NOTE | 2018-12-22 02:42 | NUR ---
SLEEPING NO ACUTE DISTRESS NOTED.
--- NOTE | 2018-12-22 07:45 | NUR ---
PT C/O HEADACHE. DR PILLAI NOTIFIED NEW ORDERS RECIEVED
[2018-12-22 08:00] VITALS: BP 126/60
--- NOTE | 2018-12-22 11:45 | NUR ---
Life Skills Specialist in to talk to patient. Patient states lives at HOME with . There are FEW steps in the home. Physician: FREYA Pharmacy: [facility] [place] [facility]: NONE Patient's level of ADLs: INDEPENDENT Patient has working utilities: YES DME: OXYGEN, BIPAP, PORTABLE NEBULIZER Follow-up physician's appointment after d/c: PREFERS TO MAKE OWN AFTER DISCHARGE Does patient want to access PORTAL?: NO Discharge plan PT LIVES AT HOME WITH HER AND IS INDEPENDENT IN CARE. STATES SHE HAS EVERYTHING SHE NEEDS AT HOME AND WILL RETURN HOME WITH NO NEEDS.. SHE WILL HAVE A RIDE HOME ON DISCHARGE. WILL CONTINUE TO FOLLOW. JAMES LOAIZA
[2018-12-22 12:00] VITALS: BP 121/63
[2018-12-22 16:00] VITALS: BP 144/67
--- NOTE | 2018-12-22 18:15 | NUR ---
pt requested and given motrin for c/o headache will monitor
[2018-12-22 20:00] VITALS: BP 139/64
[2018-12-23] VITALS: BP 127/60
--- NOTE | 2018-12-23 03:38 | NUR ---
24 HR chart check completed.
--- NOTE | 2018-12-23 04:00 | NUR ---
SLEEPING NO ACUTE DISTRESS NOTED.
--- NOTE | 2018-12-23 06:47 | NUR ---
EXCEDRINE GIVEN PER ORDER FOR HEADACHE PAIN "8". SEE MAR.
[2018-12-23 08:00] VITALS: BP 120/66
[2018-12-23 12:00] VITALS: BP 127/72
[2018-12-23 16:00] VITALS: BP 114/62
--- NOTE | 2018-12-23 17:08 | NUR ---
PT C/O CONSTIPATION. GIVEN DULCOLAX AT THIS TIME PER ORDER. WILL MONITOR FOR EFFECTIVENESS.
[2018-12-23 20:00] VITALS: BP 111/72
[2018-12-24] VITALS: BP 104/69
--- NOTE | 2018-12-24 03:00 | NUR ---
PATIENT SLEEPING, NO DISTRESS NOTED. CALL LIGHT WITHIN REACH.
[2018-12-24 08:00] VITALS: BP 108/68
[2018-12-24 12:00] VITALS: BP 119/67
[2018-12-24 16:00] VITALS: BP 123/57
[2018-12-24 20:00] VITALS: BP 127/53
--- NOTE | 2018-12-24 20:30 | NUR ---
PATIENT VOICED NO COMPLAINTS AT THIS TIME. RELAXING BED, STATES IF SHE WALKS TO MUCH SHE BECOMES VERY "WINDED". NBO DISTRESS NOTED AT THIS TIME, RESP ARE ERND ON 3L NC. CALL LIGTH WITHIN REACH
[2018-12-25] VITALS: BP 130/61
--- NOTE | 2018-12-25 05:28 | NUR ---
24 HR chart check completed.
--- NOTE | 2018-12-25 11:14 | NUR ---
Cassandra Yee called the [facility] and spoke to Isaías in the transfer center. Per Isaías, the patient has cancelled every appointment w/the clinic and is not on the transplant list. She can make an appointment as an o/p but will not be accepted as a transfer patient. Patient can call to scheduled appointment.
--- NOTE | 2018-12-25 11:22 | NUR ---
Relayed updated information regarding patients status at [facility]. No new orders.
[2018-12-25 12:00] VITALS: BP 131/56
--- NOTE | 2018-12-25 13:30 | NUR ---
Explained to patient and family member that patient will not be transferred to the [facility] today because she is not a patient at the clinic and she cancelled her appointments (per Isaías in transfer dept.). They both became very upset. Explained that although her condition is not good, she is considered to be stable at this point from a transfer standpoint. I gave examples of conditions that constitute a patient to be transferred. I informed them that Dr. Lezama is aware of the situation and will discharge patient home in morning and can follow up with the clinic as o/p. They were still upset and said their sister will txt Dr. Liz and let him know what is going on.
[2018-12-25 16:00] VITALS: BP 133/76
--- NOTE | 2018-12-25 19:42 | NUR ---
PATIENT VERY UPSET AT THIS TIME D/T TODAYS EVENTS CONCERNING NOT BEING TRANSFER TO [facility]. STATES SHE IS VERY UPSET WITH HER DOCTOR AND WILL BE DISCHARGED HOME TOMORROW. THIS NURSE LISTENED TO PATIENTS CONCERNS. PATIENT MEDICATED WITH XANAX PER REQUEST. WILL MONITOR
[2018-12-25 20:00] VITALS: BP 124/64
[2018-12-26] VITALS: BP 131/71
[2018-12-26] MEDS ORDERED: PREDNISONE5 MG PO (07:51)
[2018-12-26] MEDS ORDERED: CEFUROXIME AXE250 MG PO (07:58)
--- NOTE | 2018-12-26 08:43 | NUR ---
Discharge instructions reviewed with patient/family. Patient receptive and verbalizes understanding. Follow-up care arranged. Written instructions given to patient/family. Attempted to educate patient on new prescription and follow up visits, but she was angry, and resistent to any information. Even when their questions were being answered. Patient ambulated from unit and would not wait for a wheelchair. All personal belongings were accounted for and she was in the care of her sister. HAILEY ANTOINE J
== END 2018-12-26 08:43 | disposition home or self-care (01) | DRG 189 ==
LOC: 5E 12:26
PROVIDERS: ADMIT Internal Medicine
PROC: 5A09357 Assistance with Respiratory Ventilation, Less than 24 Consecutive Hours, Continuous Positive Airway Pressure (ICD-10-PCS; principal; 2018-12-26)
DX: J96.21 Acute and chronic respiratory failure with hypoxia (principal); J44.1 Chronic obstructive pulmonary disease with (acute) exacerbation; F33.9 Major depressive disorder, recurrent, unspecified; J44.0 Chronic obstructive pulmonary disease with (acute) lower respiratory infection; I10 Essential (primary) hypertension; F41.1 Generalized anxiety disorder; R00.0 Tachycardia, unspecified; M47.896 Other spondylosis, lumbar region; K21.9 Gastro-esophageal reflux disease without esophagitis; J20.9 Acute bronchitis, unspecified; R62.7 Adult failure to thrive; G25.81 Restless legs syndrome; R73.9 Hyperglycemia, unspecified; T38.0X5A Adverse effect of glucocorticoids and synthetic analogues, initial encounter; J45.50 Severe persistent asthma, uncomplicated; F17.200 Nicotine dependence, unspecified, uncomplicated; Y92.89 Other specified places as the place of occurrence of the external cause; Z79.899 Other long term (current) drug therapy; Z88.8 Allergy status to other drugs, medicaments and biological substances; Z90.49 Acquired absence of other specified parts of digestive tract; Z90.710 Acquired absence of both cervix and uterus; Z82.49 Family history of ischemic heart disease and other diseases of the circulatory system; Z82.5 Family history of asthma and other chronic lower respiratory diseases; Z68.20 Body mass index [BMI] 20.0-20.9, adult

== ENCOUNTER 2019-01-25 18:16 | Emergency (ER) | payer BC ==
[~2019-01-25] VITALS: Ht 152.4 cm; Wt 48.5 kg
[2019-01-25 18:17] VITALS: BP 160/61
== END 2019-01-25 20:45 | disposition home or self-care (01) ==
LOC: ED 18:16
DX: I80.8 Phlebitis and thrombophlebitis of other sites (principal); Z88.8 Allergy status to other drugs, medicaments and biological substances; Z79.899 Other long term (current) drug therapy; Z79.2 Long term (current) use of antibiotics; Z90.710 Acquired absence of both cervix and uterus; Z90.49 Acquired absence of other specified parts of digestive tract; Z87.891 Personal history of nicotine dependence

== ENCOUNTER → 2019-03-14 | Outpatient (CLI) | payer BC | END | disposition home or self-care (01) | LOC: CARD 09:17 | DX: Z76.82 Awaiting organ transplant status (principal) ==

== ENCOUNTER → 2019-03-24 | Outpatient (CLI) | payer BC | END | disposition home or self-care (01) | LOC: RAD 03-22 09:00 | DX: Z13.820 Encounter for screening for osteoporosis (principal); N95.9 Unspecified menopausal and perimenopausal disorder; R29.890 Loss of height; Z90.710 Acquired absence of both cervix and uterus ==

== ENCOUNTER → 2019-04-01 | Outpatient (CLI) | payer BC ==
[2019-04-01 10:19] LABS: URINE AMPHETAMINES < 1000 (1000ng/ml); URINE BARBITURATES < 200 (200ng/ml); URINE BENZODIAZEPINES > 200 (200ng/ml); URINE CANNABINOIDS (THC) < 50 (50ng/ml); URINE COCAINE < 300 (300ng/ml); URINE METHADONE < 300 (300ng/ml); URINE OPIATES < 300 (300ng/ml); URINE PHENCYCLIDINE < 25 (25ng/ml)
[2019-04-01 10:44] LABS: BILIRUBIN NEGATIVE (NEGATIVE); BLOOD NEGATIVE (NEGATIVE); CLARITY CLEAR (CLEAR); COLOR YELLOW (YELLOW); GLUCOSE NEGATIVE (NEGATIVE); KETONE NEGATIVE (NEGATIVE); LEUKO ESTERASE NEGATIVE (NEGATIVE); NITRITE NEGATIVE (NEGATIVE); PH 5.5 (5.0-9.0); SPECIFIC GRAVITY 1.015 (1.005-1.030); UROBILINOGEN 0.2 E.U./dl (0.2-1.0)
[2019-04-01 14:10] LABS: EPITHELIAL CELLS 0-2
[2019-04-02 22:06] LABS: COTININE Negative ng/mL (Cutoff=300)
== END | disposition home or self-care (01) ==
LOC: LAB 09:50
PROVIDERS: Internal Medicine Critical Care Medicine
DX: Z76.82 Awaiting organ transplant status (principal)

== ENCOUNTER 2019-04-11 13:57 | Emergency (ER) | payer BC ==
[~2019-04-11] VITALS: Ht 154.9 cm; Wt 48.5 kg
[2019-04-11 14:27] LABS: BASO % 0.4 % (0.0-1.0); EOS % 0.5 % (1.0-4.0); HEMATOCRIT 43.5 % (37.0-47.0); HEMOGLOBIN 14.3 g/dl (12.0-16.0); LYMPH # 2.2 10*3/uL (1.3-4.4); LYMPH % 25.8 % (27.0-41.0); MEAN CELL VOLUME 84.3 fl (81.0-99.0); MEAN CORPUSCULAR HGB 27.7 pg (27.0-31.0); MEAN CORPUSCULAR HGB CONC 32.9 g/dl (33.0-37.0); MEAN PLATELET VOLUME 9.7 fl (9.6-12.3); MONO # 0.7 10*3/uL (0.1-1.0); MONO % 8.4 % (3.0-9.0); NEUT # 5.4 10*3/uL (2.3-7.9); NEUT % 64.5 % (47.0-73.0); PLATELET COUNT AUTOMATED 296 10*3/uL (130-400); RED BLOOD COUNT 5.16 10*6/uL (4.10-5.10); RED CELL DISTRI WIDTH 13.7 % (0-14.5); WHITE BLOOD COUNT 8.4 10*3/uL (4.8-10.8)
[2019-04-11 14:37] LABS: ACT PARTIAL THROMBO TIME 27.4 SECONDS (20.0-32.1); INTERNATIONAL NORM RATIO 0.9 (2.0-3.5)
[2019-04-11 14:43] LABS: ALBUMIN 3.8 gm/dl (3.1-4.5); ALKALINE PHOSPHATASE 97 U/L (45-117); BUN 11 mg/dl (7-24); CHLORIDE 105 mmol/L (98-107); CREATININE 0.69 mg/dL (0.55-1.02); POTASSIUM 3.5 mmol/L (3.5-5.1); SGOT/AST 19 IU/L (3-35); SGPT/ALT 22 U/L (12-78); SODIUM 138 mmol/L (136-145); TOTAL PROTEIN 7.7 gm/dL (6.4-8.2)
[2019-04-11 14:47] LABS: TROPONIN I < 0.015 ng/ml (<0.045)
[2019-04-11 16:16] VITALS: BP 137/66
[2019-04-11] MEDS ORDERED: DOXYCYCLINE100 M3 PO (16:56)
[2019-04-11] MEDS ORDERED: PREDNISONE10 MG PO (16:56)
== END 2019-04-11 16:58 ==
LOC: ED 13:57
PROVIDERS: Emergency Medicine
DX: J44.1 Chronic obstructive pulmonary disease with (acute) exacerbation (principal); I10 Essential (primary) hypertension; Z88.8 Allergy status to other drugs, medicaments and biological substances; Z79.899 Other long term (current) drug therapy; Z79.2 Long term (current) use of antibiotics; Z87.891 Personal history of nicotine dependence

== ENCOUNTER → 2020-01-12 | Outpatient (CLI) | payer BC ==
[2020-01-12 14:29] LABS: BASO % 0.4 % (0.0-1.0); EOS # 0.1 10*3/uL (0.0-0.4); EOS % 0.9 % (1.0-4.0); HEMATOCRIT 43.3 % (37.0-47.0); LYMPH # 2.5 10*3/uL (1.3-4.4); LYMPH % 31.3 % (27.0-41.0); MEAN CORPUSCULAR HGB 28.7 pg (27.0-31.0); MEAN CORPUSCULAR HGB CONC 32.6 g/dl (33.0-37.0); MEAN PLATELET VOLUME 9.2 fl (9.6-12.3); MONO # 0.6 10*3/uL (0.1-1.0); NEUT # 4.8 10*3/uL (2.3-7.9); PLATELET COUNT AUTOMATED 317 10*3/uL (130-400); RED BLOOD COUNT 4.92 10*6/uL (4.10-5.10); RED CELL DISTRI WIDTH 12.7 % (0-14.5)
[2020-01-12 14:55] LABS: ALKALINE PHOSPHATASE 74 U/L (45-117); BUN 10 mg/dl (7-24); CHLORIDE 107 mmol/L (98-107); CHOLESTEROL 207 mg/dL (<200); CREATININE 0.67 mg/dL (0.55-1.02); FREE T4 1.41 ng/dl (0.76-1.46); HDL CHOLESTEROL 88 mg/dl (40-60); LDL CHOLESTEROL 98 mg/dL (9-159); POTASSIUM 3.7 mmol/L (3.5-5.1); SGOT/AST 12 IU/L (3-35); SGPT/ALT 20 U/L (12-78); SODIUM 142 mmol/L (136-145); TOTAL PROTEIN 7.8 gm/dL (6.4-8.2); TRIGLYCERIDES 106 mg/dl (<150); VLDL CHOLESTEROL 21 mg/dL (6-40)
[2020-01-12 14:59] LABS: THYROID STIM HORMONE (HS) 0.201 uIU/ml (0.358-4.75)
[2020-01-12 15:46] LABS: VITAMIN D, 25-HYDROXY 32.1 ng/mL (30-100)
== END | disposition home or self-care (01) ==
LOC: LAB 14:03
PROVIDERS: ATTEND Internal Medicine
DX: K21.0 Gastro-esophageal reflux disease with esophagitis (principal); R70.0 Elevated erythrocyte sedimentation rate; R79.82 Elevated C-reactive protein (CRP); D52.9 Folate deficiency anemia, unspecified; D51.9 Vitamin B12 deficiency anemia, unspecified; E55.9 Vitamin D deficiency, unspecified; M81.0 Age-related osteoporosis without current pathological fracture; J43.2 Centrilobular emphysema; I10 Essential (primary) hypertension; N39.0 Urinary tract infection, site not specified

== ENCOUNTER → 2020-03-19 | Outpatient (CLI) | payer BC ==
[~2020-03-19] MED LIST changes: +CEPHALEXIN500 M1 PO; +IMITREX50 MG PO
== END | disposition home or self-care (01) ==
LOC: CP 11:51
PROVIDERS: ATTEND Internal Medicine Critical Care Medicine
DX: J44.9 Chronic obstructive pulmonary disease, unspecified (principal)

== ENCOUNTER 2020-04-04 21:06 | Emergency (ER) | payer BC ==
[~2020-04-04] VITALS: Wt 49.4 kg
[~2020-04-04 21:06] MED LIST changes: -CEPHALEXIN500 M1 PO; -IMITREX50 MG PO
[2020-04-04 21:15] VITALS: BP 146/86
[2020-04-04 22:19] LABS: BASO % 0.5 % (0.0-1.0); EOS # 0.1 10*3/uL (0.0-0.4); EOS % 1.2 % (1.0-4.0); HEMATOCRIT 41.1 % (37.0-47.0); LYMPH # 2.4 10*3/uL (1.3-4.4); LYMPH % 29.2 % (27.0-41.0); MEAN CELL VOLUME 87.3 fl (81.0-99.0); MEAN CORPUSCULAR HGB 28.7 pg (27.0-31.0); MEAN CORPUSCULAR HGB CONC 32.8 g/dl (33.0-37.0); MEAN PLATELET VOLUME 9.3 fl (9.6-12.3); MONO # 0.7 10*3/uL (0.1-1.0); NEUT % 60.9 % (47.0-73.0); PLATELET COUNT AUTOMATED 275 10*3/uL (130-400); RED BLOOD COUNT 4.71 10*6/uL (4.10-5.10); RED CELL DISTRI WIDTH 12.5 % (0-14.5); WHITE BLOOD COUNT 8.2 10*3/uL (4.8-10.8)
[2020-04-04 22:42] LABS: ALBUMIN 3.6 gm/dl (3.1-4.5); ALKALINE PHOSPHATASE 72 U/L (45-117); BUN 12 mg/dl (7-24); CHLORIDE 107 mmol/L (98-107); CREATININE 0.66 mg/dL (0.55-1.02); LIPASE 145 U/L (73-393); POTASSIUM 3.9 mmol/L (3.5-5.1); SGOT/AST 15 IU/L (3-35); SGPT/ALT 21 U/L (12-78); SODIUM 140 mmol/L (136-145)
[2020-04-04 22:44] LABS: TROPONIN I < 0.015 ng/ml (<0.045)
[2020-04-05 00:20] LABS: BILIRUBIN Negative (Negative); BLOOD Negative (Negative); CLARITY Clear (Clear); COLOR Yellow (Yellow); GLUCOSE Negative (Negative); KETONE Negative (Negative); LEUKO ESTERASE 1+ (Negative); NITRITE Negative (Negative); UROBILINOGEN 0.2 E.U./dl (0.0-1.0)
[2020-04-05 00:35] LABS: RBC 0-2 rbc/hpf (0-2)
[2020-04-05 00:36] LABS: BACTERIA TRACE; EPITHELIAL CELLS 0-2
[2020-04-05] MEDS ORDERED: CEPHALEXIN500 M1 PO (01:26)
== END 2020-04-05 02:01 | disposition home or self-care (01) ==
LOC: ED 21:06
PROVIDERS: Internal Medicine
DX: N39.0 Urinary tract infection, site not specified (principal); Z88.8 Allergy status to other drugs, medicaments and biological substances; Z79.899 Other long term (current) drug therapy

== ENCOUNTER 2020-05-20 10:46 | Emergency (ER) | payer BC ==
[~2020-05-20] VITALS: Ht 154.9 cm; Wt 49.9 kg
[~2020-05-20 10:46] MED LIST changes: +CEPHALEXIN500 M1 PO
[2020-05-20] MEDS ORDERED: IMITREX50 MG PO (13:19)
== END 2020-05-20 13:32 | disposition home or self-care (01) ==
LOC: ED 10:46
DX: G43.909 Migraine, unspecified, not intractable, without status migrainosus (principal); R11.10 Vomiting, unspecified; I10 Essential (primary) hypertension; J44.9 Chronic obstructive pulmonary disease, unspecified; Z88.8 Allergy status to other drugs, medicaments and biological substances; Z79.2 Long term (current) use of antibiotics; Z79.899 Other long term (current) drug therapy; Z90.49 Acquired absence of other specified parts of digestive tract; Z90.711 Acquired absence of uterus with remaining cervical stump; Z98.890 Other specified postprocedural states; Z87.891 Personal history of nicotine dependence

== ENCOUNTER 2020-08-31 13:13 | Emergency (ER) | payer BC ==
[~2020-08-31 13:13] MED LIST changes: +IMITREX50 MG PO
[2020-08-31 13:36] LABS: BASO % 0.2 % (0.0-1.0); HEMATOCRIT 44.5 % (37.0-47.0); LYMPH # 1.6 10*3/uL (1.3-4.4); LYMPH % 12.5 % (27.0-41.0); MEAN CELL VOLUME 85.1 fl (81.0-99.0); MEAN CORPUSCULAR HGB 28.5 pg (27.0-31.0); MEAN CORPUSCULAR HGB CONC 33.5 g/dl (33.0-37.0); MONO # 0.6 10*3/uL (0.1-1.0); MONO % 4.7 % (3.0-9.0); NEUT # 10.2 10*3/uL (2.3-7.9); NEUT % 82.1 % (47.0-73.0); PLATELET COUNT AUTOMATED 334 10*3/uL (130-400); RED BLOOD COUNT 5.23 10*6/uL (4.10-5.10); RED CELL DISTRI WIDTH 12.4 % (0-14.5); WHITE BLOOD COUNT 12.4 10*3/uL (4.8-10.8)
[2020-08-31 13:47] LABS: ACT PARTIAL THROMBO TIME 25.3 SECONDS (20.0-32.1); INTERNATIONAL NORM RATIO 0.9 (2.0-3.5)
[2020-08-31 13:55] LABS: ALBUMIN 3.7 gm/dl (3.1-4.5); ALKALINE PHOSPHATASE 75 U/L (45-117); BUN 9 mg/dl (7-24); CHLORIDE 107 mmol/L (98-107); CREATININE 0.76 mg/dL (0.55-1.02); SGOT/AST 15 IU/L (3-35); SGPT/ALT 19 U/L (12-78); SODIUM 141 mmol/L (136-145); TOTAL PROTEIN 7.7 gm/dL (6.4-8.2)
[2020-08-31 13:59] LABS: TROPONIN I < 0.015 ng/ml (<0.045)
[2020-08-31] MEDS ORDERED: BREO ELLIPTA 21 EACH INH (14:46)
[2020-08-31] MEDS ORDERED: INCRUSE ELLI62.5 MCG INH (14:47)
[2020-08-31] MEDS ORDERED: ALENDRONATE SOD35 M1 PO (14:49)
[2020-08-31 15:48] VITALS: BP 136/74
[2020-08-31] MEDS ORDERED: CARAFATE1 G1 PO (17:11)
== END 2020-08-31 17:42 | disposition home or self-care (01) ==
LOC: ED 13:13
PROVIDERS: Emergency Medicine
DX: K30 Functional dyspepsia (principal); J44.9 Chronic obstructive pulmonary disease, unspecified; G43.909 Migraine, unspecified, not intractable, without status migrainosus; Z98.890 Other specified postprocedural states; Z90.49 Acquired absence of other specified parts of digestive tract; Z90.710 Acquired absence of both cervix and uterus; Z79.899 Other long term (current) drug therapy; Z88.8 Allergy status to other drugs, medicaments and biological substances

== ENCOUNTER 2021-05-31 15:44 | Emergency (ER) | payer BC ==
[~2021-05-31 15:44] MED LIST changes: +ALENDRONATE SOD35 M1 PO; +BREO ELLIPTA 21 EACH INH; +CARAFATE1 G1 PO; +INCRUSE ELLI62.5 MCG INH
[2021-05-31 16:10] VITALS: BP 147/75
[2021-05-31] MEDS ORDERED: HYDROCODONE-AC1 EAC1 PO (17:49)
== END 2021-05-31 17:58 | disposition home or self-care (01) ==
LOC: ED 15:44
DX: S93.401A Sprain of unspecified ligament of right ankle, initial encounter (principal); Z88.8 Allergy status to other drugs, medicaments and biological substances; Z79.899 Other long term (current) drug therapy; Z90.49 Acquired absence of other specified parts of digestive tract; Z90.710 Acquired absence of both cervix and uterus; Z87.891 Personal history of nicotine dependence; X58.XXXA Exposure to other specified factors, initial encounter; Y93.89 Activity, other specified; Y92.89 Other specified places as the place of occurrence of the external cause; Y99.8 Other external cause status

== ENCOUNTER → 2021-08-13 | Outpatient (CLI) | payer SELFPAY ==
[~2021-08-13] MED LIST changes: +HYDROCODONE-AC1 EAC1 PO
== END | disposition home or self-care (01) ==
LOC: CARD 11:04 → LAB 11:04
PROVIDERS: ATTEND Internal Medicine Critical Care Medicine
DX: I51.7 Cardiomegaly (principal); R94.31 Abnormal electrocardiogram [ECG] [EKG]; J98.8 Other specified respiratory disorders; Z94.2 Lung transplant status

== ENCOUNTER 2021-11-20 14:12 | Emergency (ER) | payer MEDICARE ==
[~2021-11-20] VITALS: Wt 43.1 kg
[2021-11-20 15:37] LABS: HEMATOCRIT 31.8 % (37.0-47.0); MEAN CELL VOLUME 98.8 fl (81.0-99.0); MEAN CORPUSCULAR HGB CONC 32.4 g/dl (33.0-37.0); MEAN PLATELET VOLUME 9.7 fl (9.6-12.3); PLATELET COUNT AUTOMATED 226 10*3/uL (130-400); RED BLOOD COUNT 3.22 10*6/uL (4.10-5.10); RED CELL DISTRI WIDTH 15.1 % (0-14.5); WHITE BLOOD COUNT 9.6 10*3/uL (4.8-10.8)
[2021-11-20 15:50] LABS: ACT PARTIAL THROMBO TIME 25.5 SECONDS (20.0-32.1); INTERNATIONAL NORM RATIO 0.9 (2.0-3.5)
[2021-11-20 15:53] LABS: CREATININE 1.44 mg/dL (0.55-1.02); TOTAL PROTEIN 6.7 gm/dL (6.4-8.2)
[2021-11-20 16:04] LABS: MANUAL DIFF REFLEX YES
[2021-11-20 16:31] LABS: PLATELET SUFFICIENCY NORMAL (NORMAL); TOTAL CELLS COUNTED 100 #CELLS
[2021-11-20 16:32] LABS: OVALOCYTES FEW; TARGET CELLS FEW
[2021-11-20 20:03] VITALS: BP 131/67
== END 2021-11-20 20:40 | disposition home or self-care (01) ==
LOC: ED 14:12
PROVIDERS: Emergency Medicine
DX: J06.9 Acute upper respiratory infection, unspecified (principal); Z20.822 Contact with and (suspected) exposure to COVID-19; N17.9 Acute kidney failure, unspecified; D64.9 Anemia, unspecified; E87.1 Hypo-osmolality and hyponatremia; Z79.899 Other long term (current) drug therapy; Z88.8 Allergy status to other drugs, medicaments and biological substances; Z98.890 Other specified postprocedural states; Z90.710 Acquired absence of both cervix and uterus; Z90.49 Acquired absence of other specified parts of digestive tract; Z87.891 Personal history of nicotine dependence

== ENCOUNTER → 2021-11-21 | Outpatient (CLI) | payer MEDICARE | END | disposition home or self-care (01) | LOC: LAB 15:06 | PROVIDERS: ATTEND Registered Nurse | DX: T86.819 Unspecified complication of lung transplant (principal); B25.9 Cytomegaloviral disease, unspecified; Z79.899 Other long term (current) drug therapy; Z79.52 Long term (current) use of systemic steroids; Z79.4 Long term (current) use of insulin; Z94.2 Lung transplant status ==

== ENCOUNTER 2022-05-02 15:40 | Emergency (ER) | payer MEDICARE ==
[~2022-05-02] VITALS: Wt 49.4 kg
[2022-05-02 15:48] VITALS: BP 137/78
[2022-05-02 16:34] LABS: HEMATOCRIT 30.4 % (37.0-47.0); MEAN CORPUSCULAR HGB 34.9 pg (27.0-31.0); MEAN CORPUSCULAR HGB CONC 34.5 g/dl (33.0-37.0); MEAN PLATELET VOLUME 8.6 fl (9.6-12.3); PLATELET COUNT AUTOMATED 181 10*3/uL (130-400); RED BLOOD COUNT 3.01 10*6/uL (4.10-5.10); RED CELL DISTRI WIDTH 13.6 % (0-14.5)
[2022-05-02 16:41] LABS: MANUAL DIFF REFLEX YES
[2022-05-02] MEDS ORDERED: TACROLIMUS1 M1 PO (16:47)
[2022-05-02] MEDS ORDERED: TACROLIMUS0.5 M1 PO (16:47)
[2022-05-02] MEDS ORDERED: ROSUVASTATIN CA10 MG PO (16:47)
[2022-05-02] MEDS ORDERED: VALACYCLOVIR500 M1 PO (16:48)
[2022-05-02] MEDS ORDERED: PANTOPRAZOLE SO40 MG PO (16:48)
[2022-05-02] MEDS ORDERED: MYCOPHENOLATE500 MG PO (16:49)
[2022-05-02] MEDS ORDERED: PREDNISONE5 MG PO (16:50)
[2022-05-02] MEDS ORDERED: PREDNISONE20 M1 PO (16:50)
[2022-05-02] MEDS ORDERED: NEURONTIN300 MG PO (16:51)
[2022-05-02] MEDS ORDERED: NOXAFIL PO (16:52)
[2022-05-02] MEDS ORDERED: MAGNESIUM400 M1 PO (16:53)
[2022-05-02] MEDS ORDERED: REGLAN5 MG PO (16:53)
[2022-05-02 16:54] LABS: CREATININE 1.18 mg/dL (0.55-1.02); TOTAL PROTEIN 6.1 gm/dL (6.0-8.0)
[2022-05-02] MEDS ORDERED: IRON325 M1 PO (16:54)
[2022-05-02] MEDS ORDERED: CALCIUM CIT PO (16:55)
[2022-05-02] MEDS ORDERED: ASPIRIN ADULT L81 M1 PO (16:55)
[2022-05-02] MEDS ORDERED: NATURE'S BLEND F1 MG PO (16:56)
[2022-05-02] MEDS ORDERED: NOVOLOG FL100 UNIT/2 SQ (16:56)
[2022-05-02 17:27] LABS: TOTAL CELLS COUNTED 100 #CELLS
[2022-05-02 17:28] LABS: PLATELET SUFFICIENCY NORMAL (NORMAL)
[2022-05-02 17:37] LABS: BILIRUBIN Negative (Negative); BLOOD Negative (Negative); CLARITY Clear (Clear); COLOR Yellow (Yellow); GLUCOSE Negative (Negative); KETONE 1+ (Negative); LEUKO ESTERASE Negative (Negative); NITRITE Negative (Negative); UROBILINOGEN 0.2 E.U./dl (0.0-1.0)
[2022-05-02 17:59] LABS: WBC 0-2 wbc/hpf (0-5)
[2022-05-02 18:00] LABS: RBC 0-2 rbc/hpf (0-2)
[2022-05-02] MEDS ORDERED: ONDANSETRON HYDR4 M1 PO (18:10)
[2022-05-03] MEDS ORDERED: BACTRIM 400-801 EACH PO (11:50)
[2022-05-03] MEDS ORDERED: MULTI-VITAMIN1 EACH PO (11:58)
== END 2022-05-02 18:19 | disposition home or self-care (01) ==
LOC: ED 15:40
PROVIDERS: Student in an Organized Health Care Education/Training Program
DX: U07.1 COVID-19 (principal); Z88.8 Allergy status to other drugs, medicaments and biological substances; Z79.899 Other long term (current) drug therapy; Z79.82 Long term (current) use of aspirin; Z90.49 Acquired absence of other specified parts of digestive tract; Z90.710 Acquired absence of both cervix and uterus; Z87.891 Personal history of nicotine dependence

== ENCOUNTER 2022-06-24 09:14 | Emergency (ER) | payer MEDICARE ==
[~2022-06-24] VITALS: Ht 152.4 cm; Wt 51.8 kg
[~2022-06-24 09:14] MED LIST changes: +ASPIRIN ADULT L81 M1 PO; +BACTRIM 400-801 EACH PO; +CALCIUM CIT PO; +IRON325 M1 PO; +MAGNESIUM400 M1 PO; +MULTI-VITAMIN1 EACH PO; +MYCOPHENOLATE500 MG PO; +NATURE'S BLEND F1 MG PO; +NEURONTIN300 MG PO; +NOVOLOG FL100 UNIT/2 SQ; +NOXAFIL PO; +ONDANSETRON HYDR4 M1 PO; +PANTOPRAZOLE SO40 MG PO; +PREDNISONE20 M1 PO; +REGLAN5 MG PO; +ROSUVASTATIN CA10 MG PO; +TACROLIMUS0.5 M1 PO; +TACROLIMUS1 M1 PO; +VALACYCLOVIR500 M1 PO
[2022-06-24 09:17] VITALS: BP 111/62
[2022-06-24 09:47] LABS: HEMATOCRIT 36.5 % (37.0-47.0); MEAN CELL VOLUME 102.8 fl (81.0-99.0); MEAN CORPUSCULAR HGB 35.2 pg (27.0-31.0); MEAN CORPUSCULAR HGB CONC 34.2 g/dl (33.0-37.0); MEAN PLATELET VOLUME 9.1 fl (9.6-12.3); PLATELET COUNT AUTOMATED 189 10*3/uL (130-400); RED BLOOD COUNT 3.55 10*6/uL (4.10-5.10); RED CELL DISTRI WIDTH 14.2 % (0-14.5); WHITE BLOOD COUNT 3.5 10*3/uL (4.8-10.8)
[2022-06-24 09:49] LABS: MANUAL DIFF REFLEX YES
[2022-06-24 10:04] LABS: POTASSIUM 3.6 mmol/L (3.4-5.1); TOTAL PROTEIN 6.3 gm/dL (6.0-8.0)
[2022-06-24 10:08] LABS: OVALOCYTES FEW; POLYCHROMASIA SLIGHT; TOTAL CELLS COUNTED 100 #CELLS
[2022-06-24 10:09] LABS: DOHLE BODIES FEW; PLATELET SUFFICIENCY NORMAL (NORMAL); TOXIC GRANULATION SLIGHT
== END 2022-06-24 15:18 | disposition short-term general hospital (02) ==
LOC: ED 09:14
PROVIDERS: Emergency Medicine
DX: K52.9 Noninfective gastroenteritis and colitis, unspecified (principal); Z79.899 Other long term (current) drug therapy; Z79.82 Long term (current) use of aspirin; Z98.890 Other specified postprocedural states; Z90.710 Acquired absence of both cervix and uterus; Z90.49 Acquired absence of other specified parts of digestive tract; Z87.891 Personal history of nicotine dependence

== ENCOUNTER 2022-11-22 18:34 | Emergency (ER) | payer MEDICARE ==
[~2022-11-22] VITALS: Ht 152.4 cm; Wt 49.9 kg
[2022-11-22 18:40] VITALS: BP 172/71
[2022-11-22 19:30] LABS: HEMATOCRIT 34.3 % (37.0-47.0); MEAN CELL VOLUME 106.9 fl (81.0-99.0); MEAN CORPUSCULAR HGB 36.4 pg (27.0-31.0); MEAN CORPUSCULAR HGB CONC 34.1 g/dl (33.0-37.0); MEAN PLATELET VOLUME 9.2 fl (9.6-12.3); PLATELET COUNT AUTOMATED 190 10*3/uL (130-400); RED BLOOD COUNT 3.21 10*6/uL (4.10-5.10); RED CELL DISTRI WIDTH 12.3 % (0-14.5); WHITE BLOOD COUNT 4.8 10*3/uL (4.8-10.8)
[2022-11-22 19:32] LABS: MANUAL DIFF REFLEX YES
[2022-11-22 19:43] LABS: ACT PARTIAL THROMBO TIME 26.7 SECONDS (20.0-32.1)
[2022-11-22 19:50] LABS: ALKALINE PHOSPHATASE 37 U/L (46-116); BUN 17 mg/dl (9-23); CHLORIDE 104 mmol/L (98-107); LIPASE 44 U/L (12-53); POTASSIUM 3.7 mmol/L (3.4-5.1); SGPT/ALT 13 U/L (10-49); TOTAL PROTEIN 6.4 gm/dL (6.0-8.0)
[2022-11-22 19:52] LABS: BASOPHILS 1 % (0-1); PLATELET SUFFICIENCY NORMAL (NORMAL); TOTAL CELLS COUNTED 100 #CELLS
[2022-11-22 21:20] LABS: BILIRUBIN Negative (Negative); BLOOD Negative (Negative); CLARITY Clear (Clear); COLOR Yellow (Yellow); GLUCOSE Negative (Negative); KETONE Trace (Negative); LEUKO ESTERASE Negative (Negative); NITRITE Negative (Negative); PH 6.5 (4.5-8.0); UROBILINOGEN 0.2 E.U./dl (0.0-1.0)
[2022-11-22 21:29] LABS: MUCOUS TRACE; WBC 0-2 wbc/hpf (0-5)
[2022-11-26 18:07] LABS: BK QUANTITATION PCR Negative (Negative)
== END 2022-11-22 22:56 | disposition home or self-care (01) ==
LOC: ED 18:34
PROVIDERS: Internal Medicine
DX: K52.9 Noninfective gastroenteritis and colitis, unspecified (principal); D64.9 Anemia, unspecified; I12.9 Hypertensive chronic kidney disease with stage 1 through stage 4 chronic kidney disease, or unspecified chronic kidney disease; N18.32 Chronic kidney disease, stage 3b; R51.9 Headache, unspecified; J44.9 Chronic obstructive pulmonary disease, unspecified; Z88.8 Allergy status to other drugs, medicaments and biological substances; Z90.49 Acquired absence of other specified parts of digestive tract; Z90.710 Acquired absence of both cervix and uterus; Z98.890 Other specified postprocedural states; Z87.891 Personal history of nicotine dependence

== ENCOUNTER → 2022-12-01 | Outpatient (CLI) | payer MEDICARE ==
[2022-12-01 09:14] LABS: POTASSIUM 4.1 mmol/L (3.4-5.1)
== END | disposition home or self-care (01) ==
LOC: RAD 08:03
PROVIDERS: ATTEND Internal Medicine
DX: M81.0 Age-related osteoporosis without current pathological fracture (principal); F41.1 Generalized anxiety disorder; J44.1 Chronic obstructive pulmonary disease with (acute) exacerbation; E11.9 Type 2 diabetes mellitus without complications; I10 Essential (primary) hypertension

== ENCOUNTER 2023-02-24 10:07 | Emergency (ER) | payer MEDICARE ==
[~2023-02-24] VITALS: Ht 152.4 cm; Wt 48.1 kg
[2023-02-24 10:13] VITALS: BP 194/72
[2023-02-24 10:56] LABS: HEMATOCRIT 37.1 % (37.0-47.0); MEAN CELL VOLUME 104.5 fl (81.0-99.0); MEAN CORPUSCULAR HGB 36.3 pg (27.0-31.0); MEAN CORPUSCULAR HGB CONC 34.8 g/dl (33.0-37.0); MEAN PLATELET VOLUME 9.4 fl (9.6-12.3); PLATELET COUNT AUTOMATED 236 10*3/uL (130-400); RED BLOOD COUNT 3.55 10*6/uL (4.10-5.10); WHITE BLOOD COUNT 7.2 10*3/uL (4.8-10.8)
[2023-02-24 10:57] LABS: MANUAL DIFF REFLEX YES
[2023-02-24 11:06] LABS: ACT PARTIAL THROMBO TIME 25.8 SECONDS (20.0-32.1)
[2023-02-24 11:19] LABS: ALKALINE PHOSPHATASE 45 U/L (46-116); BUN 23 mg/dl (9-23); CHLORIDE 103 mmol/L (98-107); LIPASE 46 U/L (12-53); POTASSIUM 3.9 mmol/L (3.4-5.1); SGPT/ALT 13 U/L (10-49); TOTAL PROTEIN 6.7 gm/dL (6.0-8.0)
[2023-02-24 11:34] LABS: TOTAL CELLS COUNTED 100 #CELLS
[2023-02-24 11:35] LABS: PLATELET SUFFICIENCY NORMAL (NORMAL); POLYCHROMASIA SLIGHT; TOXIC GRANULATION SLIGHT
[2023-02-24] MEDS ORDERED: HYDROCODONE-AC1 EAC1 PO (17:34)
[2023-02-24] MEDS ORDERED: PHENERGAN25 M3 PO (17:34)
== END 2023-02-24 17:40 | disposition home or self-care (01) ==
LOC: ED 10:07
PROVIDERS: Emergency Medicine
DX: R11.2 Nausea with vomiting, unspecified (principal); R51.9 Headache, unspecified; I10 Essential (primary) hypertension; J44.9 Chronic obstructive pulmonary disease, unspecified; Z88.8 Allergy status to other drugs, medicaments and biological substances; Z90.49 Acquired absence of other specified parts of digestive tract; Z90.710 Acquired absence of both cervix and uterus; Z98.890 Other specified postprocedural states; Z87.891 Personal history of nicotine dependence

== ENCOUNTER → 2023-03-25 | Outpatient (CLI) | payer MEDICARE ==
[~2023-03-25] MED LIST changes: +PHENERGAN25 M3 PO
== END | disposition home or self-care (01) ==
LOC: MAMMO 07:09
PROVIDERS: ATTEND Internal Medicine
DX: Z12.31 Encounter for screening mammogram for malignant neoplasm of breast (principal)

== ENCOUNTER → 2023-06-30 | Outpatient (CLI) | payer MEDICARE | END | disposition home or self-care (01) | LOC: US 12:27 | PROVIDERS: ATTEND Internal Medicine Nephrology | DX: N28.1 Cyst of kidney, acquired (principal); N18.4 Chronic kidney disease, stage 4 (severe); N13.30 Unspecified hydronephrosis ==

== ENCOUNTER 2024-01-03 18:50 | Emergency (ER) | payer MEDICARE ==
[~2024-01-03] VITALS: Ht 152.4 cm; Wt 56.2 kg
[2024-01-03 19:39] LABS: BILIRUBIN Negative (Negative); BLOOD 1+ (Negative); CLARITY Clear (Clear); COLOR Yellow (Yellow); GLUCOSE Negative (Negative); KETONE Trace (Negative); LEUKO ESTERASE 2+ (Negative); NITRITE Negative (Negative); SPECIFIC GRAVITY 1.015 (1.001-1.030); UROBILINOGEN 0.2 E.U./dl (0.0-1.0)
[2024-01-03 19:40] LABS: HEMATOCRIT 36.4 % (37.0-47.0); MEAN CELL VOLUME 95.5 fl (81.0-99.0); MEAN CORPUSCULAR HGB 31.2 pg (27.0-31.0); MEAN CORPUSCULAR HGB CONC 32.7 g/dl (33.0-37.0); MEAN PLATELET VOLUME 9.7 fl (9.6-12.3); PLATELET COUNT AUTOMATED 218 10*3/uL (130-400); RED BLOOD COUNT 3.81 10*6/uL (4.10-5.10); RED CELL DISTRI WIDTH 13.6 % (0-14.5); WHITE BLOOD COUNT 9.1 10*3/uL (4.8-10.8)
[2024-01-03 19:41] LABS: MANUAL DIFF REFLEX YES
[2024-01-03 19:57] LABS: ACT PARTIAL THROMBO TIME 23.6 SECONDS (20.0-32.1)
[2024-01-03 19:59] LABS: POTASSIUM 4.3 mmol/L (3.4-5.1); TOTAL PROTEIN 6.3 gm/dL (6.0-8.0)
[2024-01-03 20:21] LABS: TOTAL CELLS COUNTED 100 #CELLS
[2024-01-03 20:22] LABS: PLATELET SUFFICIENCY NORMAL (NORMAL)
[2024-01-03 20:33] LABS: WBC 31-40 wbc/hpf (0-5)
[2024-01-03 20:34] LABS: BACTERIA 2+
[2024-01-03 20:41] VITALS: BP 133/68
[2024-01-03] MEDS ORDERED: Ciprofloxacin Hydrochloride 500 MG TAB PO ONE (22:00)
[2024-01-03] MEDS ORDERED: SEPTDS PO (22:04)
[2024-01-03] MEDS ORDERED: Sulfamethoxazole/Trimethopri 1 TAB TAB PO ONE (22:05)
== END 2024-01-03 22:18 | disposition home or self-care (01) ==
LOC: ED 18:50
PROVIDERS: Internal Medicine
DX: N39.0 Urinary tract infection, site not specified (principal); R06.02 Shortness of breath; R00.1 Bradycardia, unspecified; I10 Essential (primary) hypertension; J44.9 Chronic obstructive pulmonary disease, unspecified; Z88.8 Allergy status to other drugs, medicaments and biological substances; Z90.49 Acquired absence of other specified parts of digestive tract; Z90.710 Acquired absence of both cervix and uterus; Z98.890 Other specified postprocedural states; Z87.891 Personal history of nicotine dependence

== ENCOUNTER → 2024-02-11 | Outpatient (CLI) | payer MEDICARE ==
[2024-02-11 16:16] LABS: BASO % 0.2 % (0.0-1.0); EOS % 0.2 % (1.0-4.0); LYMPH # 1.2 10*3/uL (1.3-4.4); LYMPH % 14.5 % (27.0-41.0); MEAN CELL VOLUME 95.7 fl (81.0-99.0); MEAN CORPUSCULAR HGB 30.7 pg (27.0-31.0); MEAN CORPUSCULAR HGB CONC 32.1 g/dl (33.0-37.0); MEAN PLATELET VOLUME 10.2 fl (9.6-12.3); MONO # 0.6 10*3/uL (0.1-1.0); NEUT # 6.6 10*3/uL (2.3-7.9); NEUT % 77.6 % (47.0-73.0); PLATELET COUNT AUTOMATED 244 10*3/uL (130-400); RED BLOOD COUNT 3.97 10*6/uL (4.10-5.10); RED CELL DISTRI WIDTH 12.6 % (0-14.5); WHITE BLOOD COUNT 8.5 10*3/uL (4.8-10.8)
[2024-02-11 16:37] LABS: POTASSIUM 4.4 mmol/L (3.4-5.1); TOTAL PROTEIN 6.4 gm/dL (6.0-8.0)
[2024-02-11 17:08] LABS: VITAMIN D, 25-HYDROXY 34.4 ng/mL (30-100)
== END | disposition home or self-care (01) ==
LOC: LAB 15:42
PROVIDERS: ATTEND Internal Medicine
DX: I10 Essential (primary) hypertension (principal); R00.2 Palpitations; E11.9 Type 2 diabetes mellitus without complications; R00.1 Bradycardia, unspecified; R53.83 Other fatigue; R53.81 Other malaise; N18.31 Chronic kidney disease, stage 3a

== ENCOUNTER 2024-03-29 20:06 | Emergency (ER) | payer MEDICARE ==
[~2024-03-29] VITALS: Ht 152.4 cm; Wt 53.5 kg
[2024-03-29 20:41] LABS: BASO % 0.2 % (0.0-1.0); EOS % 0.2 % (1.0-4.0); HEMATOCRIT 41.2 % (37.0-47.0); MEAN CORPUSCULAR HGB CONC 32.3 g/dl (33.0-37.0); MEAN PLATELET VOLUME 9.6 fl (9.6-12.3); MONO # 0.9 10*3/uL (0.1-1.0); MONO % 8.7 % (3.0-9.0); NEUT # 7.2 10*3/uL (2.3-7.9); NEUT % 73.8 % (47.0-73.0); PLATELET COUNT AUTOMATED 275 10*3/uL (130-400); RED BLOOD COUNT 4.43 10*6/uL (4.10-5.10); RED CELL DISTRI WIDTH 11.9 % (0-14.5); WHITE BLOOD COUNT 9.7 10*3/uL (4.8-10.8)
[2024-03-29 20:58] LABS: ACT PARTIAL THROMBO TIME 26.1 SECONDS (20.0-32.1)
[2024-03-29 21:00] LABS: POTASSIUM 4.2 mmol/L (3.4-5.1); TOTAL PROTEIN 7.4 gm/dL (6.0-8.0)
[2024-03-30] MEDS ORDERED: SEPTDS PO (08:35)
[2024-03-30] MEDS ORDERED: Ceftriaxone Sodium 10 ML IV SCH (09:00)
[2024-03-30] MEDS ORDERED: GUAIFENESIN 600 MG TAB ER PO SCH (10:00)
[2024-03-30] MEDS ORDERED: AZITHROMYCIN 250 ML IV SCH (10:00)
[2024-03-30] MEDS ORDERED: Enoxaparin Sodium 40 MG/0.4 ML SYR SC SCH (10:00)
[2024-03-30] MEDS ORDERED: FERROUS SULFATE 325 MG TAB PO SCH (14:30)
[2024-03-30] MEDS ORDERED: DEXTROSE 10 % IN WATER 250 ML IV PRN (14:35)
[2024-03-30] MEDS ORDERED: FOLIC ACID 1 MG TAB PO SCH (14:35)
[2024-03-30] MEDS ORDERED: ASPIRIN, CHEWABLE 81 MG TAB PO SCH (14:35)
[2024-03-30] MEDS ORDERED: TACROLIMUS1 M1 PO (15:25)
[2024-03-30] MEDS ORDERED: PREDNISONE5 MG PO (15:28)
[2024-03-30] MEDS ORDERED: DILTIAZEM HCL180 M1 PO (15:29)
[2024-03-30] MEDS ORDERED: OYSTER SHELL 51 EAC5 PO (15:32)
[2024-03-30 15:33] VITALS: BP 149/73
[2024-03-30] MEDS ORDERED: MAGNESIUM OXID400 MG PO (15:33)
[2024-03-30] MEDS ORDERED: NEURONTIN300 MG PO (15:35)
[2024-03-30] MEDS ORDERED: AMLODIPINE BES2.5 MG PO (15:38)
[2024-03-30] MEDS ORDERED: METOCLOPRAMIDE H5 M1 PO (15:39)
[2024-03-30] MEDS ORDERED: NURTEC ODT75 MG PO (15:39)
[2024-03-30] MEDS ORDERED: Mycophenolate Mofetil 250 MG CAP PO SCH (16:00)
[2024-03-30] MEDS ORDERED: INSULIN LISPRO 1 UNIT/0.01 ML SQ SCH (16:30)
[2024-03-30] MEDS ORDERED: predniSONE 5 MG TAB PO SCH (18:00)
[2024-03-30] MEDS ORDERED: Tacrolimus 1 MG CAP PO SCH (18:00)
[2024-03-30] MEDS ORDERED: Valacyclovir Hydrochloride 500 MG CAP PO SCH (18:00)
[2024-03-30] MEDS ORDERED: GABAPENTIN 300 MG CAP PO SCH (22:00)
[2024-04-01] MEDS ORDERED: Sulfamethoxazole/Trimethopri 1 TAB TAB PO SCH (10:00)
[2024-04-01] MEDS ORDERED: FERROUS SULFATE 325 MG TAB PO SCH (10:00)
== END 2024-03-30 16:59 | disposition short-term general hospital (02) ==
LOC: ED 20:06
PROVIDERS: Internal Medicine
DX: R07.89 Other chest pain (principal); R00.8 Other abnormalities of heart beat; I10 Essential (primary) hypertension; J44.9 Chronic obstructive pulmonary disease, unspecified; Z88.8 Allergy status to other drugs, medicaments and biological substances; Z90.49 Acquired absence of other specified parts of digestive tract; Z90.710 Acquired absence of both cervix and uterus; Z98.890 Other specified postprocedural states; Z87.891 Personal history of nicotine dependence

== ENCOUNTER → 2024-07-21 | Outpatient (CLI) | payer MEDICARE ==
[~2024-07-21] MED LIST changes: +AMLODIPINE BES2.5 MG PO; +DILTIAZEM HCL180 M1 PO; +MAGNESIUM OXID400 MG PO; +METOCLOPRAMIDE H5 M1 PO; +NURTEC ODT75 MG PO; +OYSTER SHELL 51 EAC5 PO
[2024-07-21 08:36] LABS: BASO % 0.1 % (0.0-1.0); EOS % 0.4 % (1.0-4.0); HEMATOCRIT 36.9 % (37.0-47.0); MEAN CELL VOLUME 89.3 fl (81.0-99.0); MEAN CORPUSCULAR HGB 29.8 pg (27.0-31.0); MEAN CORPUSCULAR HGB CONC 33.3 g/dl (33.0-37.0); MEAN PLATELET VOLUME 8.9 fl (9.6-12.3); MONO # 0.7 10*3/uL (0.1-1.0); NEUT # 4.2 10*3/uL (2.3-7.9); NEUT % 61.3 % (47.0-73.0); PLATELET COUNT AUTOMATED 264 10*3/uL (130-400); RED BLOOD COUNT 4.13 10*6/uL (4.10-5.10); RED CELL DISTRI WIDTH 12.2 % (0-14.5); WHITE BLOOD COUNT 6.8 10*3/uL (4.8-10.8)
[2024-07-21 09:18] LABS: FREE T4 1.75 ng/dl (0.89-1.76); POTASSIUM 3.6 mmol/L (3.4-5.1); TOTAL PROTEIN 6.4 gm/dL (6.0-8.0)
[2024-07-21 10:05] LABS: VITAMIN D, 25-HYDROXY 47.6 ng/mL (30-100)
== END | disposition home or self-care (01) ==
LOC: LAB 08:22
PROVIDERS: ATTEND Internal Medicine
DX: I10 Essential (primary) hypertension (principal); E78.2 Mixed hyperlipidemia; E11.9 Type 2 diabetes mellitus without complications; R53.83 Other fatigue; E53.9 Vitamin B deficiency, unspecified; E55.9 Vitamin D deficiency, unspecified

== ENCOUNTER 2024-08-02 11:56 | Emergency (ER) | payer MEDICARE ==
[~2024-08-02] VITALS: Ht 152.4 cm; Wt 56.5 kg
[2024-08-02] MEDS ORDERED: Lopressor25 MG PO (12:11)
[2024-08-02] MEDS ORDERED: SODIUM CHLORIDE 0.9% 500 ML IV ONE (12:40)
[2024-08-02] MEDS ORDERED: Ondansetron Hydrochloride 4 MG/2 ML VIAL IV ONE (12:40)
[2024-08-02 12:51] LABS: BASO % 0.1 % (0.0-1.0); EOS % 0.5 % (1.0-4.0); HEMATOCRIT 37.3 % (37.0-47.0); MEAN CELL VOLUME 91.4 fl (81.0-99.0); MEAN CORPUSCULAR HGB 29.4 pg (27.0-31.0); MEAN CORPUSCULAR HGB CONC 32.2 g/dl (33.0-37.0); MEAN PLATELET VOLUME 9.3 fl (9.6-12.3); MONO # 0.4 10*3/uL (0.1-1.0); MONO % 5.2 % (3.0-9.0); NEUT # 6.1 10*3/uL (2.3-7.9); NEUT % 82.9 % (47.0-73.0); PLATELET COUNT AUTOMATED 276 10*3/uL (130-400); RED BLOOD COUNT 4.08 10*6/uL (4.10-5.10); WHITE BLOOD COUNT 7.3 10*3/uL (4.8-10.8)
[2024-08-02] MEDS ORDERED: IOHEXOL 300 MG/ML 100 ML VIAL IV ONE (13:10)
[2024-08-02 13:26] LABS: POTASSIUM 4.7 mmol/L (3.4-5.1); TOTAL PROTEIN 6.5 gm/dL (6.0-8.0)
[2024-08-02] MEDS ORDERED: FAMOTIDINE 50 ML IV ONE (15:10)
[2024-08-02] MEDS ORDERED: Acetaminophen/Oxycodone 5 MG/325 MG TABLET PO ONE (15:15)
[2024-08-02] MEDS ORDERED: PEPCID AC10 M2 PO (15:19)
[2024-08-02 16:05] VITALS: BP 142/81
== END 2024-08-02 16:04 | disposition home or self-care (01) ==
LOC: ED 11:56
PROVIDERS: Internal Medicine
DX: K29.70 Gastritis, unspecified, without bleeding (principal); I10 Essential (primary) hypertension; J45.909 Unspecified asthma, uncomplicated; J44.9 Chronic obstructive pulmonary disease, unspecified; Z79.899 Other long term (current) drug therapy; Z88.8 Allergy status to other drugs, medicaments and biological substances; Z90.49 Acquired absence of other specified parts of digestive tract; Z90.710 Acquired absence of both cervix and uterus; Z90.89 Acquired absence of other organs; Z98.890 Other specified postprocedural states

== ENCOUNTER → 2024-09-29 | Outpatient (CLI) | payer MEDICARE ==
[~2024-09-29] MED LIST changes: +Lopressor25 MG PO; +PEPCID AC10 M2 PO
== END | disposition home or self-care (01) ==
LOC: MAMMO 09:10
PROVIDERS: ATTEND Internal Medicine
DX: Z12.31 Encounter for screening mammogram for malignant neoplasm of breast (principal); R92.323 Mammographic fibroglandular density, bilateral breasts

== ENCOUNTER → 2025-01-06 | Outpatient (CLI) | payer MEDICARE | END | disposition home or self-care (01) | LOC: RAD 09:08 | PROVIDERS: ATTEND Internal Medicine | DX: M81.0 Age-related osteoporosis without current pathological fracture (principal) ==